=== PATIENT | female | born 1955 | race Caucasian/White ===

== ENCOUNTER 2020-05-13 03:11 | Emergency (ER) | payer MEDICARE, SELFPAY ==
[2020-05-13 03:24] VITALS: BP 107/85; PULSE 81; RESP 18; TEMP 36.8; O2SAT 100
--- NOTE | 2020-05-13 03:29 | ED.EXTPRO ---
HPI - Extremity Problem General Chief complaint: Extremity Problem,Nontraumatic Stated complaint: L hip Pain Time Seen by Provider: 05/13/20 03:15 Source: patient Mode of arrival: ambulatory Limitations: no limitations History of Present Illness HPI Narrative: A 65-year-old female comes into the emergency department with complaints of left hip pain secondary to a recent hip replacement. Patient states that it feels like the area around her sabrina is burning. She also notes exquisite pain in the hip. Patient states that her surgery was just done by Dr. Silveira over at [facility] just a week or so ago. Patient does note she took her [place] just prior to arrival and states that it has helped a little. Related Data Allergies Allergy/AdvReac Type Severity Reaction Status Date / Time Penicillins Allergy Mild Rash Verified 05/13/20 03:47 Sulfa (Sulfonamide AdvReac Mild NAUSEA Verified 05/13/20 03:47 Antibiotics) Review of Systems Review of Systems: Narrative: CONSTITUTIONAL: Denies fever, chills, or sweats. EYES: Denies visual changes, redness, or discharge. ENT: Denies rhinorrhea, congestion, sore throat, or otalgia. CARDIOVASCULAR: Denies chest pain, palpitations, or edema. RESPIRATORY: Denies cough or dyspnea. GASTROINTESTINAL: Denies abdominal pain, nausea, vomiting, or diarrhea. GENITOURINARY: Denies dysuria or hematuria. SKIN: Denies rash or itching. MUSCULOSKELETAL: Denies back pain, joint pain, or myalgia. Endorses left hip pain NEUROLOGIC: Denies headache, numbness, dizziness, or weakness. PSYCHIATRIC: Denies anxiety or depression. Exam Narrative: Exam Narrative: GENERAL: Well-appearing, well-nourished, and in no acute distress. HEAD: Normocephalic, atraumatic. EYES: PERRLA and EOMI. ENT: Nares clear, no rhinorrhea or epistaxis. Mucous membranes moist. NECK: Supple. No adenopathy or masses. No carotid bruits or JVD CHEST: Clear to auscultation. No respiratory distress. No wheezes rales or rhonchi HEART: Regular rate and rhythm. No murmur heard. Normal peripheral pulses. ABDOMEN: Soft, nontender, nondistended, normal active bowel sounds. EXTREMITIES: Normal range of motion. No edema. Surgical wound seen over the left hip, erythema and warmth to the touch is seen. Sabrina appear in good position. SKIN: Warm, dry, no rash. NEURO: No focal deficits. Alert and oriented x3. PSYCH: Normal mood and affect. Course Consultations Consultation #1: Discussed case with Dr. Silveira, the patient's surgeon. Described my concern for the patient's wound and the fact that I thought it may be getting infected. Dr. Silveira stated that he was aware of this wound and as I described it was consistent with what he had seen. He states that the patient did unfortunately have a reaction to some adhesive that was used after the surgery. He notes also that the patient is already currently taking antibiotics. He states that he would have the patient follow-up in his office tomorrow or as soon as possible. Time: 04:49 Vital Signs Vital signs: Vital Signs Temperature 36.8 C 05/13/20 03:24 Pulse Rate 81 05/13/20 03:24 Respiratory Rate 18 05/13/20 03:24 Blood Pressure 107/85 05/13/20 03:24 Pulse Oximetry 100 05/13/20 03:24 Temperature 36.8 C 05/13/20 03:24 Pulse Rate 81 05/13/20 03:24 Respiratory Rate 18 05/13/20 03:24 Blood Pressure 107/85 05/13/20 03:24 Pulse Oximetry 100 05/13/20 03:24 MDM - Extremity (Nontraumatic) MDM Narrative Medical decision making narrative: A 65-year-old female presents to the emergency department with complaints of postoperative pain. Patient initially presents with odd affect very anxious. She was treated for anxiety with some Ativan and pain medicine. My concern for this patient was that her surgical wound may be getting infected. There was a hyperemic area noted just to the posterior side of the patient's incision. Incision itself did appear good, no drainage no
[2020-05-13 03:54] LABS: Basophils Absolute Auto 0.1 K/mm3 (0.0-0.1); Basophils Percent Auto 0.7 % (0.2-1.2); Eosinophils Absolute Auto 0.1 K/mm3 (0-0.3); Eosinophils Percent Auto 1.4 % (0-4.4); Hematocrit 32.9 % (37.0-47.0); Hemoglobin 10.3 g/dL (12.0-15.0); Immature Granulocyte Absolute 0.46 K/mm3 (0.00-0.031); Lymphocytes Absolute Auto 1.25 K/mm3 (0.9-3.2); Lymphocytes Percent Auto 13.6 % (18.3-44.2); Mean Corpuscular HGB Conc 31.3 g/dl (32-36); Mean Corpuscular Hemoglobin 27.7 pg (26-34); Mean Corpuscular Volume 88.4 fl (80-100); Mean Platelet Volume 8.8 fl (7.4-10.4); Monocytes Absolute Auto 0.9 K/mm3 (0.1-0.6); Monocytes Percent Auto 9.9 % (2.6-8.5); Neutrophils Absolute Auto 6.4 K/mm3 (1.3-6.7); Neutrophils Percent Auto 69.4 % (45.5-73.1); Platelet Count Result 295 k/mm3 (150-375); Red Blood Count 3.72 M/mm3 (4.2-5.4); Red Cell Distribution Width 16.5 % (11.5-14.5); White Blood Count 9.2 K/mm3 (4.5-10.0)
[2020-05-13] MEDS: LORazepam INJ (*CRX) 2 MG/ML VIAL 1 MG IV PUSH (04:01)
[2020-05-13] MEDS: KETOROLAC 15 MG/ML VIAL (*BKC) IV PUSH (04:02)
[2020-05-13] MEDS: MORPHINE SULFATE (*CRX) 4 MG/ML INJ IV PUSH (04:02)
[2020-05-13] MEDS: CLINDAMYCIN HCL 150 MG CAP 450 MG PO (04:02)
[2020-05-13] MEDS: PHENAZOPYRIDINE HCL 100 MG TABLET 200 MG PO (04:03)
[2020-05-13 04:04] LABS: Anion Gap 4 mmol/L (8-16); Blood Urea Nitrogen 11 mg/dL (7-17); Calcium 8.8 mg/dL (8.4-10.2); Carbon Dioxide 31 mmol/L (22-30); Chloride 104 mmol/L (98-107); Estimated Glomerular Filt Rate > 60; Glucose 95 mg/dL (65-105); Potassium 4.1 mmol/L (3.4-5.0); Sodium 139 mmol/L (137-145)
[2020-05-13] MEDS: HYDROmorphone HCL INJ (*CRX) 1 MG/ML SYR IV PUSH (05:21)
--- NOTE | 2020-05-13 06:10 | PC.NURSE ---
lauro has arrived to take patient home to [facility]
[2020-05-13 06:15] VITALS: BP 101/54; PULSE 74; RESP 16; O2SAT 96
== END 2020-05-13 06:15 ==
PROVIDERS: Emergency Provider Emergency Medicine; PCP Internal Medicine
DX: G89.18 Other acute postprocedural pain (principal)
CPT/HCPCS: 36415; 80048; 85025; 96374; 96375; 99284; A9270; J1170; J1885; J2060; J2270

== ENCOUNTER 2020-11-18 07:44 | Outpatient (CLI) | payer MEDICARE, SELFPAY ==
--- NOTE | 2020-11-18 16:46 | WPDPFTINT ---
PFT Procedure Performed PFT Procedure Performed Spirometry with Pre/Post Bronchodilator Plethysmography (Lung Vol) Diffusing Cap (DLCO) Flow Vol Loop PFT Interpretation This is a pulmonary function test with pre and post-bronchodilator spirometry, plethysmography and diffusing capacity. The test was performed and results interpreted in accordance with the 2019 and 2005 ATS/ERS Task Force guidelines respectively using the Global Lung Function Initiative-2012 reference equations. Patient demonstrated good effort and cooperation. Reproducibility criteria were met. The quality of the pre bronchodilator spirometry maneuver was Grade A and post bronchodilator spirometry maneuver was Grade A. Findings: Spirometry: There is decreased maximal expiratory airflow at all lung volumes with concave expiratory flow tracing. The pre bronchodilator FVC is 1.84 L, 73% predicted. The pre bronchodilator FEV1 is 1.33 L, 67% predicted. The FEV1: FVC ratio 72%. The post bronchodilator FVC is 1.77 L, representing a 4% decrease. The post bronchodilator FEV1 is 1.33 L, representing no change. Plethysmography: The total lung capacity is 3.44 L, 80% predicted. The functional residual capacity is 1.85 L, 76% predicted. The residual volume is 1.60 L, 87% predicted. Diffusing capacity: The absolute diffusion capacity is 12.9, 68% predicted. The diffusing capacity corrected for alveolar volume is 4.75, 103% predicted. Impression: There is a moderate obstructive abnormality without significant improvement after inhaling a single dose of albuterol. The lung volumes are normal. The diffusing capacity is normal. There are no prior studies for comparison
== END 2020-11-18 07:45 | disposition home or self-care (01) ==
PROVIDERS: PCP Internal Medicine; Visit Provider Nurse Practitioner
DX: R06.09 Other forms of dyspnea (principal); R94.2 Abnormal results of pulmonary function studies
CPT/HCPCS: 94060; 94726; 94729

== ENCOUNTER 2022-07-07 01:45 | Day surgery (SDC) | payer MEDICARE, SELFPAY ==
[2022-05-31 11:26] VITALS: BMI 34.4
--- NOTE | 2022-06-07 15:39 | P.HP_ITS ---
History of Present Illness History of Present Illness Consent: Risks, benefits, and alternatives have been discussed and questions answered. Patient agrees to proceed with procedure. Chief complaint: neoplasm screening Narrative: Breonna Rousseau is a 67 year old female who was referred for colon cancer screening. Her last colonoscopy was about 7 years ago. PMFSH Social History Social History Smoking status: Never smoker Tobacco type: cigarettes Alcohol intake: current Substance use: never Substance use type: does not use Living arrangements: with family Spiritual care concerns: No Meds Home Medications and Allergies Home Medications Medication Instructions Recorded Confirmed Type albuterol sulfate 90 mcg/actuation 1 - 2 puff inhalation QID PRN 05/31/22 05/31/22 History aerosol inhaler Shortness Of Breath Or Wheezing atorvastatin 10 mg tablet 10 mg PO HS 05/31/22 05/31/22 History buspirone 30 mg tablet 30 mg PO BID 05/31/22 05/31/22 History diltiazem HCl 360 mg 360 mg PO HS 05/31/22 05/31/22 History capsule,extended release 24 hr disopyramide phosphate 150 mg 150 mg PO BID 05/31/22 05/31/22 History capsule duloxetine 60 mg capsule,delayed 60 mg PO BID 05/31/22 05/31/22 History release famotidine 40 mg tablet 40 mg PO HS 05/31/22 05/31/22 History fluticasone fur. 100 mcg-umeclid 1 inh inhalation DAILY 05/31/22 05/31/22 History 62.5 mcg-vilant 25 mcg inhalat.powder (Trelegy Ellipta) furosemide 40 mg tablet 40 mg PO DAILY 05/31/22 05/31/22 History gabapentin 600 mg tablet 600 mg PO TID 05/31/22 05/31/22 History hydrocodone 10 mg-acetaminophen 1 tablet PO TID PRN Pain 05/31/22 05/31/22 History 325 mg tablet methylphenidate HCl 20 mg tablet 20 mg PO BID 05/31/22 05/31/22 History metoprolol succinate 50 mg 50 mg PO HS 05/31/22 05/31/22 History tablet,extended release 24 hr omeprazole 20 mg capsule,delayed 20 mg PO DAILY 05/31/22 05/31/22 History release ropinirole 0.5 mg tablet 0.5 mg PO HS 05/31/22 05/31/22 History sertraline 100 mg tablet 100 mg PO BID 05/31/22 05/31/22 History Allergies Allergy/AdvReac Type Severity Reaction Status Date / Time Penicillins Allergy Mild Rash Verified 05/31/22 11:26 Sulfa (Sulfonamide AdvReac Mild NAUSEA Verified 05/31/22 11:26 Antibiotics) Assessment and Plan Assessment and plan (1) Colon cancer screening: Code(s): Z12.11 - Encounter for screening for malignant neoplasm of colon Status: Acute Assessment and Plan: Colonoscopy with possible biopsy or polypectomy or cautery or injection of sub stances.
--- NOTE | 2022-06-27 13:54 | PC.NURSE ---
pt denies changes in medical hx or medications since last PAT call. verified with pt new date and time of procedure. pt denies any questions.
--- NOTE | 2022-07-06 15:49 | PM.HPGS ---
History of Present Illness History of Present Illness Consent: Risks, benefits, and alternatives have been discussed and questions answered. Patient agrees to proceed with procedure. Chief complaint: neoplasm screening Narrative: Breonna Rousseau is a 67 year old female Who was referred for colon cancer screening. She has history of polyps. Review of Systems Review of Systems: All systems reviewed & are unremarkable except as noted in HPI and below PMFSH Social History Social History Smoking status: Never smoker Tobacco type: cigarettes Alcohol intake: current Substance use: never Substance use type: does not use Living arrangements: with family Spiritual care concerns: No Meds Home Medications and Allergies Home Medications Medication Instructions Recorded Confirmed Type albuterol sulfate 90 mcg/actuation 1 - 2 puff inhalation QID PRN 05/31/22 05/31/22 History aerosol inhaler Shortness Of Breath Or Wheezing atorvastatin 10 mg tablet 10 mg PO HS 05/31/22 05/31/22 History buspirone 30 mg tablet 30 mg PO BID 05/31/22 05/31/22 History diltiazem HCl 360 mg 360 mg PO HS 05/31/22 05/31/22 History capsule,extended release 24 hr disopyramide phosphate 150 mg 150 mg PO BID 05/31/22 05/31/22 History capsule duloxetine 60 mg capsule,delayed 60 mg PO BID 05/31/22 05/31/22 History release famotidine 40 mg tablet 40 mg PO HS 05/31/22 05/31/22 History fluticasone fur. 100 mcg-umeclid 1 inh inhalation DAILY 05/31/22 05/31/22 History 62.5 mcg-vilant 25 mcg inhalat.powder (Trelegy Ellipta) furosemide 40 mg tablet 40 mg PO DAILY 05/31/22 05/31/22 History gabapentin 600 mg tablet 600 mg PO TID 05/31/22 05/31/22 History hydrocodone 10 mg-acetaminophen 1 tablet PO TID PRN Pain 05/31/22 05/31/22 History 325 mg tablet methylphenidate HCl 20 mg tablet 20 mg PO BID 05/31/22 05/31/22 History metoprolol succinate 50 mg 50 mg PO HS 05/31/22 05/31/22 History tablet,extended release 24 hr omeprazole 20 mg capsule,delayed 20 mg PO DAILY 05/31/22 05/31/22 History release ropinirole 0.5 mg tablet 0.5 mg PO HS 05/31/22 05/31/22 History sertraline 100 mg tablet 100 mg PO BID 05/31/22 05/31/22 History Allergies Allergy/AdvReac Type Severity Reaction Status Date / Time Penicillins Allergy Mild Rash Verified 07/07/22 08:18 Sulfa (Sulfonamide AdvReac Mild NAUSEA Verified 07/07/22 08:18 Antibiotics) Exam Const: General: alert Orientation/consciousness: patient oriented x3 Resp: Auscultation: clear to auscultation bilaterally Cardio: Rhythm: regular rhythm GI: GI Palp: Yes Soft to palpation and No Tenderness to palpation present (GI) Neuro: General: patient oriented x3 Assessment and Plan Assessment and plan (1) Colon cancer screening: Code(s): Z12.11 - Encounter for screening for malignant neoplasm of colon Status: Acute Assessment and Plan: Colonoscopy with possible biopsy or polypectomy or cautery or injection of substances.
[2022-07-07 08:20] VITALS: BP 156/57; PULSE 72; RESP 20; TEMP 36.4; O2SAT 97
[2022-07-07] MEDS: LACTATED RINGERS 1,000 ML 150 ML IV CONT (08:30)
--- NOTE | 2022-07-07 08:52 | WPDANESEPPF ---
Anes - Initial Pre Proc Eval Procedure: Operation Date: 07/07/22 09:00 Proposed Procedures p Colonoscopy - Hermilo Newton MD Date/Time: 07/07/22 08:52 Surgeon: Hermilo Newton MD Pre Op Diagnosis: neoplasm screening Patient Data Age: 67 Gender: F Height: 1.5 m Weight: 75.9 kg Last Vital Signs Temp 97.5 F L 07/07/22 08:20 Pulse 72 07/07/22 08:20 Resp 20 07/07/22 08:20 BP 156/57 H 07/07/22 08:20 Pulse Ox 97 07/07/22 08:20 O2 Del Method Room Air 07/07/22 08:20 Allergies Allergy/AdvReac Type Severity Reaction Status Date / Time Penicillins Allergy Mild Rash Verified 07/07/22 08:18 Sulfa (Sulfonamide AdvReac Mild NAUSEA Verified 07/07/22 08:18 Antibiotics) Home Medications Medication Instructions Recorded Confirmed Type albuterol sulfate 90 mcg/actuation 1 - 2 puff inhalation QID PRN 05/31/22 05/31/22 History aerosol inhaler Shortness Of Breath Or Wheezing atorvastatin 10 mg tablet 10 mg PO HS 05/31/22 05/31/22 History buspirone 30 mg tablet 30 mg PO BID 05/31/22 05/31/22 History diltiazem HCl 360 mg 360 mg PO HS 05/31/22 05/31/22 History capsule,extended release 24 hr disopyramide phosphate 150 mg 150 mg PO BID 05/31/22 05/31/22 History capsule duloxetine 60 mg capsule,delayed 60 mg PO BID 05/31/22 05/31/22 History release famotidine 40 mg tablet 40 mg PO HS 05/31/22 05/31/22 History fluticasone fur. 100 mcg-umeclid 1 inh inhalation DAILY 05/31/22 05/31/22 History 62.5 mcg-vilant 25 mcg inhalat.powder (Trelegy Ellipta) furosemide 40 mg tablet 40 mg PO DAILY 05/31/22 05/31/22 History gabapentin 600 mg tablet 600 mg PO TID 05/31/22 05/31/22 History hydrocodone 10 mg-acetaminophen 1 tablet PO TID PRN Pain 05/31/22 05/31/22 History 325 mg tablet methylphenidate HCl 20 mg tablet 20 mg PO BID 05/31/22 05/31/22 History metoprolol succinate 50 mg 50 mg PO HS 05/31/22 05/31/22 History tablet,extended release 24 hr omeprazole 20 mg capsule,delayed 20 mg PO DAILY 05/31/22 05/31/22 History release ropinirole 0.5 mg tablet 0.5 mg PO HS 05/31/22 05/31/22 History sertraline 100 mg tablet 100 mg PO BID 05/31/22 05/31/22 History Patient hx anesthesia problems: none Family hx anesthesia problems: none Results Review: All pre-operative results and documents have been reviewed as part of the pre-operative evaluation. [facility] Social History Social History Smoking status: Never smoker Tobacco type: cigarettes Alcohol intake: current Substance use: never Substance use type: does not use Living arrangements: with family Spiritual care concerns: No Anes - Eval Final PreProcedure Day of Procedure 07/07/22 08:52 Patient weight: obese Heart: regular rate and rhythm Lungs: clear to auscultation Airway: Mallampati scale class III Neurological: alert and oriented Last oral intake: >/= 8 hours ASA classification: III Emergent: no Anesthetic plan: proceed Anesthesia type and monitoring: general GIVS and standard monitoring Results Review: All pre-operative results and documents have been reviewed as part of the pre-operative evaluation. Informed Consent: The patient's anesthetic plan and its attendant risks and benefits were discussed with the patient/family/POA. Questions were solicited and answers provided to the satisfaction of the patient/family/POA.
[2022-07-07 09:38] VITALS: BP 99/75; PULSE 77; RESP 21; O2SAT 94
[2022-07-07 09:48] VITALS: BP 109/63; PULSE 75; RESP 22; O2SAT 96
[2022-07-07 09:58] VITALS: BP 111/58; PULSE 73; RESP 22; O2SAT 95
== END 2022-07-07 10:08 | disposition home or self-care (01) ==
PROVIDERS: PCP Internal Medicine; Visit Provider Internal Medicine Gastroenterology
PROC: 0DJD8ZZ Inspection of Lower Intestinal Tract, Via Natural or Artificial Opening Endoscopic (ICD-10-PCS; CPT 45378; principal; 2022-07-07 09:00)
DX: Z12.11 Encounter for screening for malignant neoplasm of colon (principal); D12.3 Benign neoplasm of transverse colon; D12.4 Benign neoplasm of descending colon; Z79.51 Long term (current) use of inhaled steroids; E66.9 Obesity, unspecified; Z68.33 Body mass index [BMI] 33.0-33.9, adult
CPT/HCPCS: 45380; 45385; 45381; 88305; J2704; J3370; J7120

== ENCOUNTER 2022-10-11 17:18 | Observation (INO) | payer MEDICARE, SELFPAY ==
--- NOTE | ~2022-10-11 | XR_ITS ---
AP and lateral views of the left hip Clinical history: Pain Findings: No acute fracture or dislocation is seen. Left hip arthroplasty is in place. There is heter otopic ossification lateral to the left hip. Impression: No definite acute abnormality seen. Left hip arthroplasty in place. Heterotopic ossification, likely chronic. Reviewed, dictated and finalized at [facility]. Impression: No definite acute abnormality seen. Left hip arthroplasty in place. Heterotopic ossification, likely chronic.
--- NOTE | ~2022-10-11 | XR_ITS ---
EXAMINATION: XR chest 2V 10/11/2022 17:47 INDICATION: Chest pain. Syncope. PROCEDURE: PA and lateral views of the chest COMPARISON: No prior studies for comparison. FINDINGS: The lungs are clear. The cardiomediastinal silhouette is within normal limits. There are no pleural effusions. There is no pneumothorax suspected. There are spinal stimulator leads overlyi ng the mid thoracic spine. IMPRESSION: 1: NO ACUTE CARDIOPULMONARY DISEASE. Reviewed, dictated and finalized at location A.
--- NOTE | ~2022-10-11 | XR_ITS ---
Left Knee Technique: AP, lateral, and oblique views were obtained. Clinical History: Pain Findings: No fracture or dislocation is seen. Osseous alignment is anatomic. Joint spaces are preserv ed without degenerative or erosive change. Soft tissues are unremarkable. No joint effusion is seen. Impression: Unremarkable left knee radiographs. Reviewed, dictated and finalized at location . Impression: Unremarkable left knee radiographs.
--- NOTE | ~2022-10-11 | US_ITS ---
EXAMINATION: US carotid duplex BI DATE: 10/12/2022 15:47 INDICATION: Syncope. Carotid atherosclerosis. TECHNIQUE: Grayscale, color Doppler, and pulsed Doppler images of the cervical carotid arteries were obtained. The degree of vessel stenosis is placed in one of the following categories: normal, <50%, 5 0-69%, >=70% but less than near-occlusion, near-occlusion, or total occlusion. Note that percent sten osis relative to normal distal artery lumen diameter is indirectly measured from velocity measurement s as described by Waqar, et al. Radiology 2003; 229:340-346. COMPARISON: None. FINDINGS: RIGHT: The right common carotid artery (CCA) peak systolic velocity (PSV) is 79 cm/s. The right internal car otid artery (ICA) PSV is 56 cm/s. The right ICA end-diastolic velocity (EDV) is 17 cm/s. The right IC A/CCA PSV ratio is 0.7. Grayscale and color Doppler images yield an estimate of <50% diameter reducti on from plaque in the ICA. The external carotid artery (ECA) PSV is 85 cm/s. There is antegrade flow in the right vertebral artery. LEFT: The left CCA PSV is 107 cm/s. The left ICA PSV is 54 cm/s. The left ICA EDV is 16 cm/s. The left ICA/ CCA PSV ratio is 0.5. Grayscale and color Doppler images yield an estimate of <50% diameter reduction from plaque in the ICA. The ECA PSV is 78 cm/s. There is antegrade flow in the left vertebral artery . IMPRESSION: 1. <50% stenosis in the right internal carotid artery. 2. <50% stenosis in the left internal carotid artery. Reviewed, dictated and finalized at location A.
--- NOTE | ~2022-10-11 | CT_ITS ---
EXAMINATION: CT cervical spine wo con DATE: 10/11/2022 18:19 INDICATION: Neck pain TECHNIQUE: Computed tomography (CT) of the cervical spine was performed without intravenous contrast. The dose-length product was 481 mGy-cm. Automated exposure control and iterative reconstruction tech nique were employed. COMPARISON: No prior studies for comparison. FINDINGS: Craniovertebral junction is normal. Odontoid process is normal. There is degenerative anter olisthesis at C3-4 and retrolisthesis at C4-5 and C5-6. There is disc narrowing at C4-5 and C5-6. The re is moderate multilevel uncinate hypertrophy. There is a small sclerotic lesion of C4, likely benig n bone island. Lung apices are unremarkable. No acute fracture or traumatic malalignment. No signific ant paraspinal soft tissue abnormality. IMPRESSION: 1. No acute fracture. Reviewed, dictated and finalized at location A. IMPRESSION: 1. No acute fracture.
--- NOTE | ~2022-10-11 | CT_ITS ---
EXAMINATION: CT brain wo con DATE: 10/11/2022 18:18 INDICATION: Head injury. TECHNIQUE: Computed tomography (CT) of the head was performed without intravenous contrast. The dose- length product was 605.33 mGy-cm. Automated exposure control and iterative reconstruction technique w ere employed. COMPARISON: None FINDINGS: No acute intracranial hemorrhage, infarction, mass or mass effect. No ventriculomegaly or m idline shift. There are scattered mild periventricular and subcortical white matter changes, most lik malick related to small vessel ischemic disease (microangiopathy). Mild generalized atrophy. There are d ural calcifications along the interhemispheric fissure. There is intracranial atherosclerosis. Parana sg sinuses demonstrate mucosal thickening of the maxillary, ethmoid sinuses, likely chronic. IMPRESSION: 1. No acute intracranial abnormality. 2: Moderate sinus disease, likely chronic. Reviewed, dictated and finalized at location A.
--- NOTE | ~2022-10-11 | CT_ITS ---
EXAMINATION: CTA chest PE protocol DATE: 10/11/2022 19:18 CDT INDICATION: Syncope. Chest pain. TECHNIQUE: Computed tomographic angiography (CTA) of the chest was performed with 100 mL Omnipaque-35 0 intravenous contrast. The dose-length product was 359.40 mGy-cm. Maximum intensity projection 3D-re constructions of the aorta and other arteries were constructed by the technologist on a separate work station. Automated exposure control and iterative reconstruction technique were employed. COMPARISON: Chest x-ray dated 10/11/2022. FINDINGS: There is central enlargement of the pulmonary arteries consistent with pulmonary hypertensi on. No evidence for pulmonary embolism. Cardiomegaly. No significant pleural or pericardial effusion. Mild atherosclerosis of the aorta and coronary arteries. The upper abdomen is unremarkable. There is dependent atelectasis. No endobronchial lesions. No focal airspace consolidation. No pulmonary nodul es or masses. IMPRESSION: 1. No acute cardiopulmonary disease. No evidence for pulmonary embolism. 2: Pulmonary arterial hypertension. 3: Cardiomegaly. Reviewed, dictated and finalized at location A.
--- NOTE | ~2022-10-11 | CT_ITS ---
EXAMINATION: CT thoracic spine wo con DATE: 10/11/2022 18:23 INDICATION: Back pain TECHNIQUE: Computed tomography (CT) of the thoracic spine was performed without intravenous contrast. The dose-length product was 892.05 mGy-cm. Automated exposure control and iterative reconstruction t echnique were employed. COMPARISON: None FINDINGS: There is mild-moderate multilevel degenerative disc disease. There are spinal stimulator le ads extending superiorly to the T7-8 level. There is mild chronic wedge compression deformities of T7 and T8. No acute fracture or traumatic malalignment. Transverse processes are normal. Visualized magan g parenchyma is unremarkable. IMPRESSION: 1. No acute abnormality of the thoracic spine. Reviewed, dictated and finalized at location A.
--- NOTE | 2022-10-11 17:20 | ECG_ITS ---
Measurements Intervals [place] Rate: 74 P: 13 FL: 248 QRS: 15 QRSD: 88 T: 20 QT: 401 QTc: 446 Interpretive Statements SINUS RHYTHM WITH FIRST DEGREE AV BLOCK EARLY PRECORDIAL R/S TRANSITION CONSIDER INFERIOR INFARCT, AGE INDETERMINATE BASELINE ARTIFACT- I, II, AVR, AVF ABNORMAL ECG NO PREVIOUS ECG AVAILABLE FOR COMPARISON Electronically Signed On 10-12-2022 6:57:04 CDT by Pierre Mcnair D.O.
[2022-10-11 17:28] VITALS: BP 121/55; PULSE 74; RESP 20; TEMP 36.9; O2SAT 98
[2022-10-11 17:53] LABS: Basophils Percent Auto 0.5 % (0.2-1.2); Eosinophils Absolute Auto 0.2 K/mm3 (0-0.3); Eosinophils Percent Auto 2.2 % (0-4.4); Hematocrit 30.8 % (37.0-47.0); Hemoglobin 8.9 g/dL (12.0-15.0); Immature Granulocyte Absolute 0.06 K/mm3 (0.00-0.031); Immature Granulocyte Percent A 0.7 % (0-0.5); Lymphocytes Absolute Auto 1.86 K/mm3 (0.9-3.2); Lymphocytes Percent Auto 21.6 % (18.3-44.2); Mean Corpuscular HGB Conc 28.9 g/dl (32-36); Mean Corpuscular Hemoglobin 27.5 pg (26-34); Mean Corpuscular Volume 95.1 fl (80-100); Mean Platelet Volume 9.5 fl (7.4-10.4); Monocytes Percent Auto 11.4 % (2.6-8.5); Neutrophils Absolute Auto 5.5 K/mm3 (1.3-6.7); Neutrophils Percent Auto 63.6 % (45.5-73.1); Platelet Count Result 217 k/mm3 (150-375); Red Blood Count 3.24 M/mm3 (4.2-5.4); Red Cell Distribution Width 14.8 % (11.5-14.5); White Blood Count 8.6 K/mm3 (4.5-10.0)
[2022-10-11 18:04] LABS: Partial Thromboplastin Time 22.3 SECONDS (22.3-36.8); Prothrombin Time 13.8 Seconds (11.1-14.7)
--- NOTE | 2022-10-11 18:07 | ED.CHESTPAIN ---
HPI - Chest Pain General Chief Complaint: Chest Pain Stated Complaint: cp, syncopal episodes Time Seen by Provider: 10/11/22 17:38 History of Present Illness HPI narrative: 67-year-old female with history of cardiomyopathy presented the emergency department for evaluation after having multiple syncopal episodes. Patient reports she has had left-sided chest pain for the last 2 weeks. Patient states she has had 4 syncopal episodes over the last day or so. Patient did strike her head. Patient complains of neck and back pain. Patient also has bruises of multiple stages on her chest back and legs. Related Data Home Medications Medication Instructions Recorded Confirmed albuterol sulfate 90 mcg/actuation 1 - 2 puff inhalation QID PRN 05/31/22 10/11/22 aerosol inhaler Shortness Of Breath Or Wheezing atorvastatin 10 mg tablet 10 mg PO HS 05/31/22 10/11/22 buspirone 30 mg tablet 30 mg PO BID 05/31/22 10/11/22 diltiazem HCl 360 mg 360 mg PO HS 05/31/22 10/11/22 capsule,extended release 24 hr disopyramide phosphate 150 mg 150 mg PO BID 05/31/22 10/11/22 capsule duloxetine 60 mg capsule,delayed 60 mg PO BID 05/31/22 10/11/22 release famotidine 40 mg tablet 40 mg PO HS 05/31/22 10/11/22 fluticasone fur. 100 mcg-umeclid 1 inh inhalation DAILY 05/31/22 10/11/22 62.5 mcg-vilant 25 mcg inhalat.powder (Trelegy Ellipta) furosemide 40 mg tablet 40 mg PO DAILY 05/31/22 10/11/22 gabapentin 600 mg tablet 600 mg PO TID 05/31/22 10/11/22 hydrocodone 10 mg-acetaminophen 1 tablet PO TID PRN Pain 05/31/22 10/11/22 325 mg tablet methylphenidate HCl 20 mg tablet 20 mg PO BID 05/31/22 10/11/22 metoprolol succinate 50 mg 50 mg PO HS 05/31/22 10/11/22 tablet,extended release 24 hr omeprazole 20 mg capsule,delayed 20 mg PO DAILY 05/31/22 10/11/22 release ropinirole 0.5 mg tablet 0.5 mg PO HS 05/31/22 10/11/22 sertraline 100 mg tablet 100 mg PO BID 05/31/22 10/11/22 Allergies Allergy/AdvReac Type Severity Reaction Status Date / Time Penicillins Allergy Mild Rash Verified 07/07/22 08:18 Sulfa (Sulfonamide AdvReac Mild NAUSEA Verified 07/07/22 08:18 Antibiotics) Review of Systems Review of Systems: All systems reviewed & are unremarkable except as noted in HPI and below PMFSH Social History Social History Smoking status: Never smoker Tobacco type: cigarettes Alcohol intake: former Substance use: never Substance use type: does not use Lack of Transportation: No Lack of Food: Never True Current Housing: I Have Housing Concerned About Future Housing: No Difficulty Paying Gas/Electric Bills: No Difficulty Paying for Meds: No Currently Unemployed: No Education: Decline to Answer Difficulty w/ Childcare or Family Care: No Living arrangements: with family Spiritual care concerns: No Exam Narrative: APPEARANCE: Well appearing, no pain, no distress, well-nourished. HEAD: normocephalic, atraumatic. EYES: PERRLA/EOMI, conjunctivae clear. NOSE: Normal no drainage EARS:TMS clear with good light reflex. THROAT: Pharynx clear, no exudate. NECK: Midline tenderness to palpation RESPIRATORY: Airway patent, respirations nonlabored. Clear to auscultation bilaterally, no rales, rhonchi, wheezing. CARDIOVASCULAR: Regular rate and rhythm without murmurs rubs or gallops. ABDOMINAL: Soft, nontender, nondistended, normal bowel sounds MUSCULOSKELETAL: Moves all extremities. Strength/ROM intact, No edema, No calf tenderness. NEURO: Alert. Cranial nerves II through XII intact. Good gait. Good coordination SKIN: Ecchymosis to left back legs and chest wall Course Course Emergency Course: 67-year-old female presented to the emergency department for evaluation after having chest pain and multiple syncopal episodes. Patient was afebrile with no leukocytosis but a stable hemoglobin of 8.9. Patient does have history of anemia and this is similar to her bas
[2022-10-11 18:31] LABS: Platelet Estimate Adequate (Adequate)
[2022-10-11 18:32] LABS: Anisocytosis 1+ (NORMAL); Basophilic Stippling 1+ (NORMAL); Hypochromasia 1+ (NORMAL); Schistocytes None Seen (NORMAL)
[2022-10-11 18:45] LABS: Alanine Aminotransferase 27 U/L (6-35); Albumin Level 4.3 g/dL (3.5-5.1); Alkaline Phosphatase 105 U/L (38-126); Anion Gap 11 mmol/L (8-16); Aspartate Amino Transferase 29 U/L (14-36); Bilirubin,Total 0.5 mg/dL (0.2-1.3); Blood Urea Nitrogen 22 mg/dL (7-17); Calcium 9.1 mg/dL (8.4-10.2); Carbon Dioxide 27 mmol/L (22-30); Chloride 102 mmol/L (98-107); Estimated Glomerular Filt Rate 45; Glucose 108 mg/dL (65-110); Lipase 116 U/L (23-300); Potassium 4.4 mmol/L (3.4-5.0); Sodium 140 mmol/L (137-145)
[2022-10-11 18:51] LABS: Troponin I < 0.012 ng/mL (0.000-0.034)
--- NOTE | 2022-10-11 19:12 | PM.IMHP ---
H&P: HPI History of Present Illness Date/Time: 10/11/22 19:15 Chief Complaint: Chest pain, syncope. Narrative: This is a pleasant 67-year-old female with reports of hypertrophic cardiomyopathy, restless leg syndrome, hypertension, chronic obstructive pulmonary disease hyperlipidemia, and GERD who presented to the emergency department for evaluation of chest pain and syncope. The patient provides the following history. She reports intermittent left-sided chest pain over the past 2 weeks. The pain does not radiate and she sees no pattern as to when it occurs. She has difficulties describing the pain and she has not noticed any significant aggravating or alleviating factors. It is self-limiting and does not last long enough for her to take analgesics. She also reports having several falls over the past 2 weeks and 4 syncopal episodes in the same time frame. At times it sounds as though she has a prodrome where she feels weak in the legs but she has had 2 brief episodes of loss of consciousness without warning. Luckily she did not sustain any significant injuries but she does complain of pain in her left knee and hip. She has bruising in multiple stages of healing on her chest, back, and extremities. She was previously evaluated for these complaints at [facility] last Monday however she left due to the weight. On her patient portal she noted that her EKG showed a new finding of first-degree AV block and she decided to come back in today for evaluation. [facility] Past Medical History Medical History (Updated 10/11/22 @ 22:57 by Radha Marlow PA-C) Chronic anemia Chronic obstructive pulmonary disease History of MRSA infection Hyperlipidemia Hypertension Hypertrophic obstructive cardiomyopathy Neurostimulator device in situ Obstructive sleep apnea Intolerant to CPAP. 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 History of bladder suspension procedure History of colonoscopy with polypectomy History of hysterectomy History of nasal septoplasty History of sinus surgery History of spinal surgery Family History Family History (Updated 10/11/22 @ 22:54 by Radha Marlow PA-C) Other Cancer Social History Social History (Updated 10/11/22 @ 22:56 by Radha Marlow PA-C) Social History: Surrogate medical decision maker: Lincoln Rousseau, spouse. Code status: Full code. Smoking status: Never smoker Alcohol intake: former Substance use: never Substance use type: does not use Lack of Transportation: No Lack of Food: Never True Current Housing: I Have Housing Concerned About Future Housing: No Difficulty Paying Gas/Electric Bills: No Difficulty Paying for Meds: No Currently Unemployed: No Education: Decline to Answer Difficulty w/ Childcare or Family Care: No Living arrangements: with family Additional living arrangements comments: Lives with spouse in [place]. Spiritual care concerns: No Meds Home Medications and Allergies Home Medications Medication Instructions Recorded Confirmed Type albuterol sulfate 90 mcg/actuation 1 - 2 puff inhalation QID PRN 05/31/22 10/11/22 History aerosol inhaler Shortness Of Breath Or Wheezing atorvastatin 10 mg tablet 10 mg PO HS 05/31/22 10/11/22 History buspirone 30 mg tablet 30 mg PO BID 05/31/22 10/11/22 History diltiazem HCl 360 mg 360 mg PO HS 05/31/22 10/11/22 History capsule,extended release 24 hr disopyramide phosphate 150 mg 150 mg PO BID 05/31/22 10/11/22 History capsule duloxetine 60 mg capsule,delayed 60 mg PO BID 05/31/22 10/11/22 History release famotidine 40 mg tablet 40 mg PO HS 05/31/22 10/11/22 History fluticasone fur. 100 mcg-umeclid 1 inh inhalatio
[2022-10-11 19:45] VITALS: PULSE 75; RESP 12; O2SAT 94
--- NOTE | 2022-10-11 20:01 | ADMGEN ---
This patient, Breonna Rousseau, was admitted to IMU Room 205-02. Patient/family oriented to hospital policies and general routines including ID bracelet, bed and alarms, visiting hours, pain management, procedures, bathroom and other care routines, personal items, smoking policy, room service/diet, and visiting hours. Information on how to activate the Rapid Response Team has been discussed. Patient/Family are encouraged to report perceived risks to care and to ask questions if they do not understand what they are told or what they should do.
[2022-10-11 20:13] VITALS: PULSE 78; RESP 20; O2SAT 92
[2022-10-11 20:23] VITALS: BP 134/63; PULSE 73; RESP 18; TEMP 36.3; O2SAT 97
[2022-10-11 22:00] VITALS: PULSE 77
[2022-10-12] VITALS (17 sets, daily range): BP systolic 96–134; BP diastolic 43–69; PULSE 69–96; RESP 18–20; TEMP 36.1–36.6; O2SAT 92–98
[2022-10-12] MEDS: rOPINIRole HCL 0.5 MG TABLET PO ×2 (00:39→20:49)
[2022-10-12] MEDS: HYDROcodone/acetaminophen (*CRX) 10-325 MG TABLET 1 TAB PO ×3 (00:40→20:53)
[2022-10-12] MEDS: FAMOTIDINE 20 MG TABLET 40 MG PO ×2 (00:40→20:48)
[2022-10-12] MEDS: ATORVASTATIN 10 MG TABLET PO ×2 (00:40→20:48)
[2022-10-12 01:18] LABS: Troponin I < 0.012 ng/mL (0.000-0.034)
[2022-10-12 04:54] LABS: Hematocrit 29.2 % (37.0-47.0); Hemoglobin 8.4 g/dL (12.0-15.0); Mean Corpuscular HGB Conc 28.8 g/dl (32-36); Mean Corpuscular Volume 93.9 fl (80-100); Mean Platelet Volume 9.2 fl (7.4-10.4); Platelet Count Result 178 k/mm3 (150-375); Red Blood Count 3.11 M/mm3 (4.2-5.4); Red Cell Distribution Width 14.8 % (11.5-14.5); White Blood Count 6.6 K/mm3 (4.5-10.0)
[2022-10-12 05:05] LABS: Anion Gap 9 mmol/L (8-16); Blood Urea Nitrogen 19 mg/dL (7-17); Calcium 8.6 mg/dL (8.4-10.2); Carbon Dioxide 26 mmol/L (22-30); Chloride 101 mmol/L (98-107); Estimated Glomerular Filt Rate > 60; Glucose 89 mg/dL (65-110); Magnesium 2.1 mg/dL (1.6-2.3); Potassium 4.3 mmol/L (3.4-5.0); Sodium 136 mmol/L (137-145)
--- NOTE | 2022-10-12 08:00 | ECHO_ITS ---
Patient Info Name: Breonna Rousseau Age: 67 years : 1955 Gender: Female Ht: 59 in Wt: 167 lbs BSA: 1.81 m2 HR: 81 bpm BP: 122 / 52 mmHg Heart Rhythm: Sinus Rhythm Technical Quality: Good Exam Date: 10/12/2022 9:09 AM Exam Location: [facility] Patient Status: Inpatient Admit Date: 10/11/2022 Staff Ordering Physician: Radha Marlow PA-C Bottom Finisher: Zenobia Moyer RDCS Attending Provider: Charlie Villagomez MD Referring Physician: Ele MKCEON; Exam Type: CA echo doppler color flow Study Info Indications - syncope/chest pain/hypertropic cardiomyopathy Complete two-dimensional, color flow and Doppler transthoracic echocardiogram is performed. Summary 1. Left ventricular chamber dimension is normal. 2. Left ventricular systolic function is hyperdynamic, estimated at 75-80. 3. There is moderate concentric left ventricular hypertrophy with sigmoid hypertrophy measured at 2.3 cm. Dynamic left ventricular outflow tract gradient consistent with hypertrophic cardiomyopathy. At rest, just below the aortic valve peak velocity 3.7 m/sec peak gradient 55 mmHg and with Valsalva increased to 5.9 m/sec and peak gradient of 139mmHg. Clinical correlation advised.. 4. The left ventricular diastolic function is grade I diastolic dysfunction. 5. There is no aortic valve stenosis. Left Ventricle Left ventricular chamber dimension is normal. Left ventricular systolic function is hyperdynamic, estimated at 75-80. There is moderate concentric left ventricular hypertrophy with sigmoid hypertrophy measured at 2.3 cm. Dynamic left ventricular outflow tract gradient consistent with hypertrophic cardiomyopathy. At rest, just below the aortic valve peak velocity 3.7 m/sec peak gradient 55 mmHg and with Valsalva increased to 5.9 m/sec and peak gradient of 139mmHg. Clinical correlation advised.. The left ventricular diastolic function is grade I diastolic dysfunction. Right Ventricle Right ventricular chamber dimension is normal. Right ventricular systolic function is normal. Left Atria Left atrial chamber dimension is mildly enlarged. Right Atria Right atrial chamber dimension is normal. Aortic Valve The aortic valve is probable trileaflet. There is mild aortic valve sclerosis. There is no aortic valve stenosis. There is no aortic valve regurgitation. Pulmonic Valve The pulmonic valve is not well visualized. Mitral Valve The mitral valve has normal leaflets. There is trace mitral valve regurgitation. The mitral valve annulus is mildly calcified. Tricuspid Valve The tricuspid valve leaflets are normal. There is mild tricuspid valve regurgitation. No pulmonary hypertension, estimated pulmonary arterial systolic pressure is 30 mmHg. Pericardium/Pleural The pericardium appears normal. There is small pericardial effusion. Inferior Vena Cava Normal inferior vena cava with >50% collapse upon inspiration consistent with normal right atrial pressure, 5 mmHg. Aorta The aortic root size at the sinus of Valsalva is normal. There is mild aortic atherosclerosis. Left Ventricular Outflow Tract Name Value Normal LVOT 2D LVOT Diameter 1.7 cm LVOT Doppler LVOT Peak Gradient 31 mmHg
[2022-10-12] MEDS: FLUTICASONE/UMECLIDIN/VILANTER 100-62.5-25 MCG ELLIPTA 1 PUFF INHALATION (08:16)
[2022-10-12] MEDS: SERTRALINE HCL 50 MG TABLET 100 MG PO ×2 (08:58→20:50)
[2022-10-12] MEDS: PANTOPRAZOLE 40 MG TABLET PO (08:58)
--- NOTE | 2022-10-12 09:34 | PM.CNCAR ---
Assessment and Plan Assessment and plan (1) Hypertrophic obstructive cardiomyopathy: Code(s): I42.1 - Obstructive hypertrophic cardiomyopathy Status: Acute Assessment and Plan: Patient has a documented history of hypertrophic cardiomyopathy per her private marine surveyor Dr. Villagomez. Previous reported resting outflow tract gradient 100 mm Hg and with Valsalva 180 mm Hg. Echo at bedside this admission 55 mm Hg resting LVOT gradient and with Valsalva proximally 5.9m/s and 139 mmHg peak gradient. Avoid intravascular volume depletion, excessive hypotension, tachycardia. SVT will exacerbate intracavitary gradient increased risk for syncope and injury which may be catastrophic particular associated head injury. Ambulate with extreme caution. Rise slowly from seated position. Lower extremity compression stockings. Patient has been nearly maximized on AV duglas blocking agents including reports of disopyramide as an outpatient but with highly concerning progression of exertional dyspnea, chest pain and frequent recurrent episodes of near-syncope and syncope. We discussed the above concerns at great length with the patient, her , Dr. Villagomez, and her electrophysiology partner Dr. Guzman and potential need for ICD implantation for prevention of sudden cardiac . We discussed increased risk for sudden cardiac in light of syncope if related to ventricular arrhythmias but also contributions from outflow tract gradient, dehydration, medications as well. Patient reports exertional dyspnea and chest pain which may be related to relative myocardial strain due to outflow tract gradient and [place] with activity as she has documented normal coronary anatomy on [facility] 2020. She has also ruled out for myocardial infarction with negative serial troponins. (2) Recurrent syncope: Code(s): R55 - Syncope and collapse Status: Acute Assessment and Plan: Presentation with recurrent near-syncope and syncope very dangerous in highly concerning in light of established diagnosis of hypertrophic cardiomyopathy is at risk for sudden cardiac as cause. At as above, we discussed is all a great length. We discussed various management options in the importance of trying to discern more likely explanation for her symptoms and events this hospitalization. We discussed options including external teletypesetter monitor upon discharge if ventricular arrhythmias cannot be established as contribution, no other reversible cause could be noted, implantation of a loop recorder for longer term definitive monitoring for arrhythmia contribution, and or transfer to outside facility with electrophysiology consultative services and anticipation for ICD implantation. We discussed the importance a new onset establishing primary cause as we would not want to implant an ICD if hydration resolves majority of her symptoms by reducing left ventricular outflow tract gradient severity. -orthostatic vital signs are as follows: supine 131/43mmHg sitting 112/59mmHg standing 96/69mmHg. Given her degree of orthostatic hypotension while would like to continue metoprolol and diltiazem I recommend resumption at Toprol XL 50 mg daily and hold off on diltiazem at this time. -furosemide discontinued due to risk for worsening intravascular volume depletion, exacerbation of orthostasis and increased risk for recurrent positional near-syncope and or syncope. -will give 500 cc normal saline 125 mL/hr and repeat orthostatic vital signs. -continue telemetry. If frequent PVCs, nonsustained VT and or VT particularly if associated with symptoms of dizziness, near syncope and/or syncope transferred to [facility] with electrophysiology consultation and ICD implantation due to high risk for sudden cardiac as explanation for recurrent syncope. At this time, etiology for syncope remains unknown. There are multiple considerations here including intravascular volume depletion, relative hyp
[2022-10-12] MEDS: SODIUM CHLORIDE 0.9% IV 1,000 ML 100 ML IV CONT (11:50)
[2022-10-12] MEDS: SODIUM CHLORIDE 0.9% IV 500 ML IV CONT (11:51)
[2022-10-12] MEDS: busPIRone HCL 10 MG TABLET 30 MG PO ×2 (11:58→16:55)
[2022-10-12] MEDS: GABAPENTIN 300 MG CAPSULE 600 MG PO ×2 (11:58→16:55)
[2022-10-12] MEDS: DULoxetine HCL 60 MG CAPSULE.DR PO ×2 (11:58→20:48)
[2022-10-12] MEDS: ASPIRIN 81 MG CHEWABLE TABLET PO (11:58)
--- NOTE | 2022-10-12 16:57 | WPDPN ---
Progress Note: A&P Assessment and Plan (1) Atypical chest pain: Code(s): R07.89 - Other chest pain Status: Acute (2) Syncope: Code(s): R55 - Syncope and collapse Status: Acute (3) Hypertrophic obstructive cardiomyopathy: Code(s): I42.1 - Obstructive hypertrophic cardiomyopathy Status: Acute (4) Normocytic anemia: Code(s): D64.9 - Anemia, unspecified Status: Acute (5) Renal failure: Code(s): N19 - Unspecified kidney failure Status: Acute (6) Chronic obstructive pulmonary disease: Qualifiers: COPD type: unspecified COPD Qualified Code(s): J44.9 - Chronic obstructive pulmonary disease, unspecified Code(s): J44.9 - Chronic obstructive pulmonary disease, unspecified Status: Acute (7) Hypertension: Qualifiers: Hypertension type: primary hypertension Qualified Code(s): I10 - Essential (primary) hypertension Code(s): I10 - Essential (primary) hypertension Status: Acute (8) Hyperlipidemia: Qualifiers: Hyperlipidemia type: mixed hyperlipidemia Qualified Code(s): E78.2 - Mixed hyperlipidemia Code(s): E78.5 - Hyperlipidemia, unspecified Status: Acute Plan The patient presented to the emergency department for evaluation of chest pain and syncope as detailed in HPI. Labs, imaging, EKG, and all reports were personally reviewed. Her chest pain seems atypical and her initial troponin was negative. Given her comorbidities she is being admitted to rule out acute coronary syndrome. Troponins will be trended to peak. Echocardiogram has been ordered for further evaluation. Carotid Doppler ultrasounds also ordered given recurrent syncope. Cardiology has been consulted for their opinion due to her history of hypertrophic obstructive cardiomyopathy. She reports having chronic anemia and records have been requested from her doctor for review to help establish her baseline. She likely has chronic kidney disease as well and those records are also pending. Her blood pressures were reviewed and they have been stable. Check orthostatic vital signs to rule out that as a cause of her syncope. No acute issues with regards to her COPD. Her home medications will be reviewed and resumed as appropriate. 10/12/2022 interval history: paient with recurrent syncopal episode with history of hypertrophic cardiomyopathy, seen by caridologist and concerning for sudden cardiac with vetricular techycardia recommending implatation of loop recorder to monitor and defibrillator to prevent Vt and , patient also his dehydrated and hydrated as patient has orthostatic hypotension, patient is seen by documentation supervisor and futher recommendation to follow. Subjective Date/time seen: 10/12/22 16:57 Interval history: Chest pain, syncope. HPI-Narrative: This is a pleasant 67-year-old female with reports of hypertrophic cardiomyopathy, restless leg syndrome, hypertension, chronic obstructive pulmonary disease hyperlipidemia, and GERD who presented to the emergency department for evaluation of chest pain and syncope. The patient provides the following history. She reports intermittent left-sided chest pain over the past 2 weeks. The pain does not radiate and she sees no pattern as to when it occurs.? She has difficulties describing the pain and she has not noticed any significant aggravating or alleviating factors. It is self-limiting and does not last long enough for her to take analgesics. She also reports having several falls over the past 2 weeks and 4 syncopal episodes in the same time frame. At times it sounds as though she has a prodrome where she feels weak in the legs but she has had 2 brief episodes of loss of consciousness without warning. Luckily she did not sustain any significant injuries but she does complain of pain in her left knee and hip. She has bruising in multiple stages of healing on her chest, back, and extremities. She was previo
[2022-10-12] MEDS: METOPROLOL SUCCINATE EXT REL 50 MG TABCR PO (20:48)
[2022-10-12] MEDS: dilTIAZem HCL CD 180 MG CAP.24HR 360 MG PO (20:48)
[2022-10-12] MEDS: SODIUM CHLORIDE 0.9% IV 1,000 ML 125 ML IV CONT (23:08)
[2022-10-13] VITALS (13 sets, daily range): BP systolic 111–135; BP diastolic 41–62; PULSE 60–80; RESP 16–18; TEMP 36.2–36.8; O2SAT 90–98
[2022-10-13 03:36] LABS: Appearance Urine Clear (Clear); Bacteria Urine None Seen /hpf; Bilirubin Urine Negative (Negative); Blood Urine Negative (Negative); Color Urine Yellow (Yellow); Glucose Urine UA Negative (Negative); Ketones Urine Negative (Negative); Leukocyte Esterase Ur Trace LEU/UL (NEGATIVE); Nitrate Urine Negative (Negative); Non Pathogenic Casts 0-2; Protein Urine Negative (Negative); RBC Urine 0-2 /hpf (0-2); Specific Grav Ur 1.012 (1.001-1.035); Squamous Epithelial Cell Urine None seen /hpf (Few); Urobilinogen Urine 0.2 mg/dL (<2.0); WBC Urine 0-5 /hpf (0-3)
[2022-10-13 04:21] LABS: Add Urine Microscopic? YES
[2022-10-13] MEDS: SODIUM CHLORIDE 0.9% IV 1,000 ML 125 ML IV CONT (06:38)
[2022-10-13] MEDS: FLUTICASONE/UMECLIDIN/VILANTER 100-62.5-25 MCG ELLIPTA 1 PUFF INHALATION (08:10)
--- NOTE | 2022-10-13 09:25 | PM.PNCARD ---
Progress Note: A&P Assessment and Plan (1) Hypertrophic obstructive cardiomyopathy: Code(s): I42.1 - Obstructive hypertrophic cardiomyopathy Status: Acute Assessment and Plan: Patient has a documented history of hypertrophic cardiomyopathy per her private mosaic tile maker Dr. Villagomez. Previous reported resting outflow tract gradient 100 mm Hg and with Valsalva 180 mm Hg. Echo at bedside this admission 55 mm Hg resting LVOT gradient and with Valsalva proximally 5.9m/s and 139 mmHg peak gradient. Avoid intravascular volume depletion, excessive hypotension, tachycardia. SVT will exacerbate intracavitary gradient increased risk for syncope and injury which may be catastrophic particular associated head injury. Ambulate with extreme caution. Rise slowly from seated position. Lower extremity compression stockings. Patient has been nearly maximized on AV duglas blocking agents including reports of disopyramide as an outpatient but with highly concerning progression of exertional dyspnea, chest pain and frequent recurrent episodes of near-syncope and syncope. We discussed the above concerns at great length with the patient, her , Dr. Villagomez, and her electrophysiology partner Dr. Guzman and potential need for ICD implantation for prevention of sudden cardiac . We discussed increased risk for sudden cardiac in light of syncope if related to ventricular arrhythmias but also contributions from outflow tract gradient, dehydration, medications as well. Patient reports exertional dyspnea and chest pain which may be related to relative myocardial strain due to outflow tract gradient and [place] with activity as she has documented normal coronary anatomy on [facility] 2020. She has also ruled out for myocardial infarction with negative serial troponins. Patient with significant orthostatic hypotension yesterday appears to improve with IV fluids. Check orthostatic vital signs today and if she remains orthostatic will give additional IV fluids and monitor closely. Concern with regards to resumption of diltiazem 360 mg daily and metoprolol 50 mg daily with regards to relative hypotension and or concomitant orthostasis given recurrent near syncope and hypertrophic cardiomyopathy. Still questionable whether this is related to volume status versus ventricular arrhythmia as she does have occasional PVCs and ventricular bigeminy but no sustained or nonsustained VT thus far. We discussed at length once again. Will touch base with electrophysiology this morning. Observe very closely, ambulate with caution. (2) Recurrent syncope: Code(s): R55 - Syncope and collapse Status: Acute Assessment and Plan: Presentation with recurrent near-syncope and syncope very dangerous in highly concerning in light of established diagnosis of hypertrophic cardiomyopathy is at risk for sudden cardiac as cause. At as above, we discussed is all a great length. We discussed various management options in the importance of trying to discern more likely explanation for her symptoms and events this hospitalization. We discussed options including external monitor worker upon discharge if ventricular arrhythmias cannot be established as contribution, no other reversible cause could be noted, implantation of a loop recorder for longer term definitive monitoring for arrhythmia contribution, and or transfer to outside facility with electrophysiology consultative services and anticipation for ICD implantation. We discussed the importance a new onset establishing primary cause as we would not want to implant an ICD if hydration resolves majority of her symptoms by reducing left ventricular outflow tract gradient severity. -recheck orthostatic vital signs once again as directed. Monitor BP closely upon resumption of diltiazem and metoprolol. -continue to hold furosemide to minimize intravascular volume depletion. -she has a significant intracavitary gradient resting
[2022-10-13 09:55] LABS: Hematocrit 30.4 % (37.0-47.0); Hemoglobin 8.8 g/dL (12.0-15.0); Mean Corpuscular HGB Conc 28.9 g/dl (32-36); Mean Corpuscular Hemoglobin 27.5 pg (26-34); Mean Platelet Volume 9.3 fl (7.4-10.4); Platelet Count Result 183 k/mm3 (150-375); Red Cell Distribution Width 14.5 % (11.5-14.5); White Blood Count 5.5 K/mm3 (4.5-10.0)
[2022-10-13] MEDS: PANTOPRAZOLE 40 MG TABLET PO (09:57)
[2022-10-13] MEDS: GABAPENTIN 300 MG CAPSULE 600 MG PO ×3 (09:57→17:11)
[2022-10-13] MEDS: DULoxetine HCL 60 MG CAPSULE.DR PO (09:57)
[2022-10-13] MEDS: busPIRone HCL 10 MG TABLET 30 MG PO ×2 (09:57→17:11)
[2022-10-13] MEDS: ASPIRIN 81 MG CHEWABLE TABLET PO (09:57)
[2022-10-13] MEDS: SERTRALINE HCL 50 MG TABLET 100 MG PO (09:57)
[2022-10-13 10:15] LABS: Anion Gap 7 mmol/L (8-16); Blood Urea Nitrogen 11 mg/dL (7-17); Calcium 8.7 mg/dL (8.4-10.2); Carbon Dioxide 29 mmol/L (22-30); Chloride 103 mmol/L (98-107); Estimated Glomerular Filt Rate > 60; Glucose 122 mg/dL (65-110); Potassium 4.2 mmol/L (3.4-5.0); Sodium 139 mmol/L (137-145)
--- NOTE | 2022-10-13 16:40 | PM.DS ---
DS: Admitting Diagnosis Discharge Date 10/13/2022 Admitting Diagnosis Chest pain, syncope. DS: Discharge Diagnosis Discharge Diagnosis (1) Atypical chest pain: Code(s): R07.89 - Other chest pain Status: Acute (2) Syncope: Code(s): R55 - Syncope and collapse Status: Acute (3) Hypertrophic obstructive cardiomyopathy: Code(s): I42.1 - Obstructive hypertrophic cardiomyopathy Status: Acute (4) Normocytic anemia: Code(s): D64.9 - Anemia, unspecified Status: Acute (5) Renal failure: Code(s): N19 - Unspecified kidney failure Status: Acute (6) Chronic obstructive pulmonary disease: Qualifiers: COPD type: unspecified COPD Qualified Code(s): J44.9 - Chronic obstructive pulmonary disease, unspecified Code(s): J44.9 - Chronic obstructive pulmonary disease, unspecified Status: Acute (7) Hypertension: Qualifiers: Hypertension type: primary hypertension Qualified Code(s): I10 - Essential (primary) hypertension Code(s): I10 - Essential (primary) hypertension Status: Acute (8) Hyperlipidemia: Qualifiers: Hyperlipidemia type: mixed hyperlipidemia Qualified Code(s): E78.2 - Mixed hyperlipidemia Code(s): E78.5 - Hyperlipidemia, unspecified Status: Acute Plan The patient presented to the emergency department for evaluation of chest pain and syncope as detailed in HPI. Labs, imaging, EKG, and all reports were personally reviewed. Her chest pain seems atypical and her initial troponin was negative. Given her comorbidities she is being admitted to rule out acute coronary syndrome. Troponins will be trended to peak. Echocardiogram has been ordered for further evaluation. Carotid Doppler ultrasounds also ordered given recurrent syncope. Cardiology has been consulted for their opinion due to her history of hypertrophic obstructive cardiomyopathy. She reports having chronic anemia and records have been requested from her doctor for review to help establish her baseline. She likely has chronic kidney disease as well and those records are also pending. Her blood pressures were reviewed and they have been stable. Check orthostatic vital signs to rule out that as a cause of her syncope. No acute issues with regards to her COPD. Her home medications will be reviewed and resumed as appropriate. 10/12/2022 interval history: paient with recurrent syncopal episode with history of hypertrophic cardiomyopathy, seen by caridologist and concerning for sudden cardiac with vetricular techycardia recommending implatation of loop recorder to monitor and defibrillator to prevent Vt and , patient also his dehydrated and hydrated as patient has orthostatic hypotension, patient is seen by english professor and futher recommendation to follow. DS: Summary Hospital Course Reason for hospitalization: Chest pain, syncope. Narrative: This is a pleasant 67-year-old female with reports of hypertrophic cardiomyopathy, restless leg syndrome, hypertension, chronic obstructive pulmonary disease hyperlipidemia, and GERD who presented to the emergency department for evaluation of chest pain and syncope. The patient provides the following history. She reports intermittent left-sided chest pain over the past 2 weeks. The pain does not radiate and she sees no pattern as to when it occurs.? She has difficulties describing the pain and she has not noticed any significant aggravating or alleviating factors. It is self-limiting and does not last long enough for her to take analgesics. She also reports having several falls over the past 2 weeks and 4 syncopal episodes in the same time frame. At times it sounds as though she has a prodrome where she feels weak in the legs but she has had 2 brief episodes of loss of consciousness without warning. Luckily she did not sustain any significant injuries but she does complain of pain in her left knee and hip. She
== END 2022-10-13 17:21 | disposition home or self-care (01) ==
LOC: ANHED 18:09 → ANHIMU 10-13 10:47
PROVIDERS: Internal Medicine; Internal Medicine Cardiovascular Disease; Physician Assistant; Admitting Provider Hospitalist; Emergency Provider Emergency Medicine; PCP Internal Medicine; Visit Provider Family Medicine
DX: I42.1 Obstructive hypertrophic cardiomyopathy (principal); R55 Syncope and collapse; I49.3 Ventricular premature depolarization; R07.89 Other chest pain; D64.9 Anemia, unspecified; E78.5 Hyperlipidemia, unspecified; J44.9 Chronic obstructive pulmonary disease, unspecified; N19 Unspecified kidney failure; Z96.642 Presence of left artificial hip joint; S09.90XA Unspecified injury of head, initial encounter; S20.219A Contusion of unspecified front wall of thorax, initial encounter; S20.229A Contusion of unspecified back wall of thorax, initial encounter; S80.12XA Contusion of left lower leg, initial encounter; S80.11XA Contusion of right lower leg, initial encounter; M25.562 Pain in left knee; M25.552 Pain in left hip; I11.9 Hypertensive heart disease without heart failure; K21.9 Gastro-esophageal reflux disease without esophagitis; R29.6 Repeated falls; I44.0 Atrioventricular block, first degree; G25.81 Restless legs syndrome; I27.20 Pulmonary hypertension, unspecified; M54.2 Cervicalgia; M54.9 Dorsalgia, unspecified; R06.02 Shortness of breath; G47.33 Obstructive sleep apnea (adult) (pediatric); J32.9 Chronic sinusitis, unspecified; R94.31 Abnormal electrocardiogram [ECG] [EKG]; Z96.82 Presence of neurostimulator; Z79.51 Long term (current) use of inhaled steroids; Z79.891 Long term (current) use of opiate analgesic; Z79.899 Other long term (current) drug therapy
CPT/HCPCS: 36415; 70450; 71046; 71275; 72125; 72128; 73502; 73562; 80048; 80053; 81001; 83690; 83735; 84443; 84484; 85025; 85027; 85610; 85730; 93005; 93306; 93880; 94640; 96360; 96361; 99285; A9270; G0378; J7030; J7040; Q9967

== ENCOUNTER 2023-01-10 17:12 | Inpatient (IN) | payer MEDICARE, SELFPAY ==
[2023-01-10] VITALS (9 sets, daily range): BP systolic 125–149; BP diastolic 57–83; PULSE 69–83; RESP 16–22; TEMP 36.1–36.6; O2SAT 91–99; BMI 31.4
--- NOTE | ~2023-01-10 | XR_ITS ---
EXAMINATION: XR chest 1V portable INDICATION: Chest pain, COVID 19 positive TECHNIQUE: Portable AP chest at 0005 hours COMPARISON: 03/12/2023 FINDINGS: Cardiomegaly is noted. The lungs are free of acute opacities. No pleural effusion or pneumo thorax. Epidural electrodes are again noted. IMPRESSION: 1. Cardiomegaly. Reviewed, dictated and finalized at location F. IMPRESSION: 1. Cardiomegaly.
--- NOTE | ~2023-01-10 | XR_ITS ---
EXAMINATION: XR chest 1V portable Exam Date/Time: 01/15/2023 11:50 CDT HISTORY: SOB Comparison: 01/13/2023. RESULT: Lines, tubes, and devices: Stimulator leads project over the midthoracic spine. Lungs and pleura: Mild diffuse interstitial opacities, new since prior study. Cardiomediastinal silhouette: Stable. Other: No acute osseous or upper abdominal finding. IMPRESSION: Mild interstitial edema. Reviewed, dictated and finalized at location K. IMPRESSION: Mild interstitial edema.
--- NOTE | ~2023-01-10 | XR_ITS ---
EXAMINATION: XR chest 2V DATE: 01/10/2023 17:38 INDICATION: Shortness of breath. Cough and fever. TECHNIQUE: Frontal and lateral views of the chest were obtained. COMPARISON: Chest 2 views 10/11/2022, chest CT 10/11/2022 FINDINGS: There is mild atelectasis at the lung bases. No pleural effusion or pneumothorax. Cardiomeg kaiser is noted. Epidural electrodes are noted IMPRESSION: 1. Mild atelectasis at the lung bases. 2. Cardiomegaly. Reviewed, dictated and finalized at location E.
--- NOTE | 2023-01-10 17:18 | ECG_ITS ---
Measurements Intervals [place] Rate: 72 P: -11 IA: 221 QRS: 5 QRSD: 93 T: 14 QT: 443 QTc: 487 Interpretive Statements SINUS RHYTHM WITH FIRST DEGREE AV BLOCK COMPARED TO ECG 10/11/2022 17:26:16 NO SIGNIFICANT CHANGES Electronically Signed On 01-10-2023 20:02:21 CDT by Elizabeth Duque M.D.
[2023-01-10 17:40] LABS: Basophils Percent Auto 0.4 % (0.2-1.2); Eosinophils Absolute Auto 0.1 K/mm3 (0-0.3); Eosinophils Percent Auto 1.3 % (0-4.4); Hematocrit 29.9 % (37.0-47.0); Hemoglobin 8.6 g/dL (12.0-15.0); Immature Granulocyte Absolute 0.06 K/mm3 (0.00-0.031); Immature Granulocyte Percent A 1.1 % (0-0.5); Lymphocytes Absolute Auto 1.53 K/mm3 (0.9-3.2); Mean Corpuscular HGB Conc 28.8 g/dl (32-36); Mean Corpuscular Hemoglobin 26.1 pg (26-34); Mean Corpuscular Volume 90.9 fl (80-100); Mean Platelet Volume 9.7 fl (7.4-10.4); Monocytes Absolute Auto 0.5 K/mm3 (0.1-0.6); Monocytes Percent Auto 9.9 % (2.6-8.5); Neutrophils Absolute Auto 3.1 K/mm3 (1.3-6.7); Neutrophils Percent Auto 58.3 % (45.5-73.1); Platelet Count Result 196 k/mm3 (150-375); Red Blood Count 3.29 M/mm3 (4.2-5.4); Red Cell Distribution Width 15.9 % (11.5-14.5); White Blood Count 5.3 K/mm3 (4.5-10.0)
[2023-01-10 17:52] LABS: Alanine Aminotransferase 33 U/L (6-35); Albumin Level 4.3 g/dL (3.5-5.1); Alkaline Phosphatase 103 U/L (38-126); Anion Gap 13 mmol/L (8-16); Aspartate Amino Transferase 34 U/L (14-36); Bilirubin,Total 0.6 mg/dL (0.2-1.3); Blood Urea Nitrogen 30 mg/dL (7-17); Calcium 8.8 mg/dL (8.4-10.2); Carbon Dioxide 22 mmol/L (22-30); Chloride 102 mmol/L (98-107); Estimated Glomerular Filt Rate 30; Glucose 113 mg/dL (65-110); Potassium 3.5 mmol/L (3.4-5.0); Sodium 137 mmol/L (137-145)
[2023-01-10 18:05] LABS: Hypochromasia 1+ (NORMAL); Platelet Estimate Adequate (Adequate); Poikilocytosis 1+ (NORMAL); Schistocytes None Seen (NORMAL)
[2023-01-10 18:22] LABS: NT Pro B Type Natriuretic Pept 638 pg/mL (19.9-100)
[2023-01-10] MEDS: SODIUM CHLORIDE 0.9% IV 1,000 ML 999 ML IV CONT (18:52)
[2023-01-10] MEDS: methylPREDNISolone SOD SUCC 125 MG VIAL IV PUSH (18:52)
[2023-01-10] MEDS: LEVALBUTEROL NEB 1.25 MG/3 ML 2.5 MG INHALATION (19:00)
[2023-01-10] MEDS: IPRATROPIUM BR 0.02% INH SOLN 0.5 MG/2.5 ML VIAL 1.5 MG INHALATION (19:00)
--- NOTE | 2023-01-10 19:02 | ED.SOB ---
HPI - SOB/Dyspnea General Chief Complaint: Shortness of Breath/Dyspnea <Margie Mendoza PA-C - Last Filed: 01/11/23 02:47> Stated Complaint: sob, wheezing <JOVANNI Albarado Last Filed: 01/11/23 02:47> Time Seen by Provider: 01/10/23 18:11 <JOVANNI Albarado Last Filed: 01/11/23 02:47> Source: patient <JOVANNI Albarado Last Filed: 01/11/23 02:47> Mode of arrival: ambulatory <JOVANNI Albarado Last Filed: 01/11/23 02:47> Limitations: no limitations <JOVANNI Albarado Last Filed: 01/11/23 02:47> History of Present Illness HPI Narrative: Patient is a 67-year-old female, with past medical history of COPD, presents to ED with report of shortness of breath. Patient reports she began feeling ill over the weekend. She reported having a fever on Monday and Monday, Tmax 101.8. She denies any fever since then. She has had cough, congestion, body aches, wheezing, and shortness of breath. She has been using her home inhalers, nebulizers, Trelegy without relief. She denies chest pain. Denies nausea, vomiting, abdominal pain. Denies known sick contacts. <JOVANNI Albarado Last Filed: 01/11/23 02:47> Related Data Home Medications: Home Medications Medication Instructions Recorded Confirmed albuterol sulfate 90 mcg/actuation 1 - 2 puff inhalation QID PRN 05/31/22 01/10/23 aerosol inhaler Shortness Of Breath Or Wheezing atorvastatin 10 mg tablet 10 mg PO HS 05/31/22 01/10/23 buspirone 30 mg tablet 30 mg PO BID 05/31/22 01/10/23 diltiazem HCl 360 mg 360 mg PO HS 05/31/22 01/10/23 capsule,extended release 24 hr disopyramide phosphate 150 mg 150 mg PO BID 05/31/22 01/10/23 capsule duloxetine 60 mg capsule,delayed 60 mg PO BID 05/31/22 01/10/23 release famotidine 40 mg tablet 40 mg PO HS 05/31/22 01/10/23 fluticasone fur. 100 mcg-umeclid 1 inh inhalation DAILY 05/31/22 01/10/23 62.5 mcg-vilant 25 mcg inhalat.powder (Trelegy Ellipta) gabapentin 600 mg tablet 600 mg PO TID 05/31/22 01/10/23 hydrocodone 10 mg-acetaminophen 1 tablet PO TID PRN Pain 05/31/22 01/10/23 325 mg tablet methylphenidate HCl 20 mg tablet 20 mg PO BID 05/31/22 01/10/23 metoprolol succinate 50 mg 50 mg PO HS 05/31/22 01/10/23 tablet,extended release 24 hr omeprazole 20 mg capsule,delayed 20 mg PO DAILY 05/31/22 01/10/23 release ropinirole 0.5 mg tablet 0.5 mg PO HS 05/31/22 01/10/23 sertraline 100 mg tablet 100 mg PO BID 05/31/22 01/10/23 <JOVANNI Albarado Last Filed: 01/11/23 02:47> Allergies/Adverse Reactions: Allergies Allergy/AdvReac Type Severity Reaction Status Date / Time Penicillins Allergy Mild Rash Verified 07/07/22 08:18 Sulfa (Sulfonamide AdvReac Mild NAUSEA Verified 07/07/22 08:18 Antibiotics) <JOVANNI Albarado Last Filed: 01/11/23 02:47> Review of Systems Review of Systems: CONSTITUTIONAL: See HPI. ENT: See HPI. CARDIOVASCULAR: Denies chest pain, palpitations, or edema. RESPIRATORY: See HPI. GASTROINTESTINAL: Denies abdominal pain, nausea, vomiting, or diarrhea. GENITOURINARY: Denies dysuria or hematuria. SKIN: Denies rash or itching. MUSCULOSKELETAL: Reports myalgia. NEUROLOGIC: Denies headache, numbness, or weakness. <JOVANNI Albarado Last Filed: 01/11/23 02:47> All systems reviewed & are unremarkable except as noted in HPI and below <JOVANNI Albarado Last Filed: 01/11/23 02:47> [facility] Past Medical History Medical History: Medical History Chronic anemia Chronic obstructive pulmonary disease History of MRSA infection Hyperlipidemia Hypertension Hypertrophic obstructive cardiomyopathy Neurostimulator device in situ Obstructive sleep apnea Intolerant to CPAP. <Margie Mendoza PA-C - Last Filed: 01/11/23 02:47> Surgical History Surgical History: Surgic
[2023-01-10 19:47] LABS: INR 1.1; Prothrombin Time 14.1 Seconds (11.1-14.7)
[2023-01-10 19:48] LABS: Partial Thromboplastin Time 24.8 SECONDS (22.3-36.8)
[2023-01-10 19:50] LABS: Troponin I < 0.012 ng/mL (0.000-0.034)
[2023-01-10 19:52] LABS: D Dimer 0.39 ug/mL (<0.48)
[2023-01-10 20:05] LABS: Influenza A QL RT-PCR Negative (Negative); Influenza B QL RT-PCR Negative (Negative); SARS-CoV-2 RNA PCR Positive (Negative)
--- NOTE | 2023-01-10 20:39 | PM.IMHP ---
H&P: HPI History of Present Illness Date/Time: 01/10/23 20:39 Chief Complaint: SOB Narrative: THIS IS A 67-YEAR-OLD FEMALE WITH PAST MEDICAL HISTORY SIGNIFICANT FOR COPD, DYSLIPIDEMIA, HYPERTENSION, HYPERTROPHIC OBSTRUCTIVE CARDIOMYOPATHY, NEUROSTIMULATOR DEVICE INSIDE, SLEEP APNEA. PATIENT TESTED POSITIVE FOR COVID, HAS BEEN HAVING SHORTNESS OF BREATH WORSENING FOR THE LAST WEEK OR SO HAS BEEN USING HER INHALER HOWEVER OWN WITH NO IMPROVEMENT. PATIENT HAS HAD COUGH PRODUCTIVE OF GREENISH TO YELLOWISH SPUTUM. PATIENT HAS A POOR APPETITE, GENERALIZED MALAISE, FATIGUE, FEVERS, CHILLS MUSCLE ACHES AND PAINS. PATIENT ADMITTED FOR FURTHER EVALUATION MANAGEMENT AND TREATMENT. EXAMINATION: XR chest 2V DATE: 01/10/2023 17:38 INDICATION: Shortness of breath. Cough and fever. TECHNIQUE: Frontal and lateral views of the chest were obtained. COMPARISON: Chest 2 views 10/11/2022, chest CT 10/11/2022 FINDINGS: There is mild atelectasis at the lung bases. No pleural effusion or pneumothorax. Cardiomegaly is noted. Epidural electrodes are noted IMPRESSION: 1. Mild atelectasis at the lung bases. 2. Cardiomegaly. Review of Systems Review of Systems: SHORTNESS OF BREATH Constitutional: Constitutional: Reports chills, Reports fatigue, Reports fever(s), Reports malaise, Reports night sweats, Reports poor appetite and Reports weakness Eyes: Eyes: Denies change in vision ENT: Denies dysphagia, Denies vertigo, Denies dizziness and Denies odynophagia Cardiovascular: Cardiovascular: Denies chest pain, Denies leg edema, Denies radiating jaw, neck or arm pain and Denies palpitations Respiratory: Respiratory: Reports change in phlegm color, Reports chest congestion, Reports cough, Reports dyspnea and Reports wheezing Gastrointestinal: Gastrointestinal: Denies abdominal pain, Denies dyspepsia, Denies heartburn, Denies diarrhea, Denies nausea and Denies vomiting Genitourinary: Genitourinary: Denies dysuria and Denies flank pain Musculoskeletal: Musculoskeletal: Denies back pain, Reports myalgias, Denies arthralgias, Denies joint swelling and Reports muscle weakness Integumentary/Breasts: Skin/Breast: Denies rash Neurologic: Denies vertigo, Denies dizziness, Denies focal weakness and Denies Sensory deficit (Neuro) Psychiatric: Psychiatric: Reports no additional psychiatric complaints and Reports as per HPI Endocrine: Endocrine: Denies cold intolerance, Denies fatigue, Denies flushing, Denies heat intolerance, Denies polyphagia, Denies polydipsia and Denies palpitations Hematologic/Lymphatic: Hematologic/Lymphatic: Reports no additional hematologic/lymphatic complaints and Reports as per HPI Allergic/Immunologic: Allergic/Immunologic: Reports no additional allergic/immunologic complaints and Reports as per HPI PMFSH Past Medical History Medical History Chronic anemia Chronic obstructive pulmonary disease History of MRSA infection Hyperlipidemia Hypertension Hypertrophic obstructive cardiomyopathy Neurostimulator device in situ Obstructive sleep apnea Intolerant to CPAP. 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 History of bladder suspension procedure History of colonoscopy with polypectomy History of hysterectomy History of nasal septoplasty History of sinus surgery History of spinal surgery Family History Family History Other Cancer Social History Social History Social History: Surrogate medical decision maker: Lincoln Rousseau, spouse. Code status: Full code. Smoking status:
--- NOTE | 2023-01-10 23:34 | ADMGEN ---
This patient, Breonna Rousseau, was admitted to 2 Medical Room 241-. Patient/family oriented to hospital policies and general routines including ID bracelet, bed and alarms, visiting hours, pain management, procedures, bathroom and other care routines, personal items, smoking policy, room service/diet, and visiting hours. Information on how to activate the Rapid Response Team has been discussed. Patient/Family are encouraged to report perceived risks to care and to ask questions if they do not understand what they are told or what they should do.
[2023-01-10] MEDS: methylPREDNISolone SOD SUCC 125 MG VIAL 60 MG IV PUSH (23:47)
[2023-01-11] VITALS (17 sets, daily range): BP systolic 122–128; BP diastolic 50–73; PULSE 66–116; RESP 18–20; TEMP 36.3–36.9; O2SAT 94
[2023-01-11] MEDS: LEVALBUTEROL NEB 1.25 MG/3 ML 0.63 MG INHALATION ×4 (03:31→21:46)
[2023-01-11] MEDS: IPRATROPIUM BR 0.02% INH SOLN 0.5 MG/2.5 ML VIAL INHALATION ×4 (03:31→21:46)
[2023-01-11] MEDS: cefTRIAXone 2 GM/NS 100 ML 2 GM/100 ML BAG IVPB (05:14)
[2023-01-11] MEDS: methylPREDNISolone SOD SUCC 125 MG VIAL 60 MG IV PUSH ×3 (05:15→21:05)
[2023-01-11] MEDS: AZITHROMYCIN 500 MG/NS 250 ML 500 MG/250 ML BAG 250 MG IVPB (05:47)
[2023-01-11 07:01] LABS: Appearance Urine Clear (Clear); Bilirubin Urine Negative (Negative); Blood Urine Negative (Negative); Color Urine Yellow (Yellow); Glucose Urine UA 2+ mg/dL (Negative); Ketones Urine Negative (Negative); Leukocyte Esterase Ur Negative LEU/UL (Negative); Nitrate Urine Negative (Negative); Protein Urine Negative (Negative); Specific Grav Ur 1.013 (1.001-1.035)
[2023-01-11 07:17] LABS: Add Urine Microscopic? NO
[2023-01-11 07:41] LABS: Hematocrit 26.9 % (37.0-47.0); Hemoglobin 7.8 g/dL (12.0-15.0); Immature Granulocyte Absolute 0.02 K/mm3 (0.00-0.031); Lymphocytes Absolute Auto 0.37 K/mm3 (0.9-3.2); Lymphocytes Percent Auto 17.9 % (18.3-44.2); Mean Corpuscular Hemoglobin 26.1 pg (26-34); Mean Platelet Volume 9.4 fl (7.4-10.4); Monocytes Absolute Auto 0.1 K/mm3 (0.1-0.6); Monocytes Percent Auto 3.9 % (2.6-8.5); Neutrophils Absolute Auto 1.6 K/mm3 (1.3-6.7); Neutrophils Percent Auto 77.2 % (45.5-73.1); Platelet Count Result 138 k/mm3 (150-375); Red Blood Count 2.99 M/mm3 (4.2-5.4); Red Cell Distribution Width 15.5 % (11.5-14.5); White Blood Count 2.1 K/mm3 (4.5-10.0)
[2023-01-11 08:03] LABS: Alanine Aminotransferase 30 U/L (6-35); Albumin Level 3.8 g/dL (3.5-5.1); Alkaline Phosphatase 99 U/L (38-126); Anion Gap 8 mmol/L (8-16); Aspartate Amino Transferase 26 U/L (14-36); Bilirubin,Total 0.4 mg/dL (0.2-1.3); Blood Urea Nitrogen 19 mg/dL (7-17); Calcium 9.1 mg/dL (8.4-10.2); Carbon Dioxide 25 mmol/L (22-30); Chloride 106 mmol/L (98-107); Estimated Glomerular Filt Rate > 60; Glucose 176 mg/dL (65-110); Potassium 3.5 mmol/L (3.4-5.0); Sodium 139 mmol/L (137-145)
[2023-01-11] MEDS: FLUTICASONE/UMECLIDIN/VILANTER 100-62.5-25 MCG ELLIPTA 1 PUFF INHALATION (10:09)
[2023-01-11] MEDS: busPIRone HCL 10 MG TABLET 30 MG PO ×2 (10:18→21:05)
[2023-01-11] MEDS: ASPIRIN 81 MG CHEWABLE TABLET PO (10:18)
[2023-01-11] MEDS: GABAPENTIN 300 MG CAPSULE 600 MG PO ×3 (10:18→18:09)
[2023-01-11] MEDS: SERTRALINE HCL 50 MG TABLET 100 MG PO ×2 (10:19→21:04)
[2023-01-11] MEDS: DULoxetine HCL 60 MG CAPSULE.DR PO ×2 (10:19→21:05)
[2023-01-11] MEDS: PANTOPRAZOLE 40 MG TABLET PO (10:19)
[2023-01-11] MEDS: methylPHENIDATE HCL (*CRX) 10 MG TABLET 20 MG PO ×2 (10:20→18:10)
--- NOTE | 2023-01-11 13:49 | PM.IMPN ---
Progress Note: A&P Assessment and Plan (1) Acute exacerbation of chronic obstructive pulmonary disease (COPD): Code(s): J44.1 - Chronic obstructive pulmonary disease with (acute) exacerbation Status: Acute Assessment and Plan: Patient presented to the ED due to worsening shortness of breath. Chest x-ray revealing cardiomegaly and mild atelectasis. IV Solu-Medrol initiated. DuoNebs orded Sputum culture ordered. Zithromax continued (2) COVID-19: Code(s): U07.1 - COVID-19 Status: Acute Assessment and Plan: Continue to monitor. Stable at this time. (3) Acute kidney injury: Code(s): N17.9 - Acute kidney failure, unspecified Status: Resolved Assessment and Plan: Likely to be pre renal azotemia Continue to monitor Daily BMP Resolved (4) Obstructive sleep apnea: Code(s): G47.33 - Obstructive sleep apnea (adult) (pediatric) Status: Acute Assessment and Plan: CPAP at nighttime (5) Chronic obstructive pulmonary disease: Qualifiers: COPD type: unspecified COPD Qualified Code(s): J44.9 - Chronic obstructive pulmonary disease, unspecified Code(s): J44.9 - Chronic obstructive pulmonary disease, unspecified Status: Acute Assessment and Plan: Continue Trelegy (6) Hypertrophic obstructive cardiomyopathy: Code(s): I42.1 - Obstructive hypertrophic cardiomyopathy Status: Acute Assessment and Plan: Continue diltiazem Continue to monitor Subjective Date/time seen: 01/11/23 13:49 Interval history: Patient states that she is feeling better but she continues to have shortness of breath with ambulation. She is no longer short of breath at rest. She does complain of ongoing fatigue. she does have a nonproductive cough and endorses a good appetite. She denies body aches, chills, fever, and chest pain. Continue steroid therapy at this time. Exam Narrative: GENERAL: Comfortable, no acute distress HENMT: moist mucous membranes EYES: EOM intact b/l NECK: no lymphadenopathy RESPIRATORY: diffuse expiratory wheezes CARDIO: RRR GI: soft, nontender, bowel sounds present SKIN: no rashes EXTREMITIES: no edema, redness or tenderness Objective Data Vital Signs Vital Signs: Vital Signs - 24 hr 01/10/23 17:15 01/10/23 17:55 01/10/23 17:59 Temperature 96.9 F L Pulse Rate 83 69 Respiratory Rate 18 16 Blood Pressure 149/57 H 137/67 Pulse Oximetry 96 92 Oxygen Delivery Room Air Room Air 01/10/23 19:01 01/10/23 19:20 01/10/23 19:58 Temperature Pulse Rate 72 71 79 Respiratory Rate 17 20 22 H Blood Pressure 125/67 Pulse Oximetry 99 Oxygen Delivery 01/10/23 22:28 01/10/23 23:30 01/10/23 23:34 Temperature Pulse Rate 80 82 Respiratory Rate Blood Pressure 140/83 Pulse Oximetry 91 Oxygen Delivery Room Air 01/10/23 23:28 01/11/23 00:00 01/11/23 04:00 Temperature 97.8 F Pulse Rate 83 84 89 Respiratory Rate 20 Blood Pressure 143/60 H Pulse Oximetry 96 Oxygen Delivery 01/11/23 04:48 01/11/23 03:35 01/11/23 03:48 Temperature 97.6 F Pulse Rate 66 89 85 Respiratory Rate 20 18 18 Blood Pressure 128/50 L Pulse Oximetry 94 Oxygen Delivery 01/11/23 10:09 01/11/23 10:25 01/11/23 10:00 Temperature Pulse Rate 88 100 Respiratory Rate 18 18 Blood Pressure Pulse Oximetry Oxygen Delivery Room Air 01/11/23 08:00 01/11/23 12:00 01/10/23 23:47 Temperature Pulse Rate 97 101 H 82 Respiratory Rate Blood Pressure Pulse Oximetry Oxygen Delivery Intake/Output Intake/Output: Intake & Output 01/08/23 01/09/23 01/10/23 01/11/23 23:59 23:59 23:59 23:59 Intake Total 1000 1080 Output Total 575 Balance 1000 505 Meds/Results Medications: Active Medications Generic Name Dose Route Start Last Admin Trade Name Freq PRN
[2023-01-11] MEDS: HYDROcodone/acetaminophen (*CRX) 10-325 MG TABLET 1 TAB PO (14:52)
[2023-01-11] MEDS: dilTIAZem HCL CD 180 MG CAP.24HR 360 MG PO (21:04)
[2023-01-11] MEDS: ATORVASTATIN 10 MG TABLET PO (21:04)
[2023-01-11] MEDS: METOPROLOL SUCCINATE EXT REL 50 MG TABCR PO (21:05)
[2023-01-11] MEDS: FAMOTIDINE 20 MG TABLET 40 MG PO (21:05)
[2023-01-11] MEDS: rOPINIRole HCL 0.5 MG TABLET PO (21:05)
[2023-01-12] VITALS (19 sets, daily range): BP systolic 95–151; BP diastolic 29–90; PULSE 70–95; RESP 18–20; TEMP 36.4–36.8; O2SAT 94–97
[2023-01-12] MEDS: HYDROcodone/acetaminophen (*CRX) 10-325 MG TABLET 1 TAB PO ×2 (00:01→18:57)
[2023-01-12] MEDS: LEVALBUTEROL NEB 1.25 MG/3 ML 0.63 MG INHALATION ×4 (03:25→20:04)
[2023-01-12] MEDS: IPRATROPIUM BR 0.02% INH SOLN 0.5 MG/2.5 ML VIAL INHALATION ×4 (03:25→20:04)
[2023-01-12 05:00] LABS: Hematocrit 25.9 % (37.0-47.0); Hemoglobin 7.5 g/dL (12.0-15.0); Immature Granulocyte Absolute 0.05 K/mm3 (0.00-0.031); Immature Granulocyte Percent A 1.1 % (0-0.5); Mean Corpuscular Hemoglobin 26.3 pg (26-34); Mean Corpuscular Volume 90.9 fl (80-100); Monocytes Absolute Auto 0.3 K/mm3 (0.1-0.6); Neutrophils Absolute Auto 3.7 K/mm3 (1.3-6.7); Neutrophils Percent Auto 82.9 % (45.5-73.1); Platelet Count Result 136 k/mm3 (150-375); Red Blood Count 2.85 M/mm3 (4.2-5.4); Red Cell Distribution Width 15.8 % (11.5-14.5); White Blood Count 4.4 K/mm3 (4.5-10.0)
[2023-01-12 05:11] LABS: Alanine Aminotransferase 28 U/L (6-35); Albumin Level 3.5 g/dL (3.5-5.1); Alkaline Phosphatase 85 U/L (38-126); Anion Gap 7 mmol/L (8-16); Aspartate Amino Transferase 23 U/L (14-36); Bilirubin,Total 0.4 mg/dL (0.2-1.3); Blood Urea Nitrogen 24 mg/dL (7-17); Calcium 9.4 mg/dL (8.4-10.2); Carbon Dioxide 24 mmol/L (22-30); Chloride 107 mmol/L (98-107); Estimated Glomerular Filt Rate > 60; Glucose 163 mg/dL (65-110); Potassium 3.4 mmol/L (3.4-5.0); Sodium 138 mmol/L (137-145)
[2023-01-12 05:24] LABS: Transferrin 257 mg/dL (206-381)
[2023-01-12 05:28] LABS: Iron 20 ug/dL (37-170)
[2023-01-12 05:37] LABS: Percent Iron Saturation 6 % (20-50)
[2023-01-12] MEDS: AZITHROMYCIN 500 MG/NS 250 ML 500 MG/250 ML BAG 250 MG IVPB (05:48)
[2023-01-12] MEDS: methylPREDNISolone SOD SUCC 125 MG VIAL 60 MG IV PUSH ×3 (05:48→21:52)
[2023-01-12 05:58] LABS: Thyroid Stimulating Hormone Reflex 0.076 uIU/mL (0.465-4.68)
[2023-01-12 06:15] LABS: Folic Acid 7.3 ng/mL (2.76->20)
[2023-01-12] MEDS: FLUTICASONE/UMECLIDIN/VILANTER 100-62.5-25 MCG ELLIPTA 1 PUFF INHALATION (07:00)
[2023-01-12] MEDS: DULoxetine HCL 60 MG CAPSULE.DR PO ×2 (09:10→21:52)
[2023-01-12] MEDS: methylPHENIDATE HCL (*CRX) 10 MG TABLET 20 MG PO ×2 (09:10→17:15)
[2023-01-12] MEDS: ASPIRIN 81 MG CHEWABLE TABLET PO (09:10)
[2023-01-12] MEDS: GABAPENTIN 300 MG CAPSULE 600 MG PO ×3 (09:10→17:14)
[2023-01-12] MEDS: SERTRALINE HCL 50 MG TABLET 100 MG PO ×2 (09:10→21:53)
[2023-01-12] MEDS: PANTOPRAZOLE 40 MG TABLET PO (09:10)
[2023-01-12] MEDS: IRON SUCROSE COMPLEX 500 MG in SODIUM CHLORIDE 0.9% IV 250 ML 78.57 MG IVPB (09:11)
[2023-01-12 09:46] LABS: Total Triiodothyronine (T3) 1.14 NG/ML (0.97-1.69)
[2023-01-12] MEDS: busPIRone HCL 10 MG TABLET 30 MG PO ×2 (10:34→21:53)
--- NOTE | 2023-01-12 12:13 | PM.IMPN ---
Progress Note: A&P Assessment and Plan (1) Acute exacerbation of chronic obstructive pulmonary disease (COPD): Code(s): J44.1 - Chronic obstructive pulmonary disease with (acute) exacerbation Status: Acute Assessment and Plan: Patient presented to the ED due to worsening shortness of breath. Chest x-ray revealing cardiomegaly and mild atelectasis. IV Solu-Medrol initiated. Macario orded Sputum culture if possible to obtain Zithromax continued (2) COVID-19: Code(s): U07.1 - COVID-19 Status: Acute Assessment and Plan: Continue to monitor. Stable at this time. (3) Acute kidney injury: Code(s): N17.9 - Acute kidney failure, unspecified Status: Resolved Assessment and Plan: Likely to be pre renal azotemia Continue to monitor Daily BMP Resolved (4) Obstructive sleep apnea: Code(s): G47.33 - Obstructive sleep apnea (adult) (pediatric) Status: Acute Assessment and Plan: CPAP at nighttime (5) Chronic obstructive pulmonary disease: Qualifiers: COPD type: unspecified COPD Qualified Code(s): J44.9 - Chronic obstructive pulmonary disease, unspecified Code(s): J44.9 - Chronic obstructive pulmonary disease, unspecified Status: Acute Assessment and Plan: Continue Trelegy (6) Hypertrophic obstructive cardiomyopathy: Code(s): I42.1 - Obstructive hypertrophic cardiomyopathy Status: Acute Assessment and Plan: Continue diltiazem Continue to monitor (7) Chronic anemia: Code(s): D64.9 - Anemia, unspecified Status: Acute Assessment and Plan: Patient with history of chronic anemia. She does not take any supplements for this. Iron 20 (L), TIBC 357,% saturation 6 (L), ferritin 20 Patient started on iron infusion x3 days then p.o. supplementation after. Subjective Date/time seen: 01/12/23 12:13 Interval history: Patient states that she is doing better today and able to walk a little further without becoming short of breath. She is getting iron infusion due to pretty severe anemia. She continues to wheeze but it has improved from yesterday. Plan to continue infusions and steroid injection. Exam Narrative: GENERAL: Comfortable, no acute distress HENMT: moist mucous membranes EYES: EOM intact b/l NECK: no lymphadenopathy RESPIRATORY: diffuse expiratory wheezes , improved CARDIO: RRR GI: soft, nontender, bowel sounds present SKIN: no rashes EXTREMITIES: no edema, redness or tenderness Objective Data Vital Signs Vital Signs: Vital Signs - 24 hr 01/11/23 14:04 01/11/23 14:19 01/11/23 14:35 Temperature 98.5 F Pulse Rate 96 92 101 H Respiratory Rate 18 18 18 Blood Pressure 122/61 Pulse Oximetry 94 Oxygen Delivery 01/11/23 16:00 01/11/23 20:00 01/11/23 21:05 Temperature Pulse Rate 99 116 H 109 H Respiratory Rate Blood Pressure Pulse Oximetry Oxygen Delivery 01/11/23 20:00 01/11/23 22:00 01/12/23 00:00 Temperature 97.4 F L Pulse Rate 104 H 93 Respiratory Rate 18 Blood Pressure 122/73 Pulse Oximetry 94 Oxygen Delivery Room Air 01/11/23 21:48 01/11/23 22:00 01/12/23 03:26 Temperature Pulse Rate 109 H 111 H 86 Respiratory Rate 18 18 18 Blood Pressure Pulse Oximetry Oxygen Delivery 01/12/23 04:00 01/12/23 06:00 01/12/23 06:55 Temperature 97.5 F L Pulse Rate 88 88 Respiratory Rate 18 Blood Pressure 95/29 L 111/44 L Pulse Oximetry 94 Oxygen Delivery 01/12/23 07:00 01/12/23 07:00 01/12/23 07:10 Temperature Pulse Rate 70 70 76 Respiratory Rate 18 18 18 Blood Pressure Pulse Oximetry 94 Oxygen Delivery Room Air 01/12/23 09:10 01/12/23 08:00 Temperature Pulse Rate 84 Respiratory Rate Blood Pressure Pulse Oximetry Oxygen Delivery Room Air Intake/Output Intake/Output: Int
[2023-01-12] MEDS: diphenhydrAMINE HCl CAP 25 MG CAPSULE PO (15:35)
--- NOTE | 2023-01-12 18:20 | PHAR ---
RX [id number] IDENTIFIED TO CONTAIN DRUG NAME: DISOPYRAMIDE PHOSPHATE INGREDIENTS: DISOPYRAMIDE PHOSPHATE -- 150 MG COLOR: BROWN SHAPE: CAPSULE-SHAPE IMPRINT: M; 096 ROUTE: ORAL ROUTE FORM: CAPSULE DIRECTIONS ON BOTTLE 1 PO BID
--- NOTE | 2023-01-12 21:45 | PHAR ---
HOME MED Disopyramide Phosphate 150 mg capsule 1 Q12H VERIFIED
[2023-01-12] MEDS: FAMOTIDINE 20 MG TABLET 40 MG PO (21:52)
[2023-01-12] MEDS: dilTIAZem HCL CD 180 MG CAP.24HR 360 MG PO (21:52)
[2023-01-12] MEDS: rOPINIRole HCL 0.5 MG TABLET PO (21:52)
[2023-01-12] MEDS: METOPROLOL SUCCINATE EXT REL 50 MG TABCR PO (21:52)
[2023-01-12] MEDS: ATORVASTATIN 10 MG TABLET PO (21:53)
[2023-01-13] VITALS (20 sets, daily range): BP systolic 122–178; BP diastolic 56–78; PULSE 72–92; RESP 18–20; TEMP 36.4–36.6; O2SAT 91–96
--- NOTE | 2023-01-13 | ECG_ITS ---
Measurements Intervals [place] Rate: 84 P: 25 RI: 186 QRS: 6 QRSD: 86 T: 27 QT: 383 QTc: 454 Interpretive Statements SINUS RHYTHM NORMAL eCG COMPARED TO ECG 01/10/2023 17:31:23 RI INTERVAL IS NORMAL Electronically Signed On 01-13-2023 7:35:48 CDT by Mal Shah M.D.
[2023-01-13] MEDS: HYDROcodone/acetaminophen (*CRX) 10-325 MG TABLET 1 TAB PO ×2 (00:02→21:23)
[2023-01-13] MEDS: IPRATROPIUM BR 0.02% INH SOLN 0.5 MG/2.5 ML VIAL INHALATION ×4 (02:37→20:26)
[2023-01-13] MEDS: LEVALBUTEROL NEB 1.25 MG/3 ML 0.63 MG INHALATION ×4 (02:37→20:25)
[2023-01-13 05:58] LABS: Hematocrit 28.4 % (37.0-47.0); Mean Corpuscular HGB Conc 28.2 g/dl (32-36); Mean Corpuscular Hemoglobin 26.1 pg (26-34); Mean Corpuscular Volume 92.5 fl (80-100); Mean Platelet Volume 9.8 fl (7.4-10.4); Platelet Count Result 167 k/mm3 (150-375); Red Blood Count 3.07 M/mm3 (4.2-5.4); Red Cell Distribution Width 16.4 % (11.5-14.5); White Blood Count 8.1 K/mm3 (4.5-10.0)
[2023-01-13 06:13] LABS: Alanine Aminotransferase 27 U/L (6-35); Albumin Level 3.6 g/dL (3.5-5.1); Alkaline Phosphatase 75 U/L (38-126); Anion Gap 9 mmol/L (8-16); Aspartate Amino Transferase 23 U/L (14-36); Bilirubin,Total 0.4 mg/dL (0.2-1.3); Blood Urea Nitrogen 29 mg/dL (7-17); Calcium 9.6 mg/dL (8.4-10.2); Carbon Dioxide 26 mmol/L (22-30); Chloride 104 mmol/L (98-107); Estimated Glomerular Filt Rate > 60; Glucose 163 mg/dL (65-110); Potassium 3.8 mmol/L (3.4-5.0); Sodium 139 mmol/L (137-145)
[2023-01-13] MEDS: methylPREDNISolone SOD SUCC 125 MG VIAL 60 MG IV PUSH ×2 (06:36→17:10)
[2023-01-13] MEDS: AZITHROMYCIN 500 MG/NS 250 ML 500 MG/250 ML BAG 150 MG IVPB (06:36)
[2023-01-13] MEDS: FLUTICASONE/UMECLIDIN/VILANTER 100-62.5-25 MCG ELLIPTA 1 PUFF INHALATION (08:01)
[2023-01-13] MEDS: PANTOPRAZOLE 40 MG TABLET PO (08:52)
[2023-01-13] MEDS: ASPIRIN 81 MG CHEWABLE TABLET PO (08:52)
[2023-01-13] MEDS: SERTRALINE HCL 50 MG TABLET 100 MG PO ×2 (08:52→21:24)
[2023-01-13] MEDS: DULoxetine HCL 60 MG CAPSULE.DR PO ×2 (08:52→21:24)
[2023-01-13] MEDS: busPIRone HCL 10 MG TABLET 30 MG PO ×2 (08:52→21:24)
[2023-01-13] MEDS: methylPHENIDATE HCL (*CRX) 10 MG TABLET 20 MG PO ×2 (08:52→17:09)
[2023-01-13] MEDS: GABAPENTIN 300 MG CAPSULE 600 MG PO ×3 (08:52→17:09)
[2023-01-13] MEDS: IRON SUCROSE COMPLEX 500 MG in SODIUM CHLORIDE 0.9% IV 250 ML 78.57 MG IVPB (08:52)
--- NOTE | 2023-01-13 12:53 | PM.IMPN ---
Progress Note: A&P Assessment and Plan (1) Acute exacerbation of chronic obstructive pulmonary disease (COPD): Code(s): J44.1 - Chronic obstructive pulmonary disease with (acute) exacerbation Status: Acute Assessment and Plan: Patient presented to the ED due to worsening shortness of breath. Chest x-ray revealing cardiomegaly and mild atelectasis. IV Solu-Medrol decelerated DuoNebs orded Sputum culture if possible to obtain Zithromax changed to PO (2) COVID-19: Code(s): U07.1 - COVID-19 Status: Acute Assessment and Plan: Continue to monitor. Stable at this time. (3) Acute kidney injury: Code(s): N17.9 - Acute kidney failure, unspecified Status: Resolved Assessment and Plan: Likely to be pre renal azotemia Continue to monitor Daily BMP Resolved (4) Obstructive sleep apnea: Code(s): G47.33 - Obstructive sleep apnea (adult) (pediatric) Status: Acute Assessment and Plan: CPAP at nighttime (5) Chronic obstructive pulmonary disease: Qualifiers: COPD type: unspecified COPD Qualified Code(s): J44.9 - Chronic obstructive pulmonary disease, unspecified Code(s): J44.9 - Chronic obstructive pulmonary disease, unspecified Status: Acute Assessment and Plan: Continue Trelegy (6) Hypertrophic obstructive cardiomyopathy: Code(s): I42.1 - Obstructive hypertrophic cardiomyopathy Status: Acute Assessment and Plan: Continue diltiazem Continue to monitor (7) Chronic anemia: Code(s): D64.9 - Anemia, unspecified Status: Acute Assessment and Plan: Patient with history of chronic anemia. She does not take any supplements for this. Iron 20 (L), TIBC 357,% saturation 6 (L), ferritin 20 Patient started on iron infusion x3 days then p.o. supplementation after. Subjective Date/time seen: 01/13/23 12:53 Interval history: Patient feeling better today with less wheezing. She is walking around the room without much difficulty. I believe that after she gets her iron tomorrow she will be able to discharge home. She denies any chest pain, productive cough, nausea, vomiting and dysuria. She does have a dry cough. Exam Narrative: GENERAL: Comfortable, no acute distress HENMT: moist mucous membranes EYES: EOM intact b/l NECK: no lymphadenopathy RESPIRATORY: Sporadic expiratory wheezing that is improved, distant breath sounds CARDIO: RRR GI: soft, nontender, bowel sounds present SKIN: no rashes EXTREMITIES: no edema, redness or tenderness Objective Data Vital Signs Vital Signs: Vital Signs - 24 hr 01/12/23 13:00 01/12/23 13:10 01/12/23 16:00 Temperature Pulse Rate 77 79 87 Respiratory Rate 18 18 Blood Pressure Pulse Oximetry Oxygen Delivery 01/12/23 17:40 01/12/23 19:35 01/12/23 20:04 Temperature 97.7 F 98.2 F Pulse Rate 70 81 80 Respiratory Rate 20 18 18 Blood Pressure 151/58 H 127/90 Pulse Oximetry 97 97 Oxygen Delivery 01/12/23 20:05 01/12/23 20:16 01/12/23 20:00 Temperature Pulse Rate 78 81 95 Respiratory Rate 18 18 Blood Pressure Pulse Oximetry 94 Oxygen Delivery Room Air 01/12/23 21:52 01/13/23 00:04 01/13/23 00:00 Temperature Pulse Rate 81 78 92 Respiratory Rate Blood Pressure 178/59 H Pulse Oximetry 96 Oxygen Delivery Room Air 01/13/23 02:37 01/13/23 02:46 01/13/23 04:00 Temperature Pulse Rate 78 79 77 Respiratory Rate 18 18 Blood Pressure Pulse Oximetry Oxygen Delivery 01/13/23 06:00 01/13/23 07:50 01/13/23 08:03 Temperature 97.8 F Pulse Rate 73 82 Respiratory Rate 18 18 Blood Pressure 122/60 Pulse Oximetry 94 95 Oxygen Delivery Room Air 01/13/23 08:04 Temperature Pulse Rate 80 Respiratory Rate 18 Blood Pressure Pulse Oximetry Oxygen Delivery Intake/Output Intake/O
[2023-01-13] MEDS: FAMOTIDINE 20 MG TABLET 40 MG PO (21:23)
[2023-01-13] MEDS: ATORVASTATIN 10 MG TABLET PO (21:24)
[2023-01-13] MEDS: METOPROLOL SUCCINATE EXT REL 50 MG TABCR PO (21:24)
[2023-01-13] MEDS: dilTIAZem HCL CD 180 MG CAP.24HR 360 MG PO (21:24)
[2023-01-13] MEDS: rOPINIRole HCL 0.5 MG TABLET PO (21:28)
[2023-01-14] VITALS (18 sets, daily range): BP systolic 113–150; BP diastolic 49–63; PULSE 65–87; RESP 18–22; TEMP 36.6–36.8; O2SAT 92–96
[2023-01-14] MEDS: IPRATROPIUM BR 0.02% INH SOLN 0.5 MG/2.5 ML VIAL INHALATION ×4 (02:37→20:27)
[2023-01-14] MEDS: LEVALBUTEROL NEB 1.25 MG/3 ML 0.63 MG INHALATION ×4 (02:38→20:27)
[2023-01-14 06:08] LABS: Basophils Percent Auto 0.3 % (0.2-1.2); Hematocrit 25.5 % (37.0-47.0); Hemoglobin 7.3 g/dL (12.0-15.0); Immature Granulocyte Absolute 0.42 K/mm3 (0.00-0.031); Immature Granulocyte Percent A 5.7 % (0-0.5); Lymphocytes Absolute Auto 0.53 K/mm3 (0.9-3.2); Lymphocytes Percent Auto 7.2 % (18.3-44.2); Mean Corpuscular HGB Conc 28.6 g/dl (32-36); Mean Corpuscular Hemoglobin 26.4 pg (26-34); Mean Corpuscular Volume 92.1 fl (80-100); Mean Platelet Volume 10.1 fl (7.4-10.4); Monocytes Absolute Auto 0.6 K/mm3 (0.1-0.6); Monocytes Percent Auto 7.9 % (2.6-8.5); Neutrophils Absolute Auto 5.8 K/mm3 (1.3-6.7); Neutrophils Percent Auto 78.9 % (45.5-73.1); Nucleated Red Blood Cells Perc 0.5 % (0.0-0.2); Platelet Count Result 155 k/mm3 (150-375); Red Blood Count 2.77 M/mm3 (4.2-5.4); Red Cell Distribution Width 16.3 % (11.5-14.5); White Blood Count 7.3 K/mm3 (4.5-10.0)
[2023-01-14] MEDS: methylPREDNISolone SOD SUCC 125 MG VIAL 60 MG IV PUSH ×2 (06:12→17:22)
[2023-01-14 06:17] LABS: Alanine Aminotransferase 25 U/L (6-35); Albumin Level 3.3 g/dL (3.5-5.1); Alkaline Phosphatase 69 U/L (38-126); Anion Gap 8 mmol/L (8-16); Aspartate Amino Transferase 22 U/L (14-36); Bilirubin,Total 0.4 mg/dL (0.2-1.3); Blood Urea Nitrogen 27 mg/dL (7-17); Calcium 9.1 mg/dL (8.4-10.2); Carbon Dioxide 26 mmol/L (22-30); Chloride 104 mmol/L (98-107); Estimated Glomerular Filt Rate > 60; Glucose 142 mg/dL (65-110); Potassium 3.5 mmol/L (3.4-5.0); Sodium 138 mmol/L (137-145)
[2023-01-14 07:25] LABS: Hypochromasia 2+ (NORMAL); Platelet Estimate Adequate (Adequate); Poikilocytosis 1+ (NORMAL); Schistocytes None Seen (NORMAL)
[2023-01-14 07:26] LABS: Anisocytosis 1+ (NORMAL)
[2023-01-14] MEDS: FLUTICASONE/UMECLIDIN/VILANTER 100-62.5-25 MCG ELLIPTA 1 PUFF INHALATION (07:35)
[2023-01-14] MEDS: busPIRone HCL 10 MG TABLET 30 MG PO ×2 (09:03→20:41)
[2023-01-14] MEDS: ASPIRIN 81 MG CHEWABLE TABLET PO (09:03)
[2023-01-14] MEDS: AZITHROMYCIN 250 MG TABLET 500 MG PO (09:03)
[2023-01-14] MEDS: DULoxetine HCL 60 MG CAPSULE.DR PO ×2 (09:04→20:40)
[2023-01-14] MEDS: GABAPENTIN 300 MG CAPSULE 600 MG PO ×3 (09:04→17:22)
[2023-01-14] MEDS: PANTOPRAZOLE 40 MG TABLET PO (09:05)
[2023-01-14] MEDS: methylPHENIDATE HCL (*CRX) 10 MG TABLET 20 MG PO ×2 (09:05→17:22)
[2023-01-14] MEDS: SERTRALINE HCL 50 MG TABLET 100 MG PO ×2 (09:05→20:40)
[2023-01-14] MEDS: IRON SUCROSE COMPLEX 500 MG in SODIUM CHLORIDE 0.9% IV 250 ML 78.57 MG IVPB (11:40)
--- NOTE | 2023-01-14 12:36 | PM.IMPN ---
Progress Note: A&P Assessment and Plan (1) Acute exacerbation of chronic obstructive pulmonary disease (COPD): Code(s): J44.1 - Chronic obstructive pulmonary disease with (acute) exacerbation Status: Acute Assessment and Plan: Patient presented to the ED due to worsening shortness of breath. Chest x-ray revealing cardiomegaly and mild atelectasis. IV Solu-Medrol decelerated to 60mg q12 DuoNebs orded Sputum culture if possible to obtain Zithromax completed (2) COVID-19: Code(s): U07.1 - COVID-19 Status: Acute Assessment and Plan: Continue to monitor. Stable at this time. (3) Acute kidney injury: Code(s): N17.9 - Acute kidney failure, unspecified Status: Resolved Assessment and Plan: Likely to be pre renal azotemia Continue to monitor Daily BMP Resolved (4) Obstructive sleep apnea: Code(s): G47.33 - Obstructive sleep apnea (adult) (pediatric) Status: Acute Assessment and Plan: CPAP at nighttime (5) Chronic obstructive pulmonary disease: Qualifiers: COPD type: unspecified COPD Qualified Code(s): J44.9 - Chronic obstructive pulmonary disease, unspecified Code(s): J44.9 - Chronic obstructive pulmonary disease, unspecified Status: Acute Assessment and Plan: Continue Trelegy (6) Hypertrophic obstructive cardiomyopathy: Code(s): I42.1 - Obstructive hypertrophic cardiomyopathy Status: Acute Assessment and Plan: Continue diltiazem Continue to monitor (7) Chronic anemia: Code(s): D64.9 - Anemia, unspecified Status: Acute Assessment and Plan: Patient with history of chronic anemia. She does not take any supplements for this. Iron 20 (L), TIBC 357,% saturation 6 (L), ferritin 20 Patient started on iron infusion x3 days then p.o. supplementation after. Subjective Date/time seen: 01/14/23 12:36 Interval history: Patient on last day of iron infusion. She is still having shortness of breath and occasional wheezing. Hopeful for discharge tomorrow if wheezing improves. She still gets occasional shortness of breath when walking to and from the bathroom. Denies any chest pain. Continues to have dry cough Exam Narrative: GENERAL: Comfortable, no acute distress HENMT: moist mucous membranes EYES: EOM intact b/l NECK: no lymphadenopathy RESPIRATORY: Sporadic expiratory wheezing that is improved, distant breath sounds CARDIO: RRR GI: soft, nontender, bowel sounds present SKIN: no rashes EXTREMITIES: no edema, redness or tenderness Objective Data Vital Signs Vital Signs: Vital Signs - 24 hr 01/13/23 13:15 01/13/23 13:30 01/13/23 14:22 Temperature 97.6 F Pulse Rate 77 80 84 Respiratory Rate 18 18 20 Blood Pressure 128/56 L Pulse Oximetry 96 Oxygen Delivery 01/13/23 16:00 01/13/23 20:19 01/13/23 20:26 Temperature 98 F Pulse Rate 80 72 77 Respiratory Rate 20 18 Blood Pressure 127/78 Pulse Oximetry 91 Oxygen Delivery 01/13/23 20:39 01/13/23 20:39 01/13/23 21:24 Temperature Pulse Rate 84 84 Respiratory Rate 18 Blood Pressure Pulse Oximetry 95 Oxygen Delivery Room Air 01/13/23 20:00 01/14/23 00:00 01/14/23 02:39 Temperature Pulse Rate 75 80 87 Respiratory Rate 18 Blood Pressure Pulse Oximetry Oxygen Delivery 01/14/23 02:54 01/14/23 05:47 01/14/23 04:00 Temperature 97.9 F Pulse Rate 82 65 72 Respiratory Rate 18 20 Blood Pressure 113/49 L Pulse Oximetry 92 Oxygen Delivery 01/14/23 07:35 01/14/23 07:30 01/14/23 07:46 Temperature Pulse Rate 78 72 Respiratory Rate 18 18 Blood Pressure Pulse Oximetry 96 Oxygen Delivery Room Air 01/14/23 08:00 01/14/23 08:55 Temperature Pulse Rate 83 Respiratory Rate Blood Pressure Pulse Oximetry Oxygen Delivery Room Air Intake
[2023-01-14 13:05] LABS: Hematocrit 26.2 % (37.0-47.0); Hemoglobin 7.6 g/dL (12.0-15.0)
[2023-01-14] MEDS: rOPINIRole HCL 0.5 MG TABLET PO (20:39)
[2023-01-14] MEDS: METOPROLOL SUCCINATE EXT REL 50 MG TABCR PO (20:40)
[2023-01-14] MEDS: FAMOTIDINE 20 MG TABLET 40 MG PO (20:40)
[2023-01-14] MEDS: HYDROcodone/acetaminophen (*CRX) 10-325 MG TABLET 1 TAB PO (20:40)
[2023-01-14] MEDS: ATORVASTATIN 10 MG TABLET PO (20:40)
[2023-01-14] MEDS: dilTIAZem HCL CD 180 MG CAP.24HR 360 MG PO (20:40)
[2023-01-14] MEDS: guaiFENesin 600 MG/DEXTROMETHORPHAN 30 MG SR TAB 12 HR 1 TAB PO (20:41)
[2023-01-15] VITALS (18 sets, daily range): BP systolic 145–152; BP diastolic 57–67; PULSE 74–89; RESP 18–22; TEMP 36.4–36.8; O2SAT 92–96
[2023-01-15] MEDS: IPRATROPIUM BR 0.02% INH SOLN 0.5 MG/2.5 ML VIAL INHALATION ×4 (02:40→21:19)
[2023-01-15] MEDS: LEVALBUTEROL NEB 1.25 MG/3 ML 0.63 MG INHALATION ×4 (02:40→21:19)
[2023-01-15] MEDS: methylPREDNISolone SOD SUCC 125 MG VIAL 60 MG IV PUSH ×2 (05:40→20:26)
[2023-01-15] MEDS: HYDROcodone/acetaminophen (*CRX) 10-325 MG TABLET 1 TAB PO ×2 (05:44→20:25)
[2023-01-15 06:38] LABS: Hematocrit 27.4 % (37.0-47.0); Mean Corpuscular HGB Conc 29.2 g/dl (32-36); Mean Corpuscular Hemoglobin 26.6 pg (26-34); Red Blood Count 3.01 M/mm3 (4.2-5.4); Red Cell Distribution Width 16.5 % (11.5-14.5); White Blood Count 8.4 K/mm3 (4.5-10.0)
[2023-01-15 06:39] LABS: Mean Platelet Volume 9.7 fl (7.4-10.4); Platelet Count Result 201 k/mm3 (150-375)
[2023-01-15 06:58] LABS: Alanine Aminotransferase 27 U/L (6-35); Albumin Level 3.4 g/dL (3.5-5.1); Alkaline Phosphatase 77 U/L (38-126); Anion Gap 8 mmol/L (8-16); Aspartate Amino Transferase 25 U/L (14-36); Bilirubin,Total 0.4 mg/dL (0.2-1.3); Blood Urea Nitrogen 24 mg/dL (7-17); Calcium 9.3 mg/dL (8.4-10.2); Carbon Dioxide 25 mmol/L (22-30); Chloride 104 mmol/L (98-107); Estimated Glomerular Filt Rate > 60; Glucose 137 mg/dL (65-110); Potassium 3.4 mmol/L (3.4-5.0); Sodium 137 mmol/L (137-145)
[2023-01-15] MEDS: FLUTICASONE/UMECLIDIN/VILANTER 100-62.5-25 MCG ELLIPTA 1 PUFF INHALATION (07:51)
[2023-01-15] MEDS: ASPIRIN 81 MG CHEWABLE TABLET PO (09:15)
[2023-01-15] MEDS: busPIRone HCL 10 MG TABLET 30 MG PO ×2 (09:15→20:24)
[2023-01-15] MEDS: FERROUS GLUCONATE 324 MG TABLET PO (09:15)
[2023-01-15] MEDS: methylPHENIDATE HCL (*CRX) 10 MG TABLET 20 MG PO ×2 (09:16→17:29)
[2023-01-15] MEDS: guaiFENesin 600 MG/DEXTROMETHORPHAN 30 MG SR TAB 12 HR 1 TAB PO ×2 (09:16→20:25)
[2023-01-15] MEDS: GABAPENTIN 300 MG CAPSULE 600 MG PO ×3 (09:16→17:29)
[2023-01-15] MEDS: DULoxetine HCL 60 MG CAPSULE.DR PO ×2 (09:16→20:26)
[2023-01-15] MEDS: PANTOPRAZOLE 40 MG TABLET PO (09:17)
[2023-01-15] MEDS: SERTRALINE HCL 50 MG TABLET 100 MG PO ×2 (09:17→20:25)
--- NOTE | 2023-01-15 11:55 | PM.IMPN ---
Progress Note: A&P Assessment and Plan (1) Acute exacerbation of chronic obstructive pulmonary disease (COPD): Code(s): J44.1 - Chronic obstructive pulmonary disease with (acute) exacerbation Status: Acute Assessment and Plan: Patient presented to the ED due to worsening shortness of breath. Chest x-ray revealing cardiomegaly and mild atelectasis. IV Solu-Medrol increased due to patient continuing to wheeze DuoNebs orded Sputum culture if possible to obtain Zithromax completed (2) COVID-19: Code(s): U07.1 - COVID-19 Status: Acute Assessment and Plan: Continue to monitor. Stable at this time. (3) Acute kidney injury: Code(s): N17.9 - Acute kidney failure, unspecified Status: Resolved Assessment and Plan: Likely to be pre renal azotemia Continue to monitor Daily BMP Resolved (4) Obstructive sleep apnea: Code(s): G47.33 - Obstructive sleep apnea (adult) (pediatric) Status: Acute Assessment and Plan: CPAP at nighttime (5) Chronic obstructive pulmonary disease: Qualifiers: COPD type: unspecified COPD Qualified Code(s): J44.9 - Chronic obstructive pulmonary disease, unspecified Code(s): J44.9 - Chronic obstructive pulmonary disease, unspecified Status: Acute Assessment and Plan: Continue Trelegy (6) Hypertrophic obstructive cardiomyopathy: Code(s): I42.1 - Obstructive hypertrophic cardiomyopathy Status: Acute Assessment and Plan: Continue diltiazem Continue to monitor (7) Chronic anemia: Code(s): D64.9 - Anemia, unspecified Status: Acute Assessment and Plan: Patient with history of chronic anemia. She does not take any supplements for this. Iron 20 (L), TIBC 357,% saturation 6 (L), ferritin 20 Patient started on iron infusion x3 days then p.o. supplementation after. Subjective Date/time seen: 01/15/23 11:55 Interval history: Patient continues to wheeze. Plan on increasing her steroids and seeing if this improves her breathing. She denies chest pain, nausea, vomiting, chills, body aches or fever. Exam Narrative: GENERAL: Comfortable, no acute distress HENMT: moist mucous membranes EYES: EOM intact b/l NECK: no lymphadenopathy RESPIRATORY: expiratory wheezing throughout, distant breath sounds CARDIO: RRR GI: soft, nontender, bowel sounds present SKIN: no rashes EXTREMITIES: no edema, redness or tenderness Objective Data Vital Signs Vital Signs: Vital Signs - 24 hr 01/14/23 13:40 01/14/23 13:50 01/14/23 14:00 Temperature 97.8 F Pulse Rate 76 78 83 Respiratory Rate 18 20 20 Blood Pressure 150/62 H Pulse Oximetry 95 Oxygen Delivery 01/14/23 12:00 01/14/23 16:00 01/14/23 20:21 Temperature 98.2 F Pulse Rate 74 78 83 Respiratory Rate 20 Blood Pressure 130/63 Pulse Oximetry 94 Oxygen Delivery 01/14/23 20:30 01/14/23 20:00 01/15/23 02:40 Temperature Pulse Rate 72 78 74 Respiratory Rate 22 H 18 20 Blood Pressure Pulse Oximetry 95 Oxygen Delivery Room Air 01/14/23 20:45 01/15/23 02:41 01/15/23 02:46 Temperature Pulse Rate 78 78 Respiratory Rate 20 20 Blood Pressure Pulse Oximetry 96 Oxygen Delivery Room Air 01/14/23 20:00 01/15/23 00:00 01/15/23 04:00 Temperature Pulse Rate 74 78 78 Respiratory Rate Blood Pressure Pulse Oximetry Oxygen Delivery 01/15/23 06:00 01/15/23 07:53 01/15/23 07:53 Temperature 98.3 F Pulse Rate 79 77 Respiratory Rate 18 20 Blood Pressure 145/57 H Pulse Oximetry 96 94 Oxygen Delivery Room Air 01/15/23 08:08 01/15/23 09:13 01/15/23 08:00 Temperature Pulse Rate 80 77 Respiratory Rate 20 Blood Pressure Pulse Oximetry Oxygen Delivery Room Air Intake/Output Intake/Output: Intake & Output 01/12/23 01/13/23 01/14/2301/15
[2023-01-15] MEDS: methylPREDNISolone SOD SUCC 125 MG VIAL IV PUSH (13:34)
[2023-01-15] MEDS: rOPINIRole HCL 0.5 MG TABLET PO (20:24)
[2023-01-15] MEDS: FAMOTIDINE 20 MG TABLET 40 MG PO (20:24)
[2023-01-15] MEDS: METOPROLOL SUCCINATE EXT REL 50 MG TABCR PO (20:25)
[2023-01-15] MEDS: ATORVASTATIN 10 MG TABLET PO (20:25)
[2023-01-15] MEDS: dilTIAZem HCL CD 180 MG CAP.24HR 360 MG PO (20:26)
[2023-01-16] VITALS (9 sets, daily range): BP systolic 140; BP diastolic 64; PULSE 73–84; RESP 18–20; TEMP 37.1; O2SAT 90–96
[2023-01-16] MEDS: IPRATROPIUM BR 0.02% INH SOLN 0.5 MG/2.5 ML VIAL INHALATION ×2 (02:48→08:08)
[2023-01-16] MEDS: LEVALBUTEROL NEB 1.25 MG/3 ML 0.63 MG INHALATION ×2 (02:48→08:08)
[2023-01-16 05:36] LABS: Hematocrit 27.7 % (37.0-47.0); Hemoglobin 8.1 g/dL (12.0-15.0); Mean Corpuscular HGB Conc 29.2 g/dl (32-36); Mean Corpuscular Hemoglobin 27.1 pg (26-34); Mean Corpuscular Volume 92.6 fl (80-100); Mean Platelet Volume 9.6 fl (7.4-10.4); Platelet Count Result 222 k/mm3 (150-375); Red Blood Count 2.99 M/mm3 (4.2-5.4); Red Cell Distribution Width 16.9 % (11.5-14.5); White Blood Count 7.9 K/mm3 (4.5-10.0)
[2023-01-16 05:48] LABS: Alanine Aminotransferase 31 U/L (6-35); Albumin Level 3.4 g/dL (3.5-5.1); Alkaline Phosphatase 76 U/L (38-126); Anion Gap 10 mmol/L (8-16); Aspartate Amino Transferase 27 U/L (14-36); Bilirubin,Total 0.4 mg/dL (0.2-1.3); Blood Urea Nitrogen 25 mg/dL (7-17); Calcium 9.3 mg/dL (8.4-10.2); Carbon Dioxide 26 mmol/L (22-30); Chloride 102 mmol/L (98-107); Estimated Glomerular Filt Rate > 60; Glucose 179 mg/dL (65-110); Potassium 3.5 mmol/L (3.4-5.0); Sodium 138 mmol/L (137-145)
[2023-01-16] MEDS: methylPREDNISolone SOD SUCC 125 MG VIAL 60 MG IV PUSH (06:22)
[2023-01-16] MEDS: FLUTICASONE/UMECLIDIN/VILANTER 100-62.5-25 MCG ELLIPTA 1 PUFF INHALATION (08:08)
[2023-01-16] MEDS: guaiFENesin 600 MG/DEXTROMETHORPHAN 30 MG SR TAB 12 HR 1 TAB PO (09:12)
[2023-01-16] MEDS: busPIRone HCL 10 MG TABLET 30 MG PO (09:12)
[2023-01-16] MEDS: PANTOPRAZOLE 40 MG TABLET PO (09:13)
[2023-01-16] MEDS: SERTRALINE HCL 50 MG TABLET 100 MG PO (09:13)
[2023-01-16] MEDS: methylPHENIDATE HCL (*CRX) 10 MG TABLET 20 MG PO (09:13)
[2023-01-16] MEDS: ASPIRIN 81 MG CHEWABLE TABLET PO (09:13)
[2023-01-16] MEDS: FERROUS GLUCONATE 324 MG TABLET PO (09:13)
[2023-01-16] MEDS: GABAPENTIN 300 MG CAPSULE 600 MG PO ×2 (09:13→12:49)
[2023-01-16] MEDS: DULoxetine HCL 60 MG CAPSULE.DR PO (09:13)
--- NOTE | 2023-01-16 10:37 | PM.DS ---
DS: Admitting Diagnosis Discharge Date 01/16/23 Admitting Diagnosis COVID, COPD exacerbation DS: Discharge Diagnosis Discharge Diagnosis (1) Acute exacerbation of chronic obstructive pulmonary disease (COPD): Code(s): J44.1 - Chronic obstructive pulmonary disease with (acute) exacerbation Status: Acute (2) COVID-19: Code(s): U07.1 - COVID-19 Status: Acute (3) Acute kidney injury: Code(s): N17.9 - Acute kidney failure, unspecified Status: Resolved (4) Obstructive sleep apnea: Code(s): G47.33 - Obstructive sleep apnea (adult) (pediatric) Status: Acute (5) Chronic obstructive pulmonary disease: Qualifiers: COPD type: unspecified COPD Qualified Code(s): J44.9 - Chronic obstructive pulmonary disease, unspecified Code(s): J44.9 - Chronic obstructive pulmonary disease, unspecified Status: Acute (6) Hypertrophic obstructive cardiomyopathy: Code(s): I42.1 - Obstructive hypertrophic cardiomyopathy Status: Acute (7) Chronic anemia: Code(s): D64.9 - Anemia, unspecified Status: Acute DS: Summary Hospital Course Hospital Course: This is a 67-year-old female with past medical history of COPD, dyslipidemia, hypertension, hypertrophic obstructive cardiomyopathy, neurostimulator device, [place] and presented to the ED on 01/10/2023 due to shortness of breath worsening for the past week. Patient has been using her inhaler more frequently with no improvement. She tested positive for COVID. Endorses a cough, poor appetite, generalized fatigue, body aches and chills. Patient admitted and put into contact isolation. Solu-Medrol was initiated due to extensive wheezing and likely COPD exacerbation due to COVID-19. Sputum culture was ordered but was not able to be obtained. Nebulizers scheduled q.6 hours. She was put on Zithromax for total of 5 days. Patient was slowly weaned off of her IV Solu-Medrol and wheezing improved. She still endorses fatigue although this could linger for several weeks. Advice her to continue her home inhalers and will discharge her on a steroid taper. Labs and vital signs are stable and she is medically cleared for discharge at this time. Time Spent with Patient Time attestation: Total time spent providing and/or coordinating discharge services: Exam Narrative: GENERAL: Comfortable, no acute distress HENMT: moist mucous membranes EYES: EOM intact b/l NECK: no lymphadenopathy RESPIRATORY: Clear to auscultation, distant breath sounds CARDIO: RRR GI: soft, nontender, bowel sounds present SKIN: no rashes EXTREMITIES: no edema, redness or tenderness DS: Data Data Completed and Pending Labs on day of discharge: Labs from last 24 hours 01/16/23 05:01 WBC 7.9 RBC 2.99 L Hgb 8.1 L Hct 27.7 L MCV 92.6 MCH 27.1 MCHC 29.2 L RDW 16.9 H Plt Count 222 MPV 9.6 Sodium 138 Potassium 3.5 Chloride 102 Carbon Dioxide 26 Anion Gap 10 BUN 25 H Creatinine 0.70 Estim Creat Clear Calc Not Reportable Estimated GFR > 60 Glucose 179 H Calcium 9.3 Total Bilirubin 0.4 AST 27 ALT 31 Alkaline Phosphatase 76 Total Protein 6.0 L Albumin 3.4 L Discharge Plan Discharge Attending physician on discharge: Rohit Boothe Consulting providers: Margie Mendoza Discharging Clinician: Christine Carranza Patient Disposition: Home, Self-Care Activity: as tolerated Diet: regular Discharge Instructions: -Continue home inhalers as prescribed. -Prednisone taper. 40 mg twice daily for 2 days, then 40 mg once daily for 2 days, then 20 mg once daily for 2 days. Take all medications as prescribed even if feeling better Remember to stay quarantined until 01/19/23 Wear a mask in public, and stay away from large crowds Eat well balanced meals and stay hydrated Keep active, but do not over do it No running marathons, riding your bike, or any other activity that is not mild I
== END 2023-01-16 13:07 | disposition home or self-care (01) | DRG 178 ==
LOC: ANHED 18:14 → ANH2MED 22:52
PROVIDERS: Emergency Medicine; Admitting Provider Internal Medicine; Emergency Provider Physician Assistant; PCP Internal Medicine; Visit Provider Internal Medicine Critical Care Medicine
DX: U07.1 COVID-19 (principal); I42.1 Obstructive hypertrophic cardiomyopathy; J44.1 Chronic obstructive pulmonary disease with (acute) exacerbation; N17.9 Acute kidney failure, unspecified; G47.33 Obstructive sleep apnea (adult) (pediatric); D64.9 Anemia, unspecified; E78.5 Hyperlipidemia, unspecified; I10 Essential (primary) hypertension; Z96.643 Presence of artificial hip joint, bilateral; E66.9 Obesity, unspecified; Z68.31 Body mass index [BMI] 31.0-31.9, adult; Z90.49 Acquired absence of other specified parts of digestive tract; Z98.42 Cataract extraction status, left eye; Z98.41 Cataract extraction status, right eye
CPT/HCPCS: 36415; 71045; 71046; 80053; 81003; 82607; 82728; 82746; 83540; 83550; 83735; 83880; 84439; 84443; 84466; 84480; 84484; 85014; 85018; 85025; 85027; 85380; 85610; 85730; 87636; 93005; 94640; 96361; 96365; 96366; 96367; 96375; 96376; 99285; A9270; G0378; J0456; J0696; J1756; J2930; J7030; J7050

== ENCOUNTER 2023-04-18 01:35 | Day surgery (SDC) | payer MEDICARE, SELFPAY ==
--- NOTE | 2023-04-14 13:02 | SUR.PREOP ---
Patient called regarding upcoming procedure. Message left on pt's voicemail regarding appointment times.
--- NOTE | 2023-04-17 16:18 | PM.HPGS ---
History of Present Illness History of Present Illness Consent: Risks, benefits, and alternatives have been discussed and questions answered. Patient agrees to proceed with procedure. Chief complaint: hx of colon polyps Narrative: Breonna Rousseau is a 68 year old female Referred for colon cancer screening. She had colonoscopy 1 year ago with the finding of several polyps. One large sessile polyp could not be completely removed due to inability of anesthesia to keep her from moving about. Review of Systems Review of Systems: All systems reviewed & are unremarkable except as noted in HPI and below PMFSH Past Medical History Medical History Chronic anemia Chronic obstructive pulmonary disease History of MRSA infection Hyperlipidemia Hypertension Hypertrophic obstructive cardiomyopathy Neurostimulator device in situ Obstructive sleep apnea Intolerant to CPAP. 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 History of bladder suspension procedure History of colonoscopy with polypectomy History of hysterectomy History of nasal septoplasty History of sinus surgery History of spinal surgery Family History Family History Other Cancer Social History Social History Social History: Surrogate medical decision maker: Lincoln Rousseau, spouse. Code status: Full code. Smoking status: Never smoker Alcohol intake: never Substance use: never Substance use type: does not use Lack of Transportation: No Lack of Food: Never True Current Housing: I Have Housing Concerned About Future Housing: No Difficulty Paying Gas/Electric Bills: No Difficulty Paying for Meds: No Currently Unemployed: No Education: High School Diploma/GED Difficulty w/ Childcare or Family Care: No Living arrangements: other Additional living arrangements comments: with sp Spiritual care concerns: No Meds Home Medications and Allergies Home Medications Medication Instructions Recorded Confirmed Type albuterol sulfate 90 mcg/actuation 1 - 2 puff inhalation QID PRN 05/31/22 03/22/23 History aerosol inhaler Shortness Of Breath Or Wheezing atorvastatin 10 mg tablet 10 mg PO HS 05/31/22 03/22/23 History buspirone 30 mg tablet 30 mg PO BID 05/31/22 03/22/23 History diltiazem HCl 360 mg 360 mg PO HS 05/31/22 03/22/23 History capsule,extended release 24 hr disopyramide phosphate 150 mg 150 mg PO BID 05/31/22 03/22/23 History capsule duloxetine 60 mg capsule,delayed 60 mg PO BID 05/31/22 03/22/23 History release famotidine 40 mg tablet 40 mg PO HS 05/31/22 03/22/23 History fluticasone fur. 100 mcg-umeclid 1 inh inhalation DAILY 05/31/22 03/22/23 History 62.5 mcg-vilant 25 mcg inhalat.powder (Trelegy Ellipta) gabapentin 600 mg tablet 600 mg PO TID 05/31/22 03/22/23 History hydrocodone 10 mg-acetaminophen 1 tablet PO TID PRN Pain 05/31/22 03/22/23 History 325 mg tablet methylphenidate HCl 20 mg tablet 20 mg PO BID 05/31/22 03/22/23 History metoprolol succinate 50 mg 50 mg PO HS 05/31/22 03/22/23 History tablet,extended release 24 hr omeprazole 20 mg capsule,delayed 20 mg PO DAILY 05/31/22 03/22/23 History release ropinirole 0.5 mg tablet 0.5 mg PO HS 05/31/22 03/22/23 History sertraline 100 mg tablet 100 mg PO BID 05/31/22 03/22/23 History aspirin 81 mg chewable tablet 81 mg PO DAILY@0800 #30 tabs 10/13/22 03/22/23 Rx (Children's Aspirin) ferrous gluconate 324 mg (38 mg 324 mg PO DAILY@0800 #60 tabs 01/16/23 03/22/23 Rx iron) tablet Allergies Allergy/AdvReac Type Severity Reac
[2023-04-18 10:28] VITALS: BP 128/80; PULSE 69; RESP 20; TEMP 36.3; O2SAT 95; BMI 33.8
[2023-04-18] MEDS: LACTATED RINGERS 1,000 ML 150 ML IV CONT (11:01)
--- NOTE | 2023-04-18 11:19 | WPDANESEPPF ---
Anes - Initial Pre Proc Eval Procedure: Operation Date: 04/18/23 11:30 Proposed Procedures p Colonoscopy - Hermilo Newton MD Date/Time: 04/18/23 11:19 Surgeon: Hermilo Newton MD Pre Op Diagnosis: hx of colon polyps Patient Data Age: 68 Gender: F Height: 1.47 m Weight: 73.5 kg Last Vital Signs Temp 97.4 F L 04/18/23 10:28 Pulse 69 04/18/23 10:28 Resp 20 04/18/23 10:28 BP 128/80 04/18/23 10:28 Pulse Ox 95 04/18/23 10:28 O2 Del Method Room Air 04/18/23 10:28 Allergies Allergy/AdvReac Type Severity Reaction Status Date / Time Penicillins Allergy Mild Rash Verified 03/22/23 08:34 Sulfa (Sulfonamide AdvReac Mild NAUSEA Verified 03/22/23 08:34 Antibiotics) Home Medications Medication Instructions Recorded Confirmed Type albuterol sulfate 90 mcg/actuation 1 - 2 puff inhalation QID PRN 05/31/22 03/22/23 History aerosol inhaler Shortness Of Breath Or Wheezing atorvastatin 10 mg tablet 10 mg PO HS 05/31/22 03/22/23 History buspirone 30 mg tablet 30 mg PO BID 05/31/22 03/22/23 History diltiazem HCl 360 mg 360 mg PO HS 05/31/22 03/22/23 History capsule,extended release 24 hr disopyramide phosphate 150 mg 150 mg PO BID 05/31/22 03/22/23 History capsule duloxetine 60 mg capsule,delayed 60 mg PO BID 05/31/22 03/22/23 History release famotidine 40 mg tablet 40 mg PO HS 05/31/22 03/22/23 History fluticasone fur. 100 mcg-umeclid 1 inh inhalation DAILY 05/31/22 03/22/23 History 62.5 mcg-vilant 25 mcg inhalat.powder (Trelegy Ellipta) gabapentin 600 mg tablet 600 mg PO TID 05/31/22 03/22/23 History hydrocodone 10 mg-acetaminophen 1 tablet PO TID PRN Pain 05/31/22 03/22/23 History 325 mg tablet methylphenidate HCl 20 mg tablet 20 mg PO BID 05/31/22 03/22/23 History metoprolol succinate 50 mg 50 mg PO HS 05/31/22 03/22/23 History tablet,extended release 24 hr omeprazole 20 mg capsule,delayed 20 mg PO DAILY 05/31/22 03/22/23 History release ropinirole 0.5 mg tablet 0.5 mg PO HS 05/31/22 03/22/23 History sertraline 100 mg tablet 100 mg PO BID 05/31/22 03/22/23 History aspirin 81 mg chewable tablet 81 mg PO DAILY@0800 #30 tabs 10/13/22 03/22/23 Rx (Children's Aspirin) ferrous gluconate 324 mg (38 mg 324 mg PO DAILY@0800 #60 tabs 01/16/23 03/22/23 Rx iron) tablet Patient hx anesthesia problems: none Family hx anesthesia problems: none Results Review: All pre-operative results and documents have been reviewed as part of the pre-operative evaluation. [facility] Past Medical History Medical History Chronic anemia Chronic obstructive pulmonary disease History of MRSA infection Hyperlipidemia Hypertension Hypertrophic obstructive cardiomyopathy Neurostimulator device in situ Obstructive sleep apnea Intolerant to CPAP. 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 History of bladder suspension procedure History of colonoscopy with polypectomy History of hysterectomy History of nasal septoplasty History of sinus surgery History of spinal surgery Family History Family History Other Cancer Social History Social History Social History: Surrogate medical decision maker: Lincoln Rousseau, spouse. Code status: Full code. Smoking status: Never smoker Alcohol intake: never Substance use: never Substance use type: does not use Lack of Transportation: No Lack of Food: Never True Current Housing: I Have Housing Concerned About Future Housing: No Difficulty Paying Gas/Electric Bills: No Difficulty Paying for Meds: No Current
[2023-04-18 12:07] VITALS: BP 106/45; PULSE 68; RESP 20; O2SAT 97
[2023-04-18 12:17] VITALS: BP 118/53; PULSE 68; RESP 14; O2SAT 100
[2023-04-18 12:28] VITALS: BP 119/64; PULSE 71; RESP 16; O2SAT 100
== END 2023-04-18 12:35 | disposition home or self-care (01) ==
PROVIDERS: PCP Internal Medicine; Visit Provider Internal Medicine Gastroenterology
PROC: 0DJD8ZZ Inspection of Lower Intestinal Tract, Via Natural or Artificial Opening Endoscopic (ICD-10-PCS; CPT 45378; principal; 2023-04-18 11:30)
DX: Z09 Encounter for follow-up examination after completed treatment for conditions other than malignant neoplasm (principal); D12.4 Benign neoplasm of descending colon; K64.8 Other hemorrhoids; E78.5 Hyperlipidemia, unspecified; I10 Essential (primary) hypertension; G47.33 Obstructive sleep apnea (adult) (pediatric)
CPT/HCPCS: 45385; 45388; 88305; J2704; J7120

== ENCOUNTER 2023-08-03 14:56 | Emergency (ER) | payer MEDICARE, SELFPAY ==
--- NOTE | ~2023-08-03 | XR_ITS ---
EXAMINATION: XR knee RT 3V DATE: 08/03/2023 15:20 INDICATION: Right knee pain. Fall. TECHNIQUE: 3 views of right knee were obtained. COMPARISON: None. FINDINGS: Bone alignment is normal. No fracture. There is mild tricompartmental osteoarthritis. No kn ee joint effusion. There is prepatellar soft tissue swelling. IMPRESSION: 1. Mild right knee osteoarthritis. Reviewed, dictated and finalized at location E.
[2023-08-03 14:56] VITALS: BP 121/45; PULSE 77; RESP 16; TEMP 36.4; O2SAT 96
--- NOTE | 2023-08-03 15:46 | ED.LOWEXIN ---
HPI - Extremity Injury (Lower) General Chief Complaint: Extremity Injury, Lower Stated Complaint: R knee swelling Time Seen by Provider: 08/03/23 15:03 History of Present Illness HPI Narrative: 68-year-old female presents to the emergency room for evaluation of right knee pain. Patient states 1 week ago she sustained a ground level mechanical fall striking her right knee. Patient has experienced soft tissue swelling and bruising to the knee. States he is able to ambulate with assistance of a cane. No other injuries. Related Data Home Medications Medication Instructions Recorded Confirmed albuterol sulfate 90 mcg/actuation 1 - 2 puff inhalation QID PRN 05/31/22 07/03/23 aerosol inhaler Shortness Of Breath Or Wheezing atorvastatin 10 mg tablet 10 mg PO HS 05/31/22 07/03/23 buspirone 30 mg tablet 30 mg PO BID 05/31/22 07/03/23 diltiazem HCl 360 mg 360 mg PO HS 05/31/22 07/03/23 capsule,extended release 24 hr disopyramide phosphate 150 mg 150 mg PO BID 05/31/22 07/03/23 capsule duloxetine 60 mg capsule,delayed 60 mg PO BID 05/31/22 07/03/23 release famotidine 40 mg tablet 40 mg PO HS 05/31/22 07/03/23 fluticasone fur. 100 mcg-umeclid 1 inh inhalation DAILY 05/31/22 07/03/23 62.5 mcg-vilant 25 mcg inhalat.powder (Trelegy Ellipta) gabapentin 600 mg tablet 600 mg PO TID 05/31/22 07/03/23 hydrocodone 10 mg-acetaminophen 1 tablet PO TID PRN Pain 05/31/22 07/03/23 325 mg tablet methylphenidate HCl 20 mg tablet 20 mg PO BID 05/31/22 07/03/23 metoprolol succinate 50 mg 50 mg PO HS 05/31/22 07/03/23 tablet,extended release 24 hr omeprazole 20 mg capsule,delayed 20 mg PO DAILY 05/31/22 07/03/23 release ropinirole 0.5 mg tablet 0.5 mg PO HS 05/31/22 07/03/23 sertraline 100 mg tablet 100 mg PO BID 05/31/22 07/03/23 Allergies Allergy/AdvReac Type Severity Reaction Status Date / Time Penicillins Allergy Mild Rash Verified 07/03/23 10:28 Sulfa (Sulfonamide AdvReac Mild NAUSEA Verified 07/03/23 10:28 Antibiotics) Review of Systems Review of Systems: ROS unremarkable except for stated in HPI [facility] Past Medical History Medical History Asthma Chronic anemia Chronic obstructive pulmonary disease History of MRSA infection Hyperlipidemia Hypertension Hypertrophic obstructive cardiomyopathy Neurostimulator device in situ (04/03/19) Obstructive sleep apnea Intolerant to CPAP. 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 Debridement History of bladder surgery bladder suspension History of bladder suspension procedure History of colonoscopy with polypectomy (08/07/14) History of hysterectomy History of nasal septoplasty History of sinus surgery History of spinal surgery x 3 S/P spinal surgery (~03/20/19) stimulator placed Family History Family History Mother Breast cancer COPD (chronic obstructive pulmonary disease) Father Malignant neoplasm of prostate Emphysema lung Sibling Lung cancer sister COPD (chronic obstructive pulmonary disease) sister Son COPD (chronic obstructive pulmonary disease) Asthma Other Cancer Social History Social History Social History: Surrogate medical decision maker: Lincoln Rousseau, spouse. Code status: Full code. Smoking status: Never smoker Second hand tobacco smoke exposure: No Alcohol intake: never Substance use: never Substance use type: does not use Do You Feel Safe in your Home?: Yes
[2023-08-03 16:16] VITALS: BP 106/40; PULSE 71; RESP 18; O2SAT 95
== END 2023-08-03 16:17 | disposition home or self-care (01) ==
LOC: ANHED 15:53
PROVIDERS: Emergency Provider Nurse Practitioner Family; PCP Internal Medicine
DX: S80.01XA Contusion of right knee, initial encounter (principal); I42.1 Obstructive hypertrophic cardiomyopathy; E78.5 Hyperlipidemia, unspecified; J44.9 Chronic obstructive pulmonary disease, unspecified; D64.9 Anemia, unspecified; G47.33 Obstructive sleep apnea (adult) (pediatric); Z96.82 Presence of neurostimulator; Z96.643 Presence of artificial hip joint, bilateral; Z86.14 Personal history of Methicillin resistant Staphylococcus aureus infection; Z98.42 Cataract extraction status, left eye; Z98.41 Cataract extraction status, right eye; Z90.710 Acquired absence of both cervix and uterus; Z79.82 Long term (current) use of aspirin; W18.30XA Fall on same level, unspecified, initial encounter
CPT/HCPCS: 73562; 99283

== ENCOUNTER 2024-06-27 14:36 | Outpatient (CLI) | payer MEDICARE, SELFPAY ==
[2024-06-27 14:48] LABS: Basophils Percent Auto 0.3 % (0.2-1.2); Eosinophils Absolute Auto 0.1 K/mm3 (0-0.3); Eosinophils Percent Auto 1.5 % (0-4.4); Hemoglobin 10.9 g/dL (12.0-15.0); Immature Granulocyte Absolute 0.02 K/mm3 (0.00-0.031); Immature Granulocyte Percent A 0.3 % (0-0.5); Lymphocytes Absolute Auto 1.94 K/mm3 (0.9-3.2); Lymphocytes Percent Auto 26.4 % (18.3-44.2); Mean Corpuscular HGB Conc 32.1 g/dl (32-36); Mean Corpuscular Hemoglobin 30.8 pg (26-34); Mean Platelet Volume 8.5 fl (7.4-10.4); Monocytes Absolute Auto 0.7 K/mm3 (0.1-0.6); Monocytes Percent Auto 9.5 % (2.6-8.5); Neutrophils Absolute Auto 4.6 K/mm3 (1.3-6.7); Platelet Count Result 192 k/mm3 (150-375); Red Blood Count 3.54 M/mm3 (4.2-5.4); Red Cell Distribution Width 13.2 % (11.5-14.5); White Blood Count 7.3 K/mm3 (4.5-10.0)
--- OUTSIDE RECORDS SUMMARY | 2024-06-27 15:08 | XMS_ITS | Clinical Summary ---
Author Organization [facility] [employer] Address [address] [place] [address] Care Team Providers Care Geospatial Technologist Name Role Phone Mal Lacey MD Primary Care Provider [phone] Source Comments [facility],non-owned Affiliates and Associated Physician Practices is amultiple site organization consisting of ambulatory clinics and hospital sitesin [place], [place], [place] and [place]. This disclosure is being madepursuant to the Care Everywhere program and may not contain all information available regarding this patient. Last updated 17.[facility] Allergies Active Allergy Reactions Criticality Noted Date Comments Penicillins Rash 04/14/2009 Medications * Be aware that medications may not be up to date on this document. Alwaysverify current medications with the patient. Medication Sig Dispensed Refills Start Date End Date Status fluoxetine (PROZAC) 40 MG capsule Take 60 mg by mouth daily. Active methylphenidate (RITALIN) 10 MG tablet Take 10 mg by mouth 2 times daily before meals. Active methylphenidate ER (METADATE ER; RITALIN SR) 20 MG tablet Take 20 mg by mouth every morning. Active hydrocodone-acetaminop hen (VICODIN) 5-500 MG tablet Take 1 Tab by mouth every 8 hours as needed for Pain. This will be last refill from Dr. Block. She will need to get further refills from PCP. 40 Tab 0 01/14/2010 Active amitriptyline (ELAVIL) 25 MG tablet Take 1 Tab by mouth at bedtime. 60 Tab 5 04/22/2010 Active Rosuvastatin Calcium (CRESTOR PO) Active methocarbamol (ROBAXIN) 750 MG tablet Take 1 Tab by mouth every 6 hours as needed for Muscle Spasms. 120 Tab 3 06/01/2011 Active carisoprodol (SOMA) 350 MG tablet 1 Tab 2 times daily. Active piroxicam (FELDENE) 20 MG capsule Take 1 Cap by mouth once daily. 30 Cap 5 01/09/2013 Active methocarbamol (ROBAXIN) 500 MG tablet TAKE 1 TAB BY MOUTH QID 120 Tab 1 01/09/2013 Active Active Problems Problem Noted Date Diagnosed Date Spinal stenosis, lumbar garcia on, with neurogenic claudication 01/09/2013 Degeneration of lumbar or lumbosacral interverte bral disc 09/30/2009 Resolved Problems Problem Noted Date Diagnosed Date Resolved Date Lumbar disc displacement 04/16/2009 Overview (04/16/2009): LUMBAR DISC DISPLACEMENT Social History Tobacco Use Types Packs/Day Years Used Date Smoking Tobacco: Never Smokeless Tobacco: Never Alcohol Use Standard Drinks/Week Comments No 0 (1 standard drink = 0.6 oz pur e alcohol) Sex and Gender Information Value Date Recorded Sex Assigned at Not on file Gender Identity Not on file Sexual Orientation Not on file Last Filed Vital Signs Vital Sign Reading Time Taken Comments Blood Pressure 100/51 04/17/2009 9:00 AM [employer] Pulse 75 04/17/2009 9:00 AM [employer] Temperature 37.2 C (98.9 F) 04/17/2009 9:00 AM [employer] Respiratory Rate 20 04/17/2009 9:00 AM [employer] HER[employer] Oxygen Saturation 96% 04/17/2009 9:00 AM [employer] HER[employer] Inhaled Oxygen Concentration - - Weight 81.6 kg (180 lb) 01/09/2013 1:15 PM CDT Height 149.9 cm (4' 11 ) 01/09/2013 1:15 PM CDT Body Mass Index 36.36 01/09/2013 1:15 PM CDT Plan of Treatment Health Maintenance Due Date Last Done Comments BONE DENSITY TESTING 1955 COLOGUARD (AGES 45-75) - COL ON CA SCREENING 1955 COLON MONITORING 1955 COLONOSCOPY - COLON CA SCREENING 1955 CT COLONOGRAPHY - COLON CA SCREENING 1955 Colorectal Cancer Screening 1955 FIT - COLON CA SCREENING 1955 FLEX SIG - COLON CA SCREENING 1955 MAMMOGRAM 1955 HEPATITIS C SCREENING 03/21/1973 DTAP/TDAP/TD VACCINES (1 - Tdap) 1974 PNEUMOCOCCAL VACCINE 50+ (1 of 1 - PCV) 2005 ZOSTER VACCINE (1 of 2) 2005 COVID-19 VACCINE (1 - 2023-2 5 season) 2023 DEPRESSION SCREENING 03/20/2024 MEDICARE AWV CALENDAR YEAR 2024 INFLUENZA VACCINE (Season Ended) 2024 Respiratory Syncytial Virus (RSV) Vaccine Pt: or over 60 yrs (1 - 1-dose 75+ series) 2030 HEPATITIS B VACCINE Aged Out No longe r eligible based on patient's age to complete this topic HIB VACCINE Aged Out No longer eligi ble based on patient's age to complete this topic HPV VACCINE Aged Out No longer eligi ble based on patient's age to complete this topic MENINGOCOCCAL (Group B) VACC INE SHARED DECISION-MAKING Aged Out No longer eligibl e based on patient's age to complete this topic MENINGOCOCCAL GROUPS A/C/Y/W VACCINE Aged Out No longer eligible b ased on patient's age to complete this topic Advance Directives * Full Code (Latest Code Status on File) Date Activated Date Inactivated Comments 04/16/2009 2:49 PM 04/17/2009 11:27 PM Care Teams Geospatial Technologist Relationship Specialty Start Date End Date Mal Lacey MD PCP - General 07/21/22
--- OUTSIDE RECORDS SUMMARY | 2024-06-27 15:09 | XMS_ITS | CONTINUITY OF CARE DOCUMENT ---
Author Name trace woodward Address Unknown Organization [facility] Address [address] [place] [address] Phone [phone] Care Team Providers Care Hearing Specialist Name Role Phone Hernando GARZON, Surekha Unavailable RAQUEL GONZALEZ MD Unavailable ELIZABETH HERNANDEZ MD Unavailable [phone] PROBLEMS Condition Status Date Provider Notes Palpitations active Shekhar Mar Hypertension active Diaz Jeff Cardiology examination active Diaz Jeff Lower extremity edema active Surekha Almaguer Syncope active Diaz Jeff AV block, partial completed - Surekha Villagomez MD Shortness of breath-- Echo E F nl, 07/2023 active Surekha Villagomez MD Leg pain, bilateral active Diaz Jeff Hypertrophic obstructive cardiomyopathy. EF 65% active Surekha Villagomez MD GENOVEVA cant tolerate CPAP active Surekha Villagomez MD BACK PAIN multiple surgeries , pain pump active Surekha Villagomez MD Preoperative cardiovascular examination for possible hip surgery completed - Surekha Villagomez MD Palpitations normal holter 03/08 active Marcus Villagomez MD Chest pain-, nl cors on cath 04/09 active Dylon Nacht Neuropathy active Surekha Villagomez MD Anemia active Surekha Villagomez MD COPD active Surekha Villagomez MD Hyperlipidemia active Surekha Villagomez MD ENCOUNTERS Date Type Provider Location Encounter Diag nosis - In-person encounter Office Visit Surekha Villagomez MD [facility] Cardiology examination - In-person encounter Office Visit Surekha Villagomez MD [facility] AV block, partial - In-person encounter Office Visit Surekha Villagomez MD [facility] Preoperative cardiovascular examination for possible hip surgeryHypertrophic obstructive cardiomyopathy. EF 65%Shortness of breath-- Echo EF nl, 07/2023Lower extremity edema - In-person encounter Office Visit Surekha Villagomez MD [facility] Hypertrophic obstructive cardiomyopathy. EF 65%Shortness of breath-- Echo EF nl, 07/2023 - In-person encounter Office Visit Surekha Villagomez MD [facility] - In-person encounter Office Visit Surekha Villagomez MD [facility] Syncope - In-person encounter Office Visit Surekha Villagomez MD [facility] - In-person encounter Office Visit Surekha Villagomez MD [facility] - In-person encounter Office Visit Surekha Villagomez MD [facility] Shortness of breath-- Echo EF nl, - In-person encounter Office Visit Surekha Villagomez MD [facility] Hypertension - In-person encounter Office Visit Surekha Villagomez MD [facility] Leg pain, bilateral - In-person encounter Office Visit Surekha Villagomez MD [facility] Hypertrophic obstructive cardiomyopathy. EF 65% - In-person encounter Office Visit Surekha Villagomez MD [facility] - In-person encounter Office Visit Surekha Villagomez MD [facility] Chest pain-, nl cors on cath 04/09 - In-person encounter Office Visit Surekha Villagomez MD [facility] Chest pain-, nl cors on cath 04/09Palpitations normal holter 03/08Hypertrophic obstructive cardiomyopathy. EF 65% - In-person encounter Office Visit Surekha Villagomez MD [facility] HyperlipidemiaCOPDAnemiaNeuropathyChest pain-, nl cors on cath 04/09Palpitations normal holter 03/08BACK PAIN multiple surgeries, pain pumpOSA cant tolerate CPAP VITAL SIGNS Date Observation Value Provider Body Mass Index (Ratio) 34.74 kg/m2 Dung Villagomez MD blood pressure, diastolic 75 mm[Hg] [facility] blood pressure, systolic 140 mm[Hg] cinthya nena [place] oxygen saturation, oximetry 97 % [facility] pulse rate 73 /min [facility] respiratory rate E&M 12 /min [facility] weight E&M 172 [lb_av] [facility] height E&M 59 [in_i] [facility] blood pressure, cuff size regular [facility] Body Mass Index (Ratio) 34.74 kg/m2 Dung Villagomez MD blood pressure, diastolic 80 mm[Hg] Bridger Jeff blood pressure, systolic 126 mm[Hg] Myriam Jeff oxygen saturation, oximetry 96 % Diaz Jeff pulse rate 95 /min Diaz Jeff weight E&M 172 [lb_av] Diaz Jeff Body Mass Index (Ratio) 34.53 kg/m2 Dung Villagomez MD blood pressure, cuff size regular [facility] blood pressure, diastolic 64 mm[Hg] Ja kathy blood pressure, systolic 124 mm[Hg] [facility] pulse rate 63 /min Henry y oxygen saturation, oximetry 93 % [facility] respiratory rate E&M 16 /min [facility] weight E&M 171 [lb_av] Henry y height E&M 59 [in_i] Henry y Body Mass Index (Ratio) 31.50 kg/m2 Dung Villagomez MD blood pressure, cuff size regular Raphael [facility] blood pressure, diastolic 81 mm[Hg] [facility] blood pressure, systolic 134 mm[Hg] [facility] pulse rate 85 /min [facility] oxygen saturation, oximetry 95 % [facility] respiratory rate E&M 12 /min [facility] weight E&M 156 [lb_av] [facility] height E&M 59 [in_i] Henry y Body Mass Index (Ratio) 33.93 kg/m2 Dung Villagomez MD pulse rate 64 /min Ale Ayleen respiratory rate E&M 20 /min Ale Abbasi blood pressure, diastolic 67 mm[Hg] ruth Abbasi blood pressure, systolic 112 mm[Hg] [facility] monique Abbasi weight E&M 168 [lb_av] Ale Ayleen blood pressure, cuff size regular ruth Ayleen height E&M 59 [in_i] Ale Abbasi Body Mass Index (Ratio) 34.13 kg/m2 Dung Villagomez MD blood pressure, diastolic 63 mm[Hg] Michelle couch Howells blood pressure, systolic 118 mm[Hg] Lucas laura Howells oxygen saturation, oximetry 95 % Cesia Wilson pulse rate 79 /min Cesia Cui d respiratory rate E&M 16 /min Kate nicol Howells blood pressure, cuff size large Michelle couch Wilson weight E&M 169 [lb_av] [facility] E&M 59 [in_i] Cesia Cui d Body Mass Index (Ratio) 34.53 kg/m2 Dung Villagomez MD blood pressure, diastolic 57 mm[Hg] Ri iza Monte blood pressure, systolic 126 mm[Hg] Memo laura Monte blood pressure, cuff size large Bridger Monte oxygen saturation, oximetry 95 % Jade Monte pulse rate 75 /min Jade Martin son respiratory rate E&M 16 /min Ghazala Monte weight E&M 171 [lb_av] Jade Martin son height E&M 59 [in_i] Jade gagnon Body Mass Index (Ratio) 35.54 kg/m2 Dung Villagomez MD blood pressure, diastolic 61 mm[Hg] Li [employer] blood pressure, systolic 130 mm[Hg] [place] [employer] blood pressure, diastolic 61 mm[Hg] Sa ra Rodriguez blood pressure, systolic 130 mm[Hg] Amaury a Rodriguez oxygen saturation, oximetry 90 % Lacey Rodriguez respiratory rate E&M 18 /min Lacey Si ms pulse rate 84 /min Lacey Rodriguez weight E&M 176 [lb_av] Lacey Rodriguez blood pressure, cuff size regular Sa ra Rodriguez height E&M 59 [in_i] Lacey Rodriguez Body Mass Index (Ratio) 36.15 kg/m2 Dung Villagomez MD blood pressure, diastolic 60 mm[Hg] Ca therine [place] blood pressure, systolic 132 mm[Hg] Cat herine Pawan oxygen saturation, oximetry 92 % Anali Pawan pulse rate 81 /min Anali [place] respiratory rate E&M 16 /min Catheri ne Pawan weight E&M 179 [lb_av] Anali [place] blood pressure, cuff size regular Ca therine Pawan height E&M 59 [in_i] Anali Pawan Body Mass Index (Ratio) 34.94 kg/m2 Dung Villagomez MD blood pressure, diastolic 58 mm[Hg] Liz Bateman blood pressure, systolic 109 mm[Hg] Daniela reidreginald Fransico weight E&M 173 [lb_av] Tameka gagnon respiratory rate E&M 16 /min Neal bailonrisa Bateman pulse rate 85 /min Tameka gagnon oxygen saturation, oximetry 92 % Danielatreprudencecheng Bateman height E&M 59 [in_i] Tameka gagnon blood pressure, cuff size regular Liz Charlenereginald Bateman Body Mass Index (Ratio) 34.94 kg/m2 Dung Villagomez MD blood pressure, cuff size regular Cy vanessa Gaytan blood pressure, diastolic 70 mm[Hg] Cy nthia Lukas blood pressure, systolic 134 mm[Hg] Mary angélica Gaytan pulse rate 73 /min Leticia Campbel l weight E&M 173 [lb_av] Leticia Campbel l oxygen saturation, oximetry 95 % Leticia Lukas respiratory rate E&M 16 /min Leticia Gaytan height E&M 59 [in_i] Leticia brown Body Mass Index (Ratio) 31.71 kg/m2 Dung Villagomez MD blood pressure, cuff size regular Ke rri Gruenenfelder blood pressure, diastolic 76 mm[Hg] Ke rri Gruenenfelder blood pressure, systolic 130 mm[Hg] Ker ri Gruenenfelder oxygen saturation, oximetry 94 % Karis Gruenenfelder respiratory rate E&M 16 /min Karis G ruenenfelder pulse rate 88 /min Karis Gruenenfe lder weight E&M 157 [lb_av] Karis Gruenenfe lder height E&M 59 [in_i] Karis Gruenenfe lder Body Mass Index (Ratio) 33.52 kg/m2 Dung Villagomez MD blood pressure, cuff size large Ke rri Gruenenfelder blood pressure, diastolic 76 mm[Hg] Ke rri Gruenenfelder blood pressure, systolic 130 mm[Hg] Ker ri Gruenenfelder oxygen saturation, oximetry 96 % Karis Gruenenfelder respiratory rate E&M 18 /min Karis G ruenenfelder pulse rate 89 /min Karis Gruenenfe lder weight E&M 166 [lb_av] Karis Gruenenfe lder height E&M 59 [in_i] Karis Gruenenfe lder Body Mass Index (Ratio) 33.93 kg/m2 Dung Villagomez MD blood pressure, resting No Brit sanjana Block pulse rate 91 /min Naye Block oxygen saturation, oximetry 95 % Naye Ahumada blood pressure, diastolic 80 mm[Hg] Br ittzaheer Ahumada blood pressure, systolic 140 mm[Hg] Mayra deangelo Ahumada height E&M 59 [in_i] Naye Ahumada weight E&M 168 [lb_av] Naye Brandyn respiratory rate E&M 16 /min [facility] Brandyn ALLERGIES Allergy Name Onset Date Reaction Criticality Status SULFA High Criticality active PENICILLIN High Criticality active HISTORY OF MEDICATION USE Medication Status Instructions Dates Provider Indications Com ments metoprolol succinate 50 mg tablet extended release 24 hr active TAKE 1 TABLET BY MOUTH EVERY DAY Karis Tay gabapentin 600 mg tablet active Diaz Jeff disopyramide phosphate 150 mg capsule active TAKE 1 CAPSULE BY MOUTH TWICE A DAY [facility] metoprolol succinate 50 mg tablet extended release 24 hr completed Take 1 tablet by mouth once a day - Karis Tay furosemide 40 mg tablet active TAKE 1 TABLET BY MOUTH EVERY DAY metoprolol succinate 50 mg tablet extended release 24 hr completed TAKE 1 TABLET BY MOUTH EVERY DAY - Karis Tay disopyramide phosphate 150 mg capsule completed TAKE 1 CAPSULE BY MOUTH TWICE DAILY - [facility] diltiazem HCl (Cardizem CD) 360 mg capsule,extended release 24hr active TAKE 1 CAPSULE BY MOUTH EVERY NIGHT Eladia Urbina diltiazem HCl 360 mg capsule,extended release 24hr completed Take 1 capsule by mouth every night TAKE 1 CAPSULE BY MOUTH EVERY NIGHT. - Shekhar Mar diltiazem HCl 360 mg capsule,extended release 24hr completed TAKE 1 CAPSULE BY MOUTH EVERY NIGHT. INCREASE DOSE - Jolanta Chiang RN Norpace 150 mg capsule completed Take 1 capsule by mouth twice a day - Mary Rushing famotidine 40 mg tablet active Lacey Rodriguez hydrocodone-aceta minophen 10-325 mg tablet active Diaz Jeff Trelegy Ellipta 100-62.5-25 mcg blister with device active Anali Pawan furosemide 40 mg tablet completed Take 1 tablet by mouth once a day - Mary Rushing metoprolol succinate 50 mg tablet extended release 24 hr completed Take 1 tablet by mouth once daily - Mary Rushing VANCOMYCIN HCL SOLUTION completed through iv - Diaz Jeff Klor-Con 20 mEq packet completed once a day - Diaz Jeff diltiazem HCl 360 mg capsule,extended release 24hr completed Take 1 capsule by mouth every night . increased dose - Jolanta Chiang RN B COMPLETE ORAL TABLET completed 1 tab daily - Karis Tay CIPROFLOXACIN HCL 250 MG ORAL TABLET completed TK 1 T PO BID FOR 7 DAYS - Karis Tay #14, 7 days supply, Prescribed by RAQUEL GONZALEZ, Filled 09/18/2019 buspirone 7.5 mg tablet active Take 1 tablet by mouth twice a day Surekha Villagomez MD #60, 30 days supply, Prescribed by CHAIM MARTINI, Filled 01/21/2020 FeroSul 325 mg (65 mg iron) tablet completed Take 1 tablet by mouth twice a day - Diaz Jeff #180, 90 days supply, Prescribed by RAQUEL GONZALEZ, Filled 02/23/2019 albuterol sulfate 90 mcg/actuation HFA aerosol inhaler active Inhale 2 puff by mouth every four to six hours as needed Surekha Villagomez MD #8.5, 16 days supply, Prescribed by ALBERT SAGE, Filled 01/18/2019 cyclobenzaprine 5 mg tablet active Take 1 tablet by mouth twice a day as needed Surekha Villagomez MD #60, 30 days supply, Prescribed by EUGENIA QUAN, Filled 02/23/2019 atorvastatin 20 mg tablet active Take 1 tablet by mouth once a day Diaz Heenamedzai #90, 90 days supply, Prescribed by RAQUEL GONZALEZ, Filled 11/20/2019 gabapentin 300 mg capsule completed Take 1 capsule by mouth three times a day - Diaz Heenarusselzacinthya #270, 90 days supply, Prescribed by EUGENIA QUAN, Filled 12/20/2019 methylphenidate HCl 20 mg tablet active Take 1 tablet by mouth twice a day Surekha Villagomez MD #60, 30 days supply, Prescribed by CHAIM MARTINI, Filled 08/22/2019 duloxetine 60 mg capsule,delayed release(DR/EC) active Take 1 capsule by mouth twice a day Surekha Villagomez MD #60, 30 days supply, Prescribed by CHAIM MARTINI, Filled 08/06/2019 ropinirole 0.5 mg tablet completed Take 1 tablet by mouth every night - Diaz Jeff #90, 90 days supply, Prescribed by ALBERT SAGE, Filled 08/25/2019 sertraline 100 mg tablet active Take 2 tablet by mouth once a day Surekha Villagomez MD #60, 30 days supply, Prescribed by CHAIM MARTINI, Filled 01/21/2019 SOCIAL HISTORY Date Observation Value Provider alcohol use no Diaz Naikmedzacinthya smoking status Never smoker Diaz Ahmedzai alcohol use no Diaz Ahmedzai smoking status Never smoker Diaz Ahmedzai alcohol use no Diaz Ahmedzai smoking status Never smoker Diaz Ahmedzai social history reviewed E&M revi ewed - no changes required Diaz Jeff social history reviewed E&M revi ewed - no changes required Surekha Villagomez MD smoking status Never smoker Ale Abbasi social history reviewed E&M revi ewed - no changes required Diaz Jeff social history E&M S moking History: P jimi has never smoked. Diaz Jeff smoking status Never smoker Cesia Kelly and social history reviewed E&M revi ewed - no changes required Surekha Villagomez MD social history E&M S moking History: P jimi has never smoked. Diaz Jeff smoking status Never smoker Jade reddy social history reviewed E&M revi ewed - no changes required Diaz Jeff social history reviewed E&M revi ewed - no changes required Surekha Villagomez MD smoking status Never smoker Anali Maura castillo social history reviewed E&M revi ewed - no changes required Diaz Jeff social history reviewed E&M revi ewed - no changes required Diaz Jeff social history E&M S moking History: Vladimir krause has never smoked. Diaz Jeff smoking status Never smoker Leticia Rand kohler social history reviewed E&M revi ewed - no changes required Surekha Villagomez MD number of grandchildren Surekha Rosas social history E&M S moking History: Vladimir krause has never smoked. Dylon Rosas social history reviewed E&M revi ewed - no changes required Dylon Rosas smoking status Never smoker Karis arvizu social history E&M S moking History: Vladimir krause has never smoked. Surekha Villagomez MD social history reviewed E&M revi ewed - no changes required Surekha Villagomez MD smoking status Never smoker Karis arvizu appendectomy, history of yes Marcus Villagomez MD social history E&M S moking History: P atient has never smoked. Surekha Villagomez MD social history reviewed E&M revi ewed - no changes required Surekha Villagomez MD alcohol use no Naye Ahumada smoking status Never smoker Naye Greene k FAMILY HISTORY Family Member Condition Father Family History Unkno wn Mother Family History Unkno wn INSURANCE PROVIDERS Payer name Policy type / Coverage type [employer] party ID [employer] GOLD PLUS O O [id number] ADVANCE DIRECTIVES Name Date DISCUSSED - NO DECISION MADE TREATMENT PLAN Date Name Performer [id number],S, Diaz Ahmedza i [id number],S, Diaz Ahmedza i [id number],S, Diaz Ahmedza i [id number],S, Diaz Ahmedza i [id number],S, Diaz Ahmedza i [id number],S, Diaz Ahmedza i [id number],S, Diaz Ahmedza i [id number],S, Diaz Ahmedza i [id number],S, Diaz Ahmedza i [id number],S, Diaz Ahmedza i [id number],S, Diaz Ahmedza i [id number],S, Daiz Ahmedza i [id number],W, Diaz Ahmedza i [id number],S, Diaz Ahmedza i [id number],S, Diaz Ahmedza i [id number],S, Diaz Ahmedza i [id number],S, Diaz Ahmedza i [id number],S, Diaz Ahmedza i [id number],S, Diaz Ahmedza i [id number],S, Diaz Ahmedza i [id number],B, Diaz Ahmedza i [id number],S, Diaz Ahmedza i [id number],S, Diaz Ahmedza i [id number],S, Diaz Ahmedza i [id number],S, Diaz Ahmedza i [id number],B, Diaz Ahmedza i [id number],S, Diaz Ahmedza i [id number],B, Idaz Ahmedza i [id number],B, Diaz Ahmedza i [id number],S, Diaz Ahmedza i [id number],S, Diaz Ahmedza i [id number],B, Diaz Ahmedza i [id number],S, Diaz Ahmedza i [id number],S, Diaz Ahmedza i [id number],S, Diaz Ahmedza i [id number],B, Diaz Ahmedza i [id number],S, Diaz Ahmedza i [id number],S, Dylon Rosas [id number],S, Dylon Rosas [id number],S, Dylon Rosas [id number],S, Dylon Rosas [id number],S, Dylon Rosas [id number],S, Diaz Selbyza i [id number],S, Diaz medza i [id number],S, Diaz medza i [id number],B, Diaz medza i [id number],B, Diaz medza i [id number],S, Diaz russelza i [id number],W, Surekha Villagomez MD [id number],S, Surekha Villagomez MD [id number],B, Surekha Villagomez MD [id number],C, Surekha Villagomez MD [id number],S, Diaz russelza i [id number],S, Diaz medza i [id number],S, Diaz medza i [id number],S, Diaz medza i [id number],S, [facility] [id number],S, Diaz medza i Cardiology Surekha Villagomez MD Cardiology: H er updated medication list for this problem includes: Diltiazem Hcl (cardizem Cd) 360 Mg Capsule,extended Release 24hr (Diltiazem hcl (cardizem cd)) ..... Take 1 capsule by mouth every night Disopyramide Phosphate 150 Mg Capsule (Disopyramide phosphate) ..... Take 1 capsule by mouth twice a day Metoprolol Succinate 50 Mg Tablet Extended Release 24 Hr (Metoprolol succinate) ..... Take 1 tablet by mouth once a day Surekha Villagomez MD Cardiology: H er updated medication list for this problem includes: Diltiazem Hcl (cardizem Cd) 360 Mg Capsule,extended Release 24hr (Diltiazem hcl (cardizem cd)) ..... Take 1 capsule by mouth every night Metoprolol Succinate 50 Mg Tablet Extended Release 24 Hr (Metoprolol succinate) ..... Take 1 tablet by mouth once a day Surekha Villagomez MD Cardiology: H er updated medication list for this problem includes: Diltiazem Hcl (cardizem Cd) 360 Mg Capsule,extended Release 24hr (Diltiazem hcl (cardizem cd)) ..... Take 1 capsule by mouth every night Disopyramide Phosphate 150 Mg Capsule (Disopyramide phosphate) ..... Take 1 capsule by mouth twice a day Metoprolol Succinate 50 Mg Tablet Extended Release 24 Hr (Metoprolol succinate) ..... Take 1 tablet by mouth once a day Surekha Villagomez MD Cardiology: H er updated medication list for this problem includes: Diltiazem Hcl (cardizem Cd) 360 Mg Capsule,extended Release 24hr (Diltiazem hcl (cardizem cd)) ..... Take 1 capsule by mouth every night Metoprolol Succinate 50 Mg Tablet Extended Release 24 Hr (Metoprolol succinate) ..... Take 1 tablet by mouth once a day Furosemide 40 Mg Tablet (Furosemide) ..... Take 1 tablet by mouth every day Surekha Villagomez MD Cardiology:This visi t has been a part of the consistent, comprehensive, and ongoing management of the chronic medical condition(s) listed above for the patient. BP today: 140/75 P rior BP: 126/80 (02/06/2024) Her updated medication list for this problem includes: Diltiazem Hcl (cardizem Cd) 360 Mg Capsule,extended Release 24hr (Diltiazem hcl (cardizem cd)) ..... Take 1 capsule by mouth every night Metoprolol Succinate 50 Mg Tablet Extended Release 24 Hr (Metoprolol succinate) ..... Take 1 tablet by mouth once a day Furosemide 40 Mg Tablet (Furosemide) ..... Take 1 tablet by mouth every day Surekha Villagomez MD Cardiology:This visi t has been a part of the consistent, comprehensive, and ongoing management of the chronic medical condition(s) listed above for the patient. Her updated medication list for this problem includes: Diltiazem Hcl (cardizem Cd) 360 Mg Capsule,extended Release 24hr (Diltiazem hcl (cardizem cd)) ..... Take 1 capsule by mouth every night Disopyramide Phosphate 150 Mg Capsule (Disopyramide phosphate) ..... Take 1 capsule by mouth twice a day Metoprolol Succinate 50 Mg Tablet Extended Release 24 Hr (Metoprolol succinate) ..... Take 1 tablet by mouth once a day Furosemide 40 Mg Tablet (Furosemide) ..... Take 1 tablet by mouth every day Surekha Villagomez MD Cardiology: H er updated medication list for this problem includes: Atorvastatin 20 Mg Tablet (Atorvastatin) ..... Take 1 tablet by mouth once a day Diaz Jeff Cardiology [facility]odd Jeff [facility]: H er updated medication list for this problem includes: Diltiazem Hcl (cardizem Cd) 360 Mg Capsule,extended Release 24hr (Diltiazem hcl (cardizem cd)) ..... Take 1 capsule by mouth every night Disopyramide Phosphate 150 Mg Capsule (Disopyramide phosphate) ..... Take 1 capsule by mouth twice a day Metoprolol Succinate 50 Mg Tablet Extended Release 24 Hr (Metoprolol succinate) ..... Take 1 tablet by mouth once a day Furosemide 40 Mg Tablet (Furosemide) ..... Take 1 tablet by mouth every day Diaz Jeff Cardiology: H er updated medication list for this problem includes: Diltiazem Hcl (cardizem Cd) 360 Mg Capsule,extended Release 24hr (Diltiazem hcl (cardizem cd)) ..... Take 1 capsule by mouth every night Metoprolol Succinate 50 Mg Tablet Extended Release 24 Hr (Metoprolol succinate) ..... Take 1 tablet by mouth once a day Furosemide 40 Mg Tablet (Furosemide) ..... Take 1 tablet by mouth every day [facility] Cardiology: H er updated medication list for this problem includes: Diltiazem Hcl (cardizem Cd) 360 Mg Capsule,extended Release 24hr (Diltiazem hcl (cardizem cd)) ..... Take 1 capsule by mouth every night Metoprolol Succinate 50 Mg Tablet Extended Release 24 Hr (Metoprolol succinate) ..... Take 1 tablet by mouth once a day [facility] Cardiology: H er updated medication list for this problem includes: Diltiazem Hcl (cardizem Cd) 360 Mg Capsule,extended Release 24hr (Diltiazem hcl (cardizem cd)) ..... Take 1 capsule by mouth every night Metoprolol Succinate 50 Mg Tablet Extended Release 24 Hr (Metoprolol succinate) ..... Take 1 tablet by mouth once a day Furosemide 40 Mg Tablet (Furosemide) ..... Take 1 tablet by mouth every day [facility] Cardiology: O rders: V enous Doppler Bilateral LE ([id number]) [facility] Cardiology [facility] Cardiology [facility] Cardiology: H er updated medication list for this problem includes: Diltiazem Hcl 360 Mg Capsule,extended Release 24hr (Diltiazem hcl) ..... Take 1 capsule by mouth every night Metoprolol Succinate 50 Mg Tablet Extended Release 24 Hr (Metoprolol succinate) ..... Take 1 tablet by mouth every day [facility] Cardiology: H er updated medication list for this problem includes: Furosemide 40 Mg Tablet (Furosemide) ..... Take 1 tablet by mouth every day Diltiazem Hcl 360 Mg Capsule,extended Release 24hr (Diltiazem hcl) ..... Take 1 capsule by mouth every night Metoprolol Succinate 50 Mg Tablet Extended Release 24 Hr (Metoprolol succinate) ..... Take 1 tablet by mouth every day [facility] Cardiology: B P today: 124/64 P rior BP: 134/81 (02/06/2023) Her updated medication list for this problem includes: Furosemide 40 Mg Tablet (Furosemide) ..... Take 1 tablet by mouth every day Diltiazem Hcl 360 Mg Capsule,extended Release 24hr (Diltiazem hcl) ..... Take 1 capsule by mouth every night Metoprolol Succinate 50 Mg Tablet Extended Release 24 Hr (Metoprolol succinate) ..... Take 1 tablet by mouth every day [facility]: H er updated medication list for this problem includes: Furosemide 40 Mg Tablet (Furosemide) ..... Take 1 tablet by mouth every day Disopyramide Phosphate 150 Mg Capsule (Disopyramide phosphate) ..... Take 1 capsule by mouth twice daily Diltiazem Hcl 360 Mg Capsule,extended Release 24hr (Diltiazem hcl) ..... Take 1 capsule by mouth every night Metoprolol Succinate 50 Mg Tablet Extended Release 24 Hr (Metoprolol succinate) ..... Take 1 tablet by mouth every day [facility], labs from PCP-requcinthya [facility], labs from PCP-reques philippe [facility], labs from PCP-requcinthya [facility], labs from PCP-requcinthya [facility], labs from PCP-requcinthya [facility] Surekha Villagomez MD Telehealth Surekah Villagomez MD Telehealth Surekha Villagomez MD Telehealth Surekha Villagomez MD Card[facility] Follow up high comple xity [facility] Follow up high comple xity [facility] Follow up high comple xity [facility] Follow up high comple xity [place] Follow up Surekha barrett MD Cardiology Follow up Surekha barrett MD Cardiology Follow up Surekha barrett MD Cardiology Follow up Surekha barrett MD Cardiology Follow up Surekha barrett MD Cardiology Surekha Vilalgomez MD Cardiology Surekha Villagomez MD Cardiology Surekha Villagomez MD Cardiology Surekha Villagomez MD Cardiology Surekha Villagomez MD Cardiology Surekha Villagomez MD Date Name Venous Doppler Unila teral RLE Venous Doppler Bilat eral LE Complete Echo Monitor - Telemetry (Mobile Cardiac) Monitor - Telemetry (Mobile Cardiac) Complete Echo Complete Echo Complete Echo Venous Doppler Bilat eral LE Complete Echo PROTHROMBIN TIME WIT H INR LIPID PANEL CBC (INCLUDES DIFF/P LT) BASIC METABOLIC PANE L W/EGFR Cardiac Cath - L/R- SLHV Holter Monitor 48 hr Stress Regadenoson Complete Echo HISTORY OF PROCEDURES Procedure Date Procedure Name Provider Procedure Notes S tatus Complex e/m visit add on Surekha Villagomez MD completed EKG Surekha Villagomez MD completed Complex e/m visit add on Surekha Villagomez MD completed EKG Surekha Villagomez MD completed Holter, 24 or 48 Surekha Villagomez MD com pleted SKYLARG Surekha Villagomez MD completed
--- OUTSIDE RECORDS SUMMARY | 2024-06-27 15:09 | XMS_ITS | Data Portability ---
Author Organization [place] [facility], Main Office Address [address] [place] [address] Care Team Providers Care Fur Blower Name Role Phone ELIZABETH SCHMIDT Primary Care Provider ELIZABETH SCHMIDT Referring Provider BEHZAD PANDEY Canvas Cutter RONIT GARCIA Orthopedic Surgeon SUREKHA RIVERO Sports Marketing Internship ESTRELLA BEATTY Senior Animator MICHAEL MONTGOMERY Pain Management AL ARMSTRONG Neurologist KEITH HODGES Urologist Assessment Encounter Date Assessment Date Assessment LastModified by Organization Details LastModified Time 12/18/2023 12/18/2023 10/24/2023: A1C 5.4 VIT D 20.0 Gluc 107, BUN 24, GFR 50 TG 212 H/H 10.2/33.0 Not available 12/16/2023 11:26:43 02/05/2024 02/05/2024 10/24/2023: A1C 5.4 VIT D 20.0 Gluc 107, BUN 24, GFR 50 TG 212 H/H 10.2/33.0 01/30/2024: VIT D 14.4 Gluc 104, BUN 32, GFR 49, TP 5.9 TG 156 H/H 9.4/30.7 Not available 02/05/2024 14:50:51 05/30/2024 05/30/2024 10/24/2023: A1C 5.4 VIT D 20.0 Gluc 107, BUN 24, GFR 50 TG 212 H/H 10.2/33.0 01/30/2024: VIT D 14.4 Gluc 104, BUN 32, GFR 49, TP 5.9 TG 156 H/H 9.4/30.7 05/22/2024: VIT D 26.8 Gluc 100, BUN 35, ALP 127 H/H 9.9/31.7, MCV 100.0 45 minutes spent with the patient, labs reviewed in detail, discussed her anemia and that she needs to see hematology [email or web address] Not available 05/30/2024 10:21:05 06/18/2024 06/18/2024 Physical exam grossly unremarkable. Imaging negative for hernia/mass. Likely body habitus. Will f/u PRN if sx return. [email or web address] Not available 06/18/2024 14:00:31 Plan of Treatment Reminders Order Date Submit Date Provider Last Modified By Organization Details Last Modified Time Details Appointments Any 15 2024 09:45A Melva pepe MD Not available Not available Not available Lab lipid panel, serum [address] (Lab), [address] [place], [address], 05/30/2024 15:22:28 CBC w/ auto diff [address] (Lab), [address] [place], [address], 05/30/2024 15:22:28 CMP, serum or plasma [address] (Lab), [address] [place], [address], 05/30/2024 15:22:29 TSH, serum or plasma [address] (Lab), [address] [place], [address], 05/30/2024 15:22:29 vitamin D, 25-hydrox y, total, serum [email or web address] (Lab), [address] [place], [address], 05/30/2024 15:22:28 lipid panel, serum 2023 024 [facility] (Lab), [address] [place], [address], 05/22/2024 13:03:39 CBC w/ auto diff 2023 024 [facility] (Lab), [address] [place], [address], 05/22/2024 13:02:12 CMP, serum or plasma 2023 024 [facility] (Lab), [address] [place], [address], 05/22/2024 13:03:49 TSH, serum or plasma 2023 024 [facility] (Lab), [address] [place], [address], 05/22/2024 13:31:54 vitamin D, 25-hydrox y, total, serum [email or web address] (Lab), [address] [place], [address], 02/05/2024 15:18:51 lipid panel, serum 2023 024 [facility] (Lab), [address] [place], [address], 01/30/2024 11:04:52 CBC w/ auto diff 2023 024 [facility] (Lab), [address] [place], [address], 01/30/2024 10:52:06 CMP, serum or plasma 2023 024 [facility] (Lab), [address] [place], [address], 01/30/2024 11:04:56 TSH, serum or plasma 2023 024 [facility] (Lab), [address] [place], [address], 01/30/2024 11:32:30 vitamin D, 25-hydrox y, total, serum [address] (Lab), [address] [place], [address], 06/17/2024 17:29:43 Referral gynecolog ist referral - Please call patient to schedule an appointme nt. Thank you. 2024 025 RON Ness MD, [address] [facility] [address], [place], [address], 06/11/2024 17:50:36 pulmonolo gist referral - Please call patient to schedule an appointme nt. Thank you. 2024 025 [email or web address] Estrella Beatty MD, [address] [place], [address], 06/11/2024 16:59:59 hematolog ist referral - Please call patient to schedule an appointme nt. Thank you. 2024 025 RON Yarbrough MD, [address], [place], [address], 06/11/2024 18:40:35 nephrolog ist referral - Please call patient to schedule an appointme nt. Thank you. 2024 025 [email or web address] Emmett Rivero MD (Nephrology, [address], [address], [place], [address], 06/18/2024 14:51:49 urologist referral - Please call patient to schedule an appointme nt. Thank you. 2024 025 [email or web address] Keith Hodges MD, [address] [facility] [address], [place], [address], 06/11/2024 17:35:21 cardiolog ist referral - Please call patient to schedule an appointme nt. Thank you. 2024 025 [place], [address], [address], [place], [address], 06/11/2024 18:30:44 general surgeon referral - Please call patient to schedule an appointme nt. Thank you. 2024 025 [email or web address] Finesse Strickland MD, [address] [facility], [address], [place], [address], 06/26/2024 15:40:24 gynecolog ist referral 2023 024 Phil Ness MD, [address] [facility] [address], [address], [place], [address], 02/08/2024 09:40:12 pulmonolo gist referral 2023 024 [email or web address] Not available 02/08/2024 09:39:43 nephrolog ist referral 2023 024 [email or web address] Emmett Rivero MD (Nephrology, [address], [address], [place], [address], 02/08/2024 09:40:14 cardiolog ist referral 2023 024 [place], [address], [address], [place], [address], 02/08/2024 09:39:41 urologist referral 2023 024 [email or web address] Keith Hodges MD, [address] [facility] [address], [address], [place], [address], 02/08/2024 09:39:43 hematolog ist referral 2023 024 [email or web address] Reyes Yarbrough MD, [address], [place], [address], 02/08/2024 09:40:13 gynecolog ist referral 2023 024 [email or web address] 2 Phil Ness MD, [address] [facility] [address], [address], [place], [address], 06/17/2024 09:06:56 hematolog ist referral 2023 024 [email or web address] 2 Reyes Yarbrough MD, [address], [place], [address], 06/17/2024 09:06:58 nephrolog ist referral 2023 024 [email or web address] Emmett Rivero MD (Nephrology, [address], [address], [place], [address], 01/16/2024 16:57:11 urologist referral 2023 024 MICHAEL Hodges MD, [address] [facility] [address], [address], [place], [address], 01/01/2024 11:14:48 cardiolog ist referral 2023 024 [email or web address] [place], [address], [address], [place], [address], 01/16/2024 16:56:57 Procedures upper endoscopy procedure (EGD) (PROC) - Please call patient to schedule an appointme nt. Thank you. 2024 025 [email or web address] Romy Nunez MD, [address], [address], [place], [address], 06/06/2024 17:33:34 upper endoscopy procedure (EGD) (PROC) 2023 024 [email or web address] Doroteo Orantes MD, [address], [address], [place], [address], 02/08/2024 09:38:48 upper endoscopy procedure (EGD) (PROC) 2023 024 [email or web address] Doroteo Orantes MD, [address], [facility] [address], [place], [address], 06/17/2024 09:15:54 Surgeries None recorded. Imaging MAMMO, screening , digital, bilateral - Please call patient to schedule. [address] ([facility]), [address] [place], [address], 05/30/2024 10:42:19 DEXA, axial skeleton - Please call patient to schedule. 2024 025 [facility] ([facility]), [address] [place], [address], 05/30/2024 10:50:33 US, abdomen - Please call patient to schedule. 2024 025 [facility] ([facility]), [address] [place], [address], 06/11/2024 16:11:05 MAMMO, screening , digital, bilateral - Please call patient to schedule. [address] ([facility]), [address] [place], [address], 03/18/2024 14:29:48 DEXA, axial skeleton [address] ([facility]), [address] [place], [address], 02/06/2024 17:42:43 MAMMO, screening , digital, bilateral [address] ([facility]), [address] [place], [address], 03/18/2024 14:29:44 DEXA, axial skeleton [address] ([facility]), [address] [place], [address], 02/06/2024 17:42:33 Medication Orders ferrous sulfate 325 mg (65 mg iron) tablet [address]/Pharmacy #[id number], [address] [facility], [place], [address], 06/17/2024 18:10:31 cholecalc iferol (vitamin D3) 1,250 mcg (50,000 unit) capsule 2023 024 [facility]/Pharmacy #[id number], [address] [place], [address], 02/05/2024 14:56:46 atorvasta tin 40 mg tablet [address]/Pharmacy #[id number], [address] [place], [address], 02/05/2024 14:26:03 Patient Targets Encounter Date Encounter Id Patient Goals Patient Target Last Modified By Organization Details Last Modified Time PT/OT to continue to progress patient ADL's. Doing well so far Not available 11/14/2023 11:08:58 Patient Instructions Encounter Date Encounter Id Patient Instructions Last Modified By Organization Details Last Modified Time 11/14/2023 [id number] Caution w/ duplicate Tylenol's and narcotics not taken together or at this same time Not available 11/14/2023 11:09:25 Medication reconciled/review ed Not available 11/14/2023 11:09:46 Reason for Referral Paint Grinder Referral for Gy necologic examination Referring Physician: Manan Barriga Medicine, Encounter Date: 12/18/2023 Sports Marketing Internship Referral for Hy pertrophic obstructive cardiomyopathy Referring Physician: Manan Barriga, Encounter Date: 12/18/2023 Referring Physician: Manan Barriga Medicine, Encounter Date: 12/18/2023 Production Team Manager Referral for Ch ronic kidney disease Referring Physician: Manan Barriga, Encounter Date: 12/18/2023 Urologist Referral for Urina ry incontinence Referring Physician: Manan Barriga, Encounter Date: 12/18/2023 Paint Grinder Referral for Gy necologic examination Referring Physician: Manan Barriga, Encounter Date: 02/05/2024 Sports Marketing Internship Referral for Hy pertrophic obstructive cardiomyopathy Referring Physician: Manan Barriga, Encounter Date: 02/05/2024 Referring Physician: Manan Barriga, Encounter Date: 02/05/2024 Production Team Manager Referral for Ch ronic kidney disease Referring Physician: Manan Barriga, Encounter Date: 02/05/2024 Urologist Referral for Urina ry incontinence Referring Physician: Manan Barriga, Encounter Date: 02/05/2024 Senior Animator Referral for D yspnea on exertion Referring Physician: Manan Barriga, Encounter Date: 02/05/2024 Paint Grinder Referral for Gy necologic examination Please call patient to schedule an appointment. Thank you. Referring Physician: Elziabeth Schmidt Internal Medicine, Encounter Date: 05/30/2024 Sports Marketing Internship Referral for Hy pertrophic obstructive cardiomyopathy Please call patient to schedule an appointment. Thank you. Referring Physician: Elizabeth Schmidt Internal Medicine, Encounter Date: 05/30/2024 Please call patient to sched ule an appointment. Thank you. Referring Physician: Elizabeth Schmidt Internal Medicine, Encounter Date: 05/30/2024 Production Team Manager Referral for Ch ronic kidney disease Please call patient to schedule an appointment. Thank you. Referring Physician: Elizabeth Schmidt Internal Medicine, Encounter Date: 05/30/2024 Urologist Referral for Urina ry incontinence Please call patient to schedule an appointment. Thank you. Referring Physician: Elizabeth Schmidt Internal Medicine, Encounter Date: 05/30/2024 Senior Animator Referral for D yspnea on exertion Please call patient to schedule an appointment. Thank you. Referring Physician: Elizabeth Schmidt Internal Medicine, Encounter Date: 05/30/2024 General Surgeon Referral for Abdominal mass Please call patient to schedule an appointment. Thank you. Referring Physician: Elizabeth Schmidt Internal Medicine, Encounter Date: 05/30/2024 Results Created Date Observation Date Name Description Value Unit Range Abnormal Flag Note LastModifiedBy Organization Detail LastModifiedTime 10/24/19 24 10/24/2023 CBC/C OMPLE TE BLD COUNT W/DIF F white blood cells 5.9 x10'3 /uL 4.2-10 .8 Not Available [facility] (Lab) [address] [place], [address], 10/24/2023 15:02:03 10/24/19 24 10/24/2023 CBC/C OMPLE TE BLD COUNT W/DIF F red blood cells 3.26 x10'6 /uL 3.80-5 .20 low Not Available [facility] (Lab) [address] [place], [address], 10/24/2023 15:02:03 10/24/19 24 10/24/2023 CBC/C OMPLE TE BLD COUNT W/DIF F hemoglobin 10.2 g/dL 12.0-1 5.6 low Not Available [facility] (Lab) [address] [place], [address], 10/24/2023 15:02:03 10/24/19 24 10/24/2023 CBC/C OMPLE TE BLD COUNT W/DIF F hematocrit 33.0 % 35.7-4 5.7 low Not Available [facility] (Lab) [address] [place], [address], 10/24/2023 15:02:03 10/24/19 24 10/24/2023 CBC/C OMPLE TE BLD COUNT W/DIF F mean red cell volume 101.2 fL 82.0-9 9.0 high Not Available [facility] (Lab) [address] [place], [address], 10/24/2023 15:02:03 10/24/19 24 10/24/2023 CBC/C OMPLE TE BLD COUNT W/DIF F mean red cell hemoglobin 31.3 pg 27.0-3 3.0 Not Available [facility] (Lab) [address] [place], [address], 10/24/2023 15:02:03 10/24/19 24 10/24/2023 CBC/C OMPLE TE BLD COUNT W/DIF F mean RBC HGB concentratio n 30.9 g/dL 31.0-3 6.0 low Not Available [facility] (Lab) [address] [place], [address], 10/24/2023 15:02:03 10/24/19 24 10/24/2023 CBC/C OMPLE TE BLD COUNT W/DIF F red cell distribution width 13.1 % 11.8-1 5.5 Not Available [facility] (Lab) [address] [place], [address], 10/24/2023 15:02:03 10/24/19 24 10/24/2023 CBC/C OMPLE TE BLD COUNT W/DIF F platelets 198 x10'3 /uL 150-40 0 Not Available [facility] (Lab) [address] [place], [address], 10/24/2023 15:02:03 10/24/19 24 10/24/2023 CBC/C OMPLE TE BLD COUNT W/DIF F mean platelet volume 9.3 fL 9.0-12 .4 Not Available [facility] (Lab) [address] [place], [address], 10/24/2023 15:02:03 10/24/19 24 10/24/2023 CBC/C OMPLE TE BLD COUNT W/DIF F neutrophils 63.0 % 39.0-7 2.0 Not Available [facility] (Lab) [address] [place], [address], 10/24/2023 15:02:03 10/24/19 24 10/24/2023 CBC/C OMPLE TE BLD COUNT W/DIF F lymphocytes 25.4 % 16.0-4 7.0 Not Available [facility] (Lab) [address] [place], [address], 10/24/2023 15:02:03 10/24/19 24 10/24/2023 CBC/C OMPLE TE BLD COUNT W/DIF F monocytes 7.6 % 5.0-12 .0 Not Available [facility] (Lab) [address] [place], [address], 10/24/2023 15:02:03 10/24/19 24 10/24/2023 CBC/C OMPLE TE BLD COUNT W/DIF F eosinophils 3.0 % 1.0-7. 0 Not Available [facility] (Lab) [address] [place], [address], 10/24/2023 15:02:03 10/24/19 24 10/24/2023 CBC/C OMPLE TE BLD COUNT W/DIF F basophils 0.5 % 0.0-2. 0 Not Available [facility] (Lab) [address] [place], [address], 10/24/2023 15:02:03 10/24/19 24 10/24/2023 CBC/C OMPLE TE BLD COUNT W/DIF F immature granulocytes 0.5 % 0.00-0 .50 Not Available [facility] (Lab) [address] [place], [address], 10/24/2023 15:02:03 10/24/19 24 10/24/2023 CBC/C OMPLE TE BLD COUNT W/DIF F neutrophils, absolute count 3.72 x10'3 /uL 1.5-8. 0 Not Available [facility] (Lab) [address] [place], [address], 10/24/2023 15:02:03 10/24/19 24 10/24/2023 CBC/C OMPLE TE BLD COUNT W/DIF F lymphocytes, absolute count 1.50 x10'3 /uL 1.07-3 .43 Not Available [facility] (Lab) [address] [place], [address], 10/24/2023 15:02:03 10/24/19 24 10/24/2023 CBC/C OMPLE TE BLD COUNT W/DIF F monocytes, absolute count 0.45 x10'3 /uL 0.29-0 .99 Not Available [facility] (Lab) [address] [place], [address], 10/24/2023 15:02:03 10/24/19 24 10/24/2023 CBC/C OMPLE TE BLD COUNT W/DIF F eosinophils, absolute count 0.18 x10'3 /uL 0.02-0 .53 Not Available [facility] (Lab) [address] [place], [address], 10/24/2023 15:02:03 10/24/19 24 10/24/2023 CBC/C OMPLE TE BLD COUNT W/DIF F basophils, absolute count 0.03 x10'3 /uL 0.01-0 .08 Not Available [facility] (Lab) [address] [place], [address], 10/24/2023 15:02:03 10/24/19 24 10/24/2023 CBC/C OMPLE TE BLD COUNT W/DIF F immature granulocytes ,absolute 0.03 x10'3 /uL 0.00-0 .05 Not Available [facility] (Lab) [address] [place], [address], 10/24/2023 15:02:03 10/24/19 24 10/24/2023 CBC/C OMPLE TE BLD COUNT W/DIF F nucleated red blood cells 0.0 % -0 Not Available [facility] (Lab) [address] [place], [address], 10/24/2023 15:02:03 10/24/19 24 10/24/2023 CBC/C OMPLE TE BLD COUNT W/DIF F NRBC# 0.00 x10'3 /uL Not Available [facility] (Lab) [address] [place], [address], 10/24/2023 15:02:03 10/24/19 24 10/24/2023 HEMOG LOBIN A1C HA1C 5.4 % 4.0-6. 0 Diabe priyanka Scree manda Crite ck: <5.7% Consi stent with absen ce of diabe priyanka 5.7-6 .4% Consi stent with incre ased risk for diabe priyanka (pred iabet es) >OR=6 .5% Consi stent with diabe priyanka REFER ENCE: Diabe priyanka Care 2016, 39(Soto ppl.1 ):s13 -s22 Not Available [facility] (Lab) [address] [place], [address], 10/24/2023 15:29:11 10/24/19 24 10/24/2023 LIPID PANEL cholesterol 177 mg/dL 140-19 9 [facility] HUGH NSUS RECOM MENDA TION FOR JUDITH STERO L: ADULT CHILD LOW RISK: <200 <170 BORDE RLINE : <200- 239 ----- HIGH RISK: >240 >200 Not Available [facility] (Lab) [address] [place], [address], 10/24/2023 17:00:11 10/24/19 24 10/24/2023 LIPID PANEL triglyceride s 212 mg/dL 0-150 high NIH HUGH NSUS REPOR T RECOM MENDA TION FOR TRIGL YCERI VIANEY: ADULT CHILD LOW RISK: <150 ----- BODER LINE: 150-1 99 ----- HIGH RISK: >200 ----- Not Available [facility] (Lab) [address] [place], [address], 10/24/2023 17:00:11 10/24/19 24 10/24/2023 LIPID PANEL HDL cholesterol 42 mg/dL 40- Not Available [facility] (Lab) [address] [place], [address], 10/24/2023 17:00:11 10/24/19 24 10/24/2023 LIPID PANEL LDL cholesterol, calculated 93 mg/dL 0-130 NIH HUGH NSUS REPOR T RECOM MENDA TIONS FOR LDL: ADULT CHILD LOW RISK <130 <110 (OPTI MAL LDL) <100 ----- BORDE RLINE : 130-1 59 ----- HIGH RISK: >160 >130 A TRIGL YCERI DE RESUL T >400 INVAL IDATE S THE CALCU LATIO N FOR LDL FRACT IONAT ION - THE LDL RESUL T WILL NOT BE REPOR NOBLE. Not Available [facility] (Lab) [address] [place], [address], 10/24/2023 17:00:11 10/24/19 24 10/24/2023 COMPR EHENS SARITA METAB OLIC PANEL sodium 139 mmol/ L 137-14 5 Not Available [facility] (Lab) [address] [place], [address], 10/24/2023 17:00:22 10/24/19 24 10/24/2023 COMPR EHENS SARITA METAB OLIC PANEL potassium 4.6 mmol/ L 3.5-5. 1 Not Available [facility] (Lab) [address] [place], [address], 10/24/2023 17:00:22 10/24/19 24 10/24/2023 COMPR EHENS SARITA METAB OLIC PANEL chloride 108 mmol/ L 98-107 high Not Available [facility] (Lab) [address] [place], [address], 10/24/2023 17:00:22 10/24/19 24 10/24/2023 COMPR EHENS SAIRTA METAB OLIC PANEL carbon dioxide 26 mmol/ L 22-30 Not Available [facility] (Lab) [address] [place], [address], 10/24/2023 17:00:22 10/24/19 24 10/24/2023 COMPR EHENS SARITA METAB OLIC PANEL anion gap 9.6 mmol/ L 14-22 low Not Available [facility] (Lab) [address] [place], [address], 10/24/2023 17:00:22 10/24/19 24 10/24/2023 COMPR EHENS SARITA METAB OLIC PANEL glucose 107 mg/dL 70-99 high Not Available [facility] (Lab) [address] [place], [address], 10/24/2023 17:00:22 10/24/19 24 10/24/2023 COMPR EHENS SARITA METAB OLIC PANEL BUN 24 mg/dL 8-19 high Not Available [facility] (Lab) [address] [place], [address], 10/24/2023 17:00:22 10/24/19 24 10/24/2023 COMPR EHENS SARITA METAB OLIC PANEL creatinine 1.09 mg/dL 0.66-1 .25 Not Available [facility] (Lab) [address] [place], [address], 10/24/2023 17:00:22 10/24/19 24 10/24/2023 COMPR EHENS SARITA METAB OLIC PANEL GFR 50 Refer ence Range : [place] ge GFR Healt hy Adult : >60 mL/mi n/1.7 3 m2 Chron ic Kidne y Disea se: 15-60 mL/mi n/1.7 3 m2 Kidne y Failu re: <15/m L/min /1.73 m2 www.n iddk. nih.g ov The MDRD study equat ion has not been valid ated in child ez <18 years of age; pregn ant women ; the elder ly >85 years of age; or in some racia l or ethni c subgr oups, such as al nics. Outsi de the valid ated livia eters , estim ated GFR is less accur ate, requi ring clini benja judgm ent on a case- by-ca se basis . Clini benja inter preta tion for other races and ages must be made by the clini juan. The MDRD study equat ion has not been valid ated for the evalu ation of serum creat inine relat ed to nutri denies l statu s or medic ation usage . For perso ns <18 years of age, a pedia tric GFR calcu lator is avail able on the [facility] websi te: https ://susan w.arya barony.o rg/pr ofess ional s/kdo qi/gf r_cal culat or Not Available [facility] (Lab) [address] [place], [address], 10/24/2023 17:00:22 10/24/19 24 10/24/2023 COMPR EHENS SARITA METAB OLIC PANEL alkaline phosphatase 107 U/L 38-126 Not Available [facility] (Lab) [address] [place], [address], 10/24/2023 17:00:22 10/24/19 24 10/24/2023 COMPR EHENS SARITA METAB OLIC PANEL alanine aminotransfe rase 23 U/L 0-35 Not Available [facility] (Lab) [address] [place], [address], 10/24/2023 17:00:22 10/24/19 24 10/24/2023 COMPR EHENS SARITA METAB OLIC PANEL aspartate aminotransfe rase 24 U/L 15-37 Not Available [facility] (Lab) [address] [place], [address], 10/24/2023 17:00:22 10/24/19 24 10/24/2023 COMPR EHENS SARITA METAB OLIC PANEL bilirubin, total 0.40 mg/dL 0.20-1 .30 Not Available [facility] (Lab) [address] [place], [address], 10/24/2023 17:00:22 10/24/19 24 10/24/2023 COMPR EHENS SARITA METAB OLIC PANEL calcium 9.1 mg/dL 8.4-10 .2 Not Available [facility] (Lab) [address] [place], [address], 10/24/2023 17:00:22 10/24/19 24 10/24/2023 COMPR EHENS SARITA METAB OLIC PANEL total protein 6.5 g/dL 6.3-8. 2 Not Available [facility] (Lab) [address] [place], [address], 10/24/2023 17:00:22 10/24/19 24 10/24/2023 COMPR EHENS SARITA METAB OLIC PANEL albumin 4.0 g/dL 3.0-4. 4 Not Available [facility] (Lab) [address] [place], [address], 10/24/2023 17:00:22 10/24/19 24 10/24/2023 COMPR EHENS SARITA METAB OLIC PANEL globulin 2.5 g/dL 2.6-4. 2 low Not Available [facility] (Lab) [address] [place], [address], 10/24/2023 17:00:22 10/24/19 24 10/24/2023 COMPR EHENS SARITA METAB OLIC PANEL A/G ratio 1.6 ratio 1.0-2. 0 Not Available [facility] (Lab) [address] [place], [address], 10/24/2023 17:00:22 10/24/19 24 10/24/2023 T4 FREE free T4 0.93 NG/dL 0.78-2 .19 Not Available [facility] (Lab) [address] [place], [address], 10/24/2023 17:11:47 10/24/19 24 10/24/2023 VITAM IN D 25-HY DROXY [id number] 20.0 NG/mL 30-100 low Vitam in D Statu s: Defic ient: <20 ng/mL Insuf ficie nt: 20-29 ng/mL Suffi cient : 30-10 0 ng/mL Not Available [facility] (Lab) [address] [place], [address], 10/24/2023 17:22:33 10/24/19 24 10/24/2023 TSH thyroid-stim ulating hormone 1.690 uIU/m L 0.465- 4.680 Not Available [facility] (Lab) [address] [place], [address], 10/24/2023 17:23:38 12/13/1912/13/2023 URINA LYSIS COMPL ETE/I RIS W/RFX color DARK-Y ELLOW Not Available [facility] (Lab) [address] [place], [address], 12/13/2023 11:54:21 12/13/19 24 12/13/2023 URINA LYSIS COMPL ETE/I RIS W/RFX appear CLEAR Not Available [facility] (Lab) [address] [place], [address], 12/13/2023 11:54:21 12/13/19 24 12/13/2023 URINA LYSIS COMPL ETE/I RIS W/RFX specific gravity 1.018 1.001- 1.030 Not Available [facility] (Lab) [address] [place], [address], 12/13/2023 11:54:21 12/13/19 24 12/13/2023 URINA LYSIS COMPL ETE/I RIS W/RFX pH 5.5 pH_un its 5.0-9. 0 Not Available [facility] (Lab) [address] [place], [address], 12/13/2023 11:54:21 12/13/1912/13/2023 URINA LYSIS COMPL ETE/I RIS W/RFX leukocytes 25 kim/u L negati ve- abnormal Not Available [facility] (Lab) [address] [place], [address], 12/13/2023 11:54:21 12/13/19 24 12/13/2023 URINA LYSIS COMPL ETE/I RIS W/RFX nitrite 1+ negati ve- abnormal Not Available [facility] (Lab) [address] [place], [address], 12/13/2023 11:54:21 12/13/19 24 12/13/2023 URINA LYSIS COMPL ETE/I RIS W/RFX protein NEGATI VE mg/dL negati ve- Not Available [facility] (Lab) [address] [place], [address], 12/13/2023 11:54:21 12/13/19 24 12/13/2023 URINA LYSIS COMPL ETE/I RIS W/RFX glucose NORMAL mg/dL normal - Not Available [facility] (Lab) [address] [place], [address], 12/13/2023 11:54:21 12/13/19 24 12/13/2023 URINA LYSIS COMPL ETE/I RIS W/RFX ketones NEGATI VE mg/dL negati ve- Not Available [facility] (Lab) [address] [place], [address], 12/13/2023 11:54:21 12/13/19 24 12/13/2023 URINA LYSIS COMPL ETE/I RIS W/RFX urobilinogen 2 mg/dL normal - abnormal Not Available [facility] (Lab) [address] [place], [address], 12/13/2023 11:54:21 12/13/19 24 12/13/2023 URINA LYSIS COMPL ETE/I RIS W/RFX bilirubin NEGATI VE mg/dL negati ve- Not Available [facility] (Lab) [address] [place], [address], 12/13/2023 11:54:21 12/13/19 24 12/13/2023 URINA LYSIS COMPL ETE/I RIS W/RFX blood NEGATI VE mg/dL negati ve- Not Available [facility] (Lab) [address] [place], [address], 12/13/2023 11:54:21 09/25/12/13/2023 URINA LYSIS COMPL ETE/I RIS W/RFX white blood cells 9-20 /i??h pfi?? 0-8 abnormal Not Available [facility] (Lab) [address] [place], [address], 12/13/2023 11:54:21 12/13/19 24 12/13/2023 URINA LYSIS COMPL ETE/I RIS W/RFX red blood cells 0-4 /i??h pfi?? 0-4 Not Available [facility] (Lab) [address] [place], [address], 12/13/2023 11:54:21 12/13/19 24 12/13/2023 URINA LYSIS COMPL ETE/I RIS W/RFX bacteria OCCASI ONAL abnormal Not Available [facility] (Lab) [address] [place], [address], 12/13/2023 11:54:21 12/13/19 24 12/13/2023 URINA LYSIS COMPL ETE/I RIS W/RFX mucous OCCASI ONAL /i??l pfi?? abnormal Not Available [facility] (Lab) [address] [place], [address], 12/13/2023 11:54:21 12/13/19 24 12/13/2023 URINA LYSIS COMPL ETE/I RIS W/RFX squamous epithelial PACKED FIELD /i??l pfi?? abnormal Not Available [facility] (Lab) [address] [place], [address], 12/13/2023 11:54:21 12/13/19 24 12/13/2023 URINA LYSIS COMPL ETE/I RIS W/RFX budding yeast OCCASI ONAL /i??h pfi?? abnormal Not Available [facility] (Lab) [address] [place], [address], 12/13/2023 11:54:21 01/30/20 24 01/30/2024 CBC/C OMPLE TE BLD COUNT W/DIF F white blood cells 5.1 x10'3 /uL 4.2-10 .8 Not Available [facility] (Lab) [address] [place], [address], 01/30/2024 10:52:06 01/30/20 24 01/30/2024 CBC/C OMPLE TE BLD COUNT W/DIF F red blood cells 3.10 x10'6 /uL 3.80-5 .20 low Not Available [facility] (Lab) [address] [place], [address], 01/30/2024 10:52:06 01/30/20 24 01/30/2024 CBC/C OMPLE TE BLD COUNT W/DIF F hemoglobin 9.4 g/dL 12.0-1 5.6 low Not Available [facility] (Lab) [address] [place], [address], 01/30/2024 10:52:06 01/30/20 24 01/30/2024 CBC/C OMPLE TE BLD COUNT W/DIF F hematocrit 30.7 % 35.7-4 5.7 low Not Available [facility] (Lab) [address] [place], [address], 01/30/2024 10:52:06 01/30/20 24 01/30/2024 CBC/C OMPLE TE BLD COUNT W/DIF F mean red cell volume 99.0 fL 82.0-9 9.0 Not Available [facility] (Lab) [address] [place], [address], 01/30/2024 10:52:06 01/30/20 24 01/30/2024 CBC/C OMPLE TE BLD COUNT W/DIF F mean red cell hemoglobin 30.3 pg 27.0-3 3.0 Not Available [facility] (Lab) [address] [place], [address], 01/30/2024 10:52:06 01/30/20 24 01/30/2024 CBC/C OMPLE TE BLD COUNT W/DIF F mean RBC HGB concentratio n 30.6 g/dL 31.0-3 6.0 low Not Available [facility] (Lab) [address] [place], [address], 01/30/2024 10:52:06 01/30/20 24 01/30/2024 CBC/C OMPLE TE BLD COUNT W/DIF F red cell distribution width 15.0 % 11.8-1 5.5 Not Available [facility] (Lab) [address] [place], [address], 01/30/2024 10:52:06 01/30/20 24 01/30/2024 CBC/C OMPLE TE BLD COUNT W/DIF F platelets 173 x10'3 /uL 150-40 0 Not Available [facility] (Lab) [address] [place], [address], 01/30/2024 10:52:06 01/30/20 24 01/30/2024 CBC/C OMPLE TE BLD COUNT W/DIF F mean platelet volume 9.6 fL 9.0-12 .4 Not Available [facility] (Lab) [address] [place], [address], 01/30/2024 10:52:06 01/30/20 24 01/30/2024 CBC/C OMPLE TE BLD COUNT W/DIF F neutrophils 57.2 % 39.0-7 2.0 Not Available [facility] (Lab) [address] [place], [address], 01/30/2024 10:52:06 01/30/20 24 01/30/2024 CBC/C OMPLE TE BLD COUNT W/DIF F lymphocytes 29.3 % 16.0-4 7.0 Not Available [facility] (Lab) [address] [place], [address], 01/30/2024 10:52:06 01/30/20 24 01/30/2024 CBC/C OMPLE TE BLD COUNT W/DIF F monocytes 10.1 % 5.0-12 .0 Not Available [facility] (Lab) [address] [place], [address], 01/30/2024 10:52:06 01/30/20 24 01/30/2024 CBC/C OMPLE TE BLD COUNT W/DIF F eosinophils 2.2 % 1.0-7. 0 Not Available [facility] (Lab) [address] [place], [address], 01/30/2024 10:52:06 01/30/20 24 01/30/2024 CBC/C OMPLE TE BLD COUNT W/DIF F basophils 0.4 % 0.0-2. 0 Not Available [facility] (Lab) [address] [place], [address], 01/30/2024 10:52:06 01/30/20 24 01/30/2024 CBC/C OMPLE TE BLD COUNT W/DIF F immature granulocytes 0.8 % 0.00-0 .50 high Not Available [facility] (Lab) [address] [place], [address], 01/30/2024 10:52:06 01/30/20 24 01/30/2024 CBC/C OMPLE TE BLD COUNT W/DIF F neutrophils, absolute count 2.89 x10'3 /uL 1.5-8. 0 Not Available [facility] (Lab) [address] [place], [address], 01/30/2024 10:52:06 01/30/20 24 01/30/2024 CBC/C OMPLE TE BLD COUNT W/DIF F lymphocytes, absolute count 1.48 x10'3 /uL 1.07-3 .43 Not Available [facility] (Lab) [address] [place], [address], 01/30/2024 10:52:06 01/30/20 24 01/30/2024 CBC/C OMPLE TE BLD COUNT W/DIF F monocytes, absolute count 0.51 x10'3 /uL 0.29-0 .99 Not Available [facility] (Lab) [address] [place], [address], 01/30/2024 10:52:06 01/30/20 24 01/30/2024 CBC/C OMPLE TE BLD COUNT W/DIF F eosinophils, absolute count 0.11 x10'3 /uL 0.02-0 .53 Not Available [facility] (Lab) [address] [place], [address], 01/30/2024 10:52:06 01/30/20 24 01/30/2024 CBC/C OMPLE TE BLD COUNT W/DIF F basophils, absolute count 0.02 x10'3 /uL 0.01-0 .08 Not Available [facility] (Lab) [address] [place], [address], 01/30/2024 10:52:06 01/30/20 24 01/30/2024 CBC/C OMPLE TE BLD COUNT W/DIF F immature granulocytes ,absolute 0.04 x10'3 /uL 0.00-0 .05 Not Available [facility] (Lab) [address] [place], [address], 01/30/2024 10:52:06 01/30/20 24 01/30/2024 CBC/C OMPLE TE BLD COUNT W/DIF F nucleated red blood cells 0.0 % -0 Not Available [facility] (Lab) [address] [place], [address], 01/30/2024 10:52:06 01/30/20 24 01/30/2024 CBC/C OMPLE TE BLD COUNT W/DIF F NRBC# 0.00 x10'3 /uL Not Available [facility] (Lab) [address] [place], [address], 01/30/2024 10:52:06 01/30/20 24 01/30/2024 LIPID PANEL cholesterol 127 mg/dL 140-19 9 low NIH HUGH NSUS RECOM MENDA TION FOR JUDITH STERO L: ADULT CHILD LOW RISK: <200 <170 BORDE RLINE : <200- 239 ----- HIGH RISK: >240 >200 Not Available [facility] (Lab) [address] [place], [address], 01/30/2024 11:04:52 01/30/20 24 01/30/2024 LIPID PANEL triglyceride s 156 mg/dL 0-150 high NIH HUGH NSUS REPOR T RECOM MENDA TION FOR TRIGL YCERI VIANEY: ADULT CHILD LOW RISK: <150 ----- BODER LINE: 150-1 99 ----- HIGH RISK: >200 ----- Not Available [facility] (Lab) [address] [place], [address], 01/30/2024 11:04:52 01/30/20 24 01/30/2024 LIPID PANEL HDL cholesterol 48 mg/dL 40- Not Available [facility] (Lab) [address] [place], [address], 01/30/2024 11:04:52 01/30/20 24 01/30/2024 LIPID PANEL LDL cholesterol, calculated 48 mg/dL 0-130 NIH HUGH NSUS REPOR T RECOM MENDA TIONS FOR LDL: ADULT CHILD LOW RISK <130 <110 (OPTI MAL LDL) <100 ----- BORDE RLINE : 130-1 59 ----- HIGH RISK: >160 >130 A TRIGL YCERI DE RESUL T >400 INVAL IDATE S THE CALCU LATIO N FOR LDL FRACT IONAT ION - THE LDL RESUL T WILL NOT BE REPOR NOBLE. Not Available [facility] (Lab) [address] [facility], [address], 01/30/2024 11:04:52 01/30/20 24 01/30/2024 COMPR EHENS SARITA METAB OLIC PANEL sodium 140 mmol/ L 137-14 5 Not Available [facility] (Lab) [address] [place], [address], 01/30/2024 11:04:56 01/30/20 24 01/30/2024 COMPR EHENS SARITA METAB OLIC PANEL potassium 3.9 mmol/ L 3.5-5. 1 Not Available [facility] (Lab) [address] [place], [address], 01/30/2024 11:04:56 01/30/2001/30/2024 COMPR EHENS SARITA METAB OLIC PANEL chloride 108 mmol/ L 98-107 high Not Available [facility] (Lab) [address] [place], [address], 01/30/2024 11:04:56 01/30/20 24 01/30/2024 COMPR EHENS SARITA METAB OLIC PANEL carbon dioxide 24 mmol/ L 22-30 Not Available [facility] (Lab) [address] [place], [address], 01/30/2024 11:04:56 01/30/20 24 01/30/2024 COMPR EHENS SARITA METAB OLIC PANEL anion gap 11.9 mmol/ L 14-22 low Not Available [facility] (Lab) [address] [place], [address], 01/30/2024 11:04:56 01/30/20 24 01/30/2024 COMPR EHENS SARITA METAB OLIC PANEL glucose 104 mg/dL 70-99 high Not Available [facility] (Lab) [address] [place], [address], 01/30/2024 11:04:56 01/30/20 24 01/30/2024 COMPR EHENS SARITA METAB OLIC PANEL BUN 32 mg/dL 8-19 high Not Available [facility] (Lab) [address] [place], [address], 01/30/2024 11:04:56 01/30/20 24 01/30/2024 COMPR EHENS SARITA METAB OLIC PANEL creatinine 1.11 mg/dL 0.66-1 .25 Not Available [facility] (Lab) [address] [place], [address], 01/30/2024 11:04:56 01/30/20 24 01/30/2024 COMPR EHENS SARITA METAB OLIC PANEL GFR 49 Refer ence Range : [place] ge GFR Healt hy Adult : >60 mL/mi n/1.7 3 m2 Chron ic Kidne y Disea se: 15-60 mL/mi n/1.7 3 m2 Kidne y Failu re: <15/m L/min /1.73 m2 www.n iddk. nih.g ov The MDRD study equat ion has not been valid ated in child ez <18 years of age; pregn ant women ; the elder ly >85 years of age; or in some racia l or ethni c subgr oups, such as Christine nics. Outsi de the valid ated livia eters , estim ated GFR is less accur ate, requi ring clini benja judgm ent on a case- by-ca se basis . Clini benja inter preta tion for other races and ages must be made by the clini juan. The MDRD study equat ion has not been valid ated for the evalu ation of serum creat inine relat ed to nutri denise l statu s or medic ation usage . For perso ns <18 years of age, a pedia tric GFR calcu lator is avail able on the F websi te: https ://susan w.arya urrutia.o isaac/pr toyess ional s/kdo qi/gf r_cal culat or Not Available [facility] (Lab) [address] [place], [address], 01/30/2024 11:04:56 01/30/20 24 01/30/2024 COMPR EHENS SARITA METAB OLIC PANEL alkaline phosphatase 119 U/L 38-126 Not Available [facility] (Lab) [address] [place], [address], 01/30/2024 11:04:56 01/30/20 24 01/30/2024 COMPR EHENS SARITA METAB OLIC PANEL alanine aminotransfe rase 20 U/L 0-35 Not Available [facility] (Lab) [address] [place], [address], 01/30/2024 11:04:56 01/30/2001/30/2024 COMPR EHENS SARITA METAB OLIC PANEL aspartate aminotransfe rase 24 U/L 15-37 Not Available [facility] (Lab) [address] [place], [address], 01/30/2024 11:04:56 01/30/20 24 01/30/2024 COMPR EHENS SARITA METAB OLIC PANEL bilirubin, total 0.20 mg/dL 0.20-1 .30 Not Available [facility] (Lab) [address] [place], [address], 01/30/2024 11:04:56 01/30/20 24 01/30/2024 COMPR EHENS SARITA METAB OLIC PANEL calcium 9.6 mg/dL 8.4-10 .2 Not Available [facility] (Lab) [address] [place], [address], 01/30/2024 11:04:56 01/30/20 24 01/30/2024 COMPR EHENS SAIRTA METAB OLIC PANEL total protein 5.9 g/dL 6.3-8. 2 low Not Available [facility] (Lab) [address] [place], [address], 01/30/2024 11:04:56 01/30/20 24 01/30/2024 COMPR EHENS SARITA METAB OLIC PANEL albumin 3.8 g/dL 3.0-4. 4 Not Available [facility] (Lab) [address] [place], [address], 01/30/2024 11:04:56 01/30/20 24 01/30/2024 COMPR EHENS SARITA METAB OLIC PANEL globulin 2.1 g/dL 2.6-4. 2 low Not Available [facility] (Lab) [address] [place], [address], 01/30/2024 11:04:56 01/30/20 24 01/30/2024 COMPR EHENS SARITA METAB OLIC PANEL A/G ratio 1.8 ratio 1.0-2. 0 Not Available [facility] (Lab) [address] [place], [address], 01/30/2024 11:04:56 01/30/20 24 01/30/2024 VITAM IN D 25-HY DROXY vd25oh 14.4 NG/mL 30-100 low Vitam in D Statu s: Defic ient: <20 ng/mL Insuf ficie nt: 20-29 ng/mL Suffi cient : 30-10 0 ng/mL Not Available [facility] (Lab) [address] [place], [address], 01/30/2024 11:28:17 01/30/20 24 01/30/2024 TSH W/REF ABDIRIZAK FT4 TSH with reflex free T4 2.930 uIU/m L 0.465- 4.680 Not Available [facility] (Lab) [address] [place], [address], 01/30/2024 11:32:30 06/04/19 25 06/03/2024 imagi ng/di agnos tic resul t No observ ation record ed. MICHAEL [facility] [address] [place], [address], 06/03/2024 10:55:15 06/04/19 25 06/03/2024 scree manda breas t hakeem, bilat [place] [facility] [address] [place] [address] [phone] Bang mobley Name: BREONNA JENNINGS Access ion #: [id number] Sex: F : 1955 9 Locati on: RAD Attend ing Physic bart: BLAYNE HDEZ MURTUZ A Orderi ng Physic bart: ERICAADEEL HDEZ MURTUZ A Exam Date: 025 8:41 AM Exam Name: MG HINTON BREAST HAKEEM BILAT Admitt ing Diagno sis(es ): MAMMOG DARVIN REPORT - FINAL EXAM: MG SCRWendy BREAST HAKEEM BILAT HISTOR Y: Screen ing mammo 69-yea r-old female with no curren t breast compla ints. The bang mobley has a family histor y of breast cancer in her mother at age 4747 years old and in a sister at age 6060 years old. The bang mobley has a histor y of right breast benign excisi onal biopsy in the distan t past. COMPAR JOHN: Mammog darvin dated 2023 and 2022. TECHNI QUE: Bilate ral CC and MLO views of the breast s were perfor med. Digita l Mammog darvin images were obtain ed. CAD (compu ter assist ed detect ion) was utiliz ed. 3D Digita l breast tomosy nthesi s was perfor med and used in the interp retati on of images . FINDIN GS: Page 1 of 3 [facility] Bang mobley Name: BREONNA JENNINGS Rosina Access ion #: [id number] Sex: F : 1955 9 Exam Date: 025 8:41 AM Exam Name: MG HINTON BREAST HAKEEM BILAT Admitt ing Diagno sis(es ): The breast s are almost entire ly fatty. No masses , asymme tries, suspic ious calcif icatio ns, or britton ectura l distor tion are seen. IMPRES NADIA: BIRADS 1: Assess ment comple te. Negati ve. Recomm end annual screen ing mammog darvin. Accord ing to the [employer], yearly mammog samantha are recomm ended starti ng at age 40 and contin uing as long as the woman is in good health . Clinic al Breast Exam should be part of the period ic health exam-a bout every 3 years for women in their 20s and 30s and every year for women 40 and over. Breast self-e xam is an option for women in their 20s. Any breast change noted on the breast self-e xam she would be report ed prompt ly to the [facility]. A negati ve mammog darvin report should not discou rage follow -up or biopsy of a clinic ally signif icant findin g and/or abnorm ality. Dense breast tissue may obscur e small neopla sms. This bang mobley has been entere d into a mammog darvin remind er system with a target date for her next mammog linda. Create d and electr onical ly signed by: Blade camarena MD Signed Date: 9:50 AM (CT) Dictat ed by: Blade camarena MD DD: 9:50 AM (CT) Page 2 of 3 [facility] Name: BREONNA JENNINGS Access ion #: [id number] Sex: F : 1955 9 Exam Date: 8:41 AM Exam Name: MG SCRN BREAST HAKEEM BILAT Admitt ing Diagno sis(es ): DT: 9:50 AM (CT) Page 3 of 3 INTERFACE [facility] (Imaging) [address] [place], [address], 06/03/2024 13:03:55 06/12/19 25 06/10/2024 US, abdom en, limit ed [facility] [address] [place] [address] Patijaziel t Name: BREONNA JENNINGS Access ion #: [id number] Sex: F : 1955 6 Locati on: RAD Attend ing Physic bart: BLAYNE NWMAYELA, MURTUZ A Orderi ng Physic bart: BLAYNE HDEZ, MURTUZ A Exam Date: 8:34 AM Exam Name: US ABDOME N SINGLE ORGAN Admitt ing Diagno sis(es ): RADIOL OGY REPORT - FINAL EXAM: US ABDOME N SINGLE ORGAN HISTOR Y: abdomi nal mass 69-yea r-old female with left lower quadra nt palpab le abnorm ality and swelli ng for 2 years. COMPAR JOHN: None availa ble. TECHNI QUE: Focuse d ultras ound evalua tion of the left lower quadra nt was perfor med. FINDIN GS: See below. IMPRES NADIA: No masses , abdomi nal wall hernia s, abnorm al fluid collec tions, or other focal abnorm alitie s are identi fied about the left lower quadra nt. If the patien t's Page 1 of 2 [facility] Patien t Name: BREONNA JENNINGS Access ion #: [id number] Sex: F : 1955 6 Exam Date: 8:34 AM Exam Name: US ABDOME N SINGLE ORGAN Admitt ing Diagno sis(es ): sympto ms persis t, noncon trast CT scan of the abdome n and pelvis may be anna paez for furthe r evalua tion. Create d and electr onical ly signed by: Blade camarena MD Signed Date: 2:56 PM (CT) Dictat ed by: Blade camarena MD DD: 2:56 PM (CT) DT: 2:56 PM (CT) Page 2 of 2 [facility] (Imaging) [address] [place], [address], 06/11/2024 15:58:46 06/12/19 25 06/10/2024 US, abdom en No observ ation record ed. [facility] [address] [place], [address], 06/11/2024 16:11:05 Result Notes None recorded. Problems Name Problem SNOMED Code Status Onset Date Resolution Date Notes Provider Name and Address Organization Details Recorded Time Nocturia 249754608 Completed Not Available [facility] 3 01:11:28 Acute sinusitis 05536388 Completed Estrella Beatty MD [address], [address] , [place] 4 16:44:19 Otalgia 09989721 Completed Not Available [facility] 3 01:11:28 Body mass index 30+ - obesity 944551920 Active 2017 Not Available [facility] 3 22:19:26 Microscop ic hematuria 938459354 Completed Not Available [facility] 3 01:11:29 Gastroeso phageal reflux disease 954251509 Active Not Available [facility] 3 22:19:27 Dyspnea 107640069 Completed Not Available [facility] 3 01:11:29 Anemia 931631901 Active Not Available [facility] 3 22:19:27 Eruption 772380936 Completed Lilian Monreal MA null, [place] 4 10:28:23 Chest pain 10011525 Completed Estrella Beatty MD [address] [facility], [facility] [address], [place], [address] , [place] 4 16:44:36 Enthesopa thy of hip region 07131486 Completed Not Available [facility] 3 01:11:30 Bronchiti s 45055721 Completed Not Available [facility] 3 01:11:30 Restless legs 83311615 Active 2016 Not Available [facility] 3 22:19:27 Blood in urine 58148772 Completed Not Available [facility] 3 01:11:31 Vitamin D deficienc y 24429775 Completed WHITNEY Alfaro, [facility] [employer] [facility] 3 09:44:31 Sinusitis 82228915 Completed Not Available [facility] 3 01:11:31 Chronic sinusitis 88103232 Active Not Available [facility] 3 22:19:27 Dysphagia 67706505 Completed Not Available [facility] 3 01:11:31 Nausea 488417520 Completed Not Available [facility] 3 01:11:32 Periodic leg movements of sleep 498804275 Active 2017 Not Available [facility] 3 22:19:27 Hypertrop hic obstructi ve cardiomyo ajrad 69768737 Active 2021 Not Available [facility] 3 22:19:27 Anxiety 16281097 Active 2016 Not Available [facility] 3 22:19:27 Cough 00044312 Completed Not Available [facility] 3 01:11:33 Upper respirato ry infection 41153291 Completed Not Available [facility] 3 01:11:33 Hyperlipi demia 53460999 Active 2019 Not Available [facility] 3 22:19:27 Osteoporo sis 49361846 Active Not Available [facility] 3 22:19:27 Obstructi ve sleep apnea syndrome 08255806 Active 2017 Not Available [facility] 3 22:19:27 Kidney stone 95284922 Completed Not Available [facility] 3 01:11:36 Bronchiec tasis 22284936 Active 2022 Not Available [facility] 3 22:19:26 Vitamin D deficienc y 29909064 Active 2022 Breanne Oliva RN null, [facility] [employer] [facility] 3 09:44:31 COVID-19 948575067 Active 2022 Mal Lacey MD [address] [place] [address], [place] [address], [place], [address] , [facility] 3 16:16:52 Generaliz ed anxiety disorder 01246604 Active 2023 Elizabeth barrera MD [address], [place], [address] , [facility] 4 15:35:28 Asthma 119852664 Active 2023 Elizabeth barrera MD [address], [address], [place], [address] , [facility] 4 15:35:32 Low back pain 625365353 Active 2023 Elizabeth barrera MD [address], [address], [place], [address] , [facility] 4 15:35:39 Memory impairmen t 436610150 Active 2023 Lilian Monreal MA null, [facility] 4 16:37:38 Severe persisten t asthma 497510120 Active 2023 Estrella Beatty MD [address], [address], [place], [address] , [facility] 4 12:01:51 Pain of right knee joint 48933804429 [address]100 Active 2023 MELONY Barfield null, [facility] 4 11:08:48 Hyperglyc emia 51249907 Active 2023 Lilian Monreal MA null, [place] [facility] 4 15:18:39 Dyspnea on exertion 06420098 Active 2023 Elizabeth barrera MD [address], [address], [place], [address] , [facility] 4 17:42:08 Gastroeso phageal reflux disease without esophagit is 063585079 Active 2023 Elizabeth barrera MD [address], [place], [address] , [facility] 4 17:42:08 Chronic kidney disease 888893655 Active 2023 Elizabeth barrera MD [address] [facility], [place], [address] , [facility] 4 18:06:16 Acute urinary tract infection 861842533 Active 2023 Lilian Monreal MA null, [place] [facility] 4 15:38:17 Urinary incontine dee [id number] Active 2023 Elizabeth barrera MD [address], [address], [place], [address] , [facility] 4 11:51:51 Eruption [id number] Active 2023 Lilian Monreal MA null, [place] [facility] 4 10:28:23 Abdominal mass [id number] Active 2024 Elizabeth barrera MD [address], [address], [place], [address] , [facility] 5 10:12:30 Notes:Medical History: Cereb ral atrophy Anxiety/Depression COVID infection 07/2022 Rhinitis Chronic maxillary/ethmoid sinusitis Eosinophils 150/uL IgE < 2 IU/mL Hypogammaglobulinemia (IgG1) AAT PiMM 155 mg% Bibasilar fibrosis/bronchiectasis Early REM onset Obesity with moderate OSAS, AI = 19, 07/10/22, on autoCPAP 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 Procedures Surgical History Date Name Laterality Status Provider Name and Address Organization Details Recorded Time 11/14/19 Chronic care management services completed Behzad Pandey RN [facility] [employer] [facility] 11/14/2023 11:05:52 11/03/19 24 total replacement of hip completed Behzad Pandey RN [facility] [employer] [facility] 11/14/2023 10:52:22 10/30/19 24 Medicare Wellness CPT Code, subsequent completed Henry Cuevas LPN [facility] [employer] [facility] 10/30/2023 08:44:52 10/18/19 24 Chronic care management services completed Behzad Pandey RN [facility] [employer] [facility] 10/18/2023 13:01:04 09/15/19 24 Chronic care management services completed Behzad Pandey RN [facility] [employer] [facility] 09/15/2023 13:29:37 08/16/19 24 Chronic care management services completed Sarah Channing [facility] [employer] [facility] 11/23/2023 12:21:29 08/09/19 24 Chronic care management services cancelled Behzad Pandey RN [facility] [employer] [facility] 08/15/2023 10:22:53 06/17/19 21 debridement completed Not Available [facility] 05/18/2022 00:55:17 05/06/19 21 total replacement of hip completed Not Available [facility] 05/18/2022 00:55:17 04/03/19 20 implantation of neurostimulator in spine completed Not Available [facility] 05/18/2022 00:55:17 07/24/19 16 Most Recent Bone Density completed Not Available [facility] 05/18/2022 00:55:12 08/08/19 15 Colonoscopy completed Not Available [facility] 05/18/2022 00:55:17 08/06/19 15 Date of Last Colonoscopy completed Not Available [facility] 05/18/2022 00:55:12 09/19/19 14 Fragmenting of kidney stone completed Not Available [facility] 05/18/2022 00:55:17 09/19/19 14 Lithotripsy completed Not Available [facility] 05/18/2022 00:55:17 05/22/19 11 Colonoscopy completed Not Available [facility] 05/18/2022 00:55:17 Sinus Surgery completed Not Available [facility] 05/18/2022 00:55:17 Bladder completed Not Available [facility] 05/18/2022 00:55:17 Back Surgery completed Not Available [facility] 05/18/2022 00:55:17 Appendectomy completed Not Available [facility] 05/18/2022 00:55:17 Hysterectomy completed Not Available [facility] 05/18/2022 00:55:17 Breast Biopsy completed Not Available [facility] 05/18/2022 00:55:17 Imaging Results Imaging Date Name Status LastModified by Organiz ation Details LastModified Time 06/03/2024 imaging/diagnos tic result active [facility] [address] [place], [address], 06/03/2024 10:55:15 06/03/2024 screening breast hakeem, bilat [facility] (Imaging) [address] [place], [address], 06/03/2024 13:03:55 06/10/2024 US, abdomen, limited [facility] (Imaging) [address] [place], [address], 06/11/2024 15:58:46 06/10/2024 US, abdomen active [facility] [address] [place], [address], 06/11/2024 16:11:05 Procedure Notes None recorded. Medical Equipment None Reported. Allergies Allergen ID Allergen Name Allergen Category Reaction Reaction Severity Criticality Documentation Date Start Date Code Code System Note Provider Name and Address Organization Details Recorded Time 2705 Substance with sulfonami de structure and antibacte rial mechanism of action (substanc e) medicatio n Not available Not available Not available 05/18/2022 30089 0456 SNOMED Other react ions and sever ities : 'Drug -damaris blaire nause a and vomit ing'. Behzad Pandey RN null, [facility] [employer] [facility] 4 15:30:36 2706 Product containin g penicilli n (product) medicatio n Not available Not available Not available 05/18/20222006 64833 8001 SNOMED unkno wn Not Available [facility] 3 01:32:21 03306 penicilli n V Not available rash moderate high 08/16/2023 7984 RxNorm Behzad Pandey RN null, [facility] [employer] [facility] 4 10:42:26 Medications Name Sig Start Date Stop Date Status Note LastModified by Organization Details LastModified Time senna-s 8.6mg-50m g tablets TAKE 2 TABLETS BY MOUTH TWICE DAILY 12/17 completed Not Available Not Available Not Available carisopro dol 350 mg tablet active Not Available Not Available No t Available fluoxetin e 40 mg capsule TK 2 CS PO D 09/24 completed Not Available Not Available Not Available cyclobenz aprine 10 mg tablet TAKE 1 TABLET BY MOUTH EVERY 8 HOURS 05/11 completed Not Available Not Available Not Available furosemid e 40 mg tablet TAKE 1 TABLET BY MOUTH EVERY DAY active Not Available Not Available No t Available atorvasta tin 40 mg tablet TAKE 1 TABLET BY MOUTH EVERY DAY active Not Available Not Available No t Available methocarb christine 500 mg tablet active Not Available Not Available No t Available albuterol sulfate 0.63 mg/3 mL solution for nebulizat ion USE 1 VIAL VIA NEBULIZE R THREE TIMES DAILY 06/14 completed Not Available Not Available Not Available fluticaso ne 250 mcg-salme terol 50 mcg/dose blistr powdr for inhalatio n INHALE 1 PUFF BY MOUTH TWICE DAILY DIRECTED 11/10 completed Not Available Not Available Not Available nystatin 100,000 unit/mL oral suspensio n SHAKE LIQUID AND TAKE 5 ML BY MOUTH FOUR TIMES DAILY FOR 10 DAYS 04/16 completed Not Available Not Available Not Available prednison e 10 mg tablet Take 3 tablets every day by oral route in the morning for 5 days. active Not Available Not Available No t Available gabapenti n 600 mg tablet TAKE 1 TABLET BY MOUTH THREE TIMES DAILY active Not Available Not Available No t Available doxycycli ne hyclate 100 mg capsule TAKE 1 CAPSULE BY MOUTH TWICE A DAY active Not Available Not Available No t Available atorvasta tin 20 mg tablet TAKE 1 TABLET BY MOUTH EVERY DAY 05/30 completed Not Available Not Available Not Available erythromy nohemi 500 mg tablet 01/01 completed Not Available Not Available Not Available clindamyc in HCl 300 mg capsule TK ONE C PO Q 6 H X 7 DAYS active Not Available Not Available No t Available atorvasta tin 10 mg tablet TAKE 1 TABLET BY MOUTH EVERY DAY 06/14 completed Not Available Not Available Not Available oxybutyni n chloride ER 10 mg tablet,ex tended release 24 hr TAKE 1 TABLET BY MOUTH DAILY 08/11 completed Not Available Not Available Not Available azithromy nohemi 250 mg tablet TAKE 2 TABLETS (500 MG) BY ORAL ROUTE ONCE DAILY FOR 1 DAY THEN 1 TABLET (250 MG) BY ORAL ROUTE ONCE DAILY FOR 4 DAYS 10/10 completed Not Available Not Available Not Available fosfomyci n trometham ine 3 gram oral packet MIX AND DRINK 1 PACKET BY MOUTH 1 TIME 08/11 completed Not Available Not Available Not Available ibuprofen 800 mg tablet 04/26 completed Not Available Not Available Not Available fluconazo le 150 mg tablet TAKE 1 TABLET BY MOUTH EVERY DAY 11/11 completed Not Available Not Available Not Available metoprolo l succinate ER 50 mg tablet,ex tended release 24 hr TAKE 1 TABLET BY MOUTH EVERY DAY active Not Available Not Available No t Available methylphe nidate 10 mg tablet TK 1 T PO BID 02/05 completed Not Available Not Available Not Available clarithro mycin 500 mg tablet Take 1 tablet every 12 hours by oral route. active Not Available Not Available No t Available hydrocodo ne 5 mg-acetam inophen 325 mg tablet TK 1 T PO ONCE OR BID active Not Available Not Available No t Available methylphe nidate 20 mg tablet TAKE 1 TABLET BY MOUTH TWICE DAILY ON AN EMPTY STOMACH active Not Available Not Available No t Available diltiazem CD 240 mg capsule,e xtended release 24 hr TAKE 1 CAPSULE BY MOUTH EVERY NIGHT. INCREASE DOSE 08/20 completed Not Available Not Available Not Available meloxicam 15 mg tablet TAKE ONE-HALF TABLET BY MOUTH DAILY. 12/17 completed Not Available Not Available Not Available phenazopy ridine 200 mg tablet TAKE 1 TABLET BY MOUTH THREE TIMES DAILY NEEDED 12/15 completed Not Available Not Available Not Available venlafaxi ne 25 mg tablet TK 1 T PO BID 01/30 completed Not Available Not Available Not Available famotidin e 40 mg tablet TAKE 1 TABLET BY MOUTH EVERY DAY NEEDED 05/30 completed Not Available Not Available Not Available prednison e 20 mg tablet TK 3 TS PO ONCE D FOR 5 DAYS 03/29 completed Not Available Not Available Not Available gabapenti n 400 mg capsule TK 1 C PO TID active Not Available Not Available No t Available sertralin e 100 mg tablet TAKE 1 TABLET BY MOUTH TWICE DAILY active Not Available Not Available No t Available Elmiron 100 mg capsule active Not Available Not Available Not Available clindamyc in HCl 150 mg capsule 03/06 completed Not Available Not Available Not Available triamcino lone acetonide 0.5 % topical ointment APPLY A THIN LAYER TO THE AFFECTED AREAS BID 12/10 completed Not Available Not Available Not Available diltiazem CD 360 mg capsule,e xtended release 24 hr TAKE 1 CAPSULE BY MOUTH EVERY NIGHT active Not Available Not Available No t Available acetamino phen 300 mg-codein e 30 mg tablet TAKE 1 TABLET BY MOUTH FOUR TIMES A DAY NEEDED 10/29 completed Not Available Not Available Not Available ciproflox acin 250 mg tablet TAKE 1 TABLET BY MOUTH TWICE DAILY FOR 7 DAYS 03/10 completed Not Available Not Available Not Available ciproflox acin 500 mg tablet TAKE 1 TABLET BY MOUTH TWICE DAILY 06/14 completed Not Available Not Available Not Available sulfameth oxazole 800 mg-trimet hoprim 160 mg tablet TAKE 1 TABLET BY MOUTH TWICE DAILY 04/25 completed Not Available Not Available Not Available hydrocodo ne 10 mg-acetam inophen 325 mg tablet TAKE 1 TABLET BY MOUTH THREE TIMES A DAY NEEDED active Not Available Not Available No t Available omeprazol e 40 mg capsule,d elayed release 12/10 completed Not Available Not Available Not Available aspirin 81 mg tablet,de layed release TAKE 1 TABLET BY MOUTH 1 TIMES A DAY. active Not Available Not Available No t Available tramadol 50 mg tablet 1 tab every 8 hrs as needed. Cautione d not to take w/ other Opioids active Not Available Not Available No t Available vancomyci n 1,000 mg intraveno us injection 11/11 completed Not Available Not Available Not Available acetamino phen 500 mg tablet TAKE 2 TABLETS (1,000 MG TOTAL) BY MOUTH EVERY 8 HOURS NEEDED FOR PAIN active Not Available Not Available No t Available Depo-Medr ol 80 mg/mL suspensio n for injection 10/15 completed Not Available Not Available Not Available disopyram sakina phosphate 150 mg capsule TAKE 1 CAPSULE BY MOUTH TWICE A DAY active Not Available Not Available No t Available Kenalog 40 mg/mL suspensio n for injection 12/10 completed Not Available Not Available Not Available cefadroxi l 500 mg capsule TAKE 1 CAPSULE BY MOUTH 2 TIMES A DAY FOR 14 DAYS. 12/17 completed Not Available Not Available Not Available oxycodone -acetamin ophen 5 mg-325 mg tablet TAKE 1 TO 2 TABLETS BY MOUTH EVERY 4 HOURS NEEDED FOR PAIN 07/14 completed Not Available Not Available Not Available alprazola m 0.5 mg tablet TAKE ONE TABLET BY MOUTH DAILY NEEDED active Not Available Not Available No t Available Guaiatuss in AC 10 mg-100 mg/5 mL oral liquid active Not Available Not Available Not Available alprazola m 0.25 mg tablet TAKE ONE TABLET BY MOUTH AT BEDTIME PRN active Not Available Not Available No t Available potassium chloride ER 20 mEq tablet,ex tended release(p art/cryst ) TAKE 1 TABLET BY MOUTH EVERY DAY active Not Available Not Available No t Available amitripty line 25 mg tablet TK 1 T PO QD HS 04/21 completed Not Available Not Available Not Available Zoloft 50 mg tablet Take 1 tablet every day by oral route. 03/15 completed Not Available Not Available Not Available ropinirol e 0.25 mg tablet ONe tablet PO at HS 2-3 hours before bedtime 07/18 completed Not Available Not Available Not Available hydrocodo ne 7.5 mg-acetam inophen 325 mg tablet TAKE 1 TABLET BY MOUTH EVERY 6 HOURS NEEDED 03/10 completed Not Available Not Available Not Available cephalexi n 500 mg capsule TAKE 1 CAPSULE BY MOUTH THREE TIMES A DAY active Not Available Not Available No t Available buspirone 30 mg tablet TAKE 1 TABLET BY MOUTH TWICE DAILY active Not Available Not Available No t Available ferrous sulfate 325 mg (65 mg iron) tablet TAKE 1 TABLET BY MOUTH TWICE A DAY 2024 active Not Available Not Available Not Avai lable ropinirol e 0.5 mg tablet TAKE 1 TABLET BY MOUTH EVERY NIGHT 2 TO 3 HOURS BEFORE BEDTIME. DO NOT USE WITH HYDROCOD ONE 10/29 completed Not Available Not Available Not Available promethaz ine 25 mg tablet Take 1 tablet(s ) EVERY 4 HOURS by oral route prn nausea active Not Available Not Available No t Available methylphe nidate ER 20 mg tablet,ex tended release active Not Available Not Available Not Available Advair Diskus 500 mcg-50 mcg/dose powder for inhalatio n Inhale 1 puff twice a day by inhalati on route. 01/30 completed Not Available Not Available Not Available gabapenti n 300 mg capsule TAKE 1 CAPSULE BY MOUTH THREE TIMES DAILY 07/14 completed Not Available Not Available Not Available buspirone 7.5 mg tablet TK 1 T PO BID active Not Available Not Available No t Available omeprazol e 20 mg capsule,d elayed release TAKE 1 CAPSULE BY MOUTH EVERY DAY NEEDED FOR 90 DAYS active Not Available Not Available No t Available aspirin 81 mg chewable tablet CHEW AND SWALLOW 1 TABLET BY MOUTH DAILY AT 8 AM 02/04 completed on hold while taking DR BID for prophyla ctically post op Not Available Not Available Not Available diltiazem CD 120 mg capsule,e xtended release 24 hr TAKE 1 CAPSULE BY MOUTH EVERY NIGHT 03/10 completed Not Available Not Available Not Available monteluka st 10 mg tablet TK 1 T PO QD 02/05 completed Not Available Not Available Not Available morphine ER 15 mg tablet,ex tended release TK 1 T PO BID active Not Available Not Available No t Available hydrocodo ne 5 mg-acetam inophen 500 mg tablet TAKE 1 TABLET BY MOUTH FOUR TIMES DAILY active Not Available Not Available No t Available mupirocin 2 % topical ointment APPLY TOPICALL Y TO NOSTRILS 2 TIMES A DAY FOR 5 DAYS PRIOR TO SURGERY 10/28 completed Not Available Not Available Not Available gabapenti n 100 mg capsule TK 2 CS PO QHS active Not Available Not Available No t Available metoprolo l succinate ER 25 mg tablet,ex tended release 24 hr TAKE 1 TABLET BY MOUTH EVERY DAY 06/29 completed Not Available Not Available Not Available ergocalci ferol (vitamin D2) 1,250 mcg (50,000 unit) capsule TAKE 1 CAPSULE BY MOUTH EVERY WEEK 08/15 completed Not Available Not Available Not Available clobetaso l 0.05 % topical ointment active Not Available Not Available Not Available nystatin 100,000 unit/gram topical powder APPLY TO THE AFFECTED AREA(S) BY TOPICAL ROUTE 2 TIMES PER DAY 01/22 completed was replaced by clotrima zole Not Available Not Available Not Available lorazepam 1 mg tablet TK 1 T PO QD active Not Available Not Available No t Available levofloxa nohemi 500 mg tablet TK 1 Tab PO QD FOR 7 DAYS active Not Available Not Available No t Available oxycodone -acetamin ophen 7.5 mg-325 mg tablet active Not Available Not Available Not Available methylpre dnisolone 4 mg tablets in a dose pack Take as Directed 03/06 completed Not Available Not Available Not Available albuterol sulfate HFA 90 mcg/actua tion aerosol inhaler Inhale 1 puff every 4 hours by inhalati on route as needed for 30 days. active Not Available Not Available No t Available cefdinir 300 mg capsule TAKE 1 CAPSULE BY MOUTH TWICE DAILY 09/28 completed Not Available Not Available Not Available piroxicam 20 mg capsule active Not Available Not Available Not Available fluoxetin e 20 mg capsule TK 3 CS PO D 06/06 completed Not Available Not Available Not Available fluticaso ne propionat e 50 mcg/actua tion nasal spray,janae pension Inhale 2 sprays every day by intranas al route in the evening. 01/21 completed Not Available Not Available Not Available clotrimaz ole 1 % topical cream APPLY TOPICALL Y TO THE AFFECTED AND SURROUND ING AREAS OF SKIN TWICE DAILY IN THE MORNING AND EVENING active Not Available Not Available No t Available doxycycli ne hyclate 100 mg tablet TAKE 1 TABLET BY MOUTH TWICE DAILY FOR 10 DAYS active Not Available Not Available No t Available Hibiclens 4 % topical liquid Perform daily total body-was h for 5 days 05/25 completed Not Available Not Available Not Available buspirone 15 mg tablet TAKE 1 TABLET BY MOUTH THREE TIMES DAILY 06/29 completed Not Available Not Available Not Available oxycodone 5 mg tablet TK 1 T PO D PRN FOR BREAKTHR OUGH PAIN AT LEAST 4 H APART FROM XTAMPZA 12/17 completed not working to good, so patient only takes rarely. Advised NOT to take with the Hydrocod one Not Available Not Available Not Available hydroxyzi ne pamoate 25 mg capsule 07/14 completed Not Available Not Available Not Available risedrona te 35 mg tablet TAKE 1 TABLET BY MOUTH EVERY WEEK 06/06 completed Not Available Not Available Not Available cyclobenz aprine 5 mg tablet TAKE 1 TABLET BY MOUTH TWICE DAILY NEEDED 08/11 completed Not Available Not Available Not Available Crestor 10 mg tablet TK 1 T PO QD 12/12 completed Not Available Not Available Not Available Crestor 20 mg tablet TK 1 T PO QD active Not Available Not Available No t Available methylphe nidate CD 20 mg biphasic 30-70 capsule,e xtended release TK ONE C PO QAM active Not Available Not Available No t Available Spiriva with [employer] r 18 mcg and inhalatio n capsules INHALE THE CONTENTS OF 1 C PO VIA HANDHALE R QD active Not Available Not Available No t Available nitrofura ntoin monohydra te/macroc rystals 100 mg capsule TAKE 1 CAPSULE BY MOUTH TWICE DAILY FOR 5 DAYS 03/29 completed Not Available Not Available Not Available duloxetin e 30 mg capsule,d elayed release TK ONE C PO QD 01/30 completed Not Available Not Available Not Available duloxetin e 60 mg capsule,d elayed release TAKE 1 CAPSULE BY MOUTH TWICE DAILY active Not Available Not Available No t Available Vesicare 10 mg tablet active Not Available Not Available Not Available Lyrica 50 mg capsule TK ONE C PO TID 01/30 completed Not Available Not Available Not Available morphine 15 mg 01/21 completed Not Available Not Available Not Available atorvasta tin 5 mg 1T PO QD 07/22 completed Not Available Not Available Not Available ferrous gluconate 324 mg (38 mg iron) tablet 05/11 completed Not Available Not Available Not Available furosemid e (bulk) 11/10 completed Not Available Not Available Not Available cholecalc iferol (vitamin D3) 1,250 mcg (50,000 unit) capsule TAKE 1 CAPSULE BY MOUTH ONE TIME PER WEEK 2024 active Not Available Not Available Not Avai lable diclofena c 1 % topical gel 10/29 completed Not Available Not Available Not Available Senexon-S 8.6 mg-50 mg tablet TAKE 2 TABLETS BY MOUTH TWICE A DAY active Not Available Not Available No t Available Prolia 60 mg/mL subcutane ous syringe INJECT 1 ML UNDER THE SKIN EVERY 6 MONTHS 01/02 completed Not Available Not Available Not Available Viibryd 40 mg tablet 01/01 completed Not Available Not Available Not Available Nucynta ER 50 mg tablet,ex tended release TAKE 1 TABLET BY MOUTH EVERY 12 HOURS FOR 10 DAYS 03/10 completed Not Available Not Available Not Available Myrbetriq 50 mg tablet,ex tended release Take 1 tablet every day by oral route for 28 days. 06/11 completed Dispense Qty: 28. Not Available Not Available Not Available Breo Ellipta 100 mcg-25 mcg/dose powder for inhalatio n INHALE 1 PUFF PO D 12/10 completed Not Available Not Available Not Available Fetzima 40 mg capsule,e xtended release active Not Available Not Available Not Available Fetzima 120 mg capsule,e xtended release TK ONE C PO QD 06/06 completed Not Available Not Available Not Available Fetzima 80 mg capsule,e xtended release TK 1 C PO QD 12/10 completed Not Available Not Available Not Available Incruse Ellipta 62.5 mcg/actua tion powder for inhalatio n INL 1 PUFF PO QD 01/30 completed Not Available Not Available Not Available Movantik 25 mg tablet TAKE 1 TABLET BY MOUTH EVERY DAY IN THE MORNING FOR 15 DAYS active Not Available Not Available No t Available Breo Ellipta 200 mcg-25 mcg/dose powder for inhalatio n INL 1 PUFF PO QD 06/06 completed Not Available Not Available Not Available Narcan 4 mg/actuat ion nasal spray Take 1 spray by nasal route as needed. 08/09 completed Not Available Not Available Not Available Xtampza ER 27 mg capsule sprinkle TAKE 1 CAPSULE BY MOUTH EVERY 12 HOURS WITH FOOD active Not Available Not Available No t Available Xtampza ER 9 mg capsule sprinkle TK 1 C PO Q 12 H WF FOR 10 DAYS active Not Available Not Available No t Available Xtampza ER 13.5 mg capsule sprinkle TK 1 C PO Q 12 H WF FOR 14 DAYS active Not Available Not Available No t Available Xtampza ER 18 mg capsule sprinkle TK 1 C PO Q 12 H WF active Not Available Not Available No t Available Trelegy Ellipta 100 mcg-62.5 mcg-25 mcg powder for inhalatio n INHALE 1 PUFF BY MOUTH EVERY DAY DIRECTED 10/10 completed Not Available Not Available Not Available Trelegy Ellipta 200 mcg-62.5 mcg-25 mcg powder for inhalatio n Inhale 1 puff every day by inhalati on route for 30 days. active Not Available Not Available No t Available Vitals Date Recorded Body height Systolic blood pressure Diastolic blood pressure Provider Name and Address Organization Details Last Updated DateTime 11/14/2023 149.86 cm 128 mm[Hg] 72 mm[Hg] Behzad Pandey RN [facility] [employer] [facility] 11/14/2023 10:41:58 Date Recorded Body height Body temperature Heart rate Systolic blood pressure Diastolic blood pressure Provider Name and Address Organization Details Last Updated DateTime 12/18/2023 149.86 cm 97.4 [degF] 78 /min 120 mm[Hg] 70 mm[Hg] Jenise Bojorquez Rani [facility] [employer] [facility] 4 10:59:55 Date Recorded Body height Body mass index (BMI) Body weight Body temperature Heart rate Systolic blood pressure Diastolic blood pressure Provider Name and Address Organization Details Last Updated DateTime 4 149.86 cm 30.5 kg/m2 07051.4 5 g 97.7 [degF] 78 /min 132 mm[Hg] 68 mm[Hg] Jenise Bojorquez Rani [facility] [employer] [facility] 4 14:28:52 Date Recorded Body height Body mass index (BMI) Body weight Body temperature Heart rate Systolic blood pressure Diastolic blood pressure Provider Name and Address Organization Details Last Updated DateTime 5 149.86 cm 34.7 kg/m2 66699.8 9 g 97.3 [degF] 78 /min 128 mm[Hg] 70 mm[Hg] MELONY Sweeney [place] 5 09:28:42 Date Recorded Body height Body mass index (BMI) Body weight Body temperature Respiratory rate Heart rate Oxygen saturation Oxygen saturation in Arterial blood by Pulse oximetry Systolic blood pressure Diastolic blood pressure Provider Name and Address Organization Details Last Updated DateTime 5 149.86 cm 34.7 kg/m2 18996.8 9 g 97.8 [degF] 16 /min 124 /min 92 % 92 % 150 mm[Hg] 82 mm[Hg] Nelda Kaur [employer] [facility] [employer] 5 10:48:15 Social History Question Answer Notes LastModified by Organization Details LastModified Time Tobacco Smoking Status Never Smoker EUSEBIO Bell, [place] 03/29/2023 11:18:11 Do You Have An Advance Directive? No Patient Is Currently Working On. [id number] Information not available 05/18/2022 What Is Your Level Of Alcohol Consumption? None Patient Stated She Has One Drink Yearly On Her Birthday. [email or web address] Information not available 10/30/2023 Do You Wear A Helmet When Biking? No Does Not Bike [email or web address] Information not available 03/29/2023 Are You Blind Or Do You Have Difficulty Seeing? No [email or web address] Information not available 03/29/2023 Is Blood Transfusion Acceptable In An Emergency? Yes [email or web address] Information not available 10/30/2023 What Is Your Level Of Caffeine Consumption? Occasional Occasional Has [employer] [email or web address] Information not available 10/30/2023 How Much Tobacco Do You Chew? None [id number] Information not available 05/18/2022 In The 14 Days Before Symptom Onset, Have You Had Close Contact With A Laboratory-conf irmed COVID-19 While That Case Was Ill? No [email or web address] Information not available 03/29/2023 In The 14 Days Before Symptom Onset, Have You Had Close Contact With A Person Who Is Under Investigation For COVID-19 While That Person Was Ill? No [email or web address] Information not available 03/29/2023 Are You Currently Employed? No [email or web address] Information not available 03/29/2023 Are You Deaf Or Do You Have Serious Difficulty Hearing? No [email or web address] Information not available 03/29/2023 What Type Of Diet Are You Following? REGULAR [id number] [id number] Information not available 05/18/2022 Which Illicit Or Recreational Drugs Have You Used? None [email or web address] Information not available 03/29/2023 Do You Or Have You Ever Used E-cigarettes Or Vape? Never Used Electronic Cigarettes [email or web address] Information not available 03/29/2023 What Is The Highest Grade Or Level Of School You Have Completed Or The Highest Degree You Have Received? HV08057-4 Information not available 03/29/2023 Do You Have An Electrostatic Air Filter? No Information not available 05/11/2023 What Is Your Occupation? Disability [email or web address] Information not available 03/29/2023 How Many Days Of Moderate To Strenuous Exercise, Like A Brisk Walk, Did You Do In The Last 7 Days? 0 [email or web address] Information not available 10/30/2023 Have There Been Any Changes To Your Family Or Social Situation? No [email or web address] Information not available 03/29/2023 What Is The Fluoride Status Of Your Home? Unknown Information not available 03/29/2023 Are There Any Guns Present In Your Home? No [email or web address] Information not available 03/29/2023 Do You Have A Humidifier? No Information not available 05/11/2023 Do You Use Insect Repellent Routinely? No [email or web address] Information not available 03/29/2023 Where Do You Live? SingleLevelHouse [email or web address] Information not available 03/29/2023 Presence Of Domestic Violence No [email or web address] Information not available 10/30/2023 Are You Able To Care For Yourself? No [email or web address] Information not available 10/30/2023 Are You Blind Or Do Yo Have Difficulty Seeing? No [email or web address] Information not available 10/30/2023 Are You Deaf Or Do You Have Serious Difficulty Hearing? No [email or web address] Information not available 10/30/2023 General Stress Level? High [email or web address] Information not available 10/30/2023 Live Alone Of With Others? With Others Information not available 10/30/2023 Do You Have A Medical Power Of Sizing End Bander? No [email or web address] Information not available 03/29/2023 Do You Have Moisture Problems In Your Home? No Information not available 05/11/2023 What Was The Date Of Your Most Recent Tobacco Screening? 05/30/2024 [email or web address] Information not available 05/30/2024 How Many Children Do You Have? 4 2 [email or web address] Information not available 10/30/2023 Have You Ever Been Counseled For Unhealthy Alcohol Use? No [email or web address] Information not available 03/29/2023 Do You Have Any Pets? No [email or web address] Information not available 03/29/2023 What Is Your Relationship Status? MIGRATION.0301 [id number] Information not available 05/18/2022 Do You Use Your Seat Belt Or Car Seat Routinely? Yes [email or web address] Information not available 03/29/2023 Are You Sexually Active? No Information not available 10/30/2023 Do You Have Smoke And Carbon Monoxide Detectors In Your Home? Yes Information not available 03/29/2023 Are You Passively Exposed To Smoke? Yes [email or web address] Information not available 03/29/2023 Do You Or Have You Ever Used Smokeless Tobacco? Never Used Smokeless Tobacco MIGRATION.0301 [id number] Information not available 05/18/2022 Are There Any Smokers In Your House? No [email or web address] Information not available 03/29/2023 How Much Tobacco Do You Smoke? No MIGRATION.0301 [id number] Information not available 05/18/2022 What Types Of Sporting Activities Do You Participate In? None Information not available 03/29/2023 Do You Feel Stressed (tense, Restless, Nervous, Or Anxious, Or Unable To Sleep At Night)? [id number] Information not available 03/29/2023 Do You Use Any Illicit Or Recreational Drugs? No [email or web address] Information not available 03/29/2023 Do You Use Sunscreen Routinely? Yes [email or web address] Information not available 03/29/2023 Has Tobacco Cessation Counseling Been Provided? No [email or web address] Information not available 10/30/2023 How Many Years Have You Smoked Tobacco? 0 [email or web address] Information not available 03/29/2023 Have You Recently Traveled Abroad? No [email or web address] Information not available 03/29/2023 Do You Have Any Dietary Restrictions? No [email or web address] Information not available 03/29/2023 Do You Or Have You Ever Used Any Other Forms Of Tobacco Or Nicotine? No [email or web address] Information not available 03/29/2023 Sex: Female Functional Status Question Answer Note LastModified by Organizat ion Details LastModified Time Do you have difficulty walking or climbing stairs? Yes Patient uses cane Information not available 10/30/2023 Do you have transportation difficulties? No [email or web address] Information not available 03/29/2023 Are you able to walk? YESASSIST Cane w/c for long distances [email or web address] Information not available 10/30/2023 Do you have difficulty doing errands alone? Yes Does not drive [email or web address] Information not available 10/30/2023 Are you able to care for yourself? Yes [email or web address] Information n ot available 10/30/2023 Do you have difficulty dressing or bathing? No Information not available 03/29/2023 What is your exercise level? None [email or web address] Information not available 10/30/2023 Mental Status Question Answer Note LastModified by Organization D etails LastModified Time Do you have difficulty concentrating, remembering or making decisions? No [email or web address] Information no t available 03/29/2023 Family History Relationship Description Onset Age of this Age Resolved Age Notes LastModified by Organization Details LastModified Time Father Pulmonary emphysema [email or web address] Not available 05/18 09:04:08 Father Carcinoma of prostate 69 [email or web address] Not available 05/18 09:04:08 Mother Chronic obstructive pulmonary disease [email or web address] Not available 05/18 09:04:08 Mother Malignant tumor of breast [email or web address] Not available 05/18 09:04:08 Sister Chronic obstructive pulmonary disease Not available 05/18 09:04:08 Sister Malignant tumor of lung 65 [email or web address] Not available 05/18 09:04:08 Son Asthma [id number] Not available 05/18/2022 00:55:29 Son Chronic obstructive pulmonary disease [email or web address] Not available 05/18 09:04:08 Son Obstructive sleep apnea syndrome Not available 05/18 09:04:08 Notes:Dad with emphysema sta rted in 30's, smoker, at 69 of cancer of prostate. Mom COPD, EMphysema, of breast cancer, but when patient was 12 yr. SIster wtih copd/emphysema, with lung cancer age 65, breathing problems for 30 yrs, smoker. Son with asthma and COPD and GENOVEVA, tho't to be second-hand smoke exposure. Medical History Condition Response CHEST XRAY N KIDNEY STONES N CARPAL TUNNEL SYNDROME N MRSA N HISTORY OF DRUG ABUSE N RADIATION / CHEMOTHERAPY N COPD Y BLOOD DISEASES N SURGERY N MUMPS N BOWEL PROBLEMS N FAILED BACK SYNDROME N STROKE/TIA N LYMPHEDEMA N THYROID DISEASE N OTHER MODALITIES N ULCERS N CERVICALGIA N TB SKIN TEST N MYOCARDIAL INFARCTION N PARAPELGIA N OBESITY N Increased Urination N URINARY/BLADDER/KIDNEY PROBLEMS Y INPATIENT PSYCH CARE N CORONARY ARTERY DISEASE (CAD) N MENIERE'S DISEASE N ADDICTION CONCERNS N CAROTID STENOSIS N ENDOMETRIOSIS N Impotence N PARATHYROID DISEASE N PERIPHERAL VASCULAR DISEASE N MUSCLE,JOINT OR BONE PROBLEMS N DVT N STOMACH ULCERS N GASTROINTESTINAL BLEEDING N BLOOD CLOTS N Difficulty Urinating N PAST HISTORY OF VEHICULAR ACCIDENT N ASTHMA Y USE OF NSAIDS N ARTERIAL INSUFFICIENCY N CHF N GI PROBLEMS N Low Testosterone N VISION/EYE PROBLEMS N MALE HYPOGONADISM N TOURETTE'S N ANXIETY DISORDER Y CHRONIC EAR INFECTIONS N BIPOLAR DISORDER N CONDUCT DISORDER N OSTEOARTHRITIS Y TUBERCULOSIS N DIVERTICULITIS N SLEEP APNEA Y ALLERGIES/HAYFEVER N PROSTATE N HEART ARRHYTHMIA N INSOMNIA N PAST MEDICATION HISTORY N EYE PROBLEMS N EDEMA N HYPOTHYROIDISM N CONSTIPATION N CAROTID BLOCKAGE N MOOD DISORDER N BACK / NECK PROBLEMS Y MIGRAINES N BREAST PROBLEMS N POLYCYSTIC OVARIES N FIBROMYALGIA N OSTEOPOROSIS Y PERIPHERAL NEUROPATHY N APPENDICITIS N VON WILLIBRAND'S DISEASE N SEASONAL ALLERGIES N HEARTBURN / REFLUX N PLEURISY N AFIB N ADD/ADHD N Bronchoscopy N AUTISM SPECTRUM DISORDER (ASD) N SLEEP DISORDER N RETINOPATHY N HEADACHES/MIGRAINES Y SLEEP STUDY N VASCULAR DISEASE N Blood Disorder N HEART DISEASE/HEART PROBLEMS N CLAUDICATION N DEVELOPMENTAL OR BEHAVIORAL DISORDERS N MULTIPLE SCLEROSIS N PULMONARY FUNCTION TEST N ANESTHESIA COMPLICATIONS N ATRIAL FIBRILLATION N Gall Stones N PULMONARY EMBOLISM N AUTOIMMUNE DISEASE N NERVE DISEASE N BLINDNESS N RHEUMATIC FEVER N BLADDER PROBLEMS N Enlarged Prostate N OTHER # 1 Y POLIO N Other # 2 N EAR OR HEARING PROBLEMS N PAST SPINAL SURGERY N SCHIZOPHRENIA N FEMALE PROBLEMS / INFECTIONS N DEPRESSION (INCLUDING POST ) Y CHEST CT N RENAL INSUFFICIENCY N BENIGN PROSTATIC HYPERPLASIA N MEASLES N HYPOTENSION N GERD/NAUSEA Y EXCESSIVE PERSPIRATION N ANEURYSM N USE OF BLOOD THINNERS N SKIN PROBLEMS Y EMPHYSEMA N SHORTNESS OF BREATH N GASTROINTESTINAL DISORDER N PTSD N CATARACTS N CONCUSSION OR SPINAL TRAUMA N ERECTILE DYSFUNCTION N VARICOSITIES N NEUROPATHY N INFERTILITY N AIDS/HIV N FRACTURES N CHEMOTHERAPY / RADIATION N LIVER DISEASE N HYPERTENSION N Deficiency N Metal allergy N BLOOD TRANSFUSION N ANEMIA/BLOOD DISORDER Y BRONCHITIS Y GLAUCOMA N HEART VALVE DISORDERS N CHICKENPOX N BACK INJECTIONS N INFECTIOUS DISEASE N ESRD N PAST INTERVENTIONAL PAIN MANAGEMENT HIST ORY N RHEUMATOID ARTHRITIS N HIGH CHOLESTEROL / HYPERLIPIDEMIA Y HYPERTHYROIDISM N UTI N PVD N EATING DISORDER N NEUROLOGICAL PROBLEMS N CHRONIC PAIN SYNDROME N HAVE YOU BEEN HOSPITALIZED OR SEEN IN [facility] IN THE PAST YEAR ? Y ATHEROSCLEROSIS N BURSITIS N HERNIATED DISC N DIALYSIS N ECZEMA N HISTORY WITH COMPLICATIONS WITH ANESTHES IA ? N PSYCHOSIS N ARTHRITIS N RESPIRATORY PROBLEMS N PAST HISTORY OF FALL N DIABETES, TYPE N BAD TEETH N ENT N POST LAMINECTOMY SYNDROME N HEPATITIS / LIVER DISEASE N PULMONARY DISEASE N GOUT N ALZHEIMER'S DISEASE N PAIN N FATIGUE N Brain Problems N HERPES N DEMENTIA N SEIZURES/EPILEPSY N PACEMAKER N DIZZINESS N HEAD TRAUMA OR INJURY N KIDNEY DISEASE N SCARLET FEVER N MENTAL DISORDER/ILLNESS N NEUROPSYCHOLOGICAL N CARDIAC ARRHYTHMIA N CANCER: SPECIFY N PNEUMONIA N Gynecological History Statement/Question Response How many live births 4 Date of Last Mammogram 11/02/2011 Date of Last Colonoscopy 08/05/2014 Date of Last Mammogram Most Recent Bone Density 07/24/2015 Date of LMP Date of Last Pap Current Control Method Hysterectom y Obstetrics History GPAL:G 4 P 3 1 0 2 Type Value Multiple Births 0 Full Term 3 Induced 0 Spontaneous 0 Premature 1 Living 2 Ectopics 0 Total 4 Immunizations Vaccine Type Date Status Note Provider Nam e and Address Organization Details Recorded Time Pneumococcal conjugate PCV20, polysaccharide OSC077 conjugate, adjuvant, PF 4 completed Henry Cuevas LPN null, [place] 10/26/2023 14:12:28 Influenza, high-dose, trivalent, PF 4 completed Elizabeth Schmidt MD [address] [place] [address], [id number], [place] 12/18/2023 17:37:24 COVID-19, mRNA, LNP-S, PF, 100 mcg/0.5mL dose or 50 mcg/0.25mL dose 1 completed LAURA Mon, [place] [facility] 10/26/2023 14:11:32 COVID-19 vaccine, vector-nr, rS-Ad26, PF, 0.5 mL 1 completed LAURA Mon, [facility] 10/26/2023 14:12:27 Influenza, split virus, quadrivalent, PF 5 completed Not Available [facility] 12/17/2022 22:19:28 Past Encounters Encounter ID Performer Location Encounter Start Date Encounter Closed Date Diagnosis/Indication Diagnosis SNOMED-CT Code Diagnosis ICD10 Code Diagnosis Note [id number] [facility] [address] [facility] [address] [place] [address] 05/21/2020 00:00:00 05/21/2020 13:50:37 [id number] [facility] [address] [address] 05/26/2020 00:00:00 05/26/2020 10:32:06 [id number] [facility] [address] [address] 06/02/2020 00:00:00 06/02/2020 15:37:52 [id number] [facility] [place] [address] [facility] [address] [place] [address] 06/05/2020 00:00:00 06/05/2020 17:04:13 [id number] [facility] [address] [address] 06/16/2020 00:00:00 06/16/2020 11:04:59 [id number] [facility] [address] [address] 06/30/2020 00:00:00 06/30/2020 10:51:52 [id number] [facility] [place] [address] [place] [address] 07/07/2020 00:00:00 07/07/2020 10:28:29 [id number] _ATHENA_M IGRATION_ DEFAULT_1 _1 , 07/16/2020 00:00:00 07/16/2020 11:04:06 [id number] [facility] Pulmonolo [facility] [place] [address] [address] 07/20/2020 00:00:00 07/20/2020 13:26:33 [id number] [facility] [place] [address] [place] [address] 07/21/2020 00:00:00 07/21/2020 11:01:35 [id number] [facility] Internal Med [facility] [address] [place], [place] [address]e., [address] [address] 07/22/2020 00:00:00 08/09/2020 19:15:28 [id number] [facility] Internal Med [address] [address] 11/11/2020 00:00:00 11/23/2020 16:13:31 [id number] [facility] Pul[facility] [place] [address] [place] [address] 11/25/2020 00:00:00 11/25/2020 15:23:16 [id number] [facility] Internal Med [facility] [address] [place] [address] Ave[address] [address] 12/21/2020 00:00:00 01/18/2021 20:37:34 [id number] [facility] [place] [address] [place] [address] 01/06/2021 00:00:00 01/06/2021 15:30:18 [id number] [facility] Internal Med [address] [address] 03/10/2021 00:00:00 03/12/2021 15:21:48 [id number] [facility] [place] [address] [place] [address] 07/09/2021 00:00:00 07/09/2021 13:52:24 [id number] [facility] Internal Med [facility] [address] [facility] [address] [place] [address] 07/14/2021 00:00:00 07/17/2021 19:56:38 [id number] [facility] Internal Med [place] [address] [facility] [address] [place] [address] 08/11/2021 00:00:00 08/11/2021 23:09:24 [id number] [facility] [place] [address] [place] [address] 08/20/2021 00:00:00 08/20/2021 13:45:14 [id number] [facility] Internal Med [facility] [address] [address] 11/10/2021 00:00:00 11/11/2021 08:23:12 [id number] [facility] Pul[facility] [place] [address] [place] [address] 02/23/2022 00:00:00 02/23/2022 15:26:42 [id number] [facility] Internal Med [facility] [address] [place] [address] Ave[address] [address] 04/14/2022 00:00:00 04/23/2022 23:09:20 [id number] Jessica Akbar, [employer]- [facility] Pulmonolo [facility] [place] [address] [place] [address] 06/29/2022 10:04:00 06/30/2022 08:59:59 Asthma-chronic obstructive pulmonary disease overlap syndrome [id number] 7630790 J44.9 Last PFT 11/2020 in chart with moderate obstructio nOrder to repeat todayConti nue Trelegy Ellipta 100.Instru cted on techniqueS he is aware to rinse and spit after useAlbuter ol PRN - discussed indication s for useDiscuss ed reportable signs and symptomsRT C in 1-2 months, PRN for concerns Sleep apnea 39204867 G47 .30 Has never been able to tolerate machineShe is willing to troublesho ot, order for home study today Dyspnea on exertion 6084 5006 R06.09 Quantifero n GOLD, RAST, IGGs, Alpha1 all normalIGE mildly lowSaturat ions 92% on room air at rest todayPhysi benja deconditio manda is contributi ngRecommen d MI after PFT results Gastroesop hageal reflux disease without esophagitis 201695795 K21.9 Controlled on famotidine and omeprazole Discussed dietary modificati onsAvoid tight clothing.N o eating 2-3 hours prior to bedAvoid offending foods Elevate head of bed while sleeping Body mass index 30+ - obesity 380627118 Z68.36 Central obesityCon tributor to dyspneaDis cussed weight management .Healthy well balanced meals.Incr ease exercise, ideally 30 minutes most days of the week. [id number] Mal Lacey MD S[facility] Internal Med [place] [address] [facility] [address] [place] [address] 08/11/2022 14:57:10 08/11/2022 16:57:49 Hyperlipidemia 41652919 E78.5 Hypertroph ic obstructive cardiomyopathy 39275272 I42.1 Anxiety 88275558 F41.9 Asthma-chr onic obstructive pulmonary disease overlap syndrome 4279794971 3019340 J44.9 Gastroesop hageal reflux disease without esophagitis 066373793 K21.9 Recurrent urinary tract infection 100817095 N39.0 [id number] Jessica Akbar, [employer]-BC [facility] Pulmonolo [facility] [place] [address] [place] [address] 09/28/2022 09:45:30 09/28/2022 10:24:53 Decreased diffusion capacity of lung 92088952 R94.2 Check HRCT Asthma-chr onic obstructive pulmonary disease overlap syndrome 6904681010 8152779 J44.9 Last PFT 11/2020 in chart with moderate obstructio nRepeat 07/2022 with normal ratio, low FEV1, DLCO corrected for alveolar volumeTria l Trelegy Ellipta 200.Instru cted on techniqueS he is aware to rinse and spit after useAlbuter ol PRN - discussed indication s for useDiscuss ed reportable signs and symptomsRT C in 3-4 months, PRN for concerns Sleep apnea 86515988 G47 .30 Repeat home study 06/2022 with AHI 18.6 and desaturati ons to 80%Has never been able to tolerate machineDis cussed the risks of uncorrecte d GENOVEVA, including deathShe will consider PAP Dyspnea on exertion 6084 5006 R06.09 Quantifero n GOLD, RAST, IGGs, Alpha1 all normalIGE slightly low lowSaturat ions 95% on room air at rest todayPhysi benja deconditio manda is contributi ngSix minute walk testing 07/2022 normal Gastroesop hageal reflux disease without esophagitis 716197416 K21.9 Controlled on famotidine and omeprazole Discussed dietary modificati onsAvoid tight clothing.N o eating 2-3 hours prior to bedAvoid offending foods Elevate head of bed while sleepingWe ight loss Body mass index 30+ - obesity 726190845 Z68.36 Central obesityCon tributor to [facility], she will discuss with cardiologi stDiscusse d weight management .Healthy well balanced meals.Incr ease exercise, ideally 30 minutes most days of the week. [id number] Mal Lacey MD [facility] Internal Med [place] [address] [facility], [address] [place] [address] 10/10/2022 16:06:41 10/10/2022 17:35:28 Chest pain 88029628 R07.9 Recurrent falls 81640204 2 R29.6 Hyperlipidemia 12390052 E78.5 Hypertroph ic obstructive cardiomyopathy 63522266 I42.1 [id number] Jessica Akbar, [facility]-BC [facility] Pulmonolo gy [place] [address] [place] [address] 11/11/2022 12:01:46 11/11/2022 14:10:37 Decreased diffusion capacity of lung 76672612 R94.2 HRCT 09/2022 with mild fibrotic change to bases, re-check in 6 months Asthma-chr onic obstructive pulmonary disease overlap syndrome 0781524500 5280616 J44.9 Last PFT 11/2020 in chart with moderate obstructio nRepeat 07/2022 with normal ratioFEV1 65%DLCO corrected for alveolar volume at 81%Continu e Trelegy Ellipta 200.Instru cted on techniqueS he is aware to rinse and spit after useAlbuter ol PRN - discussed indication s for useDiscuss ed reportable signs and symptomsRT C in 3-4 months, PRN for concerns Sleep apnea 08073675 G47 .30 Repeat home study 06/2022 with AHI 18.6 and desaturati ons to 80%Has never been able to tolerate machineDis cussed the risks of uncorrecte d GENOVEVA, including deathOrder for APAP today. Dyspnea on exertion 6084 5006 R06.09 Quantifero n GOLD, RAST, IGGs, Alpha1 all normalIGE slightly low lowSaturat ions 95% on room air at rest todayPhysi benja deconditio manda is contributi ngSix minute walk testing 07/2022 normal Gastroesop hageal reflux disease without esophagitis 541124498 K21.9 Controlled on famotidine and omeprazole Discussed dietary modificati onsAvoid tight clothing.N o eating 2-3 hours prior to bedAvoid offending foods Elevate head of bed while sleepingWe ight loss Body mass index 30+ - obesity 202396678 Z68.36 Central obesityCon tributor to dyspneaRec [facility], she will discuss with cardiologi stDiscusse d weight management .Healthy well balanced meals.Incr ease exercise, ideally 30 minutes most days of the week. Physical deconditioning 1385274233 9102 R68.[address] chest completed 10/08/22 with mild bronchiect atic changes to bilateral bases.Disc ussed in detail with Breonna and her .St art Flutter valve, instructed on use. [id number] Mal Lacey MD [facility] Internal Med [place] [address] [facility] [address] [place] [address] 12/15/2022 11:09:36 12/15/2022 12:53:39 Anemia 069945581 D64.9 Hyperlipidemia 15265008 E78.5 Fatigue 78530242 R53.83 Dysuria 23152317 R30.0 Long-term drug therapy 988807249 Z79.899 Hypertroph ic obstructive cardiomyopathy 38946149 I42.1 [id number] Mal Lacey MD [facility] Internal Med [facility] [address] [place] [address] 01/24/2023 10:48:06 01/24/2023 12:02:13 COVID-19 923597544 U07.1 Anxiety 42744335 F41.9 Hyperlipidemia 80083028 E78.5 Hypertroph ic obstructive cardiomyopathy 85381051 I42.1 Restless legs 82068872 G 25.81 Asthma-chr onic obstructive pulmonary disease overlap syndrome 6475229151 0976837 J44.9 [id number] Mal Lacey MD [facility] Internal Med [facility] [address] [address] 03/29/2023 11:17:20 03/29/2023 12:43:36 Hyperlipidemia 96682770 E78.5 Hypertroph ic obstructive cardiomyopathy 41141375 I42.1 Anxiety 76487560 F41.9 Gastroesop hageal reflux disease 927774147 K21.9 [id number] Estrella Beatty MD [facility] Pulmonolo gy [address] [address] 05/11/2023 09:30:22 05/18/2023 10:06:17 Obstructive sleep apnea syndrome 90067303 G47.33 G47.30 G47.61 G47.36 Dyspnea on exertion 6084 5006 R06.09 R05.9 T78.40XA D89.9 [id number] Elizabeth barrera MD [facility] Internal Med Jeannie peterson [address] [facility] [address] [place] [place] [address] 05/15/2023 13:37:09 05/15/2023 14:47:02 Screening - NAD 086188003 Z13.9 C-scope: 04/18/2023 , Dr Newton, next in 3 years Mammogram: Get this if not doneDEXA: Get thisPAP: Get this Get yearly flu shot, get tdap if not doneGet shingrix vaccine, get COVID 19 vaccine and its boostersGe t RSV vaccine RTC in 3 months, do labs, ER if worse Hyperlipidemia 42370578 E78.5 On ASA 81mg dailyOn atorvastat in 10mg dailyGet labs Gastroesop hageal reflux disease without esophagitis 742473937 K21.9 On famotidine On omeprazole 20mg dailyGet EGD done Generalize d anxiety disorder 99295860 F41.1 [place] buspirone 30mg [address] Mcdonald duloxetine 60mg bid Dr Mcdonald methylphen idate ER 50mg daily Dr Cristiano Cornell sertraline 100mg bid Dr [place] suicidal or homicidalS ees her psychiatri st Low back pain 595335453 M54.50 On gabapentin 600mg tidOn hydrocodon e 10-325 tid PRN Sees IPC Anemia 160064087 D64.9 Get labs Screening for osteoporosis 157846043 Z13.820 Screening mammography 24 246902 Z12.31 Gynecologi c examination 65341214 Z01.419 Obstructiv e sleep apnea syndrome 06332572 G47.33 Dr Beatty pulmonary Dyspnea on exertion 6084 5006 R06.09 On albuterolO n HHNOn Trelegy Dr Beatty last 05/11/2023 Restless legs 37662510 G 25.81 On Requip 0.5mg daily, this should be filled by Dr Beatty Hypertroph ic obstructive cardiomyopathy 30727656 I42.1 Dr Rivero [facility] On ASAOn diltiazem CD 360mg dailyOn disopyrami de 150mg bidOn lasix 40mg dailyOn metoprolol ER 50mg dailyKeep apt with cardiology Administra tion of pneumococcal vaccine 13386115 Z23 [id number] Estrella Beatty MD S[facility] Pulmonolo gy [address] [address] 06/15/2023 11:38:29 06/16/2023 10:53:30 Obstructive sleep apnea syndrome 63587780 G47.33 G47.30 G47.61 G47.36 Severe per sistent asthma 821209965 J45.50 [id number] Blade Ash MD [facility] [place] [address] [address] [address] [place], [place] [address] 08/21/2023 10:45:44 08/21/2023 12:10:41 Pain of right knee joint [id number] 94632 M25.211 [id number] Sarah Snell [facility] Internal Med [facility] [address] [place] [address] 1 08/16/2023 10:39:03 09/20/2023 16:06:11 Generalized anxiety disorder 88779525 F41.1 Anemia 957928044 D64.9 Hypertroph ic obstructive cardiomyopathy 68178627 I42.1 Hyperlipidemia 28235888 E78.5 Major depr essive disorder 383451819 F32.5 [id number] Estrella Beatty MD [facility] [place] [address] 08/17/2023 10:18:40 08/18/2023 08:26:18 Obstructive sleep apnea syndrome 38444804 G47.33 Severe per sistent asthma 841669773 J45.50 [id number] Sarah Snell [facility] Internal Med [facility] [address] [address] 1 09/15/2023 12:59:11 12/06/2023 14:36:45 Generalized anxiety disorder 98375473 F41.1 Anemia 607824267 D64.9 Hyperlipidemia 92701568 E78.5 [id number] Sarah Channing [facility] Internal Med [facility] [address] [address] 10/18/2023 12:37:25 12/07/2023 16:48:22 Anemia 563166398 D64.9 Anxiety 09871156 F41.9 Hyperlipidemia 47419588 E78.5 Hypertroph ic obstructive cardiomyopathy 84219901 I42.1 [id number] Elizabeth barrera MD [facility] Internal Med [address] , [place] [address] 10/30/2023 16:45:09 10/30/2023 18:12:42 Adult health examination 832004765 Z00.00 Screening for disorder 012279565 Z13.9 Screening - NAD 14551010 3 Z13.9 C-scope: 04/18/2023 , Dr Newton, next in 3 years Mammogram: Get this if not doneDEXA: Get thisPAP: Get this Get yearly flu shot, get tdap if not doneGet shingrix vaccine, get COVID 19 vaccine and its boostersGe t RSV vaccine RTC in 3 months, do labs, ER if worse Hyperlipidemia 53309866 E78.5 On ASA 81mg dailyOn atorvastat in 20mg daily, increase to 40mg daily 10/30/2023 Get labs Gastroesop hageal reflux disease without esophagitis 511070116 K21.9 On famotidine On omeprazole 20mg dailyGet EGD done Generalize d anxiety disorder 88932501 F41.1 On buspirone 30mg bid [address] Mcdonald duloxetine 60mg bid Dr Mcdonald methylphen idate ER 50mg daily Dr Cristiano Cornell sertraline 100mg bid Dr Vegas suicidal or homicidalS ees her psychiatri st Low back pain 561387449 M54.50 On gabapentin 600mg tidOn hydrocodon e 10-325 tid PRN Sees IPC Anemia 536318323 D64.[address] to see Dr Yarbrough Screening for osteoporosis 462646144 Z13.820 Screening mammography 24 854178 Z12.31 Gynecologi c examination 88674115 Z01.419 Obstructiv e sleep apnea syndrome 51741701 G47.33 Dr Beatty pulmonary Dyspnea on exertion 6084 5006 R06.09 On albuterolO n Nicanor Trelegy Dr Beatty last 05/11/2023 Restless legs 04238502 G 25.81 On Requip 0.5mg daily, this should be filled by Dr Beatty Hypertroph ic obstructive cardiomyopathy 90772303 I42.1 Dr Rivero [facility] On ASAOn diltiazem CD 360mg dailyOn disopyrami de 150mg bidOn lasix 40mg dailyOn metoprolol ER 50mg dailyKeep apt with cardiology Chronic ki dney disease 036251650 N18.9 Get a referral to Dr Rivero IJ [id number] Sarah Chicopee [facility] Internal Med [facility] [address] , [address] [place] [address] 11/14/2023 10:39:02 12/18/2023 19:34:29 Anemia 598903712 D64.9 Anxiety 33965456 F41.9 Hyperlipidemia 48281454 E78.5 Hypertroph ic obstructive cardiomyopathy 55944817 I42.1 [id number] Elizabeth barrera MD [facility] Internal Med Jeannie peterson [address] , [place] [address] 12/18/2023 10:49:40 12/18/2023 11:54:23 Screening - NAD 095928031 Z13.9 C-scope: 04/18/2023 , Dr Newton, next in 3 years Mammogram: Get this if not doneDEXA: Get thisPAP: Get this Get yearly flu shot, get tdap if not doneGet shingrix vaccine, get COVID 19 vaccine and its boostersGe t RSV vaccine RTC in 3 months, do labs, ER if worse Hyperlipidemia 80699247 E78.5 On ASA 81mg dailyOn atorvastat in 20mg daily, increase to 40mg daily 10/30/2023 Get labs Gastroesop hageal reflux disease without esophagitis 589345246 K21.9 On famotidine On omeprazole 20mg dailyGet EGD done Generalize d anxiety disorder 84528178 F41.1 On buspirone 30mg [address] Mcdonald duloxetine [address] Mcdonald methylphen idate ER 50mg daily Dr Cristiano Cornell sertraline 100mg bid Dr Vegas suicidal or homicidalS ees her psychiatri st Low back pain 251980765 M54.50 On gabapentin 600mg tidOn hydrocodon e 10-325 tid PRN Sees IPC Anemia 600373370 D64.9 Get labsNeeds to see Dr Yarbrough Screening for osteoporosis 155775698 Z13.820 Screening mammography 24 969022 Z12.31 Gynecologi c examination 53262580 Z01.419 Obstructiv e sleep apnea syndrome 13022643 G47.33 Dr Beatty pulmonary Dyspnea on exertion 6084 5006 R06.09 On albuterolO n Nicanor Trelegy Dr Beatty last 05/11/2023 Restless legs 72254225 G 25.81 On Requip 0.5mg daily, this should be filled by Dr Beatty Hypertroph ic obstructive cardiomyopathy 64897954 I42.1 Dr Rivero [facility] On ASAOn diltiazem CD 360mg dailyOn disopyrami de 150mg bidOn lasix 40mg dailyOn metoprolol ER 50mg dailyKeep apt with cardiology Chronic ki dney disease 282533395 N18.9 Get a referral to Dr Hernando HUERTAS Urinary incontinence 165 509030 R32 Needs to see urology, referral placed 12/18/2023 Administra tion of influenza vaccine 99633720 Z23 [id number] Elizabeth barrera MD [facility] [address] [place] [address] 02/05/2024 14:02:47 02/05/2024 15:25:53 Screening - NAD 008606889 Z13.9 C-scope: 04/18/2023 , Dr Newton, next in 3 years Mammogram: Get this if not doneDEXA: Get thisPAP: Get this Get yearly flu shot, get tdap if not doneGet shingrix vaccine, get COVID 19 vaccine and its boostersGe t RSV vaccine RTC in 3 months, do labs, ER if worse Hyperlipidemia 44757369 E78.5 On ASA 81mg dailyOn atorvastat in 20mg daily, increased to 40mg daily 10/30/2023 Get labs Gastroesop hageal reflux disease without esophagitis 310902390 K21.9 On famotidine On omeprazole 20mg dailyGet EGD done Generalize d anxiety disorder 21330990 F41.1 On buspirone 30mg bid Dr Mcdonald duloxetine [address] Mcdonald methylphen idate ER 50mg daily Dr Cristiano Cornell sertraline 100mg bid Dr Vegas suicidal or homicidalS ees her psychiatri st Low back pain 367715182 M54.50 On gabapentin 600mg tidOn hydrocodon e 10-325 tid PRN Sees IPC Anemia 478011782 D64.9 Get labsNeeds to see Dr Yarbrough Screening for osteoporosis 710424251 Z13.820 VIT D weekly and repeat the vit d level Screening mammography 24 121789 Z12.31 Gynecologi c examination 73121953 Z01.419 Obstructiv e sleep apnea syndrome 83090011 G47.33 Dr Beatty pulmonary Dyspnea on exertion 6084 5006 R06.09 On albuterolO n HHNOn Trelegy Dr Beatty last 05/11/2023 Restless legs 38862060 G 25.81 On Requip 0.5mg daily, this should be filled by Dr Beatty Hypertroph ic obstructive cardiomyopathy 73784794 I42.1 Dr Rivero [facility] On ASAOn diltiazem CD 360mg dailyOn disopyrami de 150mg bidOn lasix 40mg dailyOn metoprolol ER 50mg dailyKeep apt with cardiology Chronic ki dney disease 968133333 N18.9 Get a referral to Dr Hernando HUERTAS Urinary incontinence 165 218496 R32 Needs to see urology, referral placed 12/18/2023 Vitamin D deficiency 347 07468 E55.9 Start on vit d weekly and repeat the vit d level [id number] Elizabeth barrera MD [facility] [address] [facility], [facility] [address] [place] [address] 05/30/2024 09:03:31 05/30/2024 10:18:17 Screening - NAD 216048943 Z13.9 C-scope: 04/18/2023 , Dr Newton, next in 3 years Mammogram: Get this if not doneDEXA: Get thisPAP: Get this Get yearly flu shot, get tdap if not doneGet shingrix vaccine, get COVID 19 vaccine and its boostersGe t RSV vaccine RTC in 3 months, do labs, ER if worse Hyperlipidemia 75472510 E78.5 On ASA 81mg dailyOn atorvastat in 20mg daily, increased to 40mg daily 10/30/2023 Get labs Gastroesop hageal reflux disease without esophagitis 232779450 K21.9 On famotidine On omeprazole 20mg dailyGet EGD done Generalize d anxiety disorder 91296702 F41.1 On buspirone 30mg bid [address] Mcdonald duloxetine [address] HabibOn methylphen idate ER 50mg daily Dr Cristiano Cornell sertraline 100mg bid Dr Vegas suicidal or homicidalS ees her psychiatri st Low back pain 883319967 M54.50 On gabapentin 600mg tidOn hydrocodon e 10-325 tid PRN Sees IPC Anemia 499947154 D64.9 Get labsNeeds to see Dr Maria get on iron 325mg daily, take with vit c, all side effects explained to her and her husbandShe does state that she used to be on iron in the past Screening for osteoporosis 189161149 Z13.820 VIT D weekly and repeat the vit d level Screening mammography 24 315247 Z12.31 Gynecologi c examination 08868414 Z01.419 Obstructiv e sleep apnea syndrome 40658724 G47.33 Dr Beatty pulmonary Dyspnea on exertion 6084 5006 R06.09 On albuterolO n HHNOn Trelegy Dr Beatty last 05/11/2023 Restless legs 94964739 G 25.81 On Requip 0.5mg daily, this should be filled by Dr Beatty Hypertroph ic obstructive cardiomyopathy 83651747 I42.1 Dr Rivero [facility] On ASAOn diltiazem CD 360mg dailyOn disopyrami de 150mg bidOn lasix 40mg dailyOn metoprolol ER 50mg dailyKeep apt with cardiology Chronic ki dney disease 726396659 N18.9 Get a referral to Dr Hernando HUERTAS Urinary incontinence 165 377148 R32 Needs to see urology, referral placed 12/18/2023 Abdominal mass 443345454 R19.00 Large slightly tender mass felt in the L abdominal foldWill get US abd and also a referral to Dr Gaston surgery [id number] Finesse love MD [facility] [address] [facility], [address] [place] [address] 06/18/2024 10:08:56 06/18/2024 14:00:38 Goals Section Goal Description Progress Status Start Date LastModified by Organization Details LastModified Time Activiti es of Daily Living Performs activities of daily living independently or with minimal assistance Progressing active 2023 Behzad Pandey RN Information not available 11/14/2023 15:12:46 Stress Manageme nt Reports effective management of stress Progressing active 2023 Behzad Pandey RN Information not available 09/15/2023 17:21:37 Quality of Life Reports satisfaction with quality of life Progressing active 2023 Behzad Pandey RN Information not available 09/15/2023 17:21:41 Exercise Regularl y Follows a regular exercise regimen or instructed exercise plan as per care team recommendation (s) Progressing active 2023 Behzad Pandey RN Information not available 11/14/2023 15:12:46 Adequate Sleep Achieves adequate, well-rested sleep with minimal disruption NoChange active 2023 Behzad Pandey RN Information not available 08/15/2023 14:19:03 Recreati onal Activiti es Participates in recreational activities Progressing active 2023 Behzad Pandey RN Information not available 09/15/2023 17:21:47 Effectiv e Coping Manages life events with effective coping methods Progressing active 2023 Behzad Pandey RN Information not available 11/14/2023 15:12:46 Medicati on Regimen Follows medication regimen as per care team recommendation (s) [facility] Behzad Pandey RN Information not available 11/14/2023 15:12:46 Follow-u p Appointm ent(s) Attends referral and/or follow-up appointment(s) as per care team recommendation (s) [facility] Behzad Pandey RN Information not available 11/14/2023 15:12:46 Food Security Reports ability to access and obtain foods to meet nutritional needs NoChange active 2023 Behzad Pandey RN Information not available 08/15/2023 14:17:49 Adequate Housing Conditio ns Maintains adequate housing with satisfactory living conditions NoChange active 2023 Behzad Pandey RN Information not available 08/09/2023 14:46:30 Financia l Stabilit y Reports financial status and/or income meets needs NoChange active 2023 Behzad Pandey RN Information not available 08/09/2023 14:46:30 Knowledg e of Disease or Conditio n Demonstrates understanding of disease(s) or condition(s) [facility] Behzad Pandey RN Information not available 08/15/2023 14:20:19 Family and Social Support Reports family and/or social support needs are met Progressing active 2023 Behzad Pandey RN Information not available 09/15/2023 17:22:02 Symptom Manageme nt Demonstrates ability to manage and/or control symptoms [facility] Behzad Pandey RN Information not available 08/15/2023 14:31:57 Diet Adherenc e Follows prescribed or recommended diet Progressing active 2023 Behzad Pandey RN Information not available 09/15/2023 17:22:06 Fluid Balance Manageme nt Exhibits no signs or symptoms related to fluid imbalance [facility] Behzad Pandey RN Information not available 08/15/2023 14:31:57 Chronic Conditio n Action Plan Follows action plan for any worsening of chronic condition(s) as per care team recommendation (s) [facility] active 2023 Behzad Pandey RN Information not available 08/09/2023 14:46:31 Blood Pressure Maintains blood pressure goal as defined by care team [facility] Behzad Pandey RN Information not available 08/15/2023 14:31:57 Lipid Levels Maintains normal lipid levels as defined by care team [facility] Behzad Pandey RN Information not available 08/15/2023 14:17:49 Weight Maintena nce Exhibits stable weight with normal fluctuation [facility] Behzad Pandey RN Information not available 08/09/2023 14:46:31 Health Concerns Section Related Observation LastModified by Organization Detai ls LastModified Time Not Available Not Available Not Available Not Availabl e Concern Status LastModified by Organization Details LastModified Time Anxiety Active Behzad Pandey RN Not Available 14:16:54 Hyperlipidemia Active Behzad Pandey RN Not Availabl e 08/15/2023 14:17:49 Hypertrophic obstructive cardiomyopathy Active Behzad Pandey RN Not Available 08/15/2023 1 4:31:57 Major depressive disorder Active Behzad Pandey RN Not Available 08/16/2023 1 9:49:37 Anemia Active Behzad Pandey RN Not Available 14:20:19 Long-term drug therapy Active Behzad Pandey RN Not Available 11/14/2023 1 5:12:46 Advance Directives Directive N: Patient is currently work ing on. Payers Encounter Date Sequence Insurance Name Policy Number Policy Zaidi Covered Member ID Zaidi Member ID Guarantor Name 11/14/2023 1 [employer] (MEDICARE REPLACEMENT/ ADVANTAGE - HMO) [id number] Breonna D Rousseau [id number] Breonna D Rousseau 12/18/2023 1 [employer] (MEDICARE REPLACEMENT/ ADVANTAGE - HMO) [id number] Breonna D Rousseau [id number] Breonna D Rousseau 02/05/2024 1 [employer] (MEDICARE REPLACEMENT/ ADVANTAGE - HMO) [id number] Breonna D Rousseau [id number] Breonna D Rousseau 05/30/2024 1 [employer] (MEDICARE REPLACEMENT/ ADVANTAGE - HMO) [id number] Breonna D Rousseau [id number] Breonna D Rousseau 06/18/2024 1 [employer] (MEDICARE REPLACEMENT/ ADVANTAGE - HMO) [id number] Breonna D Rousseau [id number] Breonna D Rousseau Notes Date Note Type Note Provider Name and Address Organization Details Recorded Time 11/14/2023 text/html Pt had L total H ip Repair repeated. Now getting home PT/OT. Doing Well. Using 2 wheel walker Sarah mcconnell, [place] - [facility] [employer] 12/18/2023 19:26:02 12/18/2023 text/html OV 05/15/2023:He re to establish carePast Hx:HLDGERDDepression DOELBP Here to discuss above and get labs, she is here with her OV 10/30/2023:Here for her f/u apt, she is here with her , she has done her labs, she is here for her MWV also OV 12/18/2023:Here as she has had some UTI symptoms, see case for urine culture Elizabeth Schmidt MD [address], [address], [place], [address], [employer] [facility] [employer] 12/18/2023 17:41:18 02/05/2024 text/html OV 05/15/2023:He re to establish carePast Hx:HLDGERDDepression DOELBP Here to discuss above and get labs, she is here with her OV 10/30/2023:Here for her f/u apt, she is here with her , she has done her labs, she is here for her MWV also OV 12/18/2023:Here as she has had some UTI symptoms, see case for urine culture OV 02/05/2024: Here for her f/u apt, she is doing well today, here with her Elizabeth Schmidt MD [address], [address], [place], [address], [employer] [facility] [employer] 02/05/2024 15:19:22 05/30/2024 text/html OV 05/15/2023:He re to establish carePast Hx:HLDGERDDepression DOELBP Here to discuss above and get labs, she is here with her OV 10/30/2023:Here for her f/u apt, she is here with her , she has done her labs, she is here for her MWV also OV 12/18/2023:Here as she has had some UTI symptoms, see case for urine culture OV 02/05/2024: Here for her f/u apt, she is doing well today, here with her OV 05/30/2024: Here for her f/u apt, she is feeling well, but has felt more tired, she did do the labs, here with her Elizabeth Schmidt MD [address], [address], [place], [address], [employer] [facility] [employer] 05/30/2024 10:21:23 06/18/2024 text/html Patient presents to clinic to discuss lump at [facility]. States she is concerned she may have a hernia. Imaging negative. States she just feels lopsided. Noticed this about a month ago, but does feel like the lump is gone now. No canges in bowel habits. No constitutional sx. Finesse Cisneros MD [address] [facility], [facility] [address], [place], [address], [place] [facility] [employer] 06/18/2024 14:00:37 OBGyn Episode No OBEpisode recorded.
--- OUTSIDE RECORDS SUMMARY | 2024-06-27 15:09 | XMS_ITS | Clinical Summary ---
Author Organization [facility] Address [address] [place] [address] Care Team Providers Care Personal Carer Name Role Phone Yash Schmidt MD Primary Care Provide r Allergies Active Allergy Reactions Criticality Noted Date Comments Clarithromycin Nausea only Low 06/04/2013 Penicillins Rash,Other (See comments) Medium 08/30/2006 Patient can take cephalosporins, as tolerated oral cephalexin for several weeks. 10/15/20 Sulfa (Sulfonamide Antibiotics) Unknown High 02/10/2020 Medications albuterol 0.63 mg/3 mL nebulizer solutionIndication s:Acute Asthma Attack Take 3 mL by nebulization 3 (three) times a day [address] (CYMBALTA) 60 mg capsuleIndications :Anxiety with Depression Take 1 capsule by mouth 2 (two) times a day 2019 Active sertraline (ZOLOFT) 100 mg tabletIndications: Anxiety with Depression Take 1 tablet by mouth 2 (two) times a day 2018 Active metoprolol XL (TOPROL-XL) 50 mg extended release tabletIndications: hypertension Take 1 tablet by mouth nightly Active naloxone (Narcan) 4 mg/actuation spray,non-aerosolI ndications:risk mitigation for opioid overdose Administer 1 spray into affected nostril(s) as needed Active methylphenidate HCl (RITALIN) 20 mg tabletIndications: Attention-Deficit Hyperactivity Disorder,Narcoleps y Syndrome Take 1 tablet by mouth 2 (two) times a day 2020 Active gabapentin (NEURONTIN) 600 mg tabletIndications: Neuropathic Pain Take 1 tablet (600 mg total) by mouth 3 (three) times a day 90 tablet 2021 Active Additional Information Patient taking differently:600 mg oral2 times daily, Indications: Neuropathic Pain, Informant: Self, Reported on 10/09/2023 famotidine (PEPCID) 40 mg tabletIndications: gastroesophageal reflux disease Take 1 tablet by mouth every morning 2021 Active omeprazole (PriLOSEC) 20 mg capsuleIndications :Treatment of Non-Bleeding Gastric Disorder Take 1 capsule by mouth nightly Active albuterol HFA (PROVENTIL HFA,VENTOLIN HFA,PROAIR HFA) 90 mcg/actuation inhalerIndications :Acute Asthma Attack 2 puff 2 times a day as needed for SOB 2023 Active busPIRone (BUSPAR) 30 mg tabletIndications: depression,General ized Anxiety Disorder Take 1 tablet by mouth 2 (two) times a day 2023 Active diltiaZEM CD (CARDIZEM CD) 360 mg 24 hr capsuleIndications :cardiomyopathy Take 1 capsule by mouth nightly 2023 Active Trelegy Ellipta 200-62.5-25 mcg inhalerIndications :Maintenance Therapy for Asthma 1 puff every morning 2023 Active aspirin 81 mg enteric coated tabletIndications: prevention of thrombosis Take 1 tablet (81 mg total) by mouth 2 (two) times a day 60 tablet 2023 Active meloxicam (MOBIC) 15 mg tablet [The details of the medication are not available because there are pending changes by a home health clinician.] 30 tablet 2023 Active Additional Information Patient taking differently: 0.5 tabletoralDaily PRN, pain, Indications: Osteoarthritis, Reported on 11/12/2023 gabapentin (NEURONTIN) 600 mg tabletIndications: Neuropathic Pain Take 600 mg by mouth 3 (three) times a day. Indications: neuropathic pain Active HYDROcodone-acetam inophen (NORCO) 10-325 mg per tabletIndications: Pain Take 1 tablet by mouth every 8 (eight) hours as needed for pain. Indications: pain Active disopyramide (NORPACE) 150 mg capsuleIndications :Paroxysmal Supraventricular Tachycardia,Ventri cular Arrhythmias Take 150 mg by mouth 2 (two) times a day. Indications: paroxysmal supraventricular tachycardia, ventricular arrhythmias, a type of abnormal heart rhythm Active atorvastatin (LIPITOR) 40 mg tabletIndications: hyperlipidemia Take 20 mg by mouth daily. Indications: excessive fat in the blood Active Stimulant Laxative Plus 8.6-50 mgIndications:cons tipation TAKE 2 TABLETS BY MOUTH TWICE DAILY 80 tablet 2023 Active meloxicam (MOBIC) 15 mg tabletIndications: Osteoarthritis Take 15 mg by mouth daily. Indications: joint damage causing pain and loss of function Active ergocalciferol (Vitamin D2) 50,000 unit capsuleIndications :Vitamin D Deficiency Take 50,000 Units by mouth once a week. take for 90 days rx#[id number] [facility] 02/09/24 per LAZARO Pineda entered by Sheela Sanchez RN 02/09/24 Indications: low vitamin D levels 2023 Active cholecalciferol (VITAMIN D-3) 50,000 unit capsule Take 1 capsule every week by oral route for 90 days. 2023 Active cholecalciferol (VITAMIN D-3) 50,000 unit capsuleIndications :Vitamin D Deficiency Take 50,000 Units by mouth once a week. Indications: low vitamin D levels 2023 Active sodium chlor-hypochlorous acid 0.033 % irrigation solution Irrigate with 1 spray as directed daily For wound cleanser 118 mL 2024 Active doxycycline hyclate 100 mg capsuleIndications :Bone/Joint Infection TAKE 1 CAPSULE BY MOUTH TWICE A DAY 180 capsule 2024 Active cephalexin (KEFLEX) 500 mg capsuleIndications :Bone/Joint Infection TAKE 1 CAPSULE BY MOUTH THREE TIMES A DAY 270 capsule 2024 Active doxycycline (doxycycline hyclate) 100 mg capsuleIndications :Bone/Joint Infection TAKE 1 CAPSULE BY MOUTH TWICE A DAY 180 capsule 06/13 Discontinued cephalexin (KEFLEX) 500 mg capsuleIndications :Bone/Joint Infection TAKE 1 CAPSULE BY MOUTH THREE TIMES A DAY 270 capsule 06/13 Discontinued Active Problems Problem Noted Date Diagnosed Date Prosthetic hip implant failure, sequela 11/03/19 Chronic kidney disease 10/30/2023 Hyperglycemia 10/23/2023 Arthralgia of right knee 08/21/2023 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 08/17/2023 Lower extremity edema 08/07/2023 Blood in urine 07/20/2023 Bronchitis 07/20/2023 Cough 07/20/2023 Dysphagia 07/20/2023 Enthesopathy of hip region 07/20/2023 Fatigue 07/20/2023 Kidney stone 07/20/2023 Microscopic hematuria 07/20/2023 Nausea 07/20/2023 Nocturia 07/20/2023 Osteoporosis 07/20/2023 Severe persistent asthma 06/15/2023 Generalized anxiety disorder 05/13/2023 COVID-19 01/26/2023 Vitamin D deficiency 12/23/2022 Bronchiectasis 11/14/2022 Syncope 10/19/2022 Recurrent falls 10/15/2022 Low back pain 10/10/2022 Partial atrioventricular block 10/10/2022 Decreased diffusion capacity of lung 09/28/2022 Memory impairment 02/23/2022 Upper respiratory infection 02/09/2022 Hypertension 09/14/2021 Recurrent urinary tract infection 08/31/2021 Physical deconditioning 08/20/2021 Rash 08/11/2021 Leg pain, bilateral 07/20/2021 Acute urinary tract infection 07/19/2021 Dysuria 07/14/2021 Wheezing 07/14/2021 Gastroesophageal reflux disease 07/09/2021 Dyspnea 07/09/2021 Primary osteoarthritis of right hip 02/01/2021 Overview (02/01/2021): Added automatically from request for surgery [id number] Wound drainage 08/13/2020 Overview (08/13/2020): Added automatically from request for surgery [id number] Infection and inflammatory r eaction due to internal joint prosthesis 07/28/2020 Overview (07/28/2020): Added automatically from request for surgery [id number] Assessment & Plan (10/16/2020 11:48 AM CDT): - Continued improvement to left hip with no signs of acute infection on exam today. She remains on Keflex and doxycycline. Denies systemic signs/symptoms of infection. - Ok to stop doxycycline and keflex as she has received an extended course of antibiotic therapy for treatment of left hip prosthetic joint infection with no concern for infection on exam today. Discussed with patient that she should monitor closely for any signs or symptoms of recurrent infection and contact ID clinic with any issues - Follow up with ortho as scheduled next month to discuss surgical planning for reimplantation of left hip. Discussed the importance of antibiotic holiday prior to reimplantation and that she may undergo aspiration of the hip per ortho. - Discussed with patient the rational for treatment, culture results, risk of recurrent infection, signs/symptoms of recurrent infection, and to contact ID clinic with any questions or concerns Assessment & Plan (09/18/2020 11:25 AM CDT): - Significant improvement in left hip cellulitis since last visit. Also has improvement in pain. Tolerating doxycycline and keflex well but does have some fatigue, unclear if this is due to antibiotics - Continue doxycycline and keflex until next ID visit in 4 weeks. Antibiotic course extended due to early switch to PO and development of cellulitis. Will reevaluate at next ID visit the need to continue antibiotic therapy - CBC, CMP, ESR, and CRP drawn today - Discussed with patient the rational for treatment, culture results, risk of recurrent infection, signs/symptoms of recurrent infection, and to contact ID clinic with any questions or concerns Assessment & Plan (09/04/2020 10:04 AM CDT): - Left hip surgical site with findings of cellulitis. No wound drainage or dehiscence. No systemic signs of infection noted. - Continue doxycycline 100 mg PO BID. Will add Keflex 500 mg PO QID for Strep coverage in hopes that she has a superficial cellulitis to area. She will monitor closely for any worsening of wound, especially any dehiscence or drainage, along with any systemic signs of infection. She will follow up with ID in 2 weeks and with ortho in 1 week - PICC line removed in ID clinic today - Plan to continue antibiotic therapy for minimum of 6 weeks for treatment of L hip PJI. She will then need an antibiotic holiday prior to joint reimplantation. Anticipate she may need extended antibiotic therapy given her wound issues - Plan for repeat CBC, CMP, ESR, and CRP at next visit - Discussed with patient the rational for treatment, culture results, risk of recurrent infection, signs/symptoms of recurrent infection, and to contact ID clinic with any questions or concerns Assessment & Plan (08/18/2020 12:02 PM CDT): Breonna Rousseau is a 65 y.o. female with history of anxiety and depression COPD and obstructive sleep apnea and osteoarthritis who had a left total hip arthroplasty in April of 2020 c/b infection seen for hip infection. 07/31 - Explant with antibiotics spacer. Culture with MRSA Treated with vancomycin. Developed leukopenia Readmitted with wound drainage. Went to the OR 08/14. Cultures with NGTD. 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 Treated with vancomycin previously. Now readmitted for drainage. Interim developments: Her cx this admission NGTD. She has been on daptomycin- but it is not an option for her at home 2 cost. She was changed back to vancomycin in prep for dc. Her wbc has recovered some and is into normal range. Recommendations: - Vancomycin 1g IV q 12. - VT prior to 4th dose (goal 15-20) - Cbc, bmp vt twice a week - ID will formally sign off but continue to follow the pt peripherally while in house. - Please call with any questions , concerns, changes in the patients' cultures or clinical status. - See the most recent ID plan of care note for detailed recommendations. Thank you for allowing the bone and joint ID team to assist in the care of your patient. Please call with questions, concerns, changes in the patients cultures or clinical status. Assessment & Plan (08/03/2020 1:55 PM CDT): 65-year-old woman status post left total hip arthroplasty in April with I and D in May with persistent drainage and pain despite IV vancomycin now status post explant with intraoperative findings consistent with ongoing infection. Cultures+ MRSA Interim developments: Pt is doing well. Her cx + MRSA Pt is on vanc/cefe VT 13.2 on 08/02, scr improved. Recommendations: - continue vancomycin at current dose. - check another VT tomorrow am prior to her dose (ordered) - daily cbc, bmp for now - plan on 6 weeks of IV abx - ID will formally sign off but continue to follow the pt peripherally while in house. - Please call with any questions , concerns, changes in the patients' cultures or clinical status. - See the most recent ID plan of care note for detailed recommendations. Thank you for allowing the bone and joint ID team to assist in the care of your patient. Please call with questions, concerns, changes in the patients cultures or clinical status. Superficial incisional surgical site infection 0 07/16/2020 Hypertrophic obstructive cardiomyopathy 03/02/20 20 Hyperlipidemia 01/21/2020 Chronic sinusitis 07/18/2018 Obesity with body mass index 30 or greater 03/13 Anemia 02/26/2018 Obstructive sleep apnea syndrome 01/25/2018 Restless legs 01/29/2017 Anxiety 08/09/2016 Encounters Date Type Department Care Team Description 05/22/2024 9:15 AM STALLION MANAGER Office Visit [facility] Surgery [address] [place] [address] Office [facility] [address] [place] [address] Charlene Hines MD History of arthroplasty of left hip (Primary Dx) 05/22/2024 8:36 AM STALLION MANAGER - 05/22/2024 11:59 PM STALLION MANAGER Hospital Encounter [facility] [address] [facility] [address] [place] [address] History of arthroplasty of left hip Discharge Disposition: Discharge to home or self care 04/11/2024 12:55 PM STALLION MANAGER Lab [facility] [address] [place] [address] History of arthroplasty of left hip 04/11/2024 12:15 PM STALLION MANAGER Office Visit [facility] Orthopa[facility] Surgery [address] [facility] [address] [facility] 1[address] [place] [address] Charlene Hines MD Encounter for other specified surgical aftercare; History of arthroplasty of left hip 04/11/2024 Orders Only [facility] Surgery [address] [place] [address] [address] [place] [address] Charlene Hines MD 04/11/2024 Orders Only [facility] [address] [place] [address] 4 [address] [place] [address] Charlene Hines MD History of arthroplasty of left hip (Primary Dx) from Last 3 Months Immunizations Immunization Administration Dates Next Due Influenza, Quadrivalent, Spl it, Preservative Free, Intramuscular 01/15/2015 Influenza, Trivalent, High D ose, Split, Preservative Free, Intramuscular 12/18/2023 Trusight (J&J) SARS-CoV-2 Vaccination 09/03/2020 Moderna SARS-CoV-2 Monovalent Vaccination (12+ Y RS) 03/11/2021 Surgical History Surgery Date Site/Laterality Comments BACK SURGERY FLUORO GUIDED ASPIRATION HIP LEFT 07/28/2020 Left TOTAL HIP ARTHROPLASTY 03/20/2020 - 03/19/2021 Left INCISION AND DRAINAGE HIP 05/18/2020 - 06/17/2020 I&D L NICHOLE FLUORO GUIDED INJECTION HIP RIGHT 11/16/2020 Right FLUORO GUIDED ASPIRATION HIP LEFT 03/17/2021 Left IA ARTHRP ACETBLR/PROX FEM P ROSTC AGRFT/ALGRFT 04/05/2021 Right [place] FLUORO GUIDED ASPIRATION HIP LEFT 10/09/2023 Left Medical History Medical History Date Comments COPD (chronic obstructive pulmonary disease) (HC C) Anxiety Depression UTI (urinary tract infection) TMJ (dislocation of temporomandibular joint) Sleep apnea PONV (postoperative nausea and vomiting) Nausea 07/20/2023 Asthma Family History Medical History Relation Name Comments Cancer Father Cancer Mother Cancer Other Cancer - mother , brother, sister (Added by TW Conv) Cancer Sister Anesthesia problems Neg Hx Relation Name Status Comments Father Mother Other Sister Social History Tobacco Use Types Packs/Day Years Used Date Smoking Tobacco: Never Smokeless Tobacco: Never Tobacco Cessation:Counseling Given: Not Answered OASIS D0700: Social Isolation Answer Da te Recorded Frequency of experiencing loneliness or isolatio n Never 03/04/2024 OASIS A1250: Transportation Answer Date Recorded Lack of Transportation (Medical) No 03/04/2024 Lack of Transportation (Non-Medical) No 03/04/2024 Patient Unable or Declines to Respond No 03/04/2024 OASIS B1300: Health Literacy Answer Agustín e Recorded Frequency of needing help to read materials from doctor or pharmacy Never 03/04/2024 AUDIT-C Answer Date Recorded Q1: How often do you have a drink containing alc ohol? Monthly or less 10/09/2023 Q2: How many drinks containi ng alcohol do you have on a typical day when you are drinking? 1 or 2 10/09/2023 Q3: How often do you have si x or more drinks on one occasion? Never 10/09/2023 Personal Safety Answer Date Recorded Have you ever been in or are you currently in a harmful physical or emotional relationship or is someone making you feel afraid or unsafe? Denies 11/03/2023 Comments No Sex and Gender Information Value Date Recorded Sex Assigned at Not on file Legal Sex Female 10:31 PM STALLION MANAGER Gender Identity Not on file Sexual Orientation Not on file Obstetrics History Para Term AB IAB SAB Ectopic Multiple Livin g Live Births 4 4 Date Outcome GA Total Labor Labor/2nd/3rd Weight Sex Type Anes PTL Marielle A1 A5 Name Clin Para Para Para Para Last Filed Vital Signs Vital Sign Reading Time Taken Comments Blood Pressure 148/76 03/04/2024 9:10 AM STALLION MANAGER Pulse 78 03/04/2024 9:10 AM STALLION MANAGER Temperature 36.8 C (98.3 F) 03/04/2024 9:10 AM STALLION MANAGER Respiratory Rate 18 03/04/2024 9:10 AM STALLION MANAGER Oxygen Saturation 96% 03/04/2024 9:10 AM STALLION MANAGER Inhaled Oxygen Concentration - - Weight 76.7 kg (169 lb) 11/03/2023 11:00 PM CDT Height 149.9 cm (4' 11 ) 11/03/2023 11:00 PM CDT Body Mass Index 34.13 11/03/2023 11:00 PM CDT Plan of Treatment Health Maintenance Due Date Last Done Comments Breast Cancer Screening-Mammogram 1955 Colon Cancer Screening-Colonoscopy 1955 Depression Screening 1955 Hepatitis C Screening 1955 DTaP/Tdap/Td Vaccine (1 - Tdap) 1966 Hepatitis B Screening 1973 Pneumococcal vaccine 65+ (1 of 2 - PCV) 1974 Zoster Vaccine (1 of 2) 2005 Well Visit 65+ 2020 Covid-19 Vaccine (3 - season) 2023, 09/03/2020 Osteoporosis Screening-Bone Density Scan 06/21/2024 06/21/2022 Fall Risk Assessment 11/05/2024 11/06/2023 Influenza Vaccine Completed 12/18/2023, 01/15/2015 Medical Devices Implanted Type Area Job Tracer Device Identifier Shelf Expiration Date Model / Serial / Lot [employer] [id number] [place] R High Viscosity Cement 40gm Bone Green - [id number] Implanted:Qty: 1 on 07/30/2020 by Braydon Belcher MD at [facility] Bone Cement Left: Hip [employer] [id number] 06/17/2022 [id number] / / [id number] [employer] [id number] [place] R High Viscosity Cement 40gm Bone Green - [id number] Implanted:Qty: 2 on 07/30/2020 by Braydon Belcher MD at [facility] Bone Cement Left: Hip [employer] [id number] 01/18/2024 [id number] / / [id number] Spinal Cord Stimulator-04/03 Implanted:04/03 by Louis Fitch (Quantity not on file) Spinal Cord Stimulator Back Medtronic Neuro 81804 / [id number] / [employer] [id number] Stimulan Rapid Cure Kit Paste Intermediate Manager 10cc 20cc Bone Void - [id number] Implanted:Qty: 1 on 08/14/2020 by Ceferino Tellez MD at [facility] Left: Hip [employer] [id number] 02/16/2023 [id number] / / [id number] [employer] [id number] Trilogy 6.5mm 15mm Self Tap Screw Bone - [id number] Implanted:Qty: 1 on 04/05/2021 by Charlene Hines MD at [facility] Right: Hip [employer] [id number] 11/18/2029 [id number] / / [id number] [employer] [id number] Trilogy 6.5mm 35mm Self Tap Screw Bone - [id number] Implanted:Qty: 1 on 04/05/2021 by Charlene Hines MD at [facility] Right: Hip [employer] [id number] 10/30/2030 [id number] / / [id number] [employer] [id number] 40mm Lumen Hip F Liner Acetabular Longevity Sterile Latex Free - [id number] Implanted:Qty: 1 on 04/05/2021 by Charlene Hines MD at [facility] Right: Hip [employer] [id number] 01/05/2026 [id number] / / [id number] [employer] [id number] Taperloc 128mm Type 1 Press Fit Full Profile Hip 133d 4 Standard - [id number] Implanted:Qty: 1 on 04/05/2021 by Charlene Hines MD at [facility] Right: Hip [employer] [id number] 02/26/2030 [id number] / / [id number] [employer] [id number] Trilogy 6.5mm 20mm Self Tap Screw Bone - [id number] Implanted:Qty: 1 on 04/05/2021 by Charlene Hines MD at [facility] Right: Hip [employer] [id number] 07/11/2030 [id number] / / [id number] [employer] 650-1058 G7 40mm Hip Head Femoral Biolox Delta Biolox Option - [id number] Implanted:Qty: 1 on 04/05/2021 by Charlene Hines MD at [facility] Right: Hip [employer] 05/25/2030 650-1058 / / [id number] [employer] 650-1064 G7 Type 1 Hip -6mm Offset Taper Sleeve Centering Titanium Biolox - [id number] Implanted:Qty: 1 on 04/05/2021 by Charlene Hines MD at [facility] Right: Hip [employer] 07/20/2030 650-1064 / / [id number] [employer] [id number] G7 54mm Multihole Hip F Hemisphere Offset Shell Acetabular - [id number] Implanted:Qty: 1 on 04/05/2021 by Charlene Hines MD at [facility] Right: Hip [employer] [id number] 07/21/2030 [id number] / / [id number] [employer] [id number] Trilogy 6.5mm 15mm Self Tap Screw Bone - [id number] Implanted:Qty: 1 on 04/05/2021 by Charlene Hines MD at [facility] Right: Hip [employer] [id number] 06/26/2030 [id number] / / [id number] [employer] Liner Acetabular Hip Longevity 25o49vy Polyethylene [id number] - [id number] Implanted:Qty: 1 on 11/03/2023 at [facility] Left: Hip [employer] 02/13/2028 [id number] / / [id number] [employer] G7 56mm Hip F Shell Acetabular [place] Sterile [id number] - [id number] Implanted:Qty: 1 on 11/03/2023 at [facility] Left: Hip [employer] 05/15/2033 [id number] / / [id number] Allosource 1-4mm Freeze Dried Crushed Graft 30ml Bone Cancellous [id number] - [id number] Implanted:Qty: 1 on 11/03/2023 at [facility] Left: Hip [employer] 11/15/2027 [id number] / / [id number] [employer] Trilogy 6.5mm 30mm Self Tap Acetabular Cortical Screw Bone [id number] - [id number] Implanted:Qty: 1 on 11/03/2023 at [facility] Left: Hip [employer] 03/08/2033 [id number] / / [id number] [employer] Trilogy 6.5mm 25mm Self Tap Screw Bone [id number] - [id number] Implanted:Qty: 1 on 11/03/2023 at [facility] Left: Hip [employer] 04/17/2033 [id number] / / [id number] [employer] Trilogy 6.5mm 30mm Self Tap Acetabular Cortical Screw Bone [id number] - [id number] Implanted:Qty: 1 on 11/03/2023 at [facility] Left: Hip [employer] 05/19/2033 [id number] / / [id number] [employer] Trilogy 6.5mm 15mm Self Tap Screw Bone [id number] - [id number] Implanted:Qty: 1 on 11/03/2023 at [facility] Left: Hip [employer] 05/22/2033 [id number] / / [id number] [employer] Trilogy 6.5mm 20mm Self Tap Screw Bone [id number] - [id number] Implanted:Qty: 1 on 11/03/2023 at [facility] Left: Hip [employer] 07/04/2033 [id number] / / [id number] [employer] G7 44mm 2 Mobility Hip F Liner Acetabular [id number] - [id number] Implanted:Qty: 1 on 11/03/2023 at [facility] Left: Hip [employer] 07/20/2033 [id number] / / [id number] [employer] Chowdary Sl Revision 18mm 190mm Distal Fill Hip 135d 12/14 Stem [id number] - [id number] Implanted:Qty: 1 on 11/03/2023 at [facility] Left: Hip [employer] 12/17/2024 [id number] / / [id number] [employer] Trilogy It Continuum 28mm Hip Acetabulum -3.5mm 14 Small Head [id number] - [id number] Implanted:Qty: 1 on 11/03/2023 at [facility] Left: Hip [employer] 07/12/2033 [id number] / / [id number] Explanted Type Area Job Tracer Device Identifier Shelf Expiration Date Model / Serial / Lot [employer] [id number] Versys Advocate 11mm 9mm 120mm 32mm Primary Cemented Satin Finish - [id number] Implanted:Qty: 1 on 07/30/2020 by Braydon Belcher MD at [facility] Explanted:Qty: 1 on 11/03/2023 by Charlene Hines MD at [facility] Left: Hip [employer] [id number] 04/19/2029 [id number] / / [id number] Liner Actblr G7 [place] C 32mm E1 Hip Constrain - [id number] Implanted:Qty: 1 on 07/30/2020 by Braydon Belcher MD at [facility] Explanted:Qty: 1 on 11/03/2023 by Charlene Hines MD at [facility] Left: Hip [employer] 05/13/2024 [id number] / / [id number] [employer] [id number] [place] Hip +6mm 03/02 Taper Head Femoral Sterile Latex Free - [id number] Implanted:Qty: 1 on 07/30/2020 by Braydon Belcher MD at [facility] Explanted:Qty: 1 on 11/03/2023 by [facility] Hospital Left: Hip [employer] 09/16/2029 [id number] / / [id number] Procedures Procedure Name Priority Date/Time Associated Diagnosis Comments XR HIP LEFT W PELVIS 2 OR 3 VIEWS Schedule Routine, Read Routine (OP Routine) 05/22/2024 8:49 AM STALLION MANAGER History of arthroplasty of left hip CRP (ACUTE PHASE) Routine 04/11/2024 12: 53 PM STALLION MANAGER History of arthroplasty of left hip ERYTHROCYTE SEDIMENTATION RATE Routine 04/11/2024 12:53 PM STALLION MANAGER History of arthroplasty of left hip from Last 3 Months Results * XR Hip Left 2 or 3 Views W Pelvis (05/22/2024 8:49 AM STALLION MANAGER) Anatomical Region Laterality Modality Lower Extremities, Hip, Pelvis Left C omputed Radiography 05/22/2024 9:02 AM STALLION MANAGER Impressions 05/22/2024 9:02 AM STALLION MANAGER Unchanged left total hip arthroplasty in expected position. Electronically signed by: Sung Hart M.D. Narrative 05/22/2024 9:02 AM STALLION MANAGER XR HIP LEFT 2 OR 3 VIEWS W PELVIS HISTORY: Left hip arthroplasty. FINDINGS: 2 views of the pelvis and left hip are obtained and compared with 02/21/2024. There is redemonstrated left total hip arthroplasty. Orthopedic components are in expected position. There is no periprosthetic fracture or osteolysis. Unchanged surrounding heterotopic ossification. Alignment and soft tissues are normal. Unchanged right total hip arthroplasty. Unchanged partially visualized nerve stimulator generator overlying the right pelvis. Procedure Note Sung Hart MD - 05/22/2024 XR HIP LEFT 2 OR 3 VIEWS W PELVIS HISTORY: Left hip arthroplasty. FINDINGS: 2 views of the pelvis and left hip are obtained and compared with 02/21/2024. There is redemonstrated left total hip arthroplasty. Orthopedic components are in expected position. There is no periprosthetic fracture or osteolysis. Unchanged surrounding heterotopic ossification. Alignment and soft tissues are normal. Unchanged right total hip arthroplasty. Unchanged partially visualized nerve stimulator generator overlying the right pelvis. IMPRESSION: Unchanged left total hip arthroplasty in expected position. Electronically signed by: Sung Hart M.D. Charlene Hines MD IMG XR PROCEDURES [facility] Result * Erythrocyte sedimentation rate (04/11/2024 12:53 PM STALLION MANAGER) Erythrocyte sedimentation rate 28 1 - 30 mm/hr Blood 04/11/2024 12:5 3 PM STALLION MANAGER 04/11/2024 3:35 PM STALLION MANAGER Charlene Hines MD LAB BLOOD ORDERABLES F inal Result [facility] [place] [facility] Department [place] [address] * CRP (acute phase) (04/11/2024 12:53 PM STALLION MANAGER) CRP 3.1 <=10.0 mg/L Blood 04/11/2024 12:5 3 PM STALLION MANAGER 04/11/2024 3:33 PM STALLION MANAGER us Charlene Hines MD LAB BLOOD ORDERABLES F inal Result [facility] Department [place] [address] from Last 3 Months Insurance [employer] MEDICARE HMO Beyond [employer] MEDICARE HMO Advance Directives For more information, please contact: [phone] * Full Code (Latest Code Status on File) Date Activated Date Inactivated Comments 11/03/2023 7:52 PM 11/06/2023 5:20 PM * Full Code Date Activated Date Inactivated Comments 04/05/2021 5:45 PM 04/10/2021 2:09 PM * Full Code Date Activated Date Inactivated Comments 08/14/2020 6:38 PM 08/19/2020 4:40 PM * Full Code Date Activated Date Inactivated Comments 08/13/2020 10:18 PM 08/14/2020 6:38 PM * Full Code Date Activated Date Inactivated Comments 07/30/2020 3:42 PM 08/04/2020 4:20 PM Care Teams Personal Carer Relationship Specialty Start Date End Date Yash Schmidt MD [address] [place] [address] PCP - General Internal Medicine 07/20/23
--- OUTSIDE RECORDS SUMMARY | 2024-06-27 15:09 | XMS_ITS | Clinical Summary ---
Author Organization [facility] Address [address] [place] [address] Phone Care Team Providers Care Automation Driver Name Role Phone Mal Lacey MD Primary Care Provider [phone] Social History Tobacco Use Types Packs/Day Years Used Date Smoking Tobacco: Never Assessed Comments Unknown Sex and Gender Information Value Date Recorded Sex Assigned at Not on file Legal Sex Female 10:00 AM CDT Gender Identity Not on file Sexual Orientation Not on file Last Filed Vital Signs Vital Sign Reading Time Taken Comments Blood Pressure - - Pulse - - Temperature - - Respiratory Rate - - Oxygen Saturation - - Inhaled Oxygen Concentration - - Weight 75.3 kg (166 lb) 01/08/2019 9:06 AM CDT Height - - Body Mass Index - - Plan of Treatment Health Maintenance Due Date Last Done Comments Hepatitis C Virus (HCV) Screening 1955 TdaP Immunization 1955 Colonoscopy 2000 Colorectal Cancer Screening 2000 Cologuard 2005 Immunochemical Fecal Occult Blood 2005 Pneumococcal Immunization (5 0+ years) (1 of 1 - PCV) 2005 Zoster Immunization (1 of 2) 2005 Influenza Immunization (#1) 2023 01/15/2015 SARS-COV-2 Immunization (3 - season) 2023 03/11/2021, 09/03/2020 Respiratory Syncytial Virus (RSV) Immunization (Adult) (1 - 1-dose 75+ series) 2030 Hepatitis B Immunization Aged Out No longer eligible based on patient's age to complete this topic Meningococcal Immunization (ACWY) Aged Out No longer eligible b ased on patient's age to complete this topic Rotavirus Immunization Aged Out No lo nger eligible based on patient's age to complete this topic Insurance MEDICARE C [employer] Care Teams Automation Driver Relationship Specialty Start Date End Date Mal Lacey MD PCP - General Internal Medicine 09/21/18
--- OUTSIDE RECORDS SUMMARY | 2024-06-27 15:09 | XMS_ITS | Encounter Summary ---
Author Organization [facility] [employer] [facility] Address [address] [place] [address] Care Team Providers Care Csw Name Role Phone Unavailable Primary Care Provider Unavailabl e Reason for Visit * Reason Comments Establish Care Encounter Details Date Type Department Care Team (Late st Contact Info) Description 06/27/2024 1:30 PM CDT Office Visit [facility] Oncology and Hematology - [place] [address] [facility] [address] [place] [address] [place] [address] [place] [address] [address] [place] [address] Chronic anemia (Primary Dx) Social History Tobacco Use Types Packs/Day Years Used Date Smoking Tobacco: Never Smokeless Tobacco: Never Tobacco Cessation:Counseling Given: Not Answered Alcohol Use Standard Drinks/Week Comments Yes 0 (1 standard drink = 0.6 oz pur e alcohol) Occasionally Comments Unknown Sex and Gender Information Value Date Recorded Sex Assigned at Not on file Legal Sex Female 11:50 PM CDT Gender Identity Not on file Sexual Orientation Not on file documented as of this encounter Last Filed Vital Signs Vital Sign Reading Time Taken Comments Blood Pressure 126/75 06/27/2024 1:47 PM CDT Pulse 76 06/27/2024 1:47 PM CDT Temperature 36.3 C (97.3 F) 06/27/2024 1:47 PM CDT Respiratory Rate 15 06/27/2024 1:47 PM CDT Oxygen Saturation 91% 06/27/2024 1:47 PM CDT Inhaled Oxygen Concentration - - Weight 77.4 kg (170 lb 9.6 oz) 06/27/2024 1:47 P M CDT Height 147.3 cm (4' 10 ) 06/27/2024 1:47 PM CDT Body Mass Index 35.66 06/27/2024 1:47 PM CDT documented in this encounter Progress Notes * Reyes Yarbrough MD - 06/27/2024 2:12 PM CDT Hematology-oncology consult Note Requesting Physician Everton Ronquillo MD Primary Care Physician No primary care provider on file. Problem list There is no problem list on file for this patient. Previous TREATMENT ? Measurable Disease ? Reason for Visit Breonna Rousseau is a 69 y.o. female who was referred for consultation for chronic anemia. History of present illness This is a 69-year-old obese female with history of cardiomyopathy, hyperlipidemia, depression and GERD referred to me for chronic anemia. According to patient she has been anemic since her childhood. She has been complaining of tiredness and fatigue. Denies being a vegetarian. Denies having any stomach surgeries. She is taking oral iron once a day just started about 2 weeks ago. She received iron infusion 2 years ago and felt better after that. Patient had colonoscopy done in June 2022 that showed colon polyps repeat surveillance colonoscopy was recommended in 6 months. Her labs from December 2022 showed hemoglobin of 8.1. Recent labs from October 2023 showed hemoglobin of 8.8. Denies any other complaint. Past Medical History Past Medical History: Diagnosis Date Asthma Cardiomyopathy (CMS/HCC) Depression Hx of blood clots Hyperlipidemia Osteoporosis Surgical History Past Surgical History: Procedure Laterality Date HX BACK SURGERY x3 HX HIP SURGERY x4 in 2020,2022 Medications Current Outpatient Medications Medication Sig Dispense Refill metoprolol succinate (TOPROL XL) 50 mg Extended Release 24 hour tablet Take 50 mg by mouth daily. doxycycline hyclate (VIBRAMYCIN) 100 mg capsule Take 100 mg by mouth 2 times daily. cephALEXin (KEFLEX) 500 mg capsule Take 500 mg by mouth 3 times daily. famotidine (PEPCID) 40 mg tablet Take 1 Tablet by mouth daily in the morning. busPIRone (BUSPAR) 30 mg Tablet Take 1 Tablet by mouth 2 times daily. aspirin (ECOTRIN EC) 81 mg Tablet, Delayed Release (E.C.) Take 81 mg by mouth 2 times daily. meloxicam (MOBIC) 15 mg tablet Take 15 mg by mouth daily. sennosides-docusate sodium (SENNA-S) 8.6-50 mg tablet Take 2 Tablets by mouth 2 times daily. albuterol sulfate HFA 90 mcg/actuation aerosol inhaler 2 Puffs by See Admin Instructions route see administration instructions. sertraline (ZOLOFT) 100 mg tablet Take 100 mg by mouth 2 times daily. omeprazole (PriLOSEC) 20 mg Capsule, Delayed Release(E.C.) Take 20 mg by mouth daily. atorvastatin (LIPITOR) 20 mg tablet Take 20 mg by mouth daily. disopyramide phosphate (NORPACE) 150 mg capsule Take 150 mg by mouth 2 times daily. gabapentin (NEURONTIN) 600 mg tablet Take 600 mg by mouth 3 times daily. methylphenidate HCl (RITALIN) 20 mg tablet Take 20 mg by mouth 2 times daily. DULoxetine (CYMBALTA) 60 mg Capsule, Delayed Release(E.C.) Take 60 mg by mouth 2 times daily. HYDROcodone-acetaminophen (NORCO) 10-325 mg Tablet Take 1 Tablet by mouth 3 times daily. albuterol (PROVENTIL,VENTOLIN) 0.63 mg/3 mL Solution for Nebulization 0.63 mg by See Admin Instructions route see administration instructions. dilTIAZem (CARDIZEM CD, CARTIA XT) 120 mg Controlled Delivery 24 hour capsule Take 360 mg by mouth daily. No current facility-administered medications for this visit. Allergies Allergies Allergen Reactions Penicillins Rash Patient can take cephalosporins, as tolerated oral cephalexin for several weeks. 10/15/20 Sulfa (Sulfonamide Antibiotics) Nausea and Vomiting Clarithromycin Nausea and Vomiting Immunizations: Immunization History Administered Date(s) Administered (Strap) COVID-19 VACCINE - EMERGENCY USE AUTHORIZATION, AD26,COV2S(PF) 0.5 ML IM SUSP 09/03/2020 Family History Family History Problem Relation Name Age of Onset Lung Cancer Father Breast Cancer Mother No Known Problems Brother No Known Problems Brother Lung Cancer Sister Brain Cancer Sister No Known Problems Child No Known Problems Child Heart Disease Child No Known Problems Child Social History Social History Tobacco Use Smoking status: Never Smokeless tobacco: Never Substance Use Topics Alcohol use: Yes Comment: Occasionally Review of Systems Constitutional: Patient did not mention fever; no night sweats; no anorexia; no weight loss, complain of tiredness and fatigue NEENT: Patient did not mention headache; no change in vision; no change in hearing; no sore throat;no dysphagia Respiratory: Patient did not mention shortness of breath; no pleuritic chest pain; no cough; no hemoptysis Cardiac: Patient did not mention cardiac-like chest pain; no palpitations; no orthopnea; no PND; noDOE Breasts: Patient did not mention tenderness; no masses GI: Patient did not mention abdominal pain; no nausea; no vomiting; no diarrhea; no hematochezia; no melena : Patient did not mention dysuria; no frequency; no hesitancy; no hematuria TURNER MACHINE: Musculosketetal: Patient did not mention bone pain; no arthralgia; no joint swelling; no myalgia; Skin: Patient did not mention pruritis; no rash; no petechiae; no ecchymoses Endocrine: Patient did not mention polydipsia; no polyuria; no unusual weight gain Neuro: Patient did not mention headache; no change in vision; no sensory changes; no muscle weakness; no confusion; no seizures Psych: Patient did not mention anxiety; no depression; Physical Exam Vitals: As per nursing note Constitutional: Well developed, well nourished, no acute distress, non-toxic appearance Teeth and gum. No signs of infection or swelling. Eyes: PERRL, conjunctiva normal HEENT: Atraumatic, external ears normal, nose normal, oropharynx moist, no pharyngeal exudates. no sinus tenderness Neck- normal range of motion, no tenderness, supple Respiratory: No respiratory distress, normal breath sounds, no rales, no wheezing Cardiovascular: Normal rate, normal rhythm, no murmurs, no gallops, no rubs GI: Soft, nondistended, normal bowel sounds, nontender, no splenomegaly, no hepatomegaly, no mass, no rebound, no guarding : No costovertebral angle tenderness Musculoskeletal: No edema, no tenderness, no deformities. Back- no tenderness Integument: Well hydrated, no rash, Digits and nails inspection normal Lymphatic: No lymphadenopathy noted Neurologic: Alert & oriented x 3, CN 2-12 normal, normal motor function, normal sensory function, no focal deficits noted Psychiatric: Speech and behavior appropriate ? labs No results found for this or any previous visit (from the past 24 hours). Labs from October 2023 showed hemoglobin 8.8 hematocrit 27.2 WBC 4.6 MCV 95.9 platelet 89,000 Pathology ? Imaging & Other Studies Performance Status? Assessment / Plan: ? Chronic anemia. Patient is a 69-year-old obese female with history of cardiomyopathy, hyperlipidemia, GERD and depression referred to me for chronic anemia. She has been complaining of tiredness and fatigue. Denies any history of stomach surgeries. She denies being a vegetarian. She started oral iron just about 2 weeks ago. Her colonoscopy from May 2022 showed colon polyps but furtherexamination in 6 months was recommended. She denies any melena hematochezia. I will order comprehensive workup for anemia at this time that will include CBC, CMP, iron panel, soluble transferrin receptor, methylmalonic acid and serum protein electrophoresis with immunofixation. Based on the labs we will decide about further testing that might include bone marrow biopsy and imaging studies. We will also discuss referring her back to gastroenterology service for completion of colonoscopy. I have answered all the questions to patient's satisfaction. Follow-up in 2 weeks. GERD. Patient is on Pepcid. Hyperlipidemia. She is on Lipitor. Depression. She is on Zoloft. Thank you very much for allowing me to participate in Breonna Rousseau's evaluation and management. Please feel free to contact if I can be of any further assistance in your patient???s care requiring hematology or oncology evaluation. Sincerely, ? ? Reyes Yarbrough M.D. cell TOBACCO COUNSELING She is not a tobacco/nicotine user. Reyes Yarbrough MD ,06/27/2024 2:39 PM ? Total time spent 60 minutes, two third of the total time spent counseling patient [id number]. CC:?Everton Ronquillo MD documented in this encounter Plan of Treatment Upcoming Encounters Date Type Department Care Team (Late st Contact Info) Description 07/19/2024 11:45 AM CDT Office Visit [facility] Oncology and Hematology - [place] [address] [facility] [address] [place] [address] Reyes Yarbrough MD [address] [facility] [address] [place] [address] Scheduled Orders Name Type Priority Associated Diagnoses Orde r Schedule CBC WITH DIFFERENTIAL Lab Stat Chronic anemia Expected: 06/27/2024, Expires: 06/27/2025 COMPREHENSIVE METABOLIC PANEL Lab Stat Chronic anemia Expected: 06/27/2024, Expires: 06/27/2025 FERRITIN Lab Routine Chronic anemia Expected: 06/27/2024, Expires: 06/27/2025 IRON, TIBC, AND PERCENT SATURATION Lab Routine Chronic anemia Expected: 06/27/2024, Expires: 06/27/2025 LACTATE DEHYDROGENASE Lab Routine Chronic anemia Expected: 06/27/2024, Expires: 06/27/2025 METHYLMALONIC ACID Lab Routine Chronic anemia Expected: 06/27/2024, Expires: 06/27/2025 TRANSFERRIN RECEPTOR TFR SOLUBLE Lab Routine Chronic anemia Expected: 06/27/2024, Expires: 06/27/2025 VITAMIN B12 AND FOLATE Lab Routine Chronic anemia Expected: 06/27/2024, Expires: 06/27/2025 PROTEIN ELECTROPHORESIS W/REFLEX,SERUM Lab Routine Chronic anemia Expected: 06/27/2024, Expires: 06/27/2025 documented as of this encounter Visit Diagnoses Diagnosis Chronic anemia- Primary Anemia, unspecified documented in this encounter
--- OUTSIDE RECORDS SUMMARY | 2024-06-27 15:09 | XMS_ITS | Clinical Summary ---
Author Organization [facility] Address [address] [place] [address] Care Team Providers Care Commercial Teller Name Role Phone Unavailable Primary Care Provider Unavailabl e Allergies Active Allergy Reactions Criticality Noted Date Comments Clarithromycin Nausea and Vomiting Low 06/04/2013 Penicillins Rash High 08/30/2006 Patient can take cephalosporins, as tolerated oral cephalexin for several weeks. 10/15/20 Sulfa (Sulfonamide Antibiotics) Nausea and Vomiting High 12/10/2007 Medications sertraline (ZOLOFT) 100 mg tablet Take 100 mg by mouth 2 times daily. Active omeprazole (PriLOSEC) 20 mg Capsule, Delayed Release(E.C.) Take 20 mg by mouth daily. Active metoprolol succinate (TOPROL XL) 50 mg Extended Release 24 hour tablet Take 50 mg by mouth daily. 06/16/19 25 Active atorvastatin (LIPITOR) 20 mg tablet Take 20 mg by mouth daily. Active disopyramide phosphate (NORPACE) 150 mg capsule Take 150 mg by mouth 2 times daily. Active doxycycline hyclate (VIBRAMYCIN) 100 mg capsule Take 100 mg by mouth 2 times daily. 06/14/19 25 Active cephALEXin (KEFLEX) 500 mg capsule Take 500 mg by mouth 3 times daily. 06/14/19 25 Active famotidine (PEPCID) 40 mg tablet Take 1 Tablet by mouth daily in the morning. 03/15/20 Active gabapentin (NEURONTIN) 600 mg tablet Take 600 mg by mouth 3 times daily. Active methylphenidate HCl (RITALIN) 20 mg tablet Take 20 mg by mouth 2 times daily. Active DULoxetine (CYMBALTA) 60 mg Capsule, Delayed Release(E.C.) Take 60 mg by mouth 2 times daily. Active busPIRone (BUSPAR) 30 mg Tablet Take 1 Tablet by mouth 2 times daily. 07/11/19 24 Active HYDROcodone-acet aminophen (NORCO) 10-325 mg Tablet Take 1 Tablet by mouth 3 times daily. Active aspirin (ECOTRIN EC) 81 mg Tablet, Delayed Release (E.C.) Take 81 mg by mouth 2 times daily. 11/06/19 24 Active meloxicam (MOBIC) 15 mg tablet Take 15 mg by mouth daily. 11/06/19 24 Active sennosides-docus ate sodium (SENNA-S) 8.6-50 mg tablet Take 2 Tablets by mouth 2 times daily. 01/30/20 24 Active albuterol sulfate HFA 90 mcg/actuation aerosol inhaler 2 Puffs by See Admin Instructions route see administration instructions. 06/15/19 24 Active albuterol (PROVENTIL,VERA NORIS) 0.63 mg/3 mL Solution for Nebulization 0.63 mg by See Admin Instructions route see administration instructions. Active dilTIAZem (CARDIZEM CD, CARTIA XT) 120 mg Controlled Delivery 24 hour capsule Take 360 mg by mouth daily. Active Active Problems No known active problems Encounters Date Type Department Care Team Description 06/27/2024 1:30 PM CDT Office Visit [facility] Oncology and Hematology - [place] [address] [address] [address] Reyes Yarbrough MD Chronic anemia (Primary Dx) from Last 3 Months Family History Medical History Relation Name Comments No Known Problems Brother 1 No Known Problems Brother 2 No Known Problems Child 1 No Known Problems Child 2 Heart Disease Child 3 No Known Problems Child 4 Lung Cancer Father Breast Cancer Mother Brain Cancer Sister Lung Cancer Sister Relation Name Status Comments Brother 1 Brother 2 Alive Child 1 Alive Child 2 Alive Child 3 Child 4 Father Mother Sister Social History Tobacco Use Types Packs/Day [...] Mass Index 35.66 06/27/2024 1:47 PM CDT Plan of Treatment Upcoming Encounters Date Type Department Care Team (Late st Contact Info) Description 07/19/2024 11:45 AM CDT Office Visit [facility] Oncology and Hematology [facility] [address] [facility] [address] [place] [address] Reyes Yarbrough MD [address] [facility] [address] [place] [address] Health Maintenance Due Date Last Done Comments Pre-Diabetes and Diabetes Screening 1955 DTAP/TDAP/TD VACCINES (1 - Tdap) 1974 PNEUMOCOCCAL VACCINE 50+ YEA RS (1 of 2 - PCV) 1974 BREAST CANCER SCREENING 1995 COLORECTAL SCREENING 2000 Colorectal Cancer Screening 2000 FIT-DNA Q 3 years 2000 FIT/FOBT Q 1 year 2000 Flex Sig/CT Colonography Q 5 years 2000 ZOSTER VACCINE (1 of 2) 2005 RSV VACCINE (60+ or ) (1 - Risk 60-74 years 1-dose series) 2015 OSTEOPOROSIS SCREENING 2020 COVID-19 Vaccine (3 - season) 2023, 09/03/2020 [place] Prev entative Visit/Annual Wellness Visit 03/20/2024 INFLUENZA VACCINE Completed 12/18/2023, 01/15/2015 [place] [facility] [place] Address: [facility] [address] [place] [address]
--- OUTSIDE RECORDS SUMMARY | 2024-06-27 15:09 | XMS_ITS | Referral Summary ---
Author Organization [facility] s Address [address] [place] [address] Care Team Providers Care Email Developer Name Role Phone Yash Schmidt MD Primary Care Provide r Encounters Date Type Department Care Team Description 05/22/2024 8:36 AM WIRE BORDER ASSEMBLER - 05/22/2024 11:59 PM WIRE BORDER ASSEMBLER Hospital Encounter [facility] [address] [place] [address] [address] [place] [phone] History of arthroplasty of left hip Discharge Disposition: Discharge to home or self care 05/22/2024 9:15 AM WIRE BORDER ASSEMBLER Office Visit [facility] [address] [place] [address] Office [address] [place] [phone] Charlene Hines MD History of arthroplasty of left hip (Primary Dx) 04/11/2024 12:55 PM WIRE BORDER ASSEMBLER Lab [facility] [address] [place], [place] [id number] History of arthroplasty of left hip 04/11/2024 Orders Only [facility] [address] [place] [address] Office [address] [place] [phone] Charlene Hines MD 04/11/2024 Orders Only [facility] [address] [place] [address] Office [facility] [address] [place] [phone] Charlene Hines MD History of arthroplasty of left hip (Primary Dx) 04/11/2024 12:15 PM WIRE BORDER ASSEMBLER Office Visit [facility] [address] [place] [address] Charlene Hines MD Encounter for other specified surgical aftercare; History of arthroplasty of left hip from Last 3 Months Allergies Active Allergy Reactions Criticality Noted Date [...] once a week. 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 Restless legs 01/29/2017 Anxiety 08/09/2016 Immunizations Immunization Administration Dates Next Due Influenza, Quadrivalent, Spl it, Preservative Free, Intramuscular 01/15/2015 Influenza, Trivalent, High D ose, Split, Preservative Free, Intramuscular 12/18/2023 [facility] ([facility]) SARS-CoV-2 Vaccination 09/03/2020 Moderna SARS-CoV-2 Monovalent Vaccination (12+ Y RS) 03/11/2021 Social History Tobacco Use Types Packs/Day Years [...] on file Legal Sex Female 10:31 PM WIRE BORDER ASSEMBLER Gender Identity Not on file Sexual Orientation Not on file Last Filed Vital Signs Vital Sign Reading Time Taken Comments Blood Pressure 148/76 03/04/2024 9:10 AM WIRE BORDER ASSEMBLER Pulse 78 03/04/2024 9:10 AM WIRE BORDER ASSEMBLER Temperature 36.8 C (98.3 F) 03/04/2024 9:10 AM WIRE BORDER ASSEMBLER Respiratory Rate 18 03/04/2024 9:10 AM WIRE BORDER ASSEMBLER Oxygen Saturation 96% 03/04/2024 9:10 AM WIRE BORDER ASSEMBLER Inhaled Oxygen Concentration - - Weight 76.7 kg (169 lb) 11/03/2023 11:00 PM CDT Height 149.9 cm (4' 11 ) 11/03/2023 11:00 PM CDT Body Mass Index 34.13 11/03/2023 11:00 PM CDT Plan of Treatment Not on file Medical Devices Implanted Type Area Sales And Marketing Specialist Device Identifier Shelf Expiration Date Model / Serial / Lot [employer] [id number] [place] R High Viscosity Cement 40gm Bone Green - [id number] Implanted:Qty: 1 on 07/30/2020 by Braydon Belcher MD at [facility] Bone Cement Left: Hip [employer] [id number] 06/17/2022 [id number] / / [id number] [employer] [id number] [place] R High Viscosity Cement 40gm Bone Green - [id number] Implanted:Qty: 2 on 07/30/2020 by Braydon Belcher MD at [facility] Bone Cement Left: Hip [employer] [id number] 01/18/2024 [id number] / / [id number] Spinal Cord Stimulator-04/03 Implanted:04/03 by Louis Fitch (Quantity not on file) Spinal Cord Stimulator Back Medtronic Neuro 53651 / [id number] / Biocomposites [id number] Stimulan Rapid Cure Kit Paste Student Outreach Coordinator 10cc 20cc Bone Void - [id number] Implanted:Qty: 1 on 08/14/2020 by Ceferino Tellez MD at [facility] Left: Hip [employer] [id number] 02/16/2023 [id number] / / [id number] [employer] [id number] Trilogy 6.5mm 15mm Self Tap Screw Bone - [id number] Implanted:Qty: 1 on 04/05/2021 by Charlene Hines MD at [facility] Right: Hip [employer] [id number] 11/18/2029 [id number] / / [id number] [employer] [id number] Trilogy 6.5mm 35mm Self Tap Screw Bone - [id number] Implanted:Qty: 1 on 04/05/2021 by Charlene Hines MD at [facility] Right: Hip [employer] [id number] 10/30/2030 [id number] / / [id number] [employer] [id number] 40mm Lumen Hip F Liner Acetabular Longevity Sterile Latex Free - [id number] Implanted:Qty: 1 on 04/05/2021 by Charlene Hines MD at [facility] Right: Hip [employer] [id number] 01/05/[id number] / / [id number] [employer] [id number] Taperloc 128mm Type 1 Press Fit Full Profile Hip 133d 4 Standard - [id number] Implanted:Qty: 1 on 04/05/2021 by Charlene Hines MD at [facility] Right: Hip [employer] [id number] 02/26/2030 [id number] / / [id number] [employer] [id number] Trilogy 6.5mm 20mm Self Tap Screw Bone - [id number] Implanted:Qty: 1 on 04/05/2021 by Charlene Hines MD at [facility] Right: Hip [employer] [id number] 07/11/2030 [id number] / / [id number] [employer] 650-1058 G7 40mm Hip Head Femoral Biolox Delta Biolox Option - [id number] Implanted:Qty: 1 on 04/05/2021 by Charlene Hines MD at [facility] Right: Hip [employer] 05/25/2030 650-1058 / / [id number] [employer] 650-1064 G7 Type 1 Hip -6mm Offset Taper Sleeve Centering Titanium Biolox - [id number] Implanted:Qty: 1 on 04/05/2021 by Charlene Hines MD at [facility] Right: Hip [employer] 07/20/2030 650-1064 / / [id number] [employer] [id number] G7 54mm Multihole Hip F Hemisphere Offset Shell Acetabular - [id number] Implanted:Qty: 1 on 04/05/2021 by Charlene Hines MD at [facility] Right: Hip [employer] [id number] 07/21/2030 [id number] / / [id number] [employer] [id number] Trilogy 6.5mm 15mm Self Tap Screw Bone - [id number] Implanted:Qty: 1 on 04/05/2021 by Charlene Hines MD at [facility] Right: Hip [employer] [id number] 06/26/2030 [id number] / / [id number] [employer] Liner Acetabular Hip Longevity 97z90yl Polyethylene [id number] - [id number] Implanted:Qty: 1 on 11/03/2023 at [facility] Left: Hip [employer] 02/13/2028 [id number] / / [id number] [employer] G7 56mm Hip F Shell Acetabular Osseoti Sterile [id number] - [id number] Implanted:Qty: 1 on 11/03/2023 at [facility] Left: Hip [employer] 05/15/2033 [id number] / / [id number] Allosource 1-4mm Freeze Dried Crushed Graft 30ml Bone Cancellous 27386040 - [id number] Implanted:Qty: 1 on 11/03/2023 at [facility] Left: Hip [employer] 11/15/2027 [id number] / / [id number] [employer] Trilogy 6.5mm 30mm Self Tap Acetabular Cortical Screw Bone [id number] - [id number] Implanted:Qty: 1 on 11/03/2023 at [facility] Left: Hip [employer] 03/08/2033 [id number] / / [id number] [employer] Trilogy 6.5mm 25mm Self Tap Screw Bone [id number] - [id number] Implanted:Qty: 1 on 11/03/2023 at [facility] Left: Hip [employer] 04/17/2033 [id number] / / [id number] [employer] Trilogy 6.5mm 30mm Self Tap Acetabular Cortical Screw Bone [id number] - [id number] Implanted:Qty: 1 on 11/03/2023 at [facility] Left: Hip [employer] 05/19/2033 [id number] / / [id number] [employer] Trilogy 6.5mm 15mm Self Tap Screw Bone [id number] - [id number] Implanted:Qty: 1 on 11/03/2023 at [facility] Left: Hip [employer] 05/22/2033 [id number] / / [id number] [employer] Trilogy 6.5mm 20mm Self Tap Screw Bone [id number] - [id number] Implanted:Qty: 1 on 11/03/2023 at [facility] Left: Hip [employer] 07/04/2033 [id number] / / [id number] [employer] G7 44mm 2 Mobility Hip F Liner Acetabular 817848005 - [id number] Implanted:Qty: 1 on 11/03/2023 at [facility] Left: Hip [employer] 07/20/2033 [id number] / / [id number] [employer] Chowdary Sl Revision 18mm 190mm Distal Fill Hip 135d /14 Stem [id number] - [id number] Implanted:Qty: 1 on 11/03/2023 at [facility] Left: Hip [employer] 12/17/2024 [id number] / / [id number] [employer] Trilogy It Continuum 28mm Hip Acetabulum -3.5mm /14 Small Head [id number] - [id number] Implanted:Qty: 1 on 11/03/2023 at [facility] Left: Hip [employer] 07/12/2033 [id number] / / [id number] Explanted Type Area Sales And Marketing Specialist Device Identifier Shelf Expiration Date Model / Serial / Lot [employer] [id number] Versys Advocate 11mm 9mm 120mm 32mm Primary Cemented Satin Bhavesh - [id number] Implanted:Qty: 1 on 07/30/2020 by Braydon Belcher MD at [facility] Explanted:Qty: 1 on 11/03/2023 by Charlene Hines MD at [facility] Left: Hip [employer] [id number] 04/19/2029 [id number] / / [id number] Liner Actblr G7 Bayonne C 32mm E1 Hip Constrain - [id number] Implanted:Qty: 1 on 07/30/2020 by Braydon Belcher MD at [facility] Explanted:Qty: 1 on 11/03/2023 by Charlene Hines MD at [facility] Left: Hip [employer] 05/13/2024 [id number] / / [id number] [employer] [id number] Bayonne Hip +6mm 03/02 Taper Head Femoral Sterile Latex Free - [id number] Implanted:Qty: 1 on 07/30/2020 by Braydon Belcher MD at [facility] Explanted:Qty: 1 on 11/03/2023 by Charlene Hines MD at [facility] Left: Hip [employer] 09/16/2029 [id number] / / [id number] Procedures Procedure Name Priority Date/Time Associated Diagnosis Comments XR HIP LEFT W PELVIS 2 OR 3 VIEWS Schedule Routine, Read Routine (OP Routine) 05/22/2024 8:49 AM WIRE BORDER ASSEMBLER History of arthroplasty of left hip CRP (ACUTE PHASE) Routine 04/11/2024 12: 53 PM WIRE BORDER ASSEMBLER History of arthroplasty of left hip ERYTHROCYTE SEDIMENTATION RATE Routine 04/11/2024 12:53 PM WIRE BORDER ASSEMBLER History of arthroplasty of left hip from Last 3 Months Results * XR Hip Left 2 or 3 Views W Pelvis (05/22/2024 8:49 AM WIRE BORDER ASSEMBLER) Anatomical Region Laterality Modality Lower Extremities, Hip, Pelvis Left C omputed Radiography 05/22/2024 9:02 AM WIRE BORDER ASSEMBLER Impressions 05/22/2024 9:02 AM WIRE BORDER ASSEMBLER Unchanged left total hip arthroplasty in expected position. Electronically signed by: Sung Hart M.D. Narrative 05/22/2024 9:02 AM WIRE BORDER ASSEMBLER XR HIP LEFT 2 OR 3 VIEWS [...] * Erythrocyte sedimentation rate (04/11/2024 12:53 PM WIRE BORDER ASSEMBLER) Erythrocyte sedimentation rate 28 1 - 30 mm/hr Blood 04/11/2024 12:5 3 PM WIRE BORDER ASSEMBLER 04/11/2024 3:35 PM WIRE BORDER ASSEMBLER Charlene Hines MD LAB BLOOD ORDERABLES F inal Result [facility] Department [place] [address] * CRP (acute phase) (04/11/2024 12:53 PM WIRE BORDER ASSEMBLER) CRP 3.1 <=10.0 mg/L Blood 04/11/2024 12:5 3 PM WIRE BORDER ASSEMBLER 04/11/2024 3:33 PM WIRE BORDER ASSEMBLER us Charlene Hines MD LAB BLOOD ORDERABLES F inal Result [facility] Department [place] [address] from Last 3 Months Insurance [employer] MEDICARE HMO Getting[employer] MEDICARE O HUMAN MEDICARE HMO Advance Directives For more information, please contact: [phone] * Full Code (Latest Code Status on [...] 3:42 PM 08/04/2020 4:20 PM Care Teams Email Developer Relationship Specialty Start Date End Date Yash Schmidt MD [address] [facility] [address] [place] [address] PCP - General Internal Medicine 07/20/23
--- OUTSIDE RECORDS SUMMARY | 2024-06-27 15:09 | XMS_ITS | Encounter Summary ---
Author Organization [facility] Healthcare Address [address] [place] [address] Care Team Providers Care Encyclopedia Research Worker Name Role Phone Yash Schmidt MD Primary Care Provide r Encounter Details Date Type Department Care Team (Late st Contact Info) Description 09/02/2020 Telephone Infectious Diseases Aletha Guajardo, PA [address] [facility] [address] [place], [place] [id number] Social History Tobacco Use Types Packs/Day Years Used Date Smoking Tobacco: Never Smokeless Tobacco: Never AUDIT-C Answer Date Recorded Q1: How often do you have a drink containing alc ohol? Never 08/14/2020 Q2: How many drinks containi ng alcohol do you have on a typical day when you are drinking? 1 or 2 08/14/2020 Q3: How often do you have si x or more drinks on one occasion? 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 [place] [address] PCP - General Internal Medicine 07/20/23 documented as of this encounter
--- OUTSIDE RECORDS SUMMARY | 2024-06-27 15:09 | XMS_ITS | Encounter Summary ---
Author Organization [facility] Healthcare Address [address] [place] [address] Care Team Providers Care Instrumentation And Controls Technician Name Role Phone Yash Schmidt MD Primary Care Provide r Encounter Details Date Type Department Care Team (Late st Contact Info) Description 02/25/2021 Telephone [facility] Radiology [address] [facility] [address] [place] [address] Vanessa Muñoz RT Social History Tobacco Use Types Packs/Day Years [...] on file Legal Sex Female 10:31 PM RESPIRATORY CARE ASSISTANT Gender Identity Not on file Sexual Orientation Not on file documented as of this encounter Plan of Treatment Not on file documented as of this encounter Visit Diagnoses Not on filedocumented in this encounter Additional Health Concerns Infection Onset Date Last Indicated Resolved Time 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
[2024-06-27 17:04] LABS: Alanine Aminotransferase 27 U/L (6-35); Albumin Level 4.3 g/dL (3.5-5.1); Alkaline Phosphatase 132 U/L (38-126); Anion Gap 9 mmol/L (4-12); Aspartate Amino Transferase 47 U/L (14-36); Bilirubin,Total 0.6 mg/dL (0.2-1.3); Blood Urea Nitrogen 19 mg/dL (7-17); Calcium 9.4 mg/dL (8.4-10.2); Carbon Dioxide 30 mmol/L (22-30); Chloride 101 mmol/L (98-107); Estimated Glomerular Filt Rate 56; Glucose 92 mg/dL (65-110); Lactate Dehydrogenase 223 U/L (120-246); Sodium 140 mmol/L (137-145)
[2024-06-27 18:09] LABS: Folic Acid 9.8 ng/mL (2.76->20)
[2024-06-27 20:22] LABS: Iron 90 ug/dL (37-170); Percent Iron Saturation 23 % (20-50)
[2024-07-01 04:14] LABS: Methylmalonic Acid 288 nmol/L (69-390)
== END 2024-06-27 14:37 | disposition home or self-care (01) ==
LOC: ANHLAB 14:37
PROVIDERS: PCP Internal Medicine; Visit Provider Internal Medicine Hematology & Oncology
DX: D64.9 Anemia, unspecified (principal)
CPT/HCPCS: 36415; 80053; 82607; 82728; 82746; 83540; 83550; 83615; 83921; 84238; 85025

== ENCOUNTER 2024-07-25 12:40 | Outpatient (CLI) | payer MEDICARE, SELFPAY ==
--- NOTE | ~2024-07-25 | US_ITS ---
Renal-Bladder ultrasound Clinical History: Kidney disease Technique: Real-time sonographic imaging of the kidneys and urinary bladder was performed. Findings: The right kidney measures 7.3 cm in length and the left kidney measures 8.6 cm. There is no hydronephrosis or renal calculus identified. Renal cortical echogenicity is within normal limits. No renal mass lesion is identified. The urinary bladder is moderately distended at the time of this exam. No intraluminal echoes are iden tified. No abnormal wall thickening is seen. Impression: Unremarkable ultrasound of the kidneys and urinary bladder. Reviewed, dictated and finalized at location . Impression: Unremarkable ultrasound of the kidneys and urinary bladder.
== END 2024-07-25 12:41 | disposition home or self-care (01) ==
LOC: MICIMG 12:41
PROVIDERS: PCP Internal Medicine; Visit Provider Specialist
DX: N18.30 Chronic kidney disease, stage 3 unspecified (principal)
CPT/HCPCS: 76775

== ENCOUNTER 2024-12-09 09:50 | Outpatient (CLI) | payer MEDICARE, SELFPAY ==
--- OUTSIDE RECORDS SUMMARY | 2024-07-03 10:15 | XMS_ITS ---
Author Organization [facility] Address [address] [facility] [address] [facility] [address] [place] [address] Care Team Providers Care Scrap Drop Engineer Name Role Phone ARIC HERNANDEZ Primary Care Provider Emmett Villagomez [phone] Social History Sex Assigned At : Social History Observation Description Sex Assigned At Female Problems Problem Type SNOMED Code ICD Code Onset Dates Problem Status W/U Status Risk Notes Problem Gastro-esophageal reflux disease without esophagitis (423015587) Gastro-esophageal reflux disease without esophagitis (K21.9) Active confirmed Problem Chronic obstructive pulmonary disease (55826062) Chronic obstructive pulmonary disease, unspecified (J44.9) Active confirmed Problem Anemia (681427459) Anemia, unspe cified (D64.9) Active confirmed Problem Urinary incontinence (833206399) Unspecified urinary incontinence (R32) Active confirmed Problem Essential hypertension (51764081) Essential hypertension (I10) Active confirmed Problem continuous churn buttermaker current use of non-steroidal anti-inflammatory drug (032431374366917) skilled nursing (current) use of non-steroidal anti-inflammatories (NSAID) (Z79.1) Active confirmed Problem 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 confirmed Problem Primary generalised osteoarthritis (687162112) Primary generalized (osteo)arthritis (M15.0) Active confirmed Problem Sleep apnea (51320829) Sleep apnea, unspecified (G47.30) Active confirmed Problem Cardiomyopathy (49036138) Cardiomyopathy, unspecified (I42.9) Active confirmed Encounters Encounter Location Date Provider Diagnosis [facility] [address] [facility] [address] [place] [address] 07/03/2024 Emmett Villagomez Chronic kidney disea se, stage 3 unspecified N18.30 ; Gastro-esophageal reflux disease without esophagitis K21.9 ; Chronic obstructive pulmonary disease, unspecified J44.9 ; Anemia, unspecified D64.9 ; Unspecified urinary incontinence R32 ; Essential hypertension I10 ; skilled nursing (current) use of non-steroidal anti-inflammatories (NSAID) Z79.1 ; Unspecified nephritic syndrome with diffuse membranous glomerulonephritis N05.2 ; Primary generalized (osteo)arthritis M15.0 ; Sleep apnea, unspecified G47.30 and Cardiomyopathy, unspecified I42.9 Assessments Encounter Date Diagnosis (ICD Code) Assessment Notes Treatment Notes Treatment Clinical Notes Section Notes 07/03/2024 Chronic kidney disease, stage 3 unspecified (ICD-10 - N18.30) 07/03/2024 Gastro-esophageal reflux disease without esophagitis (ICD-10 - K21.9) 07/03/2024 Chronic obstructive pulmonary disease, unspecified (ICD-10 - J44.9) 07/03/2024 Anemia, unspecified (ICD-10 - D64.9) 07/03/2024 Unspecified urinary incontinence (ICD-10 - R32) 07/03/2024 Essential hypertensi on (ICD-10 - I10) 07/03/2024 skilled nursing (current) use of non-steroidal anti-inflammatories (NSAID) (ICD-10 - Z79.1) 07/03/2024 Unspecified nephriti c syndrome with diffuse membranous glomerulonephritis (ICD-10 - N05.2) 07/03/2024 Primary generalized (osteo)arthritis (ICD-10 - M15.0) 07/03/2024 Sleep apnea, unspecified (ICD-10 - G47.30) 07/03/2024 Cardiomyopathy, unspecified (ICD-10 - I42.9) Plan Of Treatment No Information Progress Notes * SALUD REYEZDOB:1955 (69 yo F)Acc No.[id number]:07/03/2024 Progress Notes Patient: SALUD GARCÍA Provider: Julio Cesar GEE MD, F.A.C.P, F.A.S.N. :1955 A ge:69 Y S ex:Female Date:07/03/2024 Address:[address] [place], [place] [address] Pcp:ARIC HERNANDEZ Subjective: * Chief Complaints: * * Medical History: Objective: * Vitals: Assessment: * Assessment: 1. C hronic kidney disease, stage 3 unspecified - N18.30 (Primary) 2 . G baldo-esophageal reflux disease without esophagitis - K21.9 3 . C hronic obstructive pulmonary disease, unspecified - J44.9 4 . A nemia, unspecified - D64.9 & #160; 5 . U nspecified urinary incontinence - R32 6 . E ssential hypertension - I10 7 . L amie term (current) use of non-steroidal anti-inflammatories (NSAID) - Z79.1 8 . 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 P rimary generalized (osteo)arthritis - M15.0 ? 1 0. S leep apnea, unspecified - G47.30 1 1. C ardiomyopathy, unspecified - I42.9 Plan: * Treatment: * Billing Information: * Visit Code: 69556 Office Visit, New Pt., Level 5. * Procedure Codes: * Electronic signature of Neptali Villagomez MD on 12/09/2024 at 10:51 AM CDT Sign off status: Pending * Provider: Julio Cesar GEE MD, F.A.C.P, F.A.S.N. Date: 0 07/03/2024 Generated for Printing/Faxing/eTransmitting on: 0 12/09/2024 10:51 AM CDT
--- OUTSIDE RECORDS SUMMARY | 2024-07-31 10:30 | XMS_ITS ---
Author Organization [facility] Office Address [address] [place] [address] Care Team Providers Care Vulcanizer Rubber Plate Name Role Phone ARIC HERNANDEZ Primary Care Provider [phone] Emmett Villagomez [phone] Social History Sex Assigned At : Social History Observation Description Sex Assigned At Female Problems Problem Type SNOMED Code ICD Code Onset Dates Problem Status W/U Status Risk Notes Problem Secondary hyperparathyroidism of renal origin (13496316) Secondary hyperparathyroidism of renal origin (N25.81) Active confirmed Problem Vitamin D deficiency (33494144) Vitamin D deficiency, unspecified (E55.9) Active confirmed Problem Attention deficit hyperactivity disorder (282936336) Attention-deficit hyperactivity disorder, unspecified type (F90.9) Active confirmed Encounters Encounter Location Date Provider Diagnosis [place] [facility] [address] [facility] [address] [place] [address] 07/31/2024 Emmett Villagomez Chronic kidney disea se, stage 2 (mild) N18.2 ; Essential hypertension I10 ; Gastro-esophageal reflux disease without esophagitis K21.9 ; Chronic obstructive pulmonary disease, unspecified J44.9 ; Anemia, unspecified D64.9 ; Unspecified urinary incontinence R32 ; retirement (current) use of non-steroidal anti-inflammatories (NSAID) Z79.1 ; Unspecified nephritic syndrome with diffuse membranous glomerulonephritis N05.2 ; Primary generalized (osteo)arthritis M15.0 ; Sleep apnea, unspecified G47.30 ; Cardiomyopathy, unspecified I42.9 ; Secondary hyperparathyroidism of renal origin N25.81 ; Vitamin D deficiency, unspecified E55.9 and Attention-deficit hyperactivity disorder, unspecified type F90.9 Assessments Encounter Date Diagnosis (ICD Code) Assessment Notes Treatment Notes Treatment Clinical Notes Section Notes 07/31/2024 Chronic kidney disea se, stage 2 (mild) (ICD-10 - N18.2) 07/31/2024 Essential hypertensi on (ICD-10 - I10) 07/31/2024 Gastro-esophageal reflux disease without esophagitis (ICD-10 - K21.9) 07/31/2024 Chronic obstructive pulmonary disease, unspecified (ICD-10 - J44.9) 07/31/2024 Anemia, unspecified (ICD-10 - D64.9) 07/31/2024 Unspecified urinary incontinence (ICD-10 - R32) 07/31/2024 retirement (current) use of non-steroidal anti-inflammatories (NSAID) (ICD-10 - Z79.1) 07/31/2024 Unspecified nephriti c syndrome with diffuse membranous glomerulonephritis (ICD-10 - N05.2) 07/31/2024 Primary generalized (osteo)arthritis (ICD-10 - M15.0) 07/31/2024 Sleep apnea, unspecified (ICD-10 - G47.30) 07/31/2024 Cardiomyopathy, unspecified (ICD-10 - I42.9) 07/31/2024 Secondary hyperparathyroidism of renal origin (ICD-10 - N25.81) 07/31/2024 Vitamin D deficiency , unspecified (ICD-10 - E55.9) 07/31/2024 Attention-deficit hyperactivity disorder, unspecified type (ICD-10 - F90.9) Plan Of Treatment No Information Progress Notes * SALUD REYEZDOB:1955 (69 yo F)Acc No.[id number]:07/31/2024 Progress Notes Patient: SALUD GARCÍA Provider: Julio Cesar GEE MD, F.A.C.P, F.A.S.N. :1955 A ge:69 Y S ex:Female Date:07/31/2024 Address:[address] [place], [place] [id number] Pcp:ARIC HERNANDEZ Subjective: * Chief Complaints: * * Medical History: Objective: * Vitals: Assessment: * Assessment: 1. C hronic kidney disease, stage 2 (mild) - N18.2 (Primary) 2 . E ssential hypertension - I10 3 . G baldo-esophageal reflux disease without esophagitis - K21.9 4 . C hronic obstructive pulmonary disease, unspecified - J44.9 5 . A nemia, unspecified - D64.9 6 . U nspecified urinary incontinence - R32 7 . L amie term (current) use of non-steroidal anti-inflammatories (NSAID) - Z79.1 8 . 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 P rimary generalized (osteo)arthritis - M15.0 ?10. S leep apnea, unspecified - G47.30 1 1. C ardiomyopathy, unspecified - I42.9 1 2. S econdary hyperparathyroidism of renal origin - N25.81 13. V itamin D deficiency, unspecified - E55.9 1 4. A ttention-deficit hyperactivity disorder, unspecified type - F90.9 Plan: * Treatment: * Billing Information: * Visit Code: 56247 Office Visit, Est Pt., Level 4. * Procedure Codes: * Electronic signature of Neptali Villagomez MD on 12/09/2024 at 10:52 AM CDT Sign off status: Pending * Provider: Julio Cesar GEE MD, F.A.C.P, F.A.S.N. Date: 0 07/31/2024 Generated for Printing/Faxing/eTransmitting on: 0 12/09/2024 10:52 AM CDT
--- OUTSIDE RECORDS SUMMARY | 2024-09-11 12:30 | XMS_ITS ---
Author Organization [facility] Address [address] [place] [address] Care Team Providers Care Sub Plant Manager Name Role Phone ARIC HERNANDEZ Primary Care Provider [phone] Emmett Villagomez [phone] Social History Sex Assigned At : Social History Observation Description Sex Assigned At Female Problems Problem Type SNOMED Code ICD Code Onset Dates Problem Status W/U Status Risk Notes Problem Chronic kidney disease stage 3A (disorder) (062497571) Chronic kidney disease, stage 3a (N18.31) Active confirmed Encounters Encounter Location Date Provider Diagnosis [place] [facility] [address] [facility] [address] [place] [address] 09/11/2024 Emmett Villagomez Chronic kidney disea se, stage 3a N18.31 ; Essential hypertension I10 ; Gastro-esophageal reflux disease without esophagitis K21.9 ; Chronic obstructive pulmonary disease, unspecified J44.9 ; Anemia, unspecified D64.9 ; Unspecified urinary incontinence R32 ; care home (current) use of non-steroidal anti-inflammatories (NSAID) Z79.1 [...] Treatment Notes Treatment Clinical Notes Section Notes 09/11/2024 Chronic kidney disea se, stage 3a (ICD-10 - N18.31) 09/11/2024 Essential hypertensi on (ICD-10 - I10) 09/11/2024 Gastro-esophageal reflux disease without esophagitis (ICD-10 - K21.9) 09/11/2024 Chronic obstructive pulmonary disease, unspecified (ICD-10 - J44.9) 09/11/2024 Anemia, unspecified (ICD-10 - D64.9) 09/11/2024 Unspecified urinary incontinence (ICD-10 - R32) 09/11/2024 care home (current) use of non-steroidal anti-inflammatories (NSAID) (ICD-10 - Z79.1) 09/11/2024 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 :1955 A ge:69 Y S ex:Female Date:09/11/2024 Address:[address] [place], [place] [id number] Pcp:ARIC HERNANDEZ Subjective: * Chief Complaints: Objective: Assessment: * Assessment: 1. C hronic kidney disease, stage 3a - N18.31 (Primary) 2 . E ssential hypertension - I10 3 . G baldo-esophageal reflux disease without esophagitis - K21.9? 4. C hronic obstructive pulmonary disease, unspecified - J44.9 5. A nemia, unspecified - D64.9 6 . U nspecified urinary incontinence - R32 7 . L amie term (current) use of non-steroidal anti-inflammatories (NSAID) - Z79.1 8 . 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 P rimary generalized (osteo)arthritis - M15.0 1 0. S leep apnea, unspecified - G47.30 1 1. C ardiomyopathy, unspecified - I42.9 1 2. S econdary hyperparathyroidism of renal origin - N25.81 1 3. V itamin D deficiency, unspecified - E55.9 1 4. A ttention-deficit hyperactivity disorder, unspecified type - F90.9 Plan: * Billing Information: * Visit Code: 53205 Office Visit, Est Pt., Level 5. * Procedure Codes: * Electronic signature of Neptali Villagomez MD on 12/09/2024 at 10:51 AM CDT Sign off status: Pending * Provider: Julio Cesar GEE MD, F.A.C.P, F.A.S.N. Date: 0 09/11/2024 Generated for Printing/Faxing/eTransmitting on: 0 12/09/2024 10:51 AM CDT
[2024-12-09 10:19] LABS: Hematocrit 33.1 % (37.0-47.0); Hemoglobin 10.7 g/dL (12.0-15.0); Mean Corpuscular HGB Conc 32.3 g/dl (32-36); Mean Corpuscular Hemoglobin 31.7 pg (26-34); Mean Corpuscular Volume 97.9 fl (80-100); Platelet Count Result 134 k/mm3 (150-375); Red Blood Count 3.38 M/mm3 (4.2-5.4); White Blood Count 4.7 K/mm3 (4.5-10.0)
--- OUTSIDE RECORDS SUMMARY | 2024-12-09 10:51 | XMS_ITS | Patient Health Record ---
Author Organization [facility] Address [facility] [address] [facility] [address] [place] [address] Care Team Providers Care Die Maker Name Role Phone Roxana GARZON, Joshua Primary Care Provider Un available Jigar Hendrix Unavailable [phone] Allergies Allergen (clinical drug ingredient) Drug/Non Drug Allergy documented on EMR Reaction Allergy Type Onset Date Status Penicillin Unknown Drug Allergy Active Substance with sulfonamide structure and antibacterial mechanism of action (substance) Sulfa Antibiotics Unknown Drug Allergy Active Reason For Referral No Information Social History Sex Assigned At : Social History Observation Description Sex Assigned At Female Encounters Encounter [facility] Date [facility] [place] [id number] [facility] [address] [facility] [address] [place] [address] 11/07/2024 Jigar Hendrix Plan Of Treatment Next Appt Details Provider Name:Jigar Hendrix , 01/01/2025 09:00:00 AM, [address] [facility] [address], [facility] [address], [place], [address], Insurance Providers Payer Name Payer Address Payer Phone Subscriber Number Group Number Insured Name Patient Relationship to Insured Coverage Start Date Coverage End Date [employer] [address] [address] [place] [address] [id number] Breonna Rousseau Self - patient is the insured Medical (General) History Medical History History ICD Code Anemia Anxiety disorder Ludmila Back/Neck problems COPD Depression GERD HLD Headaches/Migraines Osteoporosis Sleep apnea
--- OUTSIDE RECORDS SUMMARY | 2024-12-09 10:51 | XMS_ITS | Clinical Summary ---
Author Organization [facility] [employer] Address [address] [place] [address] Care Team Providers Care Water Purifier Operator Name Role Phone Mal Lacey MD Primary Care Provider Source Comments [facility],non-owned Affiliates and Associated Physician Practices is amultiple site organization consisting of ambulatory clinics and hospital sitesin [place], [place], [place] and [place]. This disclosure is being madepursuant to the Care Everywhere program and may not contain all information available regarding this patient. Last updated 17.[facility] Allergies Active Allergy Reactions Criticality Noted Date Comments Penicillins Rash 04/14/2009 Medications * Be aware that medications may not be up to date on this document. Alwaysverify current medications with the patient. fluoxetine (PROZAC) 40 MG capsule Take 60 mg by mouth daily. Active methylphenidate (RITALIN) 10 MG tablet Take 10 mg by mouth 2 times daily before meals. Active methylphenidate ER (METADATE ER; RITALIN SR) 20 MG tablet Take 20 mg by mouth every morning. Active hydrocodone-samia taminophen (VICODIN) 5-500 MG tablet Take 1 Tab [...] drink = 0.6 oz pur e alcohol) Comments Unknown Sex and Gender Information Value Date Recorded Sex Assigned at Not on file Legal Sex Female 9:02 AM BUSINESS AGENT Gender Identity Not on file Sexual Orientation Not on file Occupation Industry Job Start Date Job End Date DISABLED Not on file Not on file Not on file Last Filed Vital Signs Vital Sign Reading Time Taken Comments Blood Pressure 100/51 04/17/2009 9:00 AM BUSINESS AGENT Pulse 75 04/17/2009 9:00 AM BUSINESS AGENT Temperature 37.2 C (98.9 F) 04/17/2009 9:00 AM BUSINESS AGENT Respiratory Rate 20 04/17/2009 9:00 AM BUSINESS AGENT Oxygen Saturation 96% 04/17/2009 9:00 AM BUSINESS AGENT Inhaled Oxygen Concentration - - Weight 81.6 kg (180 lb) 01/09/2013 1:15 PM CDT Height 149.9 cm (4' 11) 01/09/2013 1:15 PM CDT Body Mass Index [...] 2005 ZOSTER VACCINE (1 of 2) 2005 DEPRESSION SCREENING 03/20/2024 MEDICARE AWV CALENDAR YEAR 2024 COVID-19 VACCINE ( - 2023-2 5 season) 2024 INFLUENZA VACCINE (#1) 2024 Respiratory Syncytial Virus (RSV) Vaccine Pt: [...] patient's age to complete this topic Insurance [employer] MEDICARE ADV HMO & PPO SELF PAY NO INSURANCE Member Subscriber Plan / Payer (Ef fective for All Dates) Name:Salud Reyez Member ID:Not on file Relation to Subscriber:Not on file Name:SALUD REYEZ Subscriber ID:Not on file Address: [address] [place], [place] [id number] Payer ID:Not on file Group ID:Not on file Type:Self Pay Address: [place], [place] SELF PAY NO INSURANCE Member Subscriber Plan / Payer (Ef fective for All Dates) Name:Salud Reyez Member ID:Not on file Relation to Subscriber:Not on file Name:SALUD REYEZ Subscriber ID:Not on file Address: [address] [place] [address] Payer ID:Not on file Group ID:Not on file Type:Self Pay Address: [place], [place] Advance Directives * Full Code (Latest Code Status on File) Date Activated Date Inactivated Comments 04/16/2009 2:49 PM 04/17/2009 11:27 PM Care Teams Water Purifier Operator Relationship Specialty Start Date End Date Mal Lacey MD PCP - General 07/21/22
--- OUTSIDE RECORDS SUMMARY | 2024-12-09 10:52 | XMS_ITS | Clinical Summary ---
Author Organization [facility] s Address [address] [place] [address] Care Team Providers Care Biscuit Maker Name Role Phone Yash Schmidt MD Primary Care Provide r Allergies Active Allergy Reactions Criticality Noted Date Comments Clarithromycin Nausea only Low 06/04/2013 Penicillins Rash,Other (See comments) Medium 08/30/2006 Patient can take cephalosporins, as tolerated oral cephalexin for several weeks. 10/15/20 Sulfa (Sulfonamide Antibiotics) Unknown High 02/10/2020 Medications albuterol 0.63 mg/3 mL nebulizer solutionIndications :Acute Asthma Attack Take 3 mL by nebulization 3 (three) times a day [address] (CYMBALTA) 60 mg capsuleIndications: Anxiety with Depression Take 1 capsule by mouth 2 (two) times a day 020 Active sertraline (ZOLOFT) 100 mg tabletIndications:A nxiety with Depression Take 1 tablet by mouth 2 (two) times a day 019 Active metoprolol XL (TOPROL-XL) 50 mg extended release tabletIndications:h ypertension Take 1 tablet by mouth nightly Active naloxone (Narcan) 4 mg/actuation spray,non-aerosolIn dications:risk mitigation for opioid overdose Administer 1 spray into affected nostril(s) as needed Active methylphenidate HCl (RITALIN) 20 mg tabletIndications:A ttention-Deficit Hyperactivity Disorder,Narcolepsy Syndrome Take 1 tablet by mouth 2 (two) times a day 021 Active gabapentin (NEURONTIN) 600 mg tabletIndications:N europathic Pain Take 1 tablet (600 mg total) by mouth 3 (three) times a day 90 tablet Active Additional Information Patient taking differently:600 mg oral2 times daily, Indications: Neuropathic Pain, Informant: Self, Reported on 10/09/2023 famotidine (PEPCID) 40 mg tabletIndications:g astroesophageal reflux disease Take 1 tablet by mouth every morning 022 Active omeprazole (PriLOSEC) 20 mg capsuleIndications: Treatment of Non-Bleeding Gastric Disorder Take 1 capsule by mouth nightly Active albuterol HFA (PROVENTIL HFA,VENTOLIN HFA,PROAIR HFA) 90 mcg/actuation inhalerIndications: Acute Asthma Attack 2 puff 2 times a day as needed for SOB Active busPIRone (BUSPAR) 30 mg tabletIndications:d epression,Generaliz ed Anxiety Disorder Take 1 tablet by mouth 2 (two) times a day Active diltiaZEM CD (CARDIZEM CD) 360 mg 24 hr capsuleIndications: cardiomyopathy Take 1 capsule by mouth nightly Active Trelegy Ellipta 200-62.5-25 mcg inhalerIndications: Maintenance Therapy for Asthma 1 puff every morning Active aspirin 81 mg enteric coated tabletIndications:p revention of thrombosis Take 1 tablet (81 mg total) by mouth 2 (two) times a day 60 tablet Active meloxicam (MOBIC) 15 mg tablet [The details of the medication are not available because there are pending changes by a home health clinician.] 30 tablet Active Additional Information Patient taking differently: 0.5 tabletoralDaily PRN, pain, Indications: Osteoarthritis, Reported on 11/12/2023 gabapentin (NEURONTIN) 600 mg tabletIndications:N europathic Pain Take 600 mg by mouth 3 (three) times a day. Indications: neuropathic pain Active HYDROcodone-acetami nophen (NORCO) 10-325 mg per tabletIndications:P ain Take 1 tablet by mouth every 8 (eight) hours as needed for pain. Indications: pain Active disopyramide (NORPACE) 150 mg capsuleIndications: Paroxysmal Supraventricular Tachycardia,Ventric ular Arrhythmias Take 150 mg by mouth 2 (two) times a day. Indications: paroxysmal supraventricular tachycardia, ventricular arrhythmias, a type of abnormal heart rhythm Active atorvastatin (LIPITOR) 40 mg tabletIndications:h yperlipidemia Take 20 mg by mouth daily. Indications: excessive fat in the blood Active Stimulant Laxative Plus 8.6-50 mgIndications:const ipation TAKE 2 TABLETS BY MOUTH TWICE DAILY 80 tablet 024 Active meloxicam (MOBIC) 15 mg tabletIndications:O steoarthritis Take 15 mg by mouth daily. Indications: joint damage causing pain and loss of function Active ergocalciferol (Vitamin D2) 50,000 unit capsuleIndications: Vitamin D Deficiency Take 50,000 Units by mouth once a week. take for 90 days rx#[id number] [facility] 02/09/24 per LAZARO Pineda entered by Sheela Sanchez RN 02/09/24 Indications: low vitamin D levels Active cholecalciferol (VITAMIN D-3) 50,000 unit capsule Take 1 capsule every week by oral route for 90 days. 024 Active cholecalciferol (VITAMIN D-3) 50,000 unit capsuleIndications: Vitamin D Deficiency Take 50,000 Units by mouth once a week. Indications: low vitamin D levels 024 Active sodium chlor-hypochlorous acid 0.033 % irrigation solution Irrigate with 1 spray as directed daily For wound cleanser 118 mL 025 Active doxycycline hyclate 100 mg capsuleIndications: Bone/Joint Infection TAKE 1 CAPSULE BY MOUTH TWICE A DAY 180 capsule 025 Active cephalexin (KEFLEX) 500 mg capsuleIndications: Bone/Joint Infection TAKE 1 CAPSULE BY MOUTH THREE TIMES A DAY 270 capsule 025 Active Active Problems Problem Noted Date Diagnosed [...] (02/01/2021): Added automatically from request for surgery [id number] Wound drainage 08/13/2020 Overview (08/13/2020): Added automatically from request for surgery [id number] 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 She was changed back to vancomycin [...] D ose, Split, Preservative Free, Intramuscular 12/18/2023 Arideas (J&J) SARS-CoV-2 Vaccination 09/03/2020 Moderna SARS-CoV-2 Monovalent Vaccination (12+ Y RS) 03/11/2021 Surgical History Surgery Date Site/Laterality Comments BACK SURGERY FLUORO GUIDED ASPIRATION HIP LEFT 07/28/2020 Left TOTAL HIP ARTHROPLASTY 03/20/2020 - 03/19/2021 Left INCISION AND DRAINAGE HIP 05/18/2020 - 06/17/2020 I&D L NICHOLE FLUORO GUIDED INJECTION HIP RIGHT 11/16/2020 Right FLUORO GUIDED ASPIRATION HIP LEFT 03/17/2021 Left PA ARTHRP ACETBLR/PROX FEM P ROSTC AGRFT/ALGRFT 04/05/2021 Right [place] FLUORO GUIDED ASPIRATION HIP LEFT 10/09/2023 Left Medical History Medical History Date Comments COPD (chronic obstructive pulmonary disease) Anxiety Depression UTI (urinary tract infection) TMJ [...] on file Legal Sex Female 10:31 PM ELECTRIC MOTOR REPAIR SUPERVISOR Gender Identity Not on file Sexual Orientation Not on file Obstetrics History Para Term AB IAB SAB Ectopic Multiple Livin g Live Births 4 4 Date Outcome GA Total Labor Labor/2nd/3rd Weight Sex Type Anes PTL Marielle A1 A5 Name Clin Para Para Para Para Last Filed Vital Signs Vital Sign Reading Time Taken Comments Blood Pressure 148/76 03/04/2024 9:10 AM ELECTRIC MOTOR REPAIR SUPERVISOR Pulse 78 03/04/2024 9:10 AM ELECTRIC MOTOR REPAIR SUPERVISOR Temperature 36.8 C (98.3 F) 03/04/2024 9:10 AM ELECTRIC MOTOR REPAIR SUPERVISOR Respiratory Rate 18 03/04/2024 9:10 AM ELECTRIC MOTOR REPAIR SUPERVISOR Oxygen Saturation 96% 03/04/2024 9:10 AM ELECTRIC MOTOR REPAIR SUPERVISOR Inhaled Oxygen Concentration - - Weight 76.7 kg (169 lb) 11/03/2023 11:00 PM CDT Height 149.9 cm (4' 11) 11/03/2023 11:00 PM CDT Body Mass Index [...] of 2) 2005 Well Visit 65+ 2020 Osteoporosis Screening-Bone Density Scan 06/21/2024 06/21/2022 Fall Risk Assessment 11/05/2024 11/06/2023 Covid-19 Vaccine ( season) 2024, 09/03/2020 Influenza Vaccine (#1) 2024 12/18/2023, 2014 Medical Devices Implanted Type Area Painter Ordnance Device Identifier Shelf Expiration Date Model / Serial / Lot [employer] [id number] Palacos R High Viscosity Cement 40gm Bone Green - [id number] Implanted:Qty: 1 on 07/30/2020 by Braydon Belcher MD at [facility] Bone Cement Left: Hip [employer] [id number] 06/17/2022 [id number] / / [id number] [employer] [id number] Palacos R High Viscosity Cement 40gm Bone Green - [id number] Implanted:Qty: 2 on 07/30/2020 by Braydon Belcher MD at [facility] Bone Cement Left: Hip [employer] [id number] 01/18/2024 [id number] / / [id number] Spinal Cord Stimulator-04/03 Implanted:04/03 by Louis Fitch (Quantity not on file) Spinal Cord Stimulator Back Medtronic Neuro [id number] / [id number] / Biocomposites [id number] Stimulan Rapid Cure Kit Paste Miller Rod Mill 10cc 20cc Bone Void - [id number] Implanted:Qty: 1 on 08/14/2020 by Ceferino Tellez MD at [facility] Left: Hip [employer] [id number] 02/16/2023 [id number] / / [id number] [employer] [id number] Trilogy 6.5mm 15mm Self Tap Screw Bone - [id number] Implanted:Qty: 1 on 04/05/2021 by Charlene Hines MD at [facility] Right: Hip [employer] [id number] 11/18/2029 [id number] / / [id number] [employer] [id number] Trilogy 6.5mm 35mm Self Tap Screw Bone - [id number] Implanted:Qty: 1 on 04/05/2021 by Charlene Hines MD at [facility] Right: Hip [employer] [id number] 10/30/2030 [id number] / / [id number] [employer] [id number] 40mm Lumen Hip F Liner Acetabular Longevity Sterile Latex Free - [id number] Implanted:Qty: 1 on 04/05/2021 by Charlene Hines MD at [facility] Right: Hip [employer] [id number] 01/05/[id number] / / [id number] [employer] [id number] Taperloc 128mm Type 1 Press Fit Full Profile Hip 133d 4 Standard - [id number] Implanted:Qty: 1 on 04/05/2021 by Charlene Hines MD at [facility] Right: Hip [employer] [id number] 02/26/2030 [id number] / / [id number] [employer] [id number] Trilogy 6.5mm 20mm Self Tap Screw Bone - [id number] Implanted:Qty: 1 on 04/05/2021 by Charlene Hines MD at [facility] Right: Hip [employer] [id number] 07/11/2030 [id number] / / [id number] [employer] 650-1058 G7 40mm Hip Head Femoral Biolox Delta Biolox Option - [id number] Implanted:Qty: 1 on 04/05/2021 by Charlene Hines MD at [facility] Right: Hip [employer] 05/25/2030 650-1058 / / [id number] [employer] 650-1064 G7 Type 1 Hip -6mm Offset Taper Sleeve Centering Titanium Biolox - [id number] Implanted:Qty: 1 on 04/05/2021 by Charlene Hines MD at [facility] Right: Hip [employer] 07/20/2030 650-1064 / / [id number] [employer] [id number] G7 54mm Multihole Hip F Hemisphere Offset Shell Acetabular - [id number] Implanted:Qty: 1 on 04/05/2021 by Charlene Hines MD at [facility] Right: Hip [employer] [id number] 07/21/2030 [id number] / / [id number] [employer] [id number] Trilogy 6.5mm 15mm Self Tap Screw Bone - [id number] Implanted:Qty: 1 on 04/05/2021 by Charlene Hines MD at [facility] Right: Hip [employer] [id number] 06/26/2030 [id number] / / [id number] [employer] Liner Acetabular Hip Longevity [id number] Polyethylene [id number] - [id number] Implanted:Qty: 1 on 11/03/2023 at [facility] Left: Hip [employer] 02/13/2028 [id number] / / [id number] [employer] G7 56mm Hip F Shell Acetabular [place] Sterile [id number] - [id number] Implanted:Qty: 1 on 11/03/2023 at [facility] Left: Hip [employer] 05/15/2033 [id number] / / [id number] Allosource 1-4mm Freeze Dried Crushed Graft 30ml Bone Cancellous [id number] - [id number] Implanted:Qty: 1 on 11/03/2023 at [facility] Left: Hip [employer] 11/15/2027 [id number] / / [id number] [employer] Trilogy 6.5mm 30mm Self Tap Acetabular Cortical Screw Bone [id number] - [id number] Implanted:Qty: 1 on 11/03/2023 at [facility] Left: Hip [employer] 03/08/2033 [id number] / / [id number] [employer] Trilogy 6.5mm 25mm Self Tap Screw Bone [id number] - [id number] Implanted:Qty: 1 on 11/03/2023 at [facility] Left: Hip [employer] 04/17/2033 [id number] / / [id number] [employer] Trilogy 6.5mm 30mm Self Tap Acetabular Cortical Screw Bone [id number] - [id number] Implanted:Qty: 1 on 11/03/2023 at [facility] Left: Hip [employer] 05/19/2033 [id number] / / [id number] [employer] Trilogy 6.5mm 15mm Self Tap Screw Bone [id number] - [id number] Implanted:Qty: 1 on 11/03/2023 at [facility] Left: Hip [employer] 05/22/2033 [id number] / / [id number] [employer] Trilogy 6.5mm 20mm Self Tap Screw Bone [id number] - [id number] Implanted:Qty: 1 on 11/03/2023 at [facility] Left: Hip [employer] 07/04/2033 [id number] / / [id number] [employer] G7 44mm 2 Mobility Hip F Liner Acetabular [id number] - [id number] Implanted:Qty: 1 on 11/03/2023 at [facility] Left: Hip [employer] 07/20/2033 [id number] / / [id number] [employer] Chowdary Sl Revision 18mm 190mm Distal Fill Hip 135d 14 Stem [id number] - [id number] Implanted:Qty: 1 on 11/03/2023 at [facility] Left: Hip [employer] 12/17/2024 [id number] / / [id number] [employer] Trilogy It Continuum 28mm Hip Acetabulum -3.5mm 03/02 Small Head [id number] - [id number] Implanted:Qty: 1 on 11/03/2023 at [facility] Left: Hip [employer] 07/12/2033 [id number] / / [id number] Explanted Type Area Painter Ordnance Device Identifier Shelf Expiration Date Model / Serial / Lot [employer] [id number] Versys Advocate 11mm 9mm 120mm 32mm Primary Cemented Satin Finish - [id number] Implanted:Qty: 1 on 07/30/2020 by Braydon Belcher MD at [facility] Explanted:Qty: 1 on 11/03/2023 by Charlene Hines MD at [facility] Left: Hip [employer] [id number] 04/19/2029 [id number] / / [id number] Liner Actblr G7 [place]andalia C 32mm E1 Hip Constrain - [id number] Implanted:Qty: 1 on 07/30/2020 by Braydon Belcher MD at [facility] Explanted:Qty: 1 on 11/03/2023 by Charlene Hines MD at [facility] Left: Hip [employer] 05/13/2024 [id number] / / [id number] [employer] [id number] [place] Hip +6mm 03/02 Taper Head Femoral Sterile Latex Free - [id number] Implanted:Qty: 1 on 07/30/2020 by Braydon Belcher MD at [facility] Explanted:Qty: 1 on 11/03/2023 by Charlene Hines MD at [facility] Left: Hip [employer] 09/16/2029 [id number] / / [id number] Insurance [facility] MEDICARE HMO HUMANA CHOICE MEDICARE PPO HU[employer]NA MEDICARE HMO Advance Directives For more information, please contact: [phone] * Full Code (Latest Code Status on [...] 3:42 PM 08/04/2020 4:20 PM Care Teams Biscuit Maker Relationship Specialty Start Date End Date Yash Schmidt MD [address] [place] [address] PCP - General Internal Medicine 07/20/23
--- OUTSIDE RECORDS SUMMARY | 2024-12-09 10:52 | XMS_ITS | Encounter Summary ---
Author Organization [facility] Healthcare Address [address] [place] [address] Care Team Providers Care Senior Business Process Analyst Name Role Phone Yash Schmidt MD Primary Care Provide r Encounter Details Date Type Department Care Team (Late st Contact Info) Description 09/02/2020 Telephone Infectious Diseases Aletha Guajardo, PA [address] [facility] [address] [place], [place] [id number] Social History Tobacco Use Types Packs/Day Years [...] on file Legal Sex Female 10:31 PM DETENTION SERGEANT Gender Identity Not on file Sexual Orientation Not on file documented as of this encounter Plan of Treatment Not on file documented as of this encounter Visit Diagnoses Not on filedocumented in this encounter Additional Health Concerns Infection Onset Date Last Indicated Resolved Time 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
--- OUTSIDE RECORDS SUMMARY | 2024-12-09 10:52 | XMS_ITS | Patient Health Record ---
Author Organization [facility] Address [address] [place] [address] Care Team Providers Care Ethernet Network Architect Name Role Phone ARIC HERNANDEZ Primary Care Provider Hernando Emmett Unavailable [phone] Reason For Referral No Information Medications Medication SIG (Take, Route, Frequency, Duration) Notes Start Date End Date Status Losartan Potassium 25 MG 1 tablet Orally Once a day; Duration: 90 day(s) 07/31/2024 Active Calcitriol 0.25 MCG 1 capsule Orally Onc e a day; Duration: 90 day(s) 07/31/2024 04/26/2025 Active Social History Sex Assigned At : Social History Observation Description Sex Assigned At Female Problems Problem Type SNOMED Code ICD Code Onset Dates Problem Status W/U Status Risk Notes Problem Anemia (255824145) Anemia, unspe cified (D64.9) Active confirmed Problem Vitamin D deficiency (22104915) Vitamin D deficiency, unspecified (E55.9) Active confirmed Problem Attention deficit hyperactivity disorder (468100801) Attention-deficit hyperactivity disorder, unspecified type (F90.9) Active confirmed Problem Sleep apnea (94748115) Sleep apnea, unspecified (G47.30) Active confirmed Problem Cardiomyopathy (07063183) Cardiomyopathy, unspecified (I42.9) Active confirmed Problem Chronic obstructive pulmonary disease (83156701) Chronic obstructive pulmonary disease, unspecified (J44.9) Active confirmed Problem Gastro-esophageal reflux disease without esophagitis (584161338) Gastro-esophageal reflux disease without esophagitis (K21.9) Active confirmed Problem Primary generalised osteoarthritis (053941356) Primary generalized (osteo)arthritis (M15.0) Active confirmed Problem 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 confirmed Problem Secondary hyperparathyroidism of renal origin (54717713) Secondary hyperparathyroidism of renal origin (N25.81) Active confirmed Problem Urinary incontinence (803842259) Unspecified urinary incontinence (R32) Active confirmed Problem intermediate current us e of non-steroidal anti-inflammatory drug (448260434051003) intermediate (current) use of non-steroidal anti-inflammatories (NSAID) (Z79.1) Active confirmed Problem Essential hypertension (27467188) Essential hypertension (I10) Active confirmed Problem Chronic kidney disease stage 3A (disorder) (381382196) Chronic kidney disease, stage 3a (N18.31) Active confirmed Encounters Encounter Location Date Provider Diagnosis [facility] [address] [place] [address] 07/03/2024 Emmett Villagomez Chronic kidney disea se, stage 3 unspecified N18.30 ; Gastro-esophageal reflux disease without esophagitis K21.9 ; Chronic obstructive pulmonary disease, unspecified J44.9 ; Anemia, unspecified D64.9 ; Unspecified urinary incontinence R32 ; Essential hypertension I10 ; marine oil terminal superintendent (current) use of non-steroidal anti-inflammatories (NSAID) Z79.1 ; Unspecified nephritic syndrome with diffuse membranous glomerulonephritis N05.2 ; Primary generalized (osteo)arthritis M15.0 ; Sleep apnea, unspecified G47.30 and Cardiomyopathy, unspecified I42.9 [facility] [address] [place] [address] 07/31/2024 Emmett Villagomez Chronic kidney disea se, stage 2 (mild) N18.2 ; Essential hypertension I10 ; Gastro-esophageal reflux disease without esophagitis K21.9 ; Chronic obstructive pulmonary disease, unspecified J44.9 ; Anemia, unspecified D64.9 ; Unspecified urinary incontinence R32 ; intermediate (current) use of non-steroidal anti-inflammatories (NSAID) Z79.1 ; Unspecified nephritic syndrome with diffuse membranous glomerulonephritis N05.2 ; Primary generalized (osteo)arthritis M15.0 ; Sleep apnea, unspecified G47.30 ; Cardiomyopathy, unspecified I42.9 ; Secondary hyperparathyroidism of renal origin N25.81 ; Vitamin D deficiency, unspecified E55.9 and Attention-deficit hyperactivity disorder, unspecified type F90.9 [facility] [address] [place] [address] 09/11/2024 Emmett Villagomez Chronic kidney disea se, stage 3a N18.31 ; Essential hypertension I10 ; Gastro-esophageal reflux disease without esophagitis K21.9 ; Chronic obstructive pulmonary disease, unspecified J44.9 ; Anemia, unspecified D64.9 ; Unspecified urinary incontinence R32 ; marine oil terminal superintendent (current) use of non-steroidal anti-inflammatories (NSAID) Z79.1 ; Unspecified nephritic syndrome with diffuse membranous glomerulonephritis N05.2 ; Primary generalized (osteo)arthritis M15.0 ; Sleep apnea, unspecified G47.30 ; Cardiomyopathy, unspecified I42.9 ; Secondary hyperparathyroidism of renal origin N25.81 ; Vitamin D deficiency, unspecified E55.9 and Attention-deficit hyperactivity disorder, unspecified type F90.9 [facility] [address] [address] 07/31/2024 Emmett Villagomez Assessments Encounter Date Diagnosis (ICD Code) Assessment Notes Treatment Notes Treatment Clinical Notes Section Notes 07/03/2024 Chronic kidney disea se, stage 3 unspecified (ICD-10 - N18.30) 07/31/2024 Chronic kidney disea se, stage 2 (mild) (ICD-10 - N18.2) 09/11/2024 Chronic kidney disea se, stage 3a (ICD-10 - N18.31) 09/11/2024 Essential hypertensi on (ICD-10 - I10) 07/31/2024 Essential hypertensi on (ICD-10 - I10) 07/03/2024 Gastro-esophageal reflux disease without esophagitis (ICD-10 - K21.9) 07/03/2024 Chronic obstructive pulmonary disease, unspecified (ICD-10 - J44.9) 07/31/2024 Gastro-esophageal reflux disease without esophagitis (ICD-10 - K21.9) 09/11/2024 Gastro-esophageal reflux disease without esophagitis (ICD-10 - K21.9) 09/11/2024 Chronic obstructive pulmonary disease, unspecified (ICD-10 - J44.9) 07/03/2024 Anemia, unspecified (ICD-10 - D64.9) 07/31/2024 Chronic obstructive pulmonary disease, unspecified (ICD-10 - J44.9) 07/31/2024 Anemia, unspecified (ICD-10 - D64.9) 07/03/2024 Unspecified urinary incontinence (ICD-10 - R32) 09/11/2024 Anemia, unspecified (ICD-10 - D64.9) 07/31/2024 Unspecified urinary incontinence (ICD-10 - R32) 07/03/2024 Essential hypertensi on (ICD-10 - I10) 09/11/2024 Unspecified urinary incontinence (ICD-10 - R32) 09/11/2024 intermediate (current) use of non-steroidal anti-inflammatories (NSAID) (ICD-10 - Z79.1) 07/03/2024 marine oil terminal superintendent (current) use of non-steroidal anti-inflammatories (NSAID) (ICD-10 - Z79.1) 07/31/2024 marine oil terminal superintendent (current) use of non-steroidal anti-inflammatories (NSAID) (ICD-10 - Z79.1) 07/31/2024 Unspecified nephriti c syndrome with diffuse membranous glomerulonephritis (ICD-10 - N05.2) 07/03/2024 Unspecified nephriti c syndrome with diffuse membranous glomerulonephritis (ICD-10 - N05.2) 09/11/2024 Unspecified nephriti c syndrome with diffuse membranous glomerulonephritis (ICD-10 - N05.2) 07/03/2024 Primary generalized (osteo)arthritis (ICD-10 - M15.0) 09/11/2024 Primary generalized (osteo)arthritis (ICD-10 - M15.0) 07/31/2024 Primary generalized (osteo)arthritis (ICD-10 - M15.0) 09/11/2024 Sleep apnea, unspecified (ICD-10 - G47.30) 07/03/2024 Sleep apnea, unspecified (ICD-10 - G47.30) 07/31/2024 Sleep apnea, unspecified (ICD-10 - G47.30) 07/31/2024 Cardiomyopathy, unspecified (ICD-10 - I42.9) 07/03/2024 Cardiomyopathy, unspecified (ICD-10 - I42.9) 09/11/2024 Cardiomyopathy, unspecified (ICD-10 - I42.9) 07/31/2024 Secondary hyperparathyroidism of renal origin (ICD-10 - N25.81) 09/11/2024 Secondary hyperparathyroidism of renal origin (ICD-10 - N25.81) 09/11/2024 Vitamin D deficiency , unspecified (ICD-10 - E55.9) 07/31/2024 Vitamin D deficiency , unspecified (ICD-10 - E55.9) 07/31/2024 Attention-deficit hyperactivity disorder, unspecified type (ICD-10 - F90.9) 09/11/2024 Attention-deficit hyperactivity disorder, unspecified type (ICD-10 - F90.9) Plan Of Treatment No Information
--- OUTSIDE RECORDS SUMMARY | 2024-12-09 10:52 | XMS_ITS | Encounter Summary ---
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
--- OUTSIDE RECORDS SUMMARY | 2024-12-09 10:52 | XMS_ITS | Clinical Summary ---
Author Organization [facility] Address [address] [place] [address] Phone Care Team Providers Care Core Stacker Name Role Phone Mal Lacey MD Primary Care Provider [phone] Social History Tobacco Use Types Packs/Day Years [...] Virus (HCV) Screening 1955 TdaP Immunization 1955 Cologuard 2000 Colonoscopy 2000 Colorectal Cancer Screening 2000 Immunochemical Fecal Occult Blood 2000 Pneumococcal Immunization (5 0+ years) (1 of 1 - PCV) 2005 Zoster Immunization (1 of 2) 2005 Influenza Immunization (#1) 2024 01/15/2015 SARS-COV-2 Immunization (3 - season) 2024 03/11/2021, 09/03/2020 Respiratory Syncytial Virus (RSV) Immunization (Adult) (1 - 1-dose 75+ series) 2030 Hepatitis B Immunization Aged Out No longer eligible based on patient's age to complete this topic Human Papillomavirus (HPV) Immunization Aged Out No longer eligible b ased on patient's age to complete this topic Meningococcal Immunization (ACWY) Aged Out No longer eligible b ased on patient's age to complete this topic Rotavirus Immunization Aged Out No lo nger eligible based on patient's age to complete this topic Insurance MEDICARE C [employer] Care Teams Core Stacker Relationship Specialty Start Date End Date Mal Lacey MD PCP - General Internal Medicine 09/21/18
--- OUTSIDE RECORDS SUMMARY | 2024-12-09 10:52 | XMS_ITS | Clinical Summary ---
Author Organization [facility] Address [address] [place] [address] Care Team Providers Care Chef [place] Name Role Phone Unavailable Primary Care Provider [...] Encounters Date Type Department Care Team Description 12/03/2024 External Device Data [facility] ABSTRACTION Provider, Abstract 11/26/2024 External Device Data [facility] ABSTRACTION Provider, Abstract 10/23/2024 External Device Data [facility] ABSTRACTION Provider, Abstract 10/02/2024 External Device Data [facility] ABSTRACTION Provider, Abstract from Last 3 Months Family History Medical [...] Sign Reading Time Taken Comments Blood Pressure 110/69 07/19/2024 10:56 AM CDT Pulse 86 07/19/2024 10:56 AM CDT Temperature 35.9 C (96.7 F) 07/19/2024 10:56 AM CDT Respiratory Rate 15 07/19/2024 10:56 AM CDT Oxygen Saturation 91% 07/19/2024 10:56 AM CDT Inhaled Oxygen Concentration - - Weight 77.8 kg (171 lb 9.6 oz) 07/19/2024 10:56 AM CDT Height 147.3 cm (4' 10) 06/27/2024 1:47 PM CDT Body Mass Index 35.86 06/27/2024 1:47 PM CDT Plan of Treatment Upcoming Encounters Date Type Department Care Team (Late st Contact Info) Description 12/13/2024 12:00 PM CDT Office Visit [facility] Oncology and Hematology [facility] [address] [facility] [address] [place] [address] Reyes Yarbrough MD [address] [facility] [address] [place] [address] Health Maintenance Due Date Last Done Comments Pre-Diabetes and Diabetes Screening 1955 DTAP/TDAP/TD VACCINES (1 - Tdap) 1974 BREAST CANCER SCREENING 1995 FIT-DNA Q 3 years 2000 FIT/FOBT Q 1 year 2000 Flex Sig/CT Colonography Q 5 years 2000 ZOSTER VACCINE (1 of 2) 2005 RSV VACCINE (60+ or ) (1 - Risk 60-74 years 1-dose series) 2015 OSTEOPOROSIS SCREENING 2020 Medicare Advantage ([place]) Prev entative Visit/Annual Wellness Visit 03/20/2024 10/30/2023 COLORECTAL SCREENING 08/05/2024 08/05/2014 Colorectal Cancer Screening 08/05/2024 INFLUENZA VACCINE (#1) 2024 12/18/2023, 2014 COVID-19 Vaccine ( - season) 2024, 09/03/2020 PNEUMOCOCCAL VACCINE 50+ YEARS Completed 05/15/2023 Insurance [facility]
[2024-12-09 12:18] LABS: Iron 53 ug/dL (37-170)
[2024-12-09 12:21] LABS: Anion Gap 8 mmol/L (4-12); Blood Urea Nitrogen 17 mg/dL (7-17); Calcium 9.2 mg/dL (8.4-10.2); Carbon Dioxide 29 mmol/L (22-30); Chloride 102 mmol/L (98-107); Estimated Glomerular Filt Rate > 60; Glucose 180 mg/dL (65-110); Potassium 3.6 mmol/L (3.4-5.0); Sodium 139 mmol/L (137-145)
[2024-12-09 12:27] LABS: Percent Iron Saturation 17 % (20-50)
[2024-12-09 12:59] LABS: Ferritin 38.90 ng/mL (11.1-264)
[2024-12-09 13:32] LABS: Vitamin B12 427.0 pg/mL (239-931)
== END 2024-12-09 09:51 | disposition home or self-care (01) ==
PROVIDERS: PCP Internal Medicine; Visit Provider Internal Medicine Hematology & Oncology
DX: D64.9 Anemia, unspecified (principal)
CPT/HCPCS: 36415; 80048; 82607; 82728; 82746; 83540; 83550; 85027